=== PATIENT | female | born 1990 | race Caucasian/White ===

== ENCOUNTER → 2023-03-10 08:47 | Outpatient (BNVA) | payer OTHER, SELFPAY | PROVIDERS: PCP Family Medicine; Visit Provider Physician Assistant ==

== ENCOUNTER 2023-04-03 08:01 | Outpatient (AMB) | payer OTHER, SELFPAY ==
--- NOTE | 2023-04-03 12:13 | A.OFFVIS_ITS ---
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 HPI Details Start time: 12.19pm, End time: 12.50pm ?I spent 26 minutes speaking with the patient on the phone plus an additional 5 minutes reviewing and updating records for a total of 31 minutes HPI Comments History of Present Illness Details Previous weight loss efforts: Gym, self diets Wakes up: 7am, Sleeps: 11pm Breakfast: protein shake Lunch: 1pm (sandwich or shake) Dinner: 5pm (steak, chicken, vegetables) Snacks: protein bar (after breakfast and after lunch) Exercise: none Fluids: Coffee: 20oz (Kush Donuts), tea: rarely, soda: none, juice: none, ETOH: less than 1/week PFSH Medical History (Updated 04/03/23 @ 12:17 by Galdino Stone MD) Anxiety Bipolar 1 disorder Depression GERD (gastroesophageal reflux disease) Insomnia Morbid obesity Sciatica Sleep apnea treated with continuous positive airway pressure (CPAP) Surgical History (Updated 03/10/23 @ 09:13 by Lissette Dowling CMA) History of surgery on arm Hx of section Hx of wisdom tooth extraction Social History (Updated 03/10/23 @ 09:12 by Lissette Dowling CMA) Alcohol intake: current Alcohol intake frequency: holidays/special occasions only Patient Tobacco Use Status: Never used Tobacco Assessment & Plan Assessment & Plan (1) Morbid obesity: Code(s): E66.01 - Morbid (severe) obesity due to excess calories Plan: 1.? Plan for lap sleeve gastrectomy. If diaphragmatic or ventral hernias are present at time of surgery, these will be repaired laparoscopically as well. Risks and complications were discussed in detail including possible conversion to an open procedure, anastomotic leak, bleeding requiring transfusion, small bowel obstruction, , DVT and pulmonary embolism, cardiac, or pulmonary complications, as fdc complications such as anastomotic ulcer, insufficient weight loss and vitamin deficiencies. I emphasized the importance of close follow-up, adherence to instructions and good communication. 2. Nutritional counseling. Start with ONE plant-based organic ORGAIN protein (buy at [employer], [employer], [employer]) shakes (HALF scoop in 8oz low fat unsweetened almond milk each) at 8am-10am and one more ORGAIN shake (ONE scoop in 8oz almond milk) at 11am-1pm, 1 protein bar (Zone Perfect protein bars, buy at [employer] ?[employer], [employer], or [employer]) at 2pm-4pm, dinner at 5pm (8 forks of protein and 8 forks of salad/vegetables) and one more protein bar after dinner at 7pm- 9pm. If you feel hungry, please add another HALF protein bar at 10pm-11pm. Meal to include lean meat (beef, fish, pork, turkey, chicken), or ukrainian yogurt, or egg whites, or beans with a salad with olive oil and fruits (berries, pears, apples, kiwi). Avoid salt, breads, potatoes, rice, pasta, desserts. 3. Each shake would be drunk slowly, like coffee in a period of 2 hours. You may add your coffee into your shakes, if flavors match. 4. Cut each bar in 4 pieces and eat each piece in 30min ?to make each bar last 2 hours. 5. I emphasized the importance of measuring accurately the food portion and measure it when serving the food in plate 6. The meal portions include 8 full-size forks of meat and 8 full-size forks of salad. You always eat the meat portion but you can replace up to 4 forks for salad/vegetables with rice, potatoes or pasta, or a fruit ?if you like. The less you do it the better weight loss will be. 7. One full-size fork is what it can be scooped on the fork without falling aside and not what can be bit with the fork. Use regular forks like those you find in a typical restaurant. 8.? Please send me weight measurements as soon as possible and then once a week. Always include your diet and exercise plan. 9. Start walking outside daily, tracking calories with a goal of 300 calories per day, daily. Goal is to burn 2000 calories per week on active walking. Goal is to burn 2000 calories per week on exercise, which means either 300 calories daily, or 400 calories 5 days per week, or 500 calories 4 days per week, or 650 calories 3 days per week. 10. Alternatively purchase a stationary bike, elliptical or treadmill at home that can track calories. Let me know if you do so I can give you an exercise plan. 11.?It is important of avoiding and for at least 18 months postoperatively and has been discussed at the infosession. 12. Goal is to lose at least 1.5-2lbs per week 13. Goal to lose 10% of your weight before surgery, which is about 22lbs. Ultimate weight goal: 197lbs before surgery 14. Please follow the diet plan exactly without any change. If you don't like something about the plan or you feel hungry you need to communicate with me so I can help you revise the plan. You should not change the plan yourself. (2) Sleep apnea treated with continuous positive airway pressure (CPAP): Code(s): G47.30 - Sleep apnea, unspecified (3) GERD (gastroesophageal reflux disease): Code(s): K21.9 - Gastro-esophageal reflux disease without esophagitis Orders: Orders Vitamin B12 and Folate Today E66.01 - Morbid (severe) obesity due to excess calories, G47.30 - Sleep apnea, unspecified, K21.9 - Gastro-esophageal reflux disease without esophagitis Comprehensive Met. Panel Today E66.01 - Morbid (severe) obesity due to excess calories, G47.30 - Sleep apnea, unspecified, K21.9 - Gastro-esophageal reflux disease without esophagitis C Reactive Protein Today E66.01 - Morbid (severe) obesity due to excess calories, G47.30 - Sleep apnea, unspecified, K21.9 - Gastro-esophageal reflux disease without esophagitis Ferritin Today E66.01 - Morbid (severe) obesity due to excess calories, G47.30 - Sleep apnea, unspecified, K21.9 - Gastro-esophageal reflux disease without esophagitis Hemoglobin A1c Today E66.01 - Morbid (severe) obesity due to excess calories, G47.30 - Sleep apnea, unspecified, K21.9 - Gastro-esophageal reflux disease without esophagitis Insulin Today E66.01 - Morbid (severe) obesity due to excess calories, G47.30 - Sleep apnea, unspecified, K21.9 - Gastro-esophageal reflux disease without esophagitis IRON PROFILE Today E66.01 - Morbid (severe) obesity due to excess calories, G47.30 - Sleep apnea, unspecified, K21.9 - Gastro-esophageal reflux disease without esophagitis Lipid Panel Today E66.01 - Morbid (severe) obesity due to excess calories, G47.30 - Sleep apnea, unspecified, K21.9 - Gastro-esophageal reflux disease without esophagitis PTHI Today E66.01 - Morbid (severe) obesity due to excess calories, G47.30 - Sleep apnea, unspecified, K21.9 - Gastro-esophageal reflux disease without esophagitis TSH reflex Free T4 Today E66.01 - Morbid (severe) obesity due to excess calories, G47.30 - Sleep apnea, unspecified, K21.9 - Gastro-esophageal reflux disease without esophagitis Vitamin A Today E66.01 - Morbid (severe) obesity due to excess calories, G47.30 - Sleep apnea, unspecified, K21.9 - Gastro-esophageal reflux disease without esophagitis Vitamin B1 Today E66.01 - Morbid (severe) obesity due to excess calories, G47.30 - Sleep apnea, unspecified, K21.9 - Gastro-esophageal reflux disease without esophagitis Vitamin D 25-OH Total Today E66.01 - Morbid (severe) obesity due to excess calories, G47.30 - Sleep apnea, unspecified, K21.9 - Gastro-esophageal reflux disease without esophagitis Zinc Today E66.01 - Morbid (severe) obesity due to excess calories, G47.30 - Sleep apnea, unspecified, K21.9 - Gastro-esophageal reflux disease without esophagitis ECG 12 lead EKG Today E66.01 - Morbid (severe) obesity due to excess calories, G47.30 - Sleep apnea, unspecified, K21.9 - Gastro-esophageal reflux disease without esophagitis FL upper GI w air Today E66.01 - Morbid (severe) obesity due to excess calories, G47.30 - Sleep apnea, unspecified, K21.9 - Gastro-esophageal reflux disease without esophagitis Complete Blood Count Auto Diff Today E66.01 - Morbid (severe) obesity due to excess calories, G47.30 - Sleep apnea, unspecified, K21.9 - Gastro-esophageal reflux disease without esophagitis H Pylori Breath Test Today E66.01 - Morbid (severe) obesity due to excess calories, G47.30 - Sleep apnea, unspecified, K21.9 - Gastro-esophageal reflux disease without esophagitis US abdomen comp w elastography Today E66.01 - Morbid (severe) obesity due to excess calories, G47.30 - Sleep apnea, unspecified, K21.9 - Gastro-esophageal reflux disease without esophagitis XR chest 2V Today E66.01 - Morbid (severe) obesity due to excess calories, G47.30 - Sleep apnea, unspecified, K21.9 - Gastro-esophageal reflux disease without esophagitis Referrals Behavioral Health Referral E66.01 - Morbid (severe) obesity due to excess calories, G47.30 - Sleep apnea, unspecified, K21.9 - Gastro-esophageal reflux disease without esophagitis Nutrition/Dietitian Referral E66.01 - Morbid (severe) obesity due to excess calories, G47.30 - Sleep apnea, unspecified, K21.9 - Gastro-esophageal reflux disease without esophagitis Telehealth Telehealth Location of provider rendering services: practice address Location of patient: address on file Patient Identification confirmed using: Name, : Yes Telehealth method: voice only Patient verbally consented to treatment: Yes Patient verbally consented to billing insurance company: Yes Patient informed of any privacy concerns related to visit: Yes Minutes spent on Phone/Video with Pt.: 31 Coding Level of Care Code Tele [facility] Pt Level 3 (38472) Diagnoses Morbid obesity E66.01 Sleep apnea treated with continuous positive airway pressure (CPAP) G47.30 GERD (gastroesophageal reflux disease) K21.9 Time Spent (min) 31
[2023-04-03 12:27] VITALS: BMI 40.1
== END 2023-04-03 12:50 | disposition home or self-care (01) ==
PROVIDERS: PCP Family Medicine; Visit Provider Surgery
DX: E66.01 Morbid (severe) obesity due to excess calories (principal); Z68.41 Body mass index [BMI] 40.0-44.9, adult; G47.30 Sleep apnea, unspecified; K21.9 Gastro-esophageal reflux disease without esophagitis
CPT/HCPCS: 99203

== ENCOUNTER → 2023-04-03 08:01 | Outpatient (BNVA) | payer OTHER, SELFPAY | PROVIDERS: PCP Family Medicine; Visit Provider Surgery ==

== ENCOUNTER 2023-04-06 09:10 | Outpatient (REF) | payer OTHER, SELFPAY ==
--- NOTE | ~2023-04-06 | XR_ITS ---
EXAMINATION: XR CHEST CLINICAL INFORMATION: Morbid obesity. COMPARISON: 12/22/2016. TECHNIQUE: 2 views of the chest were obtained. FINDINGS: The cardiomediastinal silhouette is normal. There is no focal lung consolidation or pleural effusion. The bony structures and soft tissues are unremarkable. XR/XR chest 2V IMPRESSION: No active cardiopulmonary disease.
--- NOTE | 2023-04-06 09:15 | ECG_ITS ---
Test Reason : E66.01 Blood Pressure : / mmHG Vent. Rate : 089 BPM Atrial Rate : 089 BPM P-R Int : 134 ms QRS Dur : 074 ms QT Int : 376 ms P-R-T Axes : 058 059 048 degrees QTc Int : 457 ms Normal sinus rhythm Normal ECG No previous ECGs available Referred By: Galdino Stone Electronically Signed By:KIRK DC
[2023-04-06 09:30] LABS: MANUAL DIFF FLAG NO
[2023-04-06 10:05] LABS: Basophils Percent Auto 0.5 % (0-2); Eosinophils Absolute Auto 0.4 X10*3/uL (0.0-0.4); Eosinophils Percent Auto 6.6 % (0-4); Hematocrit 42.9 % (37.0-47.0); Imm Gran Abs Auto 0.03 X10*3/uL (0.00-0.03); Imm Gran Pct Auto 0.5 % (0.0-0.4); Lymphocytes Absolute Auto 1.2 X10*3/uL (1.2-4.9); Lymphocytes Percent Auto 18.5 % (20-40); Mean Corpuscular HGB Conc 32.6 g/dl (31.0-35.0); Mean Corpuscular Hemoglobin 29.2 pg (27.0-33.0); Mean Corpuscular Volume 89.4 fL (80.0-98.0); Monocytes Absolute Auto 0.4 X10*3/uL (0.1-1.2); Neutrophils Absolute Auto 4.4 x10*3/uL (2.0-8.3); Neutrophils Percent Auto 67.9 % (45-73); Platelet Count 216 X10*3/uL (160-400); Red Cell Distribution Width 12.3 % (11.0-16.0); White Blood Count 6.5 X10*3/uL (4.8-10.8)
[2023-04-06 10:27] LABS: Estimated Average Glucose 97 mg/dL
[2023-04-06 10:54] LABS: Alanine Aminotransferase 34 U/L (0-31); Albumin Level 4.3 g/dL (3.5-5.0); Alkaline Phosphatase 77 U/L (39-117); Anion Gap 12 (12-20); Aspartate Amino Transferase 20 U/L (5-31); Bilirubin Total 0.7 mg/dL (0.0-1.0); Blood Urea Nitrogen 11 mg/dL (9-16); C Reactive Protein 0.93 mg/dL (< or = 0.50); Calcium 9.3 mg/dL (8.4-10.2); Carbon Dioxide 24 mmol/L (22-29); Chloride 108 mmol/L (96-108); Cholesterol 194 mg/dL (<200); Estimated Glomerular Filt Rate > 60; Glucose Random 101 mg/dL (60-115); HDL Cholesterol 59 mg/dL (>40); Iron 86 mcg/dL (30-160); LDL Cholesterol Calculated 111 mg/dL (<100); Percent Iron Saturation 30 % (15-50); Potassium 3.8 mmol/L (3.3-5.1); Sodium 140 mmol/L (135-145); Total Iron Binding Capacity 288 mcg/dL (228-428); Total Protein 7.5 g/dL (6.5-8.0); Triglycerides 122 mg/dL (<150); Unsaturated Iron Binding 202 ug/dL
[2023-04-06 11:06] LABS: Ferritin 125 ng/mL (10-122); TSH reflex Free T4 0.41 uIU/mL (0.32-4.0); Vitamin D 25-OH Total 39.2 ng/mL (>30)
[2023-04-06 11:12] LABS: Folate 11.4 ng/mL (> or = 4.0); Vitamin B12 776 pg/mL (200-900)
[2023-04-06 15:16] LABS: Insulin 28 uU/mL (2-29)
[2023-04-07 15:33] LABS: Calcium (PTHI) 9.2 mg/dL (8.6-10.2); PTHI 74 pg/mL (16-77)
[2023-04-10 13:38] LABS: Zinc 67 mcg/dL (60-130)
[2023-04-11 14:39] LABS: Vitamin B1 10 nmol/L (8-30)
[2023-04-12 00:08] LABS: Vitamin A 47 mcg/dL (38-98)
== END 2023-04-06 09:11 | disposition home or self-care (01) ==
LOC: HO.XRAY 09:10
PROVIDERS: Visit Provider Surgery
DX: E66.01 Morbid (severe) obesity due to excess calories (principal); K21.9 Gastro-esophageal reflux disease without esophagitis; G47.30 Sleep apnea, unspecified
CPT/HCPCS: 36415; 71046; 80053; 80061; 82306; 82607; 82728; 82746; 83036; 83525; 83540; 83970; 84425; 84443; 84590; 84630; 85025; 86140; 93005

== ENCOUNTER 2023-04-27 08:42 | Outpatient (AMB) | payer OTHER, SELFPAY ==
--- NOTE | 2023-04-27 09:03 | MHC.AMNUTRGE ---
Intake VS Expanded 04/27/23 10:08 Height 5 ft 2 in Weight 202 lb BMI 36.9 Intake Visit Reasons: (OV) Initial Nutrition SWL & H. 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 Is in school now taking biology course. Just finished her online classes - took quizzes together in office as the online class platform is not working properly. Dietary counseling reduction Who buys your food self Who prepares/cooks your food self Meal frequency regular: snacks and irregular: breakfast, lunch and dinner Lifestyle Emotional Eating Reports stress, anxiety, comfort/relaxation and boredom Eating out 4 or more times/week Food frequency Dairy: daily, Fruit: several times weekly, Vegetables: several times weekly, Grains/pasta/breads/cereal (carbs): daily, Meats/poultry/fish (protein): daily (chicken, beef, minimal fish ), Meat substitutes/nuts/seeds/legumes: daily, Processed foods/meats: daily, Restaurants/fast foods: daily, Water: daily, Soda: daily, Juice: never, Coffee: daily and Sports/energy drinks: occasionally Diagnosis Nutrition problem #1 overweight/obesity As related to (etiology) #1 excess energy intake and physical inactivity As evidenced by (sign/symptom) #1 high BMI Monitoring/Goals Nutrition problem monitoring total energy intake, level of knowledge/skill, total PRO intake, total CHO intake and weight Outcome progress progressing Learning/Education Stages of change action Educational materials provided Yes Most Recent Diabetes Results: Cholesterol 194 mg/dL (<200) 04/06/23 HDL Cholesterol 59 mg/dL (>40) 04/06/23 Triglycerides 122 mg/dL (<150) 04/06/23 Creatinine 0.74 mg/dL (0.5-1.4) 04/06/23 Blood Urea Nitrogen 11 mg/dL (9-16) 04/06/23 Sodium 140 mmol/L (135-145) 04/06/23 Potassium 3.8 mmol/L (3.3-5.1) 04/06/23 Chloride 108 mmol/L (96-108) 04/06/23 Carbon Dioxide 24 mmol/L (22-29) 04/06/23 Calcium 9.3 mg/dL (8.4-10.2) 04/06/23 AST 20 U/L (5-31) 04/06/23 ALT 34 U/L (0-31) H 04/06/23 Total Protein 7.5 g/dL (6.5-8.0) 04/06/23 Albumin 4.3 g/dL (3.5-5.0) 04/06/23 [facility] Medical History (Updated 04/03/23 @ 12:17 by Galdino Stone MD) Insomnia Sciatica Bipolar 1 disorder Anxiety Depression GERD (gastroesophageal reflux disease) Sleep apnea treated with continuous positive airway pressure (CPAP) Morbid obesity Surgical History (Updated 03/10/23 @ 09:13 by Lissette Dowling CMA) Hx of wisdom tooth extraction History of surgery on arm Hx of section Social History (Updated 03/10/23 @ 09:12 by Lissette Dowling CMA) Alcohol intake: current Alcohol intake frequency: holidays/special occasions only Patient Tobacco Use Status: Never used Tobacco Assessment & Plan Assessment & Plan (1) Obesity (BMI 30-39.9): Code(s): E66.9 - Obesity, unspecified Patient Instructions: Patient is cleared from a nutrition standpoint for bariatric surgery. Educational requirements have been completed. Reviewed vitamin supplementation and commitment to protein shake for several months post surgery. Encouraged communication with office as needed Coding Level of Care Code Nutr Indiv Intake (61347) Diagnoses Obesity (BMI 30-39.9) E66.9 Time Spent (min) 45
[2023-04-27 10:08] VITALS: BMI 36.9
[2023-04-30 10:31] LABS: H Pylori Breath Test Negative (Negative)
== END 2023-04-27 09:51 | disposition home or self-care (01) ==
PROVIDERS: Surgery; PCP Family Medicine; Visit Provider Dietitian, Registered
DX: E66.9 Obesity, unspecified (principal)

== ENCOUNTER → 2023-04-27 08:42 | Outpatient (BNVA) | payer OTHER, SELFPAY | PROVIDERS: PCP Family Medicine; Visit Provider Physician Assistant Surgical | DX: E66.9 Obesity, unspecified (principal); Z68.36 Body mass index [BMI] 36.0-36.9, adult; Z11.0 Encounter for screening for intestinal infectious diseases; Z71.3 Dietary counseling and surveillance | CPT/HCPCS: 83013; 97802; 99211 ==

== ENCOUNTER 2023-05-04 08:06 | Outpatient (REF) | payer OTHER, SELFPAY ==
--- NOTE | ~2023-05-04 | FL_ITS ---
EXAMINATION: XR FLUOROSCOPY UPPER GI WITH AIR CLINICAL INFORMATION: Preop bariatric; morbid obesity; mild GERD. COMPARISON: None TECHNIQUE: Fluoroscopic air contrast upper GI examination was performed utilizing standard techniques with thin and thick barium and effervescent granules. Numerous spot images were obtained. FINDINGS: Hypopharyngeal structures appear normal without evidence of mass or diverticulum. There was mild cricopharyngeal achalasia. Dual and single contrast images of the esophagus demonstrate normal caliber, contour, and mucosal pattern. No evidence of stricture, mass, or ulcerations identified. Esophageal peristalsis was normal. A small small type I hiatus hernia. Minimal gastroesophageal reflux was seen during the course of the examination. Dual contrast and single contrast images of the stomach demonstrated normal contour and mucosal pattern without evidence of mass, ulceration, or other abnormality. Contrast freely passed into the gastric antrum and duodenal bulb without delay. Single and air-contrast images of the duodenal bulb demonstrate no abnormality. The duodenal sweep has a normal appearance, course, and mucosal fold appearance. The imaged proximal jejunum has a normal fold pattern and caliber. FLUOROSCOPY TIME: 2 minutes 53 seconds Number of Spot Images: 5 image hold cine runs; 14 spot images obtained. DOSE AREA PRODUCT: 3229 uGy-m2 (microgray-meter squared) FL/FL upper GI w air IMPRESSION: 1. Mild cricopharyngeal achalasia. 2. Suspect small sliding hiatus hernia. 3. Mild gastroesophageal reflux. 4. The esophagus, stomach, duodenal bulb, sweep, and proximal jejunum otherwise appear normal.
== END 2023-05-04 08:07 | disposition home or self-care (01) ==
LOC: HO.XRAY 08:06
PROVIDERS: PCP Family Medicine; Visit Provider Surgery
DX: E66.01 Morbid (severe) obesity due to excess calories (principal); G47.30 Sleep apnea, unspecified; K21.9 Gastro-esophageal reflux disease without esophagitis
CPT/HCPCS: 74246

== ENCOUNTER → 2023-05-04 08:06 | Outpatient (BNV) | payer OTHER, SELFPAY | PROVIDERS: PCP Family Medicine; Visit Provider Radiology Diagnostic Radiology | DX: K44.9 Diaphragmatic hernia without obstruction or gangrene (principal); K21.9 Gastro-esophageal reflux disease without esophagitis; K22.0 Achalasia of cardia; Z01.818 Encounter for other preprocedural examination | CPT/HCPCS: 74246 ==

== ENCOUNTER 2023-05-05 08:14 | Outpatient (AMB) | payer OTHER, SELFPAY ==
--- NOTE | 2023-05-05 13:39 | A.OFFVIS_ITS ---
Intake VS Expanded 05/05/23 13:49 Height 5 ft 2 in Weight 204 lb 4 oz BMI 37.4 Body Fat 97 Body Fat Percentage 47.5 Free Fat Mass 107.2 Visceral Mass 19 Water Mass 73.5 BMR 1,406 Intake Visit Reasons: TV Follow Up SWL - 1ST Allergies No Known Allergies [No Known Allergies*] Allergy (Verified 04/03/23 12:13) HPI TV Follow Up SWL - 1ST HPI Details Start time: 1.35pm, End time: 1.56pm ?I spent 16 minutes speaking with the patient on the phone plus an additional 5 minutes reviewing and updating records for a total of 21 minutes HPI Comments History of Present Illness Details Overall weight loss: 14.6 lbs, 6.67% TBWL Is doing 3 Zone Perfect protein bars 8-10, 11-1 and 2-4, meal at 5pm (8 forks of protein and 8 forks of salad or vegetables) and one Orgain (HALF scoop in almond milk). If hungry, another half protein bar. Exercise: walking outside x3/week [facility] Medical History (Updated 05/05/23 @ 13:53 by Galdino Stone MD) Insomnia Sciatica Bipolar 1 disorder Anxiety Depression GERD (gastroesophageal reflux disease) Sleep apnea treated with continuous positive airway pressure (CPAP) Morbid obesity Surgical History (Updated 03/10/23 @ 09:13 by Lissette Dowling CMA) Hx of wisdom tooth extraction History of surgery on arm Hx of section Social History (Updated 03/10/23 @ 09:12 by Lissette Dowling CMA) Alcohol intake: current Alcohol intake frequency: holidays/special occasions only Patient Tobacco Use Status: Never used Tobacco Assessment & Plan Assessment & Plan (1) Obesity: Code(s): E66.9 - Obesity, unspecified Plan: 1. Continue same nutritional plan of 3 Zone Perfect protein bars 8-10, 11-1 and 2-4, meal at 5pm (8 forks of protein and 8 forks of salad or vegetables) and one Orgain (HALF scoop in almond milk). If hungry, another half protein bar. 2. Increase walking outside daily, tracking calories with a goal of 300 calories per day, daily. Goal is to burn 2000 calories per week on exercise, which means either 300 calories daily, or 400 calories 5 days per week, or 500 calories 4 days per week, or 650 calories 3 days per week. 3. Alternatively purchase a stationary bike, elliptical or treadmill at home that can track calories. Let me know if you do so I can give you an exercise plan. 4. Continue to send weekly measurements on Tuesdays (2) BMI 37.0-37.9, adult: Code(s): Z68.37 - Body mass index [BMI] 37.0-37.9, adult Telehealth Telehealth Location of provider rendering services: practice address Location of patient: address on file Patient Identification confirmed using: Name, : Yes Telehealth method: voice only Patient verbally consented to treatment: Yes Patient verbally consented to billing insurance company: Yes Patient informed of any privacy concerns related to visit: Yes Minutes spent on Phone/Video with Pt.: 21 Coding Level of Care Code Tele Est Pt Level 3 (28856) Diagnoses Obesity E66.9 BMI 37.0-37.9, adult Z68.37 Time Spent (min) 21
[2023-05-05 13:49] VITALS: BMI 37.4
== END 2023-05-05 13:57 | disposition home or self-care (01) ==
LOC: HO.HBS 08:14
PROVIDERS: PCP Family Medicine; Visit Provider Surgery
DX: E66.9 Obesity, unspecified (principal); Z68.37 Body mass index [BMI] 37.0-37.9, adult
CPT/HCPCS: 99213

== ENCOUNTER → 2023-05-05 08:14 | Outpatient (BNVA) | payer OTHER, SELFPAY | PROVIDERS: PCP Family Medicine; Visit Provider Surgery ==

== ENCOUNTER 2023-05-10 07:52 | Outpatient (REF) | payer OTHER, SELFPAY ==
--- NOTE | ~2023-05-10 | US_ITS ---
EXAMINATION: US COMPLETE ABDOMEN WITH LIVER ELASTOGRAPHY CLINICAL INFORMATION: Obesity COMPARISON: None available. TECHNIQUE: Real-time imaging of the abdominal viscera. Noninvasive ultrasound liver fibrosis assessment is performed using Sumit ElastPQ point quantification shear wave elastography (2D-SWE) with a C5-2 MHz transducer. Multiple elastography samples are obtained. FINDINGS: PANCREAS: Not well visualized due to overlying bowel gas. ABDOMINAL AORTA: The proximal, middle, and distal aortic segments are normal in caliber. INFERIOR VENA CAVA: Visualized portions are normal. LIVER: Normal. The liver demonstrates normal size, contour and echogenicity. No focal lesion or intrahepatic biliary duct dilatation. The right lobe measures 17 cm in length. The left lobe measures 12 cm in length. Portal flow is normal/hepatopedal Shear wave liver elastography median stiffness is 1.2 m/s (reference: normal median stiffness is 1.3 m/s or less). IQR/median stiffness to assess sampling precision is 0.03 (reference: good quality data set is IQR/median stiffness of 0.15 or less). GALLBLADDER: Gallstones. The gallbladder is otherwise normal. COMMON BILE DUCT: Normal in caliber measuring 0.5 cm in diameter. RIGHT KIDNEY: Normal. No hydronephrosis. No renal calculi or focal parenchymal lesions. The kidney measures 11 cm in maximum dimension. LEFT KIDNEY: Normal. No hydronephrosis. No renal calculi or focal parenchymal lesions. The kidney measures 11 cm in maximum dimension. SPLEEN: Normal. The spleen measures 10 cm in maximum dimension. FREE FLUID: None. US/US abdomen comp w elastography IMPRESSION: 1. Impression: Normal-appearing liver. Gallstones. Limited visualization of the pancreas. 2. Liver elastography: Adequate liver sampling. Normal liver stiffness. REFERENCE: Society of Radiologists in Ultrasound Liver Stiffness Thresholds (2020): LIVER STIFFNESS THRESHOLDS: *Liver Stiffness equal or less than 1.3 m/s: High probability of being normal. *Liver Stiffness less than 1.7 m/s: In the absence of other known clinical signs, rules out compensated advanced chronic liver disease. *Liver Stiffness 1.7-2.1 m/s: Suggestive of compensated advanced chronic liver disease but need further test for confirmation. *Liver Stiffness over 2.1 m/s: Rules in compensated advanced chronic liver disease. *Liver Stiffness over 2.4 m/s: Suggestive of clinically significant portal hypertension. QUALITY OF DATA SET: *IQR/Median value equal or less than 0.15 implies a quality data set. *IQR/Median value over 0.15 implies a poor quality data set. SIGNIFICANT CHANGE FROM PRIOR EXAM: Significant change if liver stiffness measurement is 10% or greater from prior exam. OTHER CONSIDERATIONS: The stage of liver fibrosis may be overestimated in the setting of acute hepatitis, liver inflammation, elevated liver function tests, hepatic vascular congestion, obstructive cholestasis, non-fasting state, and infiltrative diseases such as amyloidosis and lymphoma. In some patients with NAFLD, the liver stiffness thresholds for compensated advanced chronic liver disease may be lower. In causes other than viral hepatitis and NAFLD, liver stiffness thresholds are not well established.
== END 2023-05-10 07:53 | disposition home or self-care (01) ==
LOC: HO.US 07:52
PROVIDERS: Visit Provider Surgery
DX: E66.01 Morbid (severe) obesity due to excess calories (principal); K21.9 Gastro-esophageal reflux disease without esophagitis; G47.30 Sleep apnea, unspecified
CPT/HCPCS: 76705; 76981

== ENCOUNTER 2023-05-25 10:35 | Outpatient (AMB) | payer OTHER, SELFPAY ==
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
== END 2023-05-25 12:53 | disposition home or self-care (01) ==
LOC: HO.HBST 10:35
PROVIDERS: PCP Family Medicine; Visit Provider Counselor Mental Health
DX: F31.9 Bipolar disorder, unspecified (principal); E66.01 Morbid (severe) obesity due to excess calories; Z68.36 Body mass index [BMI] 36.0-36.9, adult
CPT/HCPCS: 90832

== ENCOUNTER → 2023-05-25 10:35 | Outpatient (BNVA) | payer OTHER, SELFPAY | PROVIDERS: PCP Family Medicine; Visit Provider Counselor Mental Health ==

== ENCOUNTER 2023-05-31 08:06 | Outpatient (AMB) | payer OTHER, SELFPAY ==
--- NOTE | 2023-05-31 09:23 | MHC.OFFVISWM ---
Intake VS Expanded 05/31/23 09:36 Height 5 ft 2 in Weight 200 lb 6 oz BMI 36.6 Body Fat % 46.5 Body Fat Mass 93.2 Fat Free Mass 107.4 Visceral Fat Rating 19 Body Water % 36.7 Body Water Mass 73.6 Basal Metabolic Rate/Score 1,421 Intake Visit Reasons: TV Follow Up SWL Allergies No Known Allergies [No Known Allergies*] Allergy (Verified 04/03/23 12:13) HPI TV Follow Up SWL HPI Details Start time: 9.23am, End time: 9.43am ?I spent 15 minutes speaking with the patient on the phone plus an additional 5 minutes reviewing and updating records for a total of 20 minutes HPI Comments History of Present Illness Details Overall weight loss: 18.4lbs, or 8.4% TBWL Is doing 3 Zone Perfect protein bars and one meal (8 forks of protein and 8 forks of salad or vegetables) and one Orgain (1/2 scoop in almond milk) protein shake Exercise: walking outside but now she will be going to the Gym [facility] Medical History (Updated 05/31/23 @ 09:39 by Galdino Stone MD) Insomnia Sciatica Bipolar 1 disorder Anxiety Depression GERD (gastroesophageal reflux disease) Sleep apnea treated with continuous positive airway pressure (CPAP) Morbid obesity Surgical History (Updated 03/10/23 @ 09:13 by Lissette Dowling CMA) Hx of wisdom tooth extraction History of surgery on arm Hx of section Social History (Updated 03/10/23 @ 09:12 by Lissette Dowling CMA) Alcohol intake: current Alcohol intake frequency: holidays/special occasions only Patient Tobacco Use Status: Never used Tobacco Assessment & Plan Assessment & Plan (1) Obesity: Code(s): E66.9 - Obesity, unspecified Plan: 1. Continue same nutritional plan of 3 Zone Perfect protein bars and one meal (8 forks of protein and 8 forks of salad or vegetables) and one Orgain (1/2 scoop in almond milk) protein shake 2. Start treadmill with an incline of 4.0 and speed of 3.0. Increase incline by 1 every 3 min to a max incline of 10.0, stay 3min at 10.0 and then return to 4.0 and repeat same steps until calorie goal is met. Goal is to burn 2000 calories per week on exercise, which means either 300 calories daily, or 400 calories 5 days per week, or 500 calories 4 days per week, or 650 calories 3 days per week. 3. Continue to send me weight measurements weekly on Fridays (2) BMI 36.0-36.9,adult: Code(s): Z68.36 - Body mass index [BMI] 36.0-36.9, adult Telehealth Telehealth Location of provider rendering services: practice address Location of patient: address on file Patient Identification confirmed using: Name, : Yes Telehealth method: voice only Patient verbally consented to treatment: Yes Patient verbally consented to billing insurance company: Yes Patient informed of any privacy concerns related to visit: Yes Minutes spent on Phone/Video with Pt.: 20 Coding Level of Care Code Tele Est Pt Level 3 (64761) Diagnoses Obesity E66.9 BMI 36.0-36.9,adult Z68.36 Time Spent (min) 20
[2023-05-31 09:36] VITALS: BMI 36.6
== END 2023-05-31 09:43 | disposition home or self-care (01) ==
PROVIDERS: PCP Family Medicine; Visit Provider Surgery
DX: E66.9 Obesity, unspecified (principal); Z68.36 Body mass index [BMI] 36.0-36.9, adult
CPT/HCPCS: 99213

== ENCOUNTER → 2023-05-31 08:06 | Outpatient (BNVA) | payer OTHER, SELFPAY | PROVIDERS: PCP Family Medicine; Visit Provider Surgery ==

== ENCOUNTER 2023-06-12 12:49 | Outpatient (AMB) | payer OTHER, SELFPAY ==
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
== END 2023-06-12 12:51 | disposition home or self-care (01) ==
LOC: HO.HBST 12:49
PROVIDERS: PCP Family Medicine; Visit Provider Counselor Mental Health
DX: F31.9 Bipolar disorder, unspecified (principal); E66.01 Morbid (severe) obesity due to excess calories; Z68.36 Body mass index [BMI] 36.0-36.9, adult
CPT/HCPCS: 90832

== ENCOUNTER → 2023-06-12 12:49 | Outpatient (BNVA) | payer OTHER, SELFPAY | PROVIDERS: PCP Family Medicine; Visit Provider Counselor Mental Health ==

== ENCOUNTER 2023-06-28 08:11 | Outpatient (AMB) | payer OTHER, SELFPAY ==
--- NOTE | 2023-06-28 09:11 | MHC.OFFVISWM ---
Intake VS Expanded 06/28/23 09:23 Height 5 ft 2 in Weight 199 lb BMI 36.4 Body Fat % 46.2 Body Fat Mass 91.9 Fat Free Mass 107.6 Visceral Fat Rating 18 Body Water % 36.9 Body Water Mass 73.4 Basal Metabolic Rate/Score 1,413 Intake Visit Reasons: TV Follow Up SWL Allergies No Known Allergies [No Known Allergies*] Allergy (Verified 04/03/23 12:13) HPI TV Follow Up SWL HPI Details Start time: 9.10am, End time: 9.30am ?I spent 15 minutes speaking with the patient on the phone plus an additional 5 minutes reviewing and updating records for a total of 20 minutes HPI Comments History of Present Illness Details Overall weight loss: 20lbs, or 9.13% TBWL Is doing one Orgain protein shake (1/2 scoop in almond milk), 3 Zone Perfect protein bars and one meal (8 forks of protein and 8 forks of salad or vegetables). Sometimes another half bar after dinner Exercise: Gym x3/wk doing treadmill for 350 calories PFSH Medical History (Updated 05/31/23 @ 09:39 by Galdino Stone MD) Insomnia Sciatica Bipolar 1 disorder Anxiety Depression GERD (gastroesophageal reflux disease) Sleep apnea treated with continuous positive airway pressure (CPAP) Morbid obesity Surgical History (Updated 03/10/23 @ 09:13 by Lissette Dowling CMA) Hx of wisdom tooth extraction History of surgery on arm Hx of section Social History (Updated 03/10/23 @ 09:12 by Lissette Dowling CMA) Alcohol intake: current Alcohol intake frequency: holidays/special occasions only Patient Tobacco Use Status: Never used Tobacco Assessment & Plan Assessment & Plan (1) Obesity: Code(s): E66.9 - Obesity, unspecified Plan: 1. Plan for lap sleeve gastrectomy including upper GI endoscopy. All tests has been completed and reviewed and the patient is cleared for the surgery. ?If diaphragmatic or ventral hernias are present at time of surgery, these will be repaired laparoscopically as well. Risks and complications were discussed in detail including possible conversion to an open procedure, anastomotic leak, bleeding requiring transfusion, small bowel obstruction, , DVT and pulmonary embolism, cardiac, or pulmonary complications, as [facility] complications such as anastomotic ulcer, insufficient weight loss and vitamin deficiencies. I emphasized the importance of close follow-up, adherence to instructions and good communication. So far she has proven to be an excellent communicator and very compliant with all our directions accomplishing a great weight loss. I believe that she is an excellent candidate and she is ready. 2. Continue same nutritional plan of one Orgain protein shake (1/2 scoop in almond milk), 3 Zone Perfect protein bars and one meal (8 forks of protein and 8 forks of salad or vegetables). 3. Try to avoid the half bar in the evening 4. Exercise: change treadmill with an incline of 2.0 and speed of 3.0. Increase incline by 1 every 3 min to a max incline of 8.0, stay 3min at 8.0 and then return to 2.0 and repeat same steps until calorie goal is met. Goal is to burn 2000 calories per week on exercise, which means either 300 calories daily, or 400 calories 5 days per week, or 500 calories 4 days per week, or 650 calories 3 days per week. 5. Continue to send weight measurements weekly on Fridays (2) BMI 36.0-36.9,adult: Code(s): Z68.36 - Body mass index [BMI] 36.0-36.9, adult Telehealth Telehealth Location of provider rendering services: practice address Location of patient: address on file Patient Identification confirmed using: Name, : Yes Telehealth method: voice only Patient verbally consented to treatment: Yes Patient verbally consented to billing insurance company: Yes Patient informed of any privacy concerns related to visit: Yes Minutes spent on Phone/Video with Pt.: 20 Coding Level of Care Code Tele Est Pt Level 3 (14145) Diagnoses Obesity E66.9 BMI 36.0-36.9,adult Z68.36 Time Spent (min) 20
[2023-06-28 09:23] VITALS: BMI 36.4
== END 2023-06-28 09:30 | disposition home or self-care (01) ==
LOC: HO.HBS 08:11
PROVIDERS: PCP Family Medicine; Visit Provider Surgery
DX: E66.9 Obesity, unspecified (principal); Z68.36 Body mass index [BMI] 36.0-36.9, adult
CPT/HCPCS: 99213

== ENCOUNTER → 2023-06-28 08:11 | Outpatient (BNVA) | payer OTHER, SELFPAY | PROVIDERS: PCP Family Medicine; Visit Provider Surgery ==

== ENCOUNTER 2023-07-10 08:19 | Outpatient (REF) | payer OTHER, SELFPAY ==
[2023-07-10 08:33] LABS: MANUAL DIFF FLAG NO
[2023-07-10 08:41] LABS: Basophils Absolute Auto 0.1 X10*3/uL (0.0-0.2); Basophils Percent Auto 0.6 % (0-2); Eosinophils Absolute Auto 0.5 X10*3/uL (0.0-0.4); Eosinophils Percent Auto 5.8 % (0-4); Hemoglobin 14.1 g/dl (12.0-16.0); Imm Gran Abs Auto 0.03 X10*3/uL (0.00-0.03); Imm Gran Pct Auto 0.4 % (0.0-0.4); Lymphocytes Absolute Auto 1.7 X10*3/uL (1.2-4.9); Lymphocytes Percent Auto 21.9 % (20-40); Mean Corpuscular HGB Conc 33.6 g/dl (31.0-35.0); Mean Corpuscular Hemoglobin 29.8 pg (27.0-33.0); Mean Corpuscular Volume 88.8 fL (80.0-98.0); Mean Platelet Volume 10.5 fL (9.4-12.3); Monocytes Absolute Auto 0.5 X10*3/uL (0.1-1.2); Monocytes Percent Auto 6.1 % (2-11); Neutrophils Percent Auto 65.2 % (45-73); Platelet Count 231 X10*3/uL (160-400); Red Blood Count 4.73 X10*6/uL (4.20-5.50); White Blood Count 7.7 X10*3/uL (4.8-10.8)
[2023-07-10 08:48] LABS: Estimated Average Glucose 97 mg/dL
[2023-07-10 08:49] LABS: INTERNATIONAL NORM RATIO 0.9 (0.9-1.1); Prothrombin Time 11.4 SEC (11.1-13.3)
[2023-07-10 08:52] LABS: Partial Thromboplastin Time 29.6 SEC (26.0-36.4)
[2023-07-10 10:45] LABS: Alanine Aminotransferase 26 U/L (0-31); Albumin Level 4.4 g/dL (3.5-5.0); Alkaline Phosphatase 68 U/L (39-117); Anion Gap 12 (12-20); Aspartate Amino Transferase 18 U/L (5-31); Bilirubin Total 0.9 mg/dL (0.0-1.0); Blood Urea Nitrogen 9 mg/dL (9-16); C Reactive Protein 0.65 mg/dL (< or = 0.50); Calcium 9.4 mg/dL (8.4-10.2); Carbon Dioxide 28 mmol/L (22-29); Chloride 103 mmol/L (96-108); Cholesterol 182 mg/dL (<200); Estimated Glomerular Filt Rate > 60; Glucose Random 91 mg/dL (60-115); HDL Cholesterol 50 mg/dL (>40); LDL Cholesterol Calculated 104 mg/dL (<100); Potassium 4.1 mmol/L (3.3-5.1); Sodium 139 mmol/L (135-145); Total Protein 7.4 g/dL (6.5-8.0); Triglycerides 144 mg/dL (<150)
[2023-07-10 10:55] LABS: Insulin 12 uU/mL (2-29); TSH reflex Free T4 0.89 uIU/mL (0.32-4.0)
== END 2023-07-10 08:20 | disposition home or self-care (01) ==
LOC: HO.LAB 08:19
PROVIDERS: PCP Nurse Practitioner Family; Visit Provider Surgery
DX: E66.9 Obesity, unspecified (principal)
CPT/HCPCS: 36415; 80053; 80061; 83036; 83525; 84443; 85025; 85610; 85730; 86140; 86850; 86900; 86901

== ENCOUNTER 2023-07-20 10:29 | Outpatient (AMB) | payer OTHER, SELFPAY ==
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
== END 2023-07-20 10:35 | disposition home or self-care (01) ==
LOC: HO.HBST 10:29
PROVIDERS: PCP Nurse Practitioner Family; Visit Provider Counselor Mental Health
DX: F31.9 Bipolar disorder, unspecified (principal); E66.01 Morbid (severe) obesity due to excess calories
CPT/HCPCS: 90834

== ENCOUNTER → 2023-07-20 10:29 | Outpatient (BNVA) | payer OTHER, SELFPAY | PROVIDERS: PCP Nurse Practitioner Family; Visit Provider Counselor Mental Health ==

== ENCOUNTER 2023-08-16 08:12 | Outpatient (AMB) | payer OTHER, SELFPAY ==
--- NOTE | 2023-08-16 09:24 | MHC.OFFVISWM ---
Intake VS Expanded 08/16/23 09:26 Height 5 ft 2 in Weight 198 lb 4 oz BMI 36.3 Body Fat % 45.8 Body Fat Mass 90.8 Fat Free Mass 107.6 Visceral Fat Rating 18 Body Water % 37.2 Body Water Mass 73.8 Basal Metabolic Rate/Score 1,406 Intake Visit Reasons: TV Pre Op LSG 08/23/23 Allergies mold Allergy (Verified 08/16/23 09:31) Unknown tree and shrub pollen Allergy (Verified 08/16/23 09:31) Unknown Medication List - Last Reconciled 08/16/23 by Galdino Stone MD clonidine HCl 0.1 mg PO TID docusate sodium (Colace) 100 mg PO DAILY epinephrine IM DIRECTED escitalopram oxalate 20 mg PO DAILY lamotrigine (Lamictal) 200 mg PO DAILY ondansetron 4 mg PO Q12H pantoprazole 40 mg PO DAILY pantoprazole 20 mg PO DAILY polyethylene glycol 3350 (Miralax) 17 grams PO DAILY sucralfate 10 mL PO BID trazodone 50 mg PO BEDTIME HPI TV Pre Op LSG 08/23/23 HPI Details Start time: 9.19am, End time: 9.39am ?I spent 15 minutes speaking with the patient on the phone plus an additional 5 minutes reviewing and updating records for a total of 20 minutes HPI Comments History of Present Illness Details Overall weight loss: 20.6lbs, or 9.41% TBWL Is doing one Orgain shake (1/2 scoop in almond milk), 3.5 Zone Perfect protein bars and one meal (8 forks each) Exercise: treadmill 3/week for 330 calories PFSH Medical History (Updated 08/16/23 @ 09:35 by Galdino Stone MD) IUD (intrauterine device) in place Environmental allergies Insomnia Sciatica Bipolar 1 disorder Anxiety Depression GERD (gastroesophageal reflux disease) Sleep apnea treated with continuous positive airway pressure (CPAP) Morbid obesity Surgical History (Updated 07/10/23 @ 15:24 by Chasity Martinez RN) Hx of wisdom tooth extraction History of surgery on arm Hx of section Social History (Updated 03/10/23 @ 09:12 by Lissette Dowling CMA) Are you a primary respite care provider to a significant other at home: Yes (children, family to assist post-op) Do you presently have visiting nurse or other home services: No Alcohol intake: current Alcohol intake frequency: holidays/special occasions only Patient Tobacco Use Status: Never used Tobacco Assessment & Plan Assessment & Plan (1) Obesity: Code(s): E66.9 - Obesity, unspecified Qualifiers: Obesity type: due to excess calories Obesity classification: adult class 2 (BMI 35 - 39.9) Serious obesity comorbidity presence: with serious comorbidity Body mass index: BMI 36.0-36.9 Qualified Code(s): E66.01 - Morbid (severe) obesity due to excess calories; Z68.36 - Body mass index [BMI] 36.0-36.9, adult Plan: 1. Plan for lap sleeve gastrectomy including upper GI endoscopy. All tests has been completed and reviewed and the patient is cleared for the surgery. ?If diaphragmatic or ventral hernias are present at time of surgery, these will be repaired laparoscopically as well. Risks and complications were discussed in detail including possible conversion to an open procedure, anastomotic leak, bleeding requiring transfusion, small bowel obstruction, , DVT and pulmonary embolism, cardiac, or pulmonary complications, as termite renewal inspector complications such as anastomotic ulcer, insufficient weight loss and vitamin deficiencies. I emphasized the importance of close follow-up, adherence to instructions and good communication. So far she has proven to be an excellent communicator and very compliant with all our directions accomplishing a great weight loss. I believe that she is an excellent candidate and she is ready. 2. Preop prescriptions were provided and explained the purpose of each one. Need to be purchased preop. Start Pantoprazole now as you get it from the pharmacy, 1 pill per day. Sucralfate and Zofran are for after surgery as needed. 3. Bowel prep: please do 7 packets ?of Miralax mixing each one with a an 8oz glass of water, crystal light, gatorade zero, or propel ?on 08/21/23 and the same amount on 08/22/23. Continue the protein shakes during? the bowel prep. 4. Needs to purchase 1oz medicine cups . 5. Needs to purchase Children's liquid Tylenol for postop pain control. 6. Avoid aspirin, motrin, Advil, Aleve, Ibuprofen, Naproxyn. Tylenol is OK. 7. She needs to purchase the Celebrate 4:1 protein shakes from the hospital's gift shop. 8. Will do basic preop blood work-up any day between 08/17/23 and Monday08/18/23 fasting for 12 hours and is scheduled to see the Anesthesiologist prior to the day of surgery. 9. Importance of adherence to postop folllow-up and recommendations was underscored and she understands that. 10. Stop food and bars as of TODAY 08/16/23 and continue with 3 Orgain protein shakes (ONE scoop EACH in 8oz almond milk) at 8am-10am, 11am-1pm and 2pm-4pm and TWO more Orgain protein shakes with TWO scoops EACH in 8oz of almond milk at 5pm-7pm and 8pm-10pm 11. No soups, broths or V8 12. The patient's?medical?history has been reviewed and they are considered low risk for post op DVT and therefore DVT prophylaxis is not considered necessary. Travel after surgery was reviewed. The patient has not disclosed any travel plans during the first 30 days after surgery and they have been advised that within the first 30 days after surgery any bus, plane, train or car travel over 2 hours in duration is contraindicated due to the possibility of developing blood clots from immobility. Any travel, needs to include periods of ambulation of 10 minutes in duration every 2 hours.? Patient was instructed to discuss any plans for travel during this period with their bariatric surgeon.? 13. Use your CPAP daily and bring it to the hospital with your mask 14. Please take at the day of surgery the following medications: NONE 15. Stop any control pills and don't use them for one month after surgery 16. Absolutely no smoking or vaping, or marijuana until the surgery and for at least the first 4 weeks. Only nicotine patches are allowed. 17. Send me weight measurements on and then on the day of surgery before you go to the hospital. 19. Avoid any steroids by mouth for any reason. Let me know if someone prescribes them to you 19. These instructions supersede anything else you read in the handbook, anything you watched in videos or classes or you were told by any other provider. If there is any conflict, you follow the above instructions and nothing else. Orders: Orders Lipid Panel Today E66.9 - Obesity, unspecified Complete Blood Count Auto Diff Today E66.9 - Obesity, unspecified Comprehensive Met. Panel Today E66.9 - Obesity, unspecified TSH reflex Free T4 Today E66.9 - Obesity, unspecified Prothrombin Time INR Today E66.9 - Obesity, unspecified Type and Screen Today E66.9 - Obesity, unspecified Partial Thromboplastin Time Today E66.9 - Obesity, unspecified C Reactive Protein Today E66.9 - Obesity, unspecified Hemoglobin A1c Today E66.9 - Obesity, unspecified Insulin Today E66.9 - Obesity, unspecified Telehealth Telehealth Location of provider rendering services: practice address Location of patient: address on file Patient Identification confirmed using: Name, : Yes Telehealth method: voice only Patient verbally consented to treatment: Yes Patient verbally consented to billing insurance company: Yes Patient informed of any privacy concerns related to visit: Yes Minutes spent on Phone/Video with Pt.: 20 Coding Level of Care Code Tele Est Pt Level 3 (29435) Diagnoses Class 2 severe obesity due to excess calories with serious comorbidity and body mass index (BMI) of 36.0 to 36.9 in adult E66.01; Z68.36 Obesity type: due to excess calories Obesity classification: adult class 2 (BMI 35 - 39.9) Serious obesity comorbidity presence: with serious comorbidity Body mass index: BMI 36.0-36.9 Time Spent (min) 20
[2023-08-16 09:26] VITALS: BMI 36.3
== END 2023-08-16 09:39 | disposition home or self-care (01) ==
LOC: HO.HBS 08:12
PROVIDERS: PCP Nurse Practitioner Family; Visit Provider Surgery
DX: E66.01 Morbid (severe) obesity due to excess calories (principal); Z68.36 Body mass index [BMI] 36.0-36.9, adult
CPT/HCPCS: 99213

== ENCOUNTER → 2023-08-16 08:12 | Outpatient (BNVA) | payer OTHER, SELFPAY | PROVIDERS: PCP Nurse Practitioner Family; Visit Provider Surgery ==

== ENCOUNTER → 2023-08-23 06:00 | Outpatient (BNV) | payer OTHER, SELFPAY | PROVIDERS: PCP Nurse Practitioner Family; Visit Provider Surgery | DX: E66.9 Obesity, unspecified (principal); Z68.37 Body mass index [BMI] 37.0-37.9, adult | CPT/HCPCS: 43659; 43775; 99024 ==

== ENCOUNTER 2023-08-23 12:28 | Inpatient (IN) | payer OTHER, SELFPAY ==
[2023-07-10 15:26] VITALS: BMI 35.9
--- NOTE | 2023-08-19 00:01 | MHC.SHP ---
Pre-Procedural Eval Section A Date of Service: 08/19/23 The patient is an INPATIENT: No The History & Physical has been completed within 30 days and I have reviewed it.: Yes Section B Chief Complaint: Obesity, unspecified Relevant Family History (Specify if Yes): No Relevant Social History: None Present Medications: None Medical History: No relevant PMH History of Previous Operations: No relevant previous surgery Allergies: Allergies Allergy/AdvReac Type Severity Reaction Status Date / Time mold Allergy Unknown Verified 08/16/23 09:31 tree and shrub pollen Allergy Unknown Verified 08/16/23 09:31 Review of Systems Sugical H&P ROS: Negative: Constitution, Cardiovascular, Respiratory, Neurological, Psychiatric, Hem-Onc, Allergic/Immunologic, Gastrointestinal, Genitourinary, Musculoskeletal, Integumentary, Endocrine and Eyes/Ears/Nose/Throat Exam Surgical H&P Exam: Normal: HEENT, Normal: Heart, Normal: Lungs, Normal: Extremities, Normal: Abdomen, Normal: Skin and Normal: Neurological Plan Diagnosis/Plan: Unchanged I have reviewed the history and physical and performed a pertinent physical examination on my patient. No changes have occurred unless specified. Time Spent With Patient Time: Total time managing care of this patient today ____ minutes.
[2023-08-21 11:27] LABS: Alanine Aminotransferase 26 U/L (0-31); Albumin Level 4.6 g/dL (3.5-5.0); Alkaline Phosphatase 75 U/L (39-117); Anion Gap 14 (12-20); Aspartate Amino Transferase 20 U/L (5-31); Bilirubin Total 0.7 mg/dL (0.0-1.0); Blood Urea Nitrogen 8 mg/dL (9-16); C Reactive Protein 0.86 mg/dL (< or = 0.50); Calcium 9.2 mg/dL (8.4-10.2); Carbon Dioxide 26 mmol/L (22-29); Chloride 103 mmol/L (96-108); Cholesterol 199 mg/dL (<200); Creatinine Clr Calc Pharmacy 113.1; Estimated Glomerular Filt Rate > 60; Glucose Random 89 mg/dL (60-115); HDL Cholesterol 59 mg/dL (>40); LDL Cholesterol Calculated 122 mg/dL (<100); Sodium 139 mmol/L (135-145); Total Protein 7.9 g/dL (6.5-8.0); Triglycerides 90 mg/dL (<150)
[2023-08-21 11:34] LABS: Insulin 17 uU/mL (2-29); TSH reflex Free T4 0.31 uIU/mL (0.32-4.0)
[2023-08-21 15:06] LABS: Free T4 (Free Thyroxine) 1.01 ng/dL (0.71-1.85)
--- NOTE | 2023-08-22 10:07 | HO.ANESPROP2 ---
Documented by User: Rocio Arita NP 08/22/23 10:08 HPI - Anesthesia Eval Consult details Narrative: 32yo F for Gastrectomy Sleeve-EGD, possible diaphragmatic hernia, possible ventral hernia, possible open PMFSH Active Problems Active Problems: All Active Problems (Updated 08/16/23 @ 09:35 by Galdino Stone MD) BMI 36.0-36.9,adult (Acute) Constipation (Acute) BMI 37.0-37.9, adult (Acute) Obesity (Acute) Insomnia (Acute) Sciatica (Acute) Bipolar 1 disorder (Acute) Anxiety (Acute) Depression (Acute) GERD (gastroesophageal reflux disease) (Acute) Sleep apnea treated with continuous positive airway pressure (CPAP) (Acute) Morbid obesity (Acute) Past Medical History Medical History IUD (intrauterine device) in place Environmental allergies Insomnia Sciatica Bipolar 1 disorder Anxiety Depression GERD (gastroesophageal reflux disease) Sleep apnea treated with continuous positive airway pressure (CPAP) Morbid obesity Surgical History Surgical History Hx of wisdom tooth extraction History of surgery on arm Hx of section Social History Social History Are you a primary day care home provider to a significant other at home: Yes (children, family to assist post-op) Do you presently have visiting nurse or other home services: No Alcohol intake: current Alcohol intake frequency: holidays/special occasions only Patient Tobacco Use Status: Never used Tobacco Use of substances other than those prescribed or required for medical reasons: No Have you been hit, kicked, punched, or otherwise hurt by someone within the past year? If so, by whom?: No Are you DNR?: No Advance Directives: No Advance Directives Information Provided: Yes Advance Directives on File: No Recently lost weight without trying: No Nutrition Risks: No Nutritional Risk Patient : No FDLMP: 06/14/2023 : No Poor oral hygiene: No Meds Allergies Allergy/AdvReac Type Severity Reaction Status Date / Time mold Allergy Unknown Verified 08/23/23 06:51 tree and shrub pollen Allergy Unknown Verified 08/23/23 06:51 Home Medications Medication Instructions Recorded Confirmed Last Taken Type clonidine HCl 0.1 mg tablet 0.1 mg PO TID 03/10/23 08/23/23 08/17/23 History epinephrine 0.3 mg/0.3 mL IM DIRECTED anaphylaxis 03/10/23 08/16/23 Unknown History injection, auto-injector escitalopram oxalate 20 mg tablet 20 mg PO DAILY 03/10/23 08/23/23 08/23/23 History lamotrigine 200 mg tablet 200 mg PO DAILY 03/10/23 08/23/23 08/23/23 History (Lamictal) pantoprazole 20 mg tablet,delayed 20 mg PO DAILY 03/10/23 08/16/23 Unknown History release trazodone 50 mg tablet 50 mg PO BEDTIME 03/10/23 08/23/23 08/23/23 History Exam Height,Weight and Vital Signs: Height 5 ft 2 in Weight 89.018 kg Pertinent Lab Results Pertinent Lab Results: Laboratory Tests 07/10/23 08/21/23 08/21/23 08:30 09:57 10:03 WBC 7.8 RBC 5.05 Hgb 14.9 Hct 45.0 MCV 89.1 MCH 29.5 MCHC 33.1 RDW 12.6 Plt Count 247 MPV 10.5 Immature Gran % (Auto) 0.5 H Neut % (Auto) 77.1 H Lymph % (Auto) 13.8 L [place] % (Auto) 4.9 Eos % (Auto) 3.1 Baso % (Auto) 0.6 Lymph # (Auto) 1.1 L [place] # (Auto) 0.4 Eos # (Auto) 0.2 Baso # (Auto) 0.1 Abs Immat Gran (auto) 0.04 H Absolute Neuts (auto) 6.0 Absolute Nucleated RBC 0.000 Nucleated RBC % (auto) 0.0 PT 12.0 INR 1.0 APTT 28.8 Sodium 139 Potassium 4.0 Chloride 103 Carbon Dioxide 26 Anion Gap 14 BUN 8 L Creatinine 0.74 Estim Creat Clear Calc 113.1 Estimated GFR > 60 Random Glucose 89 Estimat Average Glucose 97 Hemoglobin A1c % 5.0 Insulin Level 17 Calcium 9.2 Total Bilirubin 0.7 AST 20 ALT 26 Alkaline Phosphatase 75 C-Reactive Protein 0.86 H Total Protein 7.9 Albumin 4.6 Triglycerides 90 Cholesterol 199 LDL Cholesterol, Calc 122 H HDL Cholesterol 59 TSH 0.31 L Free T4 1.01 Blood Type A Positive A Positive Antibody Screen NEGATIVE NEGATIVE Narrative Narrative: EKG 03/2023 Vent. Rate : 089 BPM Atrial Rate : 089 BPM P-R Int : 134 ms QRS Dur : 074 ms QT Int : 376 ms P-R-T Axes : 058 059 048 degrees QTc Int : 457 ms Normal sinus rhythm Normal ECG No previous ECGs available Assessment and Plan Assessment Anesthesia Assessment: Chart Reviewed Documented by User: Sharan Palacios MD 08/23/23 09:52 [facility] Past Medical History Medical History IUD (intrauterine device) in place Environmental allergies Insomnia Sciatica Bipolar 1 disorder Anxiety Depression GERD (gastroesophageal reflux disease) Sleep apnea treated with continuous positive airway pressure (CPAP) Morbid obesity Family History Family history of problems with anesthesia: No Surgical History Surgical History Hx of wisdom tooth extraction History of surgery on arm Hx of section History of Problems with Anesthesia: No Social History Social History Are you a primary day care home provider to a significant other at home: Yes (children, family to assist post-op) Do you presently have visiting nurse or other home services: No Alcohol intake: current Alcohol intake frequency: holidays/special occasions only Patient Tobacco Use Status: Never used Tobacco Use of substances other than those prescribed or required for medical reasons: No Have you been hit, kicked, punched, or otherwise hurt by someone within the past year? If so, by whom?: No Are you DNR?: No Advance Directives: No Advance Directives Information Provided: Yes Advance Directives on File: No Recently lost weight without trying: No Nutrition Risks: No Nutritional Risk Patient : No FDLMP: 06/14/2023 : No Poor oral hygiene: No Meds Allergies Allergy/AdvReac Type Severity Reaction Status Date / Time mold Allergy Unknown Verified 08/23/23 06:51 tree and shrub pollen Allergy Unknown Verified 08/23/23 06:51 Home Medications Medication Instructions Recorded Confirmed Last Taken Type clonidine HCl 0.1 mg tablet 0.1 mg PO TID 03/10/23 08/23/23 08/17/23 History epinephrine 0.3 mg/0.3 mL IM DIRECTED anaphylaxis 03/10/23 08/16/23 Unknown History injection, auto-injector escitalopram oxalate 20 mg tablet 20 mg PO DAILY 03/10/23 08/23/23 08/23/23 History lamotrigine 200 mg tablet 200 mg PO DAILY 03/10/23 08/23/23 08/23/23 History (Lamictal) pantoprazole 20 mg tablet,delayed 20 mg PO DAILY 03/10/23 08/16/23 Unknown History release trazodone 50 mg tablet 50 mg PO BEDTIME 03/10/23 08/23/23 08/23/23 History Exam Airway Mallampati Class: III TM Dist: >3cm Neck ROM: Full Loose/Missing/Broken Teeth: No Heart: [id number] Lungs: cta b/l Assessment and Plan Assessment Anesthesia Assessment: Anesthesia Plan Discussed Final Anesthetic Review Family History of Problems with Anesthesia: No History of Problems with Anesthesia: No NPO: Yes ASA Class: III Final Preanesthetic Review: No Changes in Pt Med Stat, Meds/Allgs Chart Reviewed, Consent Obtained/Reviewed and Anes Risks/Benef Reviewed Patient Risk: Intermediate Procedure Risk: Intermediate Assessment/Block/Sedation in SS: Assess/Block/Sedation-SS Anesthetic Plan Anesthetic Plan: GA and Agree w/ Assess. and Plan Disposition: Standard PACU
[2023-08-23] VITALS (14 sets, daily range): BP systolic 101–146; BP diastolic 53–83; PULSE 68–95; RESP 14–18; TEMP 35.8–36.6; O2SAT 95–100; BMI 36.1
[2023-08-23] MEDS: Lactated Ringers 1,000 ML 100 ML IVCONT ×3 (06:40→21:59)
[2023-08-23] MEDS: Lactated Ringers 1,000 ML 999 ML IV (06:40)
[2023-08-23] MEDS: Aprepitant 32 MG/4.4 ML VIAL IVPUSH (06:40)
[2023-08-23 06:56] LABS: UPreg QC Valid YES; Urine Pregnancy NEGATIVE (NEGATIVE)
--- NOTE | 2023-08-23 07:01 | PC.NURSE ---
[facility] called for CPAP clearance confirmation number [id number].
--- NOTE | 2023-08-23 09:40 | PM.OP ---
Brief Operative Note Date of Service: 08/23/23 Pre-op diagnosis: Severe obesity with comorbidities ( see below) Post-op diagnosis: same Procedure: INITIAL PATIENT BMI ON PRESENTATION AT OUR OFFICE: 42.2 kg/m2 LAST BMI BEFORE SURGERY: 37.7 kg/m2 COMORBIDITIES: insomnia, prediabetes, depression, anxiety, back pain ?The patient presented to the Weight Management Program with significant obesity that was negatively impacting the patient's comorbidities as listed above.? The program is a phased program with a special focus on preoperative medical weight management to promote substantial weight loss and prepare the patients for the second phase of the program: bariatric surgery. The patient participated in an intensive weekly lifestyle ?intervention and exercise program during which the patient ?has lost between the initial office visit and the last preoperative visit 27.6lbs, or 11.2% of initial actual body weight. It was deemed appropriate for the patient to now have bariatric surgery. In light of the current Covid-19 pandemic and the well documented strong association of obesity and increased risk of worse outcomes if infected with Covid-19 (REFERENCES:https://pubmed.ncbi.nlm.nih.gov/07325150/,?https://pubmed.ncbi.nlm.nih.gov/84798427/), any delay in undergoing bariatric surgery may lead to the patient's worsening health condition and increased?risk of more severe Covid-19 disease if infected. In addition a recent?study from [facility] published in [facility] on 08/09/2021 ([email or web address]) found that, among patients with obesity, substantial weight loss achieved with surgery was associated with improved outcomes of COVID-19 infection. The findings suggest that obesity can be a modifiable risk factor for the severity of COVID-19 infection. In addition, the patient met the BMI-criteria for bariatric surgery based on the BMI on initial presentation. The patient should not be penalized for achieving such weight loss because ?it is not sustainable long-term without surgical intervention and it was achieved in preparation for bariatric surgery ?under my direction and based on my published research ([email or web address]).[email or web address] and?https://www.soard.org/article/[email or web address](84)22471-X/pdf) ?that a 10% preoperative weight loss improves long-term weight loss after surgery and reduces perioperative complications.? Insurance carriers such as [facility] have endorsed my recommendations ?and have included in their policies criteria to include a 10% preoperative weight loss requirement. PROCEDURE: Esophago-gastroscopy, laparoscopic sleeve gastrectomy and laparoscopic gastropexy INDICATIONS: This is a 32 year-old female who was electively scheduled for laparoscopic, possibly open sleeve gastrectomy. The risks and complications of the procedure were discussed with the patient in advance, particularly the possibility of ; pulmonary embolism; staple line leak; bleeding; GERD; cardiac, pulmonary, or renal complications; as well as long-term problems such as insufficient weight loss, vitamin deficiency, strictures, or ulcers. The patient understood all the risks, and was in agreement to proceed with surgery. DESCRIPTION OF PROCEDURE: After informed consent was obtained from the patient, the patient was given preoperative antibiotics, and was transferred to the operating room. After successful induction of general anesthesia, pneumatic compression devices were placed on both lower extremities. An upper endoscopy was performed next. The oropharynx and esophagus appeared to be within normal limits. There was no diaphragmatic hernia present consistent with the findings of the preoperative upper GI. The stomach was entered. Then after all fluid and air were suctioned and the stomach was fully decompressed, the scope was withdrawn and secured in the mid esophagus. The patient was then prepped and draped in the usual sterile manner, and abdominal access was established at the right upper quadrant with the Opal technique. A 12 mm blunt port was inserted, and the abdomen was insufflated with CO2 to a pressure of 15 mmHg. Under direct visualization, additional ports were placed, specifically two 5 mm Versi-step ports to the left upper quadrant, and a 5 mm Versi-Step port to the right upper quadrant. 1% lidocaine plain was used to infiltrate all port sites as well as all fascia defects. Using the EndoClose suture passer device, I placed a #1 Polysorb tie across the falciform ligament in order to retract it up against the abdominal wall and prevent injury of the ligament with our instruments during the procedure. Following that, the patient was placed in a steep reverse Trendelenburg position. An additional 5 mm port was placed to the right flank for the Mediflex retractor that was used to retract the left lobe of the liver. The gastro-esophageal fat pad was opened with the ultrasonic device (Thunderbeat, Olympus) and the anterior esophagus and hiatus were exposed. The angle of His was opened with the ultrasonic device the fundus of the stomach from any diaphragmatic and splenic attachments. I then opened the gastrocolic ligament between the transverse colon and the greater curvature of the stomach with the ultrasonic device to enter the lesser sac and facilitate the ligation of the short gastric vessels. I started at a mid-point along the greater curvature and using the Thunderbeat, all short gastric vessels were divided all the way to the angle of His until the left erasto was completely dissected at its entirety. I then divided the gastro-colic ligament distally to a distance of about 3-4 cm proximal to the pylorus. The stomach was then divided transversely with one Endo BOBBY-45 purple and four BOBBY-60 articulating purple loads using the AEON stapler and loads. Every effort was made that the gastric sleeve had a tubular shape and an even caliber throughout. Once the sleeve resection was completed, the staple line of the gastric sleeve was reinforced with Hemoclips. The resected stomach was retrieved without difficulty from the Opal port. A gastropexy was then performed in order to prevent postoperative GERD and partial gastric volvulus. Several interrupted 2.0 Surgidac sutures were placed between the sleeve's staple line and the previously divided greater omentum and gastro-colic ligament using the Endo-Stitch device. ?An upper endoscopy was performed. There was no narrowing at the GE junction. The scope was easily advanced all the way to the pylorus which was clearly visualized. There was no narrowing anywhere and the sleeve's caliber was even throughout. The sleeve's staple line was inspected and there was no evidence of ischemia, bleeding or dehiscence. At that point the gastroscope was withdrawn from the patient?s mouth while we were decompressing the bowel and the stomach from any remaining air. I looked into the lesser sac to see how the sleeve was situating and it was situating well. There was no bleeding from the staple line, spleen, or short gastric vessels. The Mediflex retractor was removed, and the undersurface of the liver was inspected and there was no bleeding. The patient was placed in supine position. I closed the fascial defect of the 12 mm port site with a figure of eight #1 Polysorb suture. Then 30cc Ropivacaine plain with 10 mg of Dexamethasone were used to infiltrate the fascial closure as well as all skin incisions. A total of 7ml Zynrelef was applied in the Opal wound. At this point, the abdomen was deflated, all ports were removed under direct vision, and no bleeding was noted from any of the port sites. The skin incisions were irrigated with saline and were closed with 4-0 absorbable monofilament sutures. Steri-Strips and OpSites were used to cover all incisions. The patient was extubated and was transferred in stable condition to the recovery room for further care. I was present and performed all gee parts of the procedure. Naveen was the health center assistant. There were no residents to assist with this case. Noam Stone MD, PhD, FACS Surgeon: Galdino Stone MD Anesthesia: GETA, local and other (TAP block and ml Zynrelef) Was an Human Development Professor used for this Procedure?: Yes Human Development Professor: Supriya Hodge Estimated blood loss (mL): 10 IV fluids (mL): 2,500 Urine output (mL): 0 (No Wetzel to record output) Pathology: other (Stomach) Condition: stable Disposition: PACU
--- NOTE | 2023-08-23 09:44 | P.PNGS_ITS ---
Subjective Subjective Date of Service: 08/24/23 Interval history: Feels well. Mild incisional pain. She is tolerating phase 1 bariatric diet Physical Exam 2 Vital Signs: Vital Signs: Last Vital Signs Temp 96.5 F L 08/23/23 06:44 Pulse 94 08/23/23 06:44 Resp 16 08/23/23 06:44 BP 127/83 08/23/23 06:44 Pulse Ox 97 08/23/23 06:44 O2 Del Method Room Air 08/23/23 06:44 BMI result Body Mass Index 36.1 GI: Inspection: Yes normal to inspection, Yes incision (clean, dry and intact) and Yes obesity Palpation (GI): Soft to palpation Objective Data Active Medications Lactated Ringer's (Lr) 1,000 mls @ 100 mls/hr IVCONT .Q10H ENID Last Admin: 08/23/23 06:40 Dose: 100 mls/hr Documented By: JOSE Labs 08/24/23 06:20 08/24/23 06:20 Labs: Laboratory Results - last 24 hr 08/23/23 06:45 Urine Test NEGATIVE Procedures Date of Service Date of Service: 08/24/23 Progress Note: A&P Assessment and plan (1) Obesity: Status: Inactive Assessment and Plan: s/p laparoscopic sleeve gastrectomy and gastropexy Doing well Will check am labs and if OK the patient will be discharged home (2) BMI 37.0-37.9, adult: Status: Inactive (3) Insomnia: Status: Acute (4) Sciatica: Status: Acute (5) Anxiety: Status: Acute (6) Depression: Status: Acute (7) GERD (gastroesophageal reflux disease): Status: Acute (8) Sleep apnea treated with continuous positive airway pressure (CPAP): Status: Acute (9) S/P laparoscopic sleeve gastrectomy: Status: Acute Time Spent With Patient Time: Total time managing care of this patient today ____ minutes. Quality Stroke Does the patient have a stroke diagnosis?: No VTE Prior VTE?: No VTE Risk Level:: Surgical - moderate VTE Device Contraindication: N/A - Device Ordered VTE Drug Contraindication: Treatment Not Indicated
--- NOTE | 2023-08-23 09:49 | P.DS_ITS ---
DS: Providers Provider Date of Service: 08/24/23 Primary care physician: Lilliana Carroll NP DS: Diagnosis Discharge Diagnosis (1) Obesity: Status: Inactive (2) BMI 37.0-37.9, adult: Status: Inactive (3) Insomnia: Status: Acute (4) Sciatica: Status: Acute (5) Anxiety: Status: Acute (6) Depression: Status: Acute (7) GERD (gastroesophageal reflux disease): Status: Acute (8) Sleep apnea treated with continuous positive airway pressure (CPAP): Status: Acute (9) Prediabetes: Status: Acute (10) S/P laparoscopic sleeve gastrectomy: Status: Acute DS: Summary Hospital Course Hospital Course: ADMITTING DIAGNOSIS: morbid obesity, Bipolar disorder, CRISTINA, GERD, Insomnia DISCHARGE DIAGNOSIS: same, s/p laparoscopic sleeve gastrectomy PAST SURGICAL HISTORY: section, arm surgery, wisdom teeth removal PROCEDURE: upper endoscopy, laparoscopic sleeve gastrectomy DISCHARGE SUMMARY: History of Present Illness: The patient is a 32 year-old woman with a BMI of 40.1 kg/m2 and associated co- morbidities as described above. The patient had extensive work-up, lost 20.6 lbs preoperatively and was electively scheduled for laparoscopic, possible open sleeve gastrectomy and gastropexy. Risks and complications of the surgery were discussed with the patient in advance, particularly the possibility of , pulmonary embolism, anastomotic leak, bleeding, bowel injury, GERD, cardiac, renal or pulmonary complications. The patient understood all the risks and was in agreement with the surgical plan. Hospital Course: The patient underwent an uneventful laparoscopic sleeve gastrectomy with gastropexyu on the day of admission. Postoperatively, the patient was transferred to the surgical floor. The patient received IV Acetaminophen and IV dilaudid for pain control. Patient was started on bariatric phase 1 diet POD #0. On postoperative day one, the patient was feeling well without nausea, vomiting, fevers, or tachycardia. The patient had some mild incisional pain and the abdomen was soft. On the morning of postoperative day one, the patient was continued on 1 ounce of water or ice every half hour. During the day, the patient did fairly well, having some incisional pain, but able to ambulate adequately and to tolerate liquids well. Since the patient is doing well, we decided that the patient was ready to be discharged. The patient was given instructions to follow-up with me next week and to call my office for any fever over 101, persistent abdominal pain, nausea, vomiting, GERD, symptoms of DVT such as calf tenderness, or leg swelling, or pulmonary embolism such as chest pain or shortness of breath. The patient was also instructed to drink 40-60 ounces of liquids per day using the 1-ounce cups. The patient had been given prescriptions for Tylenol for pain, Zofran prn for nausea, and pantoprazole and carafate previously. The patient was encouraged to ambulate and use the incentive spirometer. The patient was allowed to shower, but no baths, and encouraged to stay active at home. All of these instructions were given to the patient personally. All questions were answered and the patient understood all instructions, the instructions were also given to the patient in print. Time Attestation Discharge coordination time: Less than 30 minutes Quality: Safe Use of Opioids Does Pt have an Active Cancer Diagnosis on the Problem List?: No Quality: Stroke Does the patient have a stroke diagnosis?: No Physical Exam Vital Signs: Vital Signs: Last Vital Signs Temp 97.7 F 08/23/23 09:45 Pulse 95 08/23/23 09:45 Resp 16 08/23/23 09:45 BP 146/53 H 08/23/23 09:45 Pulse Ox 99 08/23/23 09:45 O2 Del Method Non-Rebreather Ma sk 08/23/23 09:45 O2 Flow Rate 6 08/23/23 09:45 BMI result Body Mass Index 36.1 DS: Data Data Completed and Pending Pending studies at discharge: Pending at discharge 08/23/23 09:13 Surgical [PTH] Routine Labs on day of discharge: Laboratory Results - last 24 hr 08/23/23 06:45 Urine Test NEGATIVE Discharge Plan Discharge Anticipated Discharge Date/Time: 08/24/23 07:51 Patient Disposition: Home, Self-Care Discharge Diagnosis: Severe obesity Referrals: Lilliana Carroll NP [Primary Care Provider] - Discharge Medications: Continued escitalopram oxalate 20 mg tablet 20 mg PO DAILY lamotrigine [Lamictal] 200 mg tablet 200 mg PO DAILY Held trazodone 50 mg tablet 50 mg PO BEDTIME Hold Instructions: Resume on 08/25/23. Discontinued docusate sodium [Colace] 100 mg capsule 100 mg PO DAILY Qty: 30 2RF pantoprazole 40 mg tablet,delayed release (DR/EC) 40 mg PO DAILY Qty: 30 2RF polyethylene glycol 3350 [Miralax] 17 gram powder in packet 17 g PO DAILY Qty: 14 0RF Rx Instructions: Mix each packet with 8oz of water, Crystal light, or Gatorade zero, or Propel and do 7 packets on 07/11/23 and another 7 packets on 07/12/23 clonidine HCl 0.1 mg tablet 0.1 mg PO TID Discharge Orders: Discharge Order (Routine); Ordered 08/24/23 Ordered By: Galdino Stone Activity on Discharge: No heavy lifting Activity Restrictions/Additional Instructions: No tub baths, sex or returning to work until discussed at first post op ap pointment. No exercise, alcohol, tobacco or illegal drug use. Continue to use incentive spirometer hourly while awake. Walk in home for 5- 10 minutes every 2 hours during the first week. Continue phase 1 diet today and start phase 2 diet tomorrow morning. Follow all instructions in the bariatric handbook and call with any questions. 1. Please call your doctor or come back to the emergency room should any new symptoms arise. 2. You will receive a courtesy call from [facility] 24-48 hours after discharge. 3. Activity: abstain from alcohol, practice limited stair climbing, no bending, no driving, no exercise, no illicit substances, no lifting, no sex, no tub bath, no work. 4. Diet: continue as discussed with bariatric team.. 5. Dressing Change/Wound Care: Do not change or remove surgical dressings unless they are wet or soiled. 6. Call your doctor if: - Your temperature exceeds 101.5 F - You experience excessive pain or swelling - You have an unexpected reaction to medication - You have excessive bleeding - You experience continued vomiting/nausea - Your incision begins to separate - Your incision shows signs of infection such as increased redness, swelling, excessive pain, heat, or drainage (light blood or clear fluid is normal) 7. General instructions: No lifting greater than 5 lbs for 1 week and not more than 20lbs the next 3?weeks. No driving until seen at the office in 5-7 days after surgery. If you do not move your bowels in the next 2 days, please tell?Dr. Stone. Please walk around your home every hour or two to prevent blood clots from forming in your legs. You do not need to wake from sleeping to walk. Please sleep in a bed or couch to prevent kinking at the hips and knees. Please take your incentive spirometer (your lung internal combustion engineer) home with you and use it for the next few days to prevent pneumonia. You may shower, no hot tubs, baths or swimming pools.?Please follow the post op diet instructions you are?given by Dr Jacek barrera? and text me daily at 5-6pm for an update.?If you have any issues or concerns or questions please communicate this to him via text.? The Celebrate shakes have all of the bariatric vitamins you need if you consume these shakes. If you are drinking other protein shakes, you will need to purchase the Celebrate multivitamins and calcium that are available in the hospital gift shop on the first floor of the [facility].??Do not take anything without first discussing with Dr Stone. Please make sure you are consuming at least 40 ounces of fluids per day starting the?day AFTER your discharge from the hospital. Always drink 1-2 ml per minute using the 5ml?syringe. If you drink faster you may experience?bloating,?gas pain, burping, nausea or heartburn. In that case please slow down your pace and use the syringe to?understand better the?proper?pace and volume of drinking. Do not hesitate to contact the office with any questions at . The patient's medical history has been reviewed and they are considered low risk for post op DVT and therefore DVT prophylaxis is not considered necessary. Travel after surgery was reviewed. The patient has not disclosed any travel plans during the first 30 days after surgery and they have been advised that within the first 30 days after surgery any bus, plane, train or car travel over 2 hours in duration is contraindicated due to the possibility of developing blood clots from immobility. Any travel, needs to include periods of ambulation of 10 minutes in duration every 2 hours. The patient was instructed to discuss any plans for travel during this period with their bariatric surgeon. Care Plan Goals: weight loss Health Concerns: morbid obesity Plan of Treatment: No tub baths, sex or returning to work until discussed at first post op appointment. No exercise, alcohol, tobacco or illegal drug use. Continue to use incentive spirometer hourly while awake. Walk in home for 5- 10 minutes every 2 hours during the first week. Continue phase 1 diet today and start phase 2 diet tomorrow morning. Follow all instructions in the bariatric handbook and call with any questions. 1. Please call your doctor or come back to the emergency room should any new symptoms arise. 2. You will receive a courtesy call from [facility] 24-48 hours after discharge. 3. Activity: abstain from alcohol, practice limited stair climbing, no bending, no driving, no exercise, no illicit substances, no lifting, no sex, no tub bath, no work. 4. Diet: continue as discussed with bariatric team.. 5. Dressing Change/Wound Care: Do not change or remove surgical dressings unless they are wet or soiled. 6. Call your doctor if: - Your temperature exceeds 101.5 F - You experience excessive pain or swelling - You have an unexpected reaction to medication - You have excessive bleeding - You experience continued vomiting/nausea - Your incision begins to separate - Your incision shows signs of infection such as increased redness, swelling, excessive pain, heat, or drainage (light blood or clear fluid is normal) 7. General instructions: No lifting greater than 5 lbs for 1 week and not more than 20lbs the next 3?weeks. No driving until seen at the office in 5-7 days after surgery. If you do not move your bowels in the next 2 days, please tell?Dr. Stone. Please walk around your home every hour or two to prevent blood clots from forming in your legs. You do not need to wake from sleeping to walk. Please sleep in a bed or couch to prevent kinking at the hips and knees. Please take your incentive spirometer (your lung internal combustion engineer) home with you and use it for the next few days to prevent pneumonia. You may shower, no hot tubs, baths or swimming pools.?Please follow the post op diet instructions you are?given by Dr Jacek barrera? and text me daily at 5-6pm for an update.?If you have any issues or concerns or questions please communicate this to him via text.? The Celebrate shakes have all of the bariatric vitamins you need if you consume these shakes. If you are drinking other protein shakes, you will need to purchase the Celebrate multivitamins and calcium that are available in the hospital gift shop on the first floor of the main hospital.??Do not take anything without first discussing with Dr Stone. Please make sure you are consuming at least 40 ounces of fluids per day starting the?day AFTER your discharge from the hospital. Always drink 1-2 ml per minute using the 5ml?syringe. If you drink faster you may experience?bloating,?gas pain, burping, nausea or heartburn. In that case please slow down your pace and use the syringe to?understand better the?proper?pace and volume of drinking. Do not hesitate to contact the office with any questions at . The patient's medical history has been reviewed and they are considered low risk for post op DVT and therefore DVT prophylaxis is not considered necessary. Travel after surgery was reviewed. The patient has not disclosed any travel plans during the first 30 days after surgery and they have been advised that within the first 30 days after surgery any bus, plane, train or car travel over 2 hours in duration is contraindicated due to the possibility of developing blood clots from immobility. Any travel, needs to include periods of ambulation of 10 minutes in duration every 2 hours. The patient was instructed to discuss any plans for travel during this period with their bariatric surgeon. Assessment: stable post op sleeve gastrectomy
[2023-08-23 10:12] LABS: Hematocrit 40.9 % (37.0-47.0); Hemoglobin 13.5 g/dl (12.0-16.0)
[2023-08-23 10:26] LABS: Anion Gap 14 (12-20); Blood Urea Nitrogen 8 mg/dL (9-16); Calcium 8.7 mg/dL (8.4-10.2); Carbon Dioxide 27 mmol/L (22-29); Chloride 104 mmol/L (96-108); Creatinine Clr Calc Pharmacy 106.3; Estimated Glomerular Filt Rate > 60; Glucose Random 137 mg/dL (60-115); Potassium 4.5 mmol/L (3.3-5.1); Sodium 140 mmol/L (135-145)
--- NOTE | 2023-08-23 10:51 | PHA.MEDREC ---
Pharmacy Consult ? Medication Reconciliation Pharmacy has completed the medication reconciliation. reviewed med rec done by nursing.
[2023-08-23] MEDS: Famotidine/PF 20 MG/2 ML VIAL IVPUSH ×2 (11:51→21:58)
[2023-08-23] MEDS: lamoTRIgine 100 MG TABLET 200 MG PO (13:09)
[2023-08-23] MEDS: ceFAZolin Sodium/Dextrose,Iso 2 GM/50 ML PIGGYBACK IV (13:38)
[2023-08-23] MEDS: cloNIDine HCL 0.1 MG TABLET PO ×2 (14:32→21:58)
[2023-08-23] MEDS: Acetaminophen 1,000 MG/100 ML PIGGYBACK 16.7 MG IV ×2 (14:32→19:14)
[2023-08-23] MEDS: ondansetron HCL 4 MG/2 ML VIAL IVPUSH (15:04)
[2023-08-23] MEDS: traZODone HCL 50 MG TABLET PO (21:58)
[2023-08-23] MEDS: 0.9 % Sodium Chloride Flush 3 ML SYRINGE IVFLUSH (21:59)
[2023-08-24] MEDS: Acetaminophen 1,000 MG/100 ML PIGGYBACK 16.7 MG IV ×2 (00:31→06:17)
[2023-08-24 03:16] VITALS: BP 107/57; PULSE 66; RESP 16; TEMP 36.3; O2SAT 95
[2023-08-24 06:30] LABS: MANUAL DIFF FLAG NO
[2023-08-24 06:33] LABS: Basophils Percent Auto 0.1 % (0-2); Eosinophils Percent Auto 0.2 % (0-4); Hematocrit 38.2 % (37.0-47.0); Hemoglobin 12.7 g/dl (12.0-16.0); Imm Gran Abs Auto 0.08 X10*3/uL (0.00-0.03); Imm Gran Pct Auto 0.6 % (0.0-0.4); Lymphocytes Absolute Auto 1.3 X10*3/uL (1.2-4.9); Mean Corpuscular HGB Conc 33.2 g/dl (31.0-35.0); Mean Corpuscular Hemoglobin 29.8 pg (27.0-33.0); Mean Corpuscular Volume 89.7 fL (80.0-98.0); Mean Platelet Volume 10.6 fL (9.4-12.3); Monocytes Absolute Auto 0.9 X10*3/uL (0.1-1.2); Monocytes Percent Auto 6.6 % (2-11); Neutrophils Absolute Auto 10.9 x10*3/uL (2.0-8.3); Neutrophils Percent Auto 82.5 % (45-73); Platelet Count 212 X10*3/uL (160-400); Red Blood Count 4.26 X10*6/uL (4.20-5.50); Red Cell Distribution Width 12.4 % (11.0-16.0); White Blood Count 13.2 X10*3/uL (4.8-10.8)
[2023-08-24 06:48] LABS: Anion Gap 11 (12-20); Blood Urea Nitrogen 6 mg/dL (9-16); Carbon Dioxide 26 mmol/L (22-29); Chloride 108 mmol/L (96-108); Creatinine Clr Calc Pharmacy 121.6; Estimated Glomerular Filt Rate > 60; Glucose Random 101 mg/dL (60-115); Potassium 4.6 mmol/L (3.3-5.1); Sodium 140 mmol/L (135-145)
[2023-08-24] MEDS: Famotidine/PF 20 MG/2 ML VIAL IVPUSH (07:30)
[2023-08-24] MEDS: Lactated Ringers 1,000 ML 100 ML IVCONT (07:31)
[2023-08-24] MEDS: lamoTRIgine 100 MG TABLET 200 MG PO (07:31)
[2023-08-24 07:32] VITALS: BP 117/69; PULSE 63; RESP 18; TEMP 36.6; O2SAT 96
--- NOTE | 2023-08-24 09:05 | MHC.CM.PN ---
Patient is from home alone. Functionally independent. Uses CPAP, [employer] is supplier. PCP: Lilliana Carroll NP HCP: Antoinette Garduno, copy requested. Patient states she is going to be changing her HCP soon, but does not wish to do that today. DP: Patient is medically cleared for dc home self care. Boyfriend to transport.
--- NOTE | 2023-08-24 15:18 | HO.POSTANES ---
Post Anesthesia Evaluation Post Anesthesia Evaluation Date of Service: 08/24/23 Vital Signs: Vital Signs Temp Pulse Resp BP Pulse Ox O2 Del Method 08/24/23 07:55 Room Air 08/24/23 07:32 97.9 F 63 18 117/69 96 Room Air Anesthesia: General Endotracheal-GETA Mental Status: Awake Pain Control: Satisfactory Nausea/Vomiting: None Hydration: Adequate Anesthesia-Related Issues: No Anes. Related Issues
== END 2023-08-24 09:30 | disposition home or self-care (01) | DRG 403 ==
LOC: HO.S3 13:05
PROVIDERS: Nurse Practitioner; Surgery; Admitting Provider Physician Assistant; PCP Nurse Practitioner Family; Visit Provider Physician Assistant
PROC: 0DB64Z3 Excision of Stomach, Percutaneous Endoscopic Approach, Vertical (ICD-10-PCS; CPT 43845; principal; 2023-08-23 07:30)
DX: E66.01 Morbid (severe) obesity due to excess calories (principal); F32.A Depression, unspecified; G47.30 Sleep apnea, unspecified; R73.03 Prediabetes; F41.9 Anxiety disorder, unspecified; M54.31 Sciatica, right side; G47.00 Insomnia, unspecified; Z68.37 Body mass index [BMI] 37.0-37.9, adult; Z23 Encounter for immunization; Z79.899 Other long term (current) drug therapy
CPT/HCPCS: 36415; 80048; 80053; 80061; 81025; 83036; 83525; 84439; 84443; 85014; 85018; 85025; 85610; 85730; 86140; 86850; 86900; 86901; 88304; 88305; 88307; 88342; 90686; 99024; A4649; C9088; C9145; J0131; J0690; J1100; J1170; J2250; J2405; J2704; J2795; J3010; J7120

== ENCOUNTER 2023-08-30 12:39 | Outpatient (AMB) | payer OTHER, SELFPAY ==
--- NOTE | 2023-08-30 13:11 | A.OFFVIS_ITS ---
Intake VS Expanded 08/30/23 13:21 BP 113/68 Blood Pressure Location Rt brachial Blood Pressure Position Sitting Pulse 80 Pulse Source Pulse Oximeter Temp 97.0 F Temperature Source Temporal Artery Scan Pulse Oximetry 96 Oxygen Delivery Method Room Air Height 5 ft 2 in Weight 184 lb 9.6 oz BMI 33.8 Body Fat % 40.4 Body Fat Mass 74.6 Fat Free Mass 110.0 Visceral Fat Rating 8.0 Body Water % 42.8 Body Water Mass 79.0 Muscle Mass/Score 104.4 Basal Metabolic Rate/Score 1,549 Intake Visit Reasons: (OV) PO LSG 08/23/23 Allergies mold Allergy (Verified 08/30/23 13:11) Unknown tree and shrub pollen Allergy (Verified 08/30/23 13:11) Unknown HPI HPI Comments History of Present Illness Details Patient is a pleasant 32-year-old female who returns today in follow- up. She is postop day 7, status post laparoscopic sleeve gastrectomy performed on 08/23/2023. She is tolerating 3 celebrate 4 in 1 shakes with 1 screw each and a total of 64 oz of fluids per day. She is moved her bowels and denies any significant pain. [facility] Medical History (Updated 08/30/23 @ 13:16 by BERLIN Escobar) BMI 36.0-36.9,adult Constipation BMI 37.0-37.9, adult Obesity IUD (intrauterine device) in place Environmental allergies Insomnia Sciatica Bipolar 1 disorder Anxiety Depression GERD (gastroesophageal reflux disease) Sleep apnea treated with continuous positive airway pressure (CPAP) Morbid obesity Surgical History (Updated 08/30/23 @ 13:13 by Antoinette Sanchez CMA) Hx of laparoscopic adjustable gastric banding Hx of wisdom tooth extraction History of surgery on arm Hx of section Social History Household Members: None Housing: Apartment Are you a primary respiratory care assistant to a significant other at home: Yes (children, family to assist post-op) Do you presently have visiting nurse or other home services: No Alcohol intake: current Alcohol intake frequency: holidays/special occasions only Patient Tobacco Use Status: Never used Tobacco service: No Physical Exam GI Inspection: Yes incision (Mild incisional bruising. No dehiscence or infection) Assessment & Plan Assessment & Plan (1) Obesity (BMI 30-39.9): Code(s): E66.9 - Obesity, unspecified Plan: POD 7 s/p LSG on 08/23/[address] Stone Weight loss prior to surgery was 23.2 pounds or 10.6 % TBWL. Original weight on 04/03/2023 was 219 pounds and op weight was 195.8 pounds. Be sure to text Dr Stone exactly 1 week after surgery your weight from your home scale so he can adjust your meal plan. Continue meal plan until f/u w Jihan in 2 weeks May shower, no submersion in bath for another week Continue abdominal binder with activity and exercise for the next 2 weeks. Exercise prior to surgery was walking and treadmill, may resume No abdominal exercises for 6 weeks post operatively Will be emailed link to post op video for review Reminded of the pace of drinking, 2 mL per minute, 1 oz/15 min. Coding Level of Care Code Global (81862) Diagnoses Obesity (BMI 30-39.9) E66.9
[2023-08-30 13:21] VITALS: BP 113/68; PULSE 80; TEMP 36.1; O2SAT 96; BMI 33.8
== END 2023-08-30 13:32 | disposition home or self-care (01) ==
PROVIDERS: PCP Nurse Practitioner Family; Visit Provider Physician Assistant Surgical
DX: E66.9 Obesity, unspecified (principal); Z68.33 Body mass index [BMI] 33.0-33.9, adult; Z90.3 Acquired absence of stomach [part of]; Z98.84 Bariatric surgery status
CPT/HCPCS: 99024

== ENCOUNTER → 2023-08-30 12:39 | Outpatient (BNVA) | payer OTHER, SELFPAY | PROVIDERS: PCP Nurse Practitioner Family; Visit Provider Physician Assistant Surgical | DX: E66.9 Obesity, unspecified (principal); Z68.33 Body mass index [BMI] 33.0-33.9, adult; Z98.84 Bariatric surgery status | CPT/HCPCS: 99212 ==

== ENCOUNTER 2023-09-12 14:38 | Outpatient (AMB) | payer OTHER, SELFPAY ==
--- NOTE | 2023-09-12 14:33 | A.OFFVIS_ITS ---
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 Patient is requesting to advance her diet today. 2 Premier shakes , 1 nutrition shake (9g protein, 220kcal) Patient recently started taking a standard multivitamin. Discussed expectation for bariatric multivitamin in the future. pt has IUD, reports she got her period sooner than normal this month. has concerns about if this is normal Hydration: adequate Exercise: walking, nothing formal. She plans to going to [employer] and using the treadmill Dietary counseling reduction Diagnosis Nutrition problem #1 overweight/obesity As related to (etiology) #1 excess energy intake and physical inactivity As evidenced by (sign/symptom) #1 high BMI Monitoring/Goals Nutrition problem monitoring total energy intake, level of knowledge/skill, total PRO intake, total CHO intake and weight Outcome progress progressing Learning/Education Readiness to learn excellent Stages of change action Most Recent Diabetes Results: Cholesterol 199 mg/dL (<200) 08/21/23 HDL Cholesterol 59 mg/dL (>40) 08/21/23 Triglycerides 90 mg/dL (<150) 08/21/23 Creatinine 0.69 mg/dL (0.5-1.4) 08/24/23 Blood Urea Nitrogen 6 mg/dL (9-16) L 08/24/23 Sodium 140 mmol/L (135-145) 08/24/23 Potassium 4.6 mmol/L (3.3-5.1) 08/24/23 Chloride 108 mmol/L (96-108) 08/24/23 Carbon Dioxide 26 mmol/L (22-29) 08/24/23 Calcium 9.0 mg/dL (8.4-10.2) 08/24/23 AST 20 U/L (5-31) 08/21/23 ALT 26 U/L (0-31) 08/21/23 Total Protein 7.9 g/dL (6.5-8.0) 08/21/23 Albumin 4.6 g/dL (3.5-5.0) 08/21/23 [facility] Medical History (Updated 09/01/23 @ 00:02 by Background Daemon) BMI 36.0-36.9,adult Constipation BMI 37.0-37.9, adult Obesity IUD (intrauterine device) in place Environmental allergies Insomnia Sciatica Bipolar 1 disorder Anxiety Depression GERD (gastroesophageal reflux disease) Sleep apnea treated with continuous positive airway pressure (CPAP) Morbid obesity Surgical History (Updated 09/01/23 @ 00:02 by Background Daemon) Hx of laparoscopic adjustable gastric banding Hx of wisdom tooth extraction History of surgery on arm Hx of section Social History Household Members: None Housing: Apartment Are you a primary childcare aide to a significant other at home: Yes (children, family to assist post-op) Do you presently have visiting nurse or other home services: No Alcohol intake: current Alcohol intake frequency: holidays/special occasions only Patient Tobacco Use Status: Never used Tobacco service: No Assessment & Plan Assessment & Plan (1) Obesity (BMI 30-39.9): Code(s): E66.9 - Obesity, unspecified Plan Nutrition follow-up 09/26 at 08:30 Patient Instructions: Advance diet today to soft proteins, she will discuss with surgeon tomorrow. Advised 1 oz of Irish yogurt, cottage cheese, scrambled egg once per day and reviewed guidelines for eating postop. Telehealth Telehealth Location of provider rendering services: practice address Location of patient: address on file Patient Identification confirmed using: Name, : Yes Telehealth method: voice only Patient verbally consented to treatment: Yes Patient verbally consented to billing insurance company: Yes Patient informed of any privacy concerns related to visit: Yes Minutes spent on Phone/Video with Pt.: 20 Coding Level of Care Code Nutr Indiv Subseq (26089) Diagnoses Obesity (BMI 30-39.9) E66.9 Time Spent (min) 20
[2023-09-12 14:51] VITALS: BMI 33.1
== END 2023-09-12 14:48 | disposition home or self-care (01) ==
LOC: HO.HBS 14:38
PROVIDERS: PCP Nurse Practitioner Family; Visit Provider Dietitian, Registered
DX: E66.9 Obesity, unspecified (principal)

== ENCOUNTER → 2023-09-12 14:38 | Outpatient (BNVA) | payer OTHER, SELFPAY | PROVIDERS: PCP Nurse Practitioner Family; Visit Provider Dietitian, Registered | DX: E66.9 Obesity, unspecified (principal); Z68.33 Body mass index [BMI] 33.0-33.9, adult; Z98.84 Bariatric surgery status; Z71.3 Dietary counseling and surveillance | CPT/HCPCS: 97803 ==

== ENCOUNTER 2023-09-26 08:40 | Outpatient (AMB) | payer OTHER, SELFPAY ==
--- NOTE | 2023-09-26 08:32 | A.OFFVIS_ITS ---
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 Re tiki to advance diet again. reports doing much better since last appt when we added in food. Patient recently started taking a standard multivitamin. Hydration: adequate Exercise: going to [employer] and using the treadmill Dietary counseling reduction Diagnosis Nutrition problem #1 overweight/obesity As related to (etiology) #1 excess energy intake and physical inactivity As evidenced by (sign/symptom) #1 high BMI Monitoring/Goals Nutrition problem monitoring total energy intake, level of knowledge/skill, total PRO intake, total CHO intake and weight Outcome progress progressing Learning/Education Readiness to learn excellent Stages of change action Most Recent Diabetes Results: Cholesterol 199 mg/dL (<200) 08/21/23 HDL Cholesterol 59 mg/dL (>40) 08/21/23 Triglycerides 90 mg/dL (<150) 08/21/23 Creatinine 0.69 mg/dL (0.5-1.4) 08/24/23 Blood Urea Nitrogen 6 mg/dL (9-16) L 08/24/23 Sodium 140 mmol/L (135-145) 08/24/23 Potassium 4.6 mmol/L (3.3-5.1) 08/24/23 Chloride 108 mmol/L (96-108) 08/24/23 Carbon Dioxide 26 mmol/L (22-29) 08/24/23 Calcium 9.0 mg/dL (8.4-10.2) 08/24/23 AST 20 U/L (5-31) 08/21/23 ALT 26 U/L (0-31) 08/21/23 Total Protein 7.9 g/dL (6.5-8.0) 08/21/23 Albumin 4.6 g/dL (3.5-5.0) 08/21/23 [facility] Medical History (Updated 09/01/23 @ 00:02 by Background Daemon) BMI 36.0-36.9,adult Constipation BMI 37.0-37.9, adult Obesity IUD (intrauterine device) in place Environmental allergies Insomnia Sciatica Bipolar 1 disorder Anxiety Depression GERD (gastroesophageal reflux disease) Sleep apnea treated with continuous positive airway pressure (CPAP) Morbid obesity Surgical History (Updated 09/01/23 @ 00:02 by Background Daemon) Hx of laparoscopic adjustable gastric banding Hx of wisdom tooth extraction History of surgery on arm Hx of section Social History Household Members: None Housing: Apartment Are you a primary care aid to a significant other at home: Yes (children, family to assist post-op) Do you presently have visiting nurse or other home services: No Alcohol intake: current Alcohol intake frequency: holidays/special occasions only Patient Tobacco Use Status: Never used Tobacco service: No Assessment & Plan Assessment & Plan (1) Obesity (BMI 30-39.9): Code(s): E66.9 - Obesity, unspecified Plan continue 3 shakes, advance meal to 1oz solid protein . Nutrition f/u in 2 weeks 10/10 at 8:30 TV Telehealth Telehealth Location of provider rendering services: other (home address [facility] ) Location of patient: address on file Patient Identification confirmed using: Name, : Yes Telehealth method: voice only Patient verbally consented to treatment: Yes Patient verbally consented to billing insurance company: Yes Patient informed of any privacy concerns related to visit: Yes Minutes spent on Phone/Video with Pt.: 30 Coding Level of Care Code Nutr Indiv Subseq (71536) Diagnoses Obesity (BMI 30-39.9) E66.9 Time Spent (min) 30
[2023-09-26 08:50] VITALS: BMI 32.4
== END 2023-09-26 08:51 | disposition home or self-care (01) ==
LOC: HO.HBS 08:40
PROVIDERS: PCP Nurse Practitioner Family; Visit Provider Dietitian, Registered
DX: E66.9 Obesity, unspecified (principal)

== ENCOUNTER → 2023-09-26 08:40 | Outpatient (BNVA) | payer OTHER, SELFPAY | PROVIDERS: PCP Nurse Practitioner Family; Visit Provider Dietitian, Registered | DX: E66.9 Obesity, unspecified (principal); Z68.32 Body mass index [BMI] 32.0-32.9, adult | CPT/HCPCS: 97803 ==

== ENCOUNTER 2023-10-10 08:47 | Outpatient (AMB) | payer OTHER, SELFPAY ==
--- NOTE | 2023-10-10 08:33 | A.OFFVIS_ITS ---
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 Explained she is likely overeating. she reports she does feel over-full pt reports some emotional eating issues resurfacing. she wants to learn to cope with this now Patient recently started taking a standard multivitamin. Hydration: adequate Exercise: going to [employer] and using the treadmill her partner is very supportive , he likes to exercise and eat well Dietary counseling reduction Diagnosis Nutrition problem #1 overweight/obesity As related to (etiology) #1 excess energy intake and physical inactivity As evidenced by (sign/symptom) #1 high BMI Monitoring/Goals Nutrition problem monitoring total energy intake, level of knowledge/skill, total PRO intake, total CHO intake and weight Outcome progress progressing Learning/Education Readiness to learn excellent Stages of change action Most Recent Diabetes Results: Cholesterol 199 mg/dL (<200) 08/21/23 HDL Cholesterol 59 mg/dL (>40) 08/21/23 Triglycerides 90 mg/dL (<150) 08/21/23 Creatinine 0.69 mg/dL (0.5-1.4) 08/24/23 Blood Urea Nitrogen 6 mg/dL (9-16) L 08/24/23 Sodium 140 mmol/L (135-145) 08/24/23 Potassium 4.6 mmol/L (3.3-5.1) 08/24/23 Chloride 108 mmol/L (96-108) 08/24/23 Carbon Dioxide 26 mmol/L (22-29) 08/24/23 Calcium 9.0 mg/dL (8.4-10.2) 08/24/23 AST 20 U/L (5-31) 08/21/23 ALT 26 U/L (0-31) 08/21/23 Total Protein 7.9 g/dL (6.5-8.0) 08/21/23 Albumin 4.6 g/dL (3.5-5.0) 08/21/23 [facility] Medical History (Updated 09/01/23 @ 00:02 by Background Daemon) BMI 36.0-36.9,adult Constipation BMI 37.0-37.9, adult Obesity IUD (intrauterine device) in place Environmental allergies Insomnia Sciatica Bipolar 1 disorder Anxiety Depression GERD (gastroesophageal reflux disease) Sleep apnea treated with continuous positive airway pressure (CPAP) Morbid obesity Surgical History (Updated 09/01/23 @ 00:02 by Background Daemon) Hx of laparoscopic adjustable gastric banding Hx of wisdom tooth extraction History of surgery on arm Hx of section Social History Household Members: None Housing: Apartment Are you a primary managed care coordinator to a significant other at home: Yes (children, family to assist post-op) Do you presently have visiting nurse or other home services: No Alcohol intake: current Alcohol intake frequency: holidays/special occasions only Patient Tobacco Use Status: Never used Tobacco service: No Assessment & Plan Assessment & Plan (1) Obesity (BMI 30-39.9): Code(s): E66.9 - Obesity, unspecified Plan continue 3 shakes, cut back portions to 1oz - or 2-3 forks of protein . take 20 mins with that. next week advance to cooked veg and provided instructions . seems to be overeating now for this phase. will set up appt with Donita to discuss emotional eating coping. f/u wiht nd 10/31 at 8:30 TV only , unable to do video Telehealth Telehealth Location of provider rendering services: practice address Location of patient: address on file Patient Identification confirmed using: Name, : Yes Telehealth method: voice only Patient verbally consented to treatment: Yes Patient verbally consented to billing insurance company: Yes Patient informed of any privacy concerns related to visit: Yes Minutes spent on Phone/Video with Pt.: 30 Coding Level of Care Code Nutr Indiv Subseq ([id number]) Diagnoses Obesity (BMI 30-39.9) E66.9 Time Spent (min) 30
[2023-10-10 08:52] VITALS: BMI 31.8
== END 2023-10-10 08:52 | disposition home or self-care (01) ==
LOC: HO.HBS 08:47
PROVIDERS: PCP Nurse Practitioner Family; Visit Provider Dietitian, Registered
DX: E66.9 Obesity, unspecified (principal)

== ENCOUNTER → 2023-10-10 08:47 | Outpatient (BNVA) | payer OTHER, SELFPAY | PROVIDERS: PCP Nurse Practitioner Family; Visit Provider Dietitian, Registered | DX: E66.9 Obesity, unspecified (principal); Z68.31 Body mass index [BMI] 31.0-31.9, adult | CPT/HCPCS: 97803 ==

== ENCOUNTER 2023-11-01 08:54 | Outpatient (AMB) | payer OTHER, SELFPAY ==
--- NOTE | 2023-11-01 08:30 | A.OFFVIS_ITS ---
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 Now is doing 2-3 forks and notices this is much better pt reports some emotional eating issues resurfacing. she wants to learn to cope with this now , is seeing Tung next week Patient recently started taking a standard multivitamin. Hydration: adequate Exercise: going to [facility] and using the bike about 3x per weekk her partner is very supportive , he likes to exercise and eat well Dietary counseling reduction Diagnosis Nutrition problem #1 overweight/obesity As related to (etiology) #1 excess energy intake and physical inactivity As evidenced by (sign/symptom) #1 high BMI Monitoring/Goals Nutrition problem monitoring total energy intake, level of knowledge/skill, total PRO intake, total CHO intake and weight Outcome progress progressing Learning/Education0 Readiness to learn excellent Stages of change action Most Recent Diabetes Results: Cholesterol 199 mg/dL (<200) 08/21/23 HDL Cholesterol 59 mg/dL (>40) 08/21/23 Triglycerides 90 mg/dL (<150) 08/21/23 Creatinine 0.69 mg/dL (0.5-1.4) 08/24/23 Blood Urea Nitrogen 6 mg/dL (9-16) L 08/24/23 Sodium 140 mmol/L (135-145) 08/24/23 Potassium 4.6 mmol/L (3.3-5.1) 08/24/23 Chloride 108 mmol/L (96-108) 08/24/23 Carbon Dioxide 26 mmol/L (22-29) 08/24/23 Calcium 9.0 mg/dL (8.4-10.2) 08/24/23 AST 20 U/L (5-31) 08/21/23 ALT 26 U/L (0-31) 08/21/23 Total Protein 7.9 g/dL (6.5-8.0) 08/21/23 Albumin 4.6 g/dL (3.5-5.0) 08/21/23 PFSH Medical History (Updated 09/01/23 @ 00:02 by Background Daemon) BMI 36.0-36.9,adult Constipation BMI 37.0-37.9, adult Obesity IUD (intrauterine device) in place Environmental allergies Insomnia Sciatica Bipolar 1 disorder Anxiety Depression GERD (gastroesophageal reflux disease) Sleep apnea treated with continuous positive airway pressure (CPAP) Morbid obesity Surgical History (Updated 09/01/23 @ 00:02 by Background Daemon) Hx of laparoscopic adjustable gastric banding Hx of wisdom tooth extraction History of surgery on arm Hx of section Social History Household Members: None Housing: Apartment Are you a primary field care advocate to a significant other at home: Yes (children, family to assist post-op) Do you presently have visiting nurse or other home services: No Alcohol intake: current Alcohol intake frequency: holidays/special occasions only Patient Tobacco Use Status: Never used Tobacco service: No Assessment & Plan Assessment & Plan (1) Obesity (BMI 30-39.9): Code(s): E66.9 - Obesity, unspecified Plan no changes made, she will continue follow up with PA and continue to see tung for support with emotional eating Telehealth Telehealth Location of provider rendering services: other (home address , [facility] ) Location of patient: address on file Patient Identification confirmed using: Name, : Yes Telehealth method: voice only Patient verbally consented to treatment: Yes Patient verbally consented to billing insurance company: Yes Patient informed of any privacy concerns related to visit: Yes Minutes spent on Phone/Video with Pt.: 20 Coding Level of Care Code Nutr Indiv Subseq ([id number]) Diagnoses Obesity (BMI 30-39.9) E66.9 Time Spent (min) 20
[2023-11-01 15:39] VITALS: BMI 30.7
== END 2023-11-01 09:53 | disposition home or self-care (01) ==
LOC: HO.HBS 08:54
PROVIDERS: PCP Nurse Practitioner Family; Visit Provider Dietitian, Registered
DX: E66.9 Obesity, unspecified (principal)

== ENCOUNTER → 2023-11-01 08:54 | Outpatient (BNVA) | payer OTHER, SELFPAY | PROVIDERS: PCP Nurse Practitioner Family; Visit Provider Dietitian, Registered | DX: E66.9 Obesity, unspecified (principal); Z68.30 Body mass index [BMI] 30.0-30.9, adult | CPT/HCPCS: 97803 ==

== ENCOUNTER 2023-11-22 11:12 | Outpatient (AMB) | payer OTHER, SELFPAY ==
--- NOTE | 2023-11-22 11:50 | MHC.OFFVISWM ---
Intake VS Expanded 11/22/23 11:52 Height 5 ft 2 in Weight 164 lb 4 oz BMI 30.0 Body Fat % 36.3 Body Fat Mass 59.6 Fat Free Mass 104.8 Visceral Fat Rating 13 Body Water % 43.7 Body Water Mass 71.8 Basal Metabolic Rate/Score 1,338 Intake Visit Reasons: TV Pre Op Lap Jeannie 11/23/23 Allergies mold Allergy (Verified 11/22/23 11:56) Unknown tree and shrub pollen Allergy (Verified 11/22/23 11:56) Unknown Medication List - Last Reconciled 11/22/23 by Galdino Stone MD docusate sodium (Colace) 100 mg PO DAILY escitalopram oxalate 20 mg PO DAILY lamotrigine (Lamictal) 200 mg PO DAILY ondansetron 4 mg PO Q12H trazodone 50 mg PO BEDTIME HPI TV Pre Op Lap Jeannie 11/23/23 HPI Details Start time: 11.32am, End time: 12.02pm ?I spent 25 minutes speaking with the patient on the phone plus an additional 5 minutes reviewing and updating records for a total of 30 minutes HPI Comments History of Present Illness Details Overall weight loss: 54.6lbs, or 24.93% TBWL Patient is s/p sleeve gastrectomy with known pre-existing cholelithiasis. Now complains of postprandial RUQ pain radiating to the back [facility] Medical History (Updated 11/22/23 @ 11:59 by Galdino Stone MD) BMI 36.0-36.9,adult Constipation BMI 37.0-37.9, adult Obesity IUD (intrauterine device) in place Environmental allergies Insomnia Sciatica Bipolar 1 disorder Anxiety Depression GERD (gastroesophageal reflux disease) Sleep apnea treated with continuous positive airway pressure (CPAP) Morbid obesity Surgical History (Updated 09/01/23 @ 00:02 by Nayeli Boone) Hx of laparoscopic adjustable gastric banding Hx of wisdom tooth extraction History of surgery on arm Hx of section Social History Household Members: None Housing: Apartment Are you a primary rn managed care to a significant other at home: Yes (children, family to assist post-op) Do you presently have visiting nurse or other home services: No Alcohol intake: current Alcohol intake frequency: holidays/special occasions only Patient Tobacco Use Status: Never used Tobacco service: No Assessment & Plan Assessment & Plan (1) Cholelithiasis: Code(s): K80.20 - Calculus of gallbladder without cholecystitis without obstruction Qualifiers: Cholelithiasis location: gallbladder Cholecystitis presence: with cholecystitis Cholecystitis acuity: acute and chronic Biliary obstruction: without biliary obstruction Qualified Code(s): K80.12 - Calculus of gallbladder with acute and chronic cholecystitis without obstruction Plan: 1. The patient has known cholelithiasis. Now it appears symptomatic as she has right upper quadrant pain. We discussed in detail the potential complications and their management including bleeding, bile leak, pancreatitis and major bile duct injury. 2. Avoid any aspirin, motrin, aleve, ibuprofen, advil, meloxicam 3. Please do blood work tomorrow fasting overnight 4. Nothing to drink or eat after midnight today Orders: Orders TSH reflex Free T4 Today K91.2 - Postsurgical malabsorption, not elsewhere classified, Z90.3 - Acquired absence of stomach [part of] Vitamin A Today K91.2 - Postsurgical malabsorption, not elsewhere classified, Z90.3 - Acquired absence of stomach [part of] Hemoglobin A1c Today K91.2 - Postsurgical malabsorption, not elsewhere classified, Z90.3 - Acquired absence of stomach [part of] Vitamin B1 Today K91.2 - Postsurgical malabsorption, not elsewhere classified, Z90.3 - Acquired absence of stomach [part of] Lipid Panel Today K91.2 - Postsurgical malabsorption, not elsewhere classified, Z90.3 - Acquired absence of stomach [part of] Type and Screen Today K91.2 - Postsurgical malabsorption, not elsewhere classified, Z90.3 - Acquired absence of stomach [part of] Vitamin B12 Today K91.2 - Postsurgical malabsorption, not elsewhere classified, Z90.3 - Acquired absence of stomach [part of] C Reactive Protein Today K91.2 - Postsurgical malabsorption, not elsewhere classified, Z90.3 - Acquired absence of stomach [part of] Complete Blood Count Auto Diff Today K91.2 - Postsurgical malabsorption, not elsewhere classified, Z90.3 - Acquired absence of stomach [part of] Ferritin Today K91.2 - Postsurgical malabsorption, not elsewhere classified, Z90.3 - Acquired absence of stomach [part of] Zinc Today K91.2 - Postsurgical malabsorption, not elsewhere classified, Z90.3 - Acquired absence of stomach [part of] Insulin Today K91.2 - Postsurgical malabsorption, not elsewhere classified, Z90.3 - Acquired absence of stomach [part of] Comprehensive Met. Panel Today K91.2 - Postsurgical malabsorption, not elsewhere classified, Z90.3 - Acquired absence of stomach [part of] Prothrombin Time INR Today K91.2 - Postsurgical malabsorption, not elsewhere classified, Z90.3 - Acquired absence of stomach [part of] Partial Thromboplastin Time Today K91.2 - Postsurgical malabsorption, not elsewhere classified, Z90.3 - Acquired absence of stomach [part of] Vitamin D 25-OH Total Today K91.2 - Postsurgical malabsorption, not elsewhere classified, Z90.3 - Acquired absence of stomach [part of] IRON PROFILE Today K91.2 - Postsurgical malabsorption, not elsewhere classified, Z90.3 - Acquired absence of stomach [part of] Medications: New ondansetron 4 mg PO Q12H 20 tabs 0RF nausea and vomiting R11.0 - Nausea Telehealth Telehealth Location of provider rendering services: practice address Location of patient: address on file Patient Identification confirmed using: Name, : Yes Telehealth method: voice only Patient verbally consented to treatment: Yes Patient verbally consented to billing insurance company: Yes Patient informed of any privacy concerns related to visit: Yes Minutes spent on Phone/Video with Pt.: 30 Coding Level of Care Code Tele Est Pt Level 4 (04497) Diagnoses Calculus of gallbladder with acute on chronic cholecystitis without obstruction K80.12 Cholelithiasis location: gallbladder Cholecystitis presence: with cholecystitis Cholecystitis acuity: acute and chronic Biliary obstruction: without biliary obstruction Time Spent (min) 30
== END 2023-11-22 12:03 | disposition home or self-care (01) ==
LOC: HO.HBS 11:12
PROVIDERS: PCP Nurse Practitioner Family; Visit Provider Surgery
DX: K80.12 Calculus of gallbladder with acute and chronic cholecystitis without obstruction (principal)
CPT/HCPCS: 99214

== ENCOUNTER → 2023-11-22 11:12 | Outpatient (BNVA) | payer OTHER, SELFPAY | PROVIDERS: PCP Nurse Practitioner Family; Visit Provider Surgery ==

== ENCOUNTER 2023-11-23 10:12 | Day surgery (SDC) | payer OTHER, SELFPAY ==
[2023-11-23 10:13] LABS: MANUAL DIFF FLAG NO
[2023-11-23 10:19] VITALS: BMI 30.2
[2023-11-23 10:33] LABS: Basophils Percent Auto 0.4 % (0-2); Eosinophils Absolute Auto 0.3 X10*3/uL (0.0-0.4); Eosinophils Percent Auto 4.4 % (0-4); Hematocrit 40.1 % (37.0-47.0); Hemoglobin 13.7 g/dl (12.0-16.0); Imm Gran Abs Auto 0.02 X10*3/uL (0.00-0.03); Imm Gran Pct Auto 0.3 % (0.0-0.4); Lymphocytes Absolute Auto 1.5 X10*3/uL (1.2-4.9); Lymphocytes Percent Auto 20.8 % (20-40); Mean Corpuscular HGB Conc 34.2 g/dl (31.0-35.0); Mean Corpuscular Hemoglobin 30.2 pg (27.0-33.0); Mean Corpuscular Volume 88.3 fL (80.0-98.0); Mean Platelet Volume 10.9 fL (9.4-12.3); Monocytes Absolute Auto 0.5 X10*3/uL (0.1-1.2); Monocytes Percent Auto 6.5 % (2-11); Neutrophils Absolute Auto 4.8 x10*3/uL (2.0-8.3); Neutrophils Percent Auto 67.6 % (45-73); Platelet Count 211 X10*3/uL (160-400); Red Blood Count 4.54 X10*6/uL (4.20-5.50); Red Cell Distribution Width 13.2 % (11.0-16.0); White Blood Count 7.1 X10*3/uL (4.8-10.8)
[2023-11-23 10:37] LABS: INTERNATIONAL NORM RATIO 0.9 (0.9-1.1); Prothrombin Time 11.5 SEC (11.1-13.3)
[2023-11-23 10:39] LABS: Partial Thromboplastin Time 31.9 SEC (26.0-36.8)
[2023-11-23 10:44] VITALS: BP 108/68; PULSE 66; RESP 16; TEMP 35.9; O2SAT 98; BMI 30.2
[2023-11-23] MEDS: Lactated Ringers 1,000 ML 100 ML IVCONT (10:46)
[2023-11-23 10:55] LABS: UPreg QC Valid YES; Urine Pregnancy NEGATIVE (NEGATIVE)
[2023-11-23 10:58] LABS: Estimated Average Glucose 94 mg/dL; Hemoglobin A1c % 4.9 % (<6.0)
[2023-11-23 11:32] LABS: Vitamin B12 663 pg/mL (200-900)
[2023-11-23 11:37] LABS: Alanine Aminotransferase 18 U/L (0-31); Albumin Level 4.2 g/dL (3.5-5.0); Alkaline Phosphatase 66 U/L (39-117); Anion Gap 9 (12-20); Aspartate Amino Transferase 16 U/L (5-31); Bilirubin Total 0.8 mg/dL (0.0-1.0); Blood Urea Nitrogen 7 mg/dL (9-16); C Reactive Protein 0.14 mg/dL (< or = 0.50); Carbon Dioxide 26 mmol/L (22-29); Chloride 109 mmol/L (96-108); Cholesterol 150 mg/dL (<200); Creatinine Clr Calc Pharmacy 108.2; Estimated Glomerular Filt Rate > 60; Glucose Random 84 mg/dL (60-115); HDL Cholesterol 54 mg/dL (>40); Iron 80 mcg/dL (30-160); LDL Cholesterol Calculated 83 mg/dL (<100); Percent Iron Saturation 34 % (15-50); Sodium 140 mmol/L (135-145); Total Iron Binding Capacity 238 mcg/dL (228-428); Triglycerides 66 mg/dL (<150); Unsaturated Iron Binding 158 ug/dL
[2023-11-23 11:38] LABS: Ferritin 137 ng/mL (10-122); Insulin 5 uU/mL (2-29); TSH reflex Free T4 0.63 uIU/mL (0.32-4.0); Vitamin D 25-OH Total 20.5 ng/mL (>30)
--- NOTE | 2023-11-23 13:23 | P.CONAN_ITS ---
HPI - Anesthesia Eval Consult details Narrative: 33yo female patient for Laparoscopic Cholecystectomy. S/p Laparoscopic Sleeve gastrectomy 08/2023 [facility] Active Problems Active Problems: All Active Problems (Updated 11/23/23 @ 13:34 by Adrianna Arnett MD) Cholelithiasis (Acute) Postgastrectomy malabsorption (Acute) Obesity (BMI 30-39.9) (Acute) S/P laparoscopic sleeve gastrectomy (Acute) Prediabetes (Acute) Insomnia (Acute) Sciatica (Acute) Bipolar 1 disorder (Acute) Anxiety (Acute) Depression (Acute) GERD (gastroesophageal reflux disease) (Acute) Sleep apnea treated with continuous positive airway pressure (CPAP) (Acute) H/o Morbid obesity (Acute) s/p LSG 08/2023. BMI 30.2 Past Medical History Medical History BMI 36.0-36.9,adult Constipation BMI 37.0-37.9, adult Obesity IUD (intrauterine device) in place Environmental allergies Insomnia Sciatica Bipolar 1 disorder Anxiety Depression GERD (gastroesophageal reflux disease) Sleep apnea treated with continuous positive airway pressure (CPAP) Morbid obesity Family History Family history of problems with anesthesia: No Surgical History Surgical History Hx of laparoscopic adjustable gastric banding Hx of wisdom tooth extraction History of surgery on arm Hx of section History of Problems with Anesthesia: No Social History Social History Household Members: None Housing: Apartment Are you a primary med care manager to a significant other at home: Yes (children, family to assist post-op) Do you presently have visiting nurse or other home services: No Alcohol intake: current Alcohol intake frequency: holidays/special occasions only Patient Tobacco Use Status: Never used Tobacco service: No Meds Allergies Allergy/AdvReac Type Severity Reaction Status Date / Time mold Allergy Unknown Verified 11/23/23 10:47 tree and shrub pollen Allergy Unknown Verified 11/23/23 10:47 Active Medications: Current Medications Lactated Ringer's (Lr) 1,000 mls @ 100 mls/hr IVCONT .Q10H ENID Last Admin: 11/23/23 10:46 Dose: 100 mls/hr Home Medications ?Medication ?Instructions ?Recorded ?Confirmed ?Last Taken ?Type escitalopram oxalate 20 mg tablet 20 mg PO DAILY 03/10/23 11/22/23 11/22/23 History lamotrigine 200 mg tablet 200 mg PO DAILY 03/10/23 11/22/23 11/22/23 History (Lamictal) trazodone 50 mg tablet 50 mg PO BEDTIME 03/10/23 11/22/23 08/23/23 History Exam Height,Weight and Vital Signs: Height 5 ft 2 in Weight 74.843 kg Last Vital Signs Temp 96.6 F L 11/23/23 10:44 Pulse 66 11/23/23 10:44 Resp 16 11/23/23 10:44 BP 108/68 11/23/23 10:44 Pulse Ox 98 11/23/23 10:44 O2 Del Method Room Air 11/23/23 10:44 Pertinent Lab Results Pertinent Lab Results: Laboratory Tests 11/23/23 11/23/23 11/23/23 10:10 10:12 10:30 WBC 7.1 RBC 4.54 Hgb 13.7 Hct 40.1 MCV 88.3 MCH 30.2 MCHC 34.2 RDW 13.2 Plt Count 211 MPV 10.9 Immature Gran % (Auto) 0.3 Neut % (Auto) 67.6 Lymph % (Auto) 20.8 Parker % (Auto) 6.5 Eos % (Auto) 4.4 H Baso % (Auto) 0.4 Lymph # (Auto) 1.5 Parker # (Auto) 0.5 Eos # (Auto) 0.3 Baso # (Auto) 0.0 Abs Immat Gran (auto) 0.02 Absolute Neuts (auto) 4.8 Absolute Nucleated RBC 0.000 Nucleated RBC % (auto) 0.0 PT 11.5 INR 0.9 APTT 31.9 Sodium 140 Potassium 4.0 Chloride 109 H Carbon Dioxide 26 Anion Gap 9 L BUN 7 L Creatinine 0.70 Estim Creat Clear Calc 108.2 Estimated GFR > 60 Random Glucose 84 Estimat Average Glucose 94 Hemoglobin A1c % 4.9 Insulin Level 5 Calcium 9.0 Iron 80 TIBC 238 % Saturation 34 Unsat Iron Binding 158 Ferritin 137 H Total Bilirubin 0.8 AST 16 ALT 18 Alkaline Phosphatase 66 C-Reactive Protein 0.14 Total Protein 7.0 Albumin 4.2 Triglycerides 66 Cholesterol 150 LDL Cholesterol, Calc 83 HDL Cholesterol 54 Vitamin B12 663 25-OH Vitamin D Total 20.5 L TSH 0.63 Urine Test NEGATIVE Blood Type A Positive Antibody Screen NEGATIVE Airway Mallampati Class: III TM Dist: >3cm Neck ROM: Full Loose/Missing/Broken Teeth: No (Denies broken, loose, missing teeth) Heart: RRR Lungs: CTAB Assessment and Plan Assessment Anesthesia Assessment: Anesthesia Plan Discussed and Chart Reviewed Final Anesthetic Review Family History of Problems with Anesthesia: No History of Problems with Anesthesia: No NPO: Yes ASA Class: III Final Preanesthetic Review: No Changes in Pt Med Stat, Meds/Allgs Chart Reviewed, Consent Obtained/Reviewed and Anes Risks/Benef Reviewed Patient Risk: Intermediate Procedure Risk: Intermediate Assessment/Block/Sedation in SS: Assess/Block/Sedation-SS Anesthetic Plan Anesthetic Plan: GA Disposition: Standard PACU
--- NOTE | 2023-11-23 13:38 | MHC.SHP ---
Pre-Procedural Eval Section A - 24 Hr Update-Section A only Date of Service: 11/23/23 The patient is an INPATIENT: No The patient has been examined within 24 hours of the surgical procedure. The History & Physical has been completed within 30 days and I have reviewed it.: Yes Section B - Complete if H&P > 30 days Chief Complaint: Calculus of gallbladder without cholecystitis Relevant Family History (Specify if Yes): No Relevant Social History: None Present Medications: None Medical History: No relevant PMH History of Previous Operations: No relevant previous surgery Allergies: Allergies Allergy/AdvReac Type Severity Reaction Status Date / Time mold Allergy Unknown Verified 11/23/23 10:47 tree and shrub pollen Allergy Unknown Verified 11/23/23 10:47 Review of Systems Sugical H&P ROS: Negative: Constitution, Cardiovascular, Respiratory, Neurological, Psychiatric, Hem-Onc, Allergic/Immunologic, Gastrointestinal, Genitourinary, Musculoskeletal, Integumentary, Endocrine and Eyes/Ears/Nose/Throat Exam Surgical H&P Exam: Normal: HEENT, Normal: Heart, Normal: Lungs, Normal: Extremities, Normal: Abdomen, Normal: Skin and Normal: Neurological Plan Diagnosis/Plan: Unchanged (Plan for laparoscopic cholecystectomy for symptomatic cholelithiasis. Risks and complications of bile leak, CBD injury, bleeding, infection, retained stones. Patient understands and is in agreement with the plan., ) I have reviewed the history and physical and performed a pertinent physical examination on my patient. No changes have occurred unless specified. Time Spent With Patient Time: Total time managing care of this patient today ____ minutes.
--- NOTE | 2023-11-23 13:53 | PM.OP ---
Brief Operative Note Date of Service: 11/23/23 Pre-op diagnosis: Symptomatic cholelithiasis Post-op diagnosis: same Procedure: PROCEDURE DATE: 11/23/2023 PREOPERATIVE DIAGNOSIS: Symptomatic cholelithiasis, mid epigastric and right upper quadrant abdominal pain POSTOPERATIVE DIAGNOSIS: Same as above. PROCEDURE: Upper endoscopy and laparoscopic cholecystectomy Surgeon: Noam Stone M.D.. Ph.D. Pattern Chart Writer: Luis Enrique Faria PA-C Anesthesia: General endotracheal anesthesia Estimated blood loss: Minimal FINDINGS AND PROCEDURE: OPERATIVE INDICATIONS: The patient is a 33 year old female known to me who underwent a laparoscopic sleeve gastrectomy. The patient had remarkable weight loss so far and had a completely uneventful recovery. The patient was doing very well but has recently been complaining of persistent mid epigastric and right upper quadrant abdominal pain which is mostly postprandial. Ultrasound of the abdomen and pelvis was consistent with cholelithiasis, which was pre-existing to the sleeve gastrectomy. Based on this information I recommended laparoscopic cholecystectomy, upper endoscopy to evaluate the patient's symptoms. In addition to that the plan was also to examine the gastric bypass at the same time. Risks and complications of the surgery were discussed with the patient in advance particularly the possibility of conversion to an open surgery, bleeding, infection, obstruction, deep vein thrombosis or pulmonary embolism, bile leak or major bile duct injury that may require surgical intervention. The patient understood the risks and was in agreement with the plan. PROCEDURE: After informed consent was obtained by the patient, the patient was transferred to the Operating Room and was placed in the supine position. The patient was given preoperative antibiotics and after successful induction of general anesthesia, pneumatic compression devices were placed. ? PLEASE REVIEW TO INCLUDE THIS PARAGRAPH: An upper endoscopy was performed next, the oropharynx and esophagus appeared within the normal limits. There was no hiatal hernia. The small pouch was entered, appeared to be of normal size, there was no gastritis and the gastrojejunostomy was patent, there was no anastomotic ulcer. The proximal Vannessa limb appeared to be normal as well. At that point the Vannessa limb and the pouch was decompressed and the scope was withdrawn from the patient's mouth. The patient was then prepped and draped in the usual sterile manner and abdominal access was established with the Opal technique. The abdomen was insufflated with C02 to a pressure of 15 mmHg. A 5 mm Versi-step port was placed, slightly to the right and superior from the umbilicus. The 5 mm camera was introduced. We inspected the area where the port had been placed and there was no injury. The patient was then placed initially in a steep reverse Trendelenburg position and three additional ports were placed, specifically a 12 mm Versi-step port just to the right of the midline below the xiphoid process and two 5 mm Versi-step ports at the right upper quadrant and right flank. At that point the patient was placed in a steep reverse Trendelenburg position tilted to the left side. The gallbladder was retracted cephalad and laterally. There were adhesions between the omentum and the gallbladder wall that were taken down. The peritoneal attachments of the gallbladder at the triangle of Calot posteriorly and anteriorly were taken down. The cystic duct and artery were both seen. They were completely dissected free, skeletonized all the way to the infundibulum of the gallbladder . In a similar fashion we also cleaned the liver bed just behind the cystic artery to make sure there was no additional structures in this area. Once we confirmed that both structures were entering into the gallbladder and there were no other structures in the area, they were both clipped with two clips proximally, one distally and were cut in-between. We then using the electrocautery we slowly took down the gallbladder from the liver bed. Small areas of bleeding from the liver parenchyma were controlled with the cautery. After the gallbladder was completely detached from the liver bed, it was placed in an EndoCatch bag and was removed without difficulty from the xiphoid port. We then inspected the clips at the cystic duct and artery and were both in place. There was no active bleeding from the liver bed. At that point the patient was placed in supine position, we deflated the abdomen and we removed all ports under direct vision and no bleeding was noted from any of the port sites. The fascia of the 12 mm port was closed using a #1 Polysorb suture. 30cc Ropivacaine and 1% Lidocaine plain were used to infiltrate the fascial closure as well as all skin incisions. 5ml of Zynrelef was applied in the Opal wound. The wounds were irrigated with saline mixed with antibiotic solution and then the skin was closed with 4-0 Monocryl subcuticular sutures antibiotic-coated. Steri-strips and OpSites were used to cover all incisions. The patient extubated and was transferred in stable condition to the Recovery Room for further care. I was present and performed all steps of the procedure. Mr. Faria was the therapist's assistant. There were no residents to assist with this case. Noam Stone M.D., Ph.D., F.A.C.S. Surgeon: Galdino Stone MD Anesthesia: GETA, local and other (TAP block & 5ml Zynrelef) Was an Pattern Chart Writer used for this Procedure?: No Pattern Chart Writer: Luis Enrique Faria Estimated blood loss (mL): 10 IV fluids (mL): 2,000 Urine output (mL): 0 (No Wetzel to record output) Pathology: other (Gallbladder) Condition: stable Disposition: PACU
[2023-11-23 15:50] VITALS: BP 120/59; PULSE 92; RESP 20; TEMP 36.7; O2SAT 98
[2023-11-23 15:55] VITALS: BP 124/81; PULSE 91; RESP 18; O2SAT 96
[2023-11-23 16:00] VITALS: BP 120/62; PULSE 86; RESP 18; O2SAT 99
[2023-11-23 16:05] VITALS: BP 107/78; PULSE 78; RESP 18; O2SAT 99
[2023-11-23 16:20] VITALS: BP 127/78; PULSE 81; RESP 20; TEMP 37; O2SAT 98
[2023-11-26 17:19] LABS: Zinc 53 mcg/dL (60-130)
[2023-11-28 16:47] LABS: Vitamin A 40 mcg/dL (38-98)
[2023-11-30 16:13] LABS: Vitamin B1 7 nmol/L (8-30)
== END 2023-11-23 16:35 | disposition home or self-care (01) ==
PROVIDERS: Nurse Practitioner; PCP Nurse Practitioner Family; Visit Provider Surgery
PROC: 0FT44ZZ Resection of Gallbladder, Percutaneous Endoscopic Approach (ICD-10-PCS; CPT 47562; principal; 2023-11-23 13:30)
DX: K80.12 Calculus of gallbladder with acute and chronic cholecystitis without obstruction (principal); K82.8 Other specified diseases of gallbladder; K91.2 Postsurgical malabsorption, not elsewhere classified; R10.13 Epigastric pain; Z98.84 Bariatric surgery status; Z90.3 Acquired absence of stomach [part of]; Z68.30 Body mass index [BMI] 30.0-30.9, adult; E66.9 Obesity, unspecified; K21.9 Gastro-esophageal reflux disease without esophagitis; G47.33 Obstructive sleep apnea (adult) (pediatric); Z99.89 Dependence on other enabling machines and devices; Z79.899 Other long term (current) drug therapy; F32.A Depression, unspecified; F41.9 Anxiety disorder, unspecified
CPT/HCPCS: 47562; 43239; 36415; 80053; 80061; 81025; 82306; 82607; 82728; 83036; 83525; 83540; 84425; 84443; 84590; 84630; 85025; 85610; 85730; 86140; 86850; 86900; 86901; 88304; 88305; 88313; C9088; J0690; J1100; J2250; J2405; J2704; J2795; J3010

== ENCOUNTER → 2023-11-23 10:12 | Outpatient (BNV) | payer OTHER, SELFPAY | PROVIDERS: PCP Nurse Practitioner Family; Visit Provider Surgery | DX: K80.20 Calculus of gallbladder without cholecystitis without obstruction (principal); R10.13 Epigastric pain | CPT/HCPCS: 43239; 47562 ==

== ENCOUNTER 2023-12-01 14:38 | Outpatient (AMB) | payer OTHER, SELFPAY ==
--- NOTE | 2023-12-01 14:41 | MHC.OFFVISWM ---
VS Expanded 12/01/23 14:58 BP 131/79 Blood Pressure Location Rt brachial Blood Pressure Position Sitting Pulse 71 Pulse Source Pulse Oximeter Temp 96.5 F L Temperature Source Temporal Artery Scan Pulse Oximetry 97 Oxygen Delivery Method Room Air Height 5 ft 2 in Weight 159 lb 9.6 oz BMI 29.2 Body Fat % 34.9 Body Fat Mass 55.6 Fat Free Mass 103.8 Visceral Fat Rating 46.7 Body Water % 74.6 Body Water Mass 98.6 Muscle Mass/Score 1,440 Intake Visit Reasons: (OV) s/p Lap Jeannie 11/23/23 Allergies mold Allergy (Verified 12/01/23 14:54) Unknown tree and shrub pollen Allergy (Verified 12/01/23 14:54) Unknown HPI Comments Details: Pt is a pleasant 33-year-old female who returns to the office today in follow-up. She is 8 days status post laparoscopic cholecystectomy performed on 11/23/2023. She states that she did develop a rash underneath the Tegaderm so. She removed the ones placed intraoperatively and put new Tegaderms over her Steri-Strips. The rash improved. She denies any significant pain although does note abdominal bruising superficially. She continues to follow the meal plan as directed by Dr. Stone. [facility] Medical History BMI 36.0-36.9,adult Constipation BMI 37.0-37.9, adult Obesity IUD (intrauterine device) in place Environmental allergies Insomnia Sciatica Bipolar 1 disorder Anxiety Depression GERD (gastroesophageal reflux disease) Sleep apnea treated with continuous positive airway pressure (CPAP) Morbid obesity Surgical History Hx of laparoscopic adjustable gastric banding Hx of wisdom tooth extraction History of surgery on arm Hx of section Social History Household Members: None Housing: Apartment Are you a primary continuum of care manager to a significant other at home: Yes (children, family to assist post-op) Do you presently have visiting nurse or other home services: No Alcohol intake: current Alcohol intake frequency: holidays/special occasions only Patient Tobacco Use Status: Never used Tobacco service: No Physical Exam Vital Signs: Last Vital Signs Temp 96.5 F L 12/01/23 14:58 Pulse 71 12/01/23 14:58 BP 131/79 12/01/23 14:58 Pulse Ox 97 12/01/23 14:58 Oxygen Delivery Method Room Air 12/01/23 14:58 BMI result Body Mass Index 29.2 Skin Other: Abdominal incisions are clean, dry, intact. Assessment & Plan Assessment & Plan (1) S/P laparoscopic cholecystectomy: Code(s): Z90.49 - Acquired absence of other specified parts of digestive tract Category: Surgical Plan: Patient is doing very well postoperatively. Pathology reviewed. Continue current meal plan. Patient was educated about the potential for fat malabsorption causing loose stools. She states that she has had loose stools for years because of her IBS. She will monitor for any change in bowel pattern. Return to the office as scheduled.
[2023-12-01 14:58] VITALS: BP 131/79; PULSE 71; TEMP 35.8; O2SAT 97; BMI 29.2
== END 2023-12-01 15:36 | disposition home or self-care (01) ==
PROVIDERS: PCP Nurse Practitioner Family; Visit Provider Physician Assistant Surgical
DX: Z90.49 Acquired absence of other specified parts of digestive tract (principal)
CPT/HCPCS: 99024

== ENCOUNTER → 2023-12-01 14:38 | Outpatient (BNVA) | payer OTHER, SELFPAY | PROVIDERS: PCP Nurse Practitioner Family; Visit Provider Physician Assistant Surgical | DX: Z48.815 Encounter for surgical aftercare following surgery on the digestive system (principal); Z90.49 Acquired absence of other specified parts of digestive tract | CPT/HCPCS: 99212 ==

== ENCOUNTER 2023-12-04 09:39 | Outpatient (AMB) | payer OTHER, SELFPAY ==
--- NOTE | 2023-12-04 09:36 | A.OFFVIS_ITS ---
VS Expanded 12/04/23 09:41 Height 5 ft 2 in Weight 159 lb BMI 29.1 Intake Visit Reasons: (Telephone) PO LSG 08/23/23 Allergies mold Allergy (Verified 12/01/23 14:54) Unknown tree and shrub pollen Allergy (Verified 12/01/23 14:54) Unknown Medication List - Last Reconciled 12/04/23 by [place] cholecalciferol (vitamin D3) 125 mcg PO DAILY docusate sodium (Colace) 100 mg PO DAILY escitalopram oxalate 20 mg PO DAILY lamotrigine (Lamictal) 200 mg PO DAILY ondansetron 4 mg PO Q12H tramadol 50 mg PO BID PRN trazodone 50 mg PO BEDTIME HPI Comments Details: This?is a?33?yo female who is s/p LSG 09/23/2023. She is also s/p lap isis . Presents for [] post op visit. Weight at last visit on 11/22/2023 was 164.4 pounds with a BMI of 30, weight today is 159 pounds, representing a 5.4 pound weight loss with a BMI today of 29.1.? No complaints of nausea, emesis, abdominal pain or reflux, or constipation. Abdominal rash is improved. Present meal plan includes: 3 Premier shakes 2-3 forks cottage cheese, scrambled egg, ground turkey, chicken plus 1-2 forks cooked veg Standard multivitamin Hydration: adequate Exercise: going to [employer] and using the bike about 3x per week [facility] Medical History BMI 36.0-36.9,adult Constipation BMI 37.0-37.9, adult Obesity IUD (intrauterine device) in place Environmental allergies Insomnia Sciatica Bipolar 1 disorder Anxiety Depression GERD (gastroesophageal reflux disease) Sleep apnea treated with continuous positive airway pressure (CPAP) Morbid obesity Surgical History Hx of laparoscopic adjustable gastric banding Hx of wisdom tooth extraction History of surgery on arm Hx of section Social History Household Members: None Housing: Apartment Are you a primary managed care manager to a significant other at home: Yes (children, family to assist post-op) Do you presently have visiting nurse or other home services: No Alcohol intake: current Alcohol intake frequency: holidays/special occasions only Patient Tobacco Use Status: Never used Tobacco service: No Telehealth Telehealth Telehealth Platform: Telephone Location of provider rendering services: practice address Location of patient: address on file Patient Identification confirmed using: Name, : Yes Telehealth method: voice only Patient verbally consented to treatment: Yes Patient verbally consented to billing insurance company: Yes Patient informed of any privacy concerns related to visit: Yes Minutes spent on Phone/Video with Pt.: 15 Assessment & Plan Assessment & Plan (1) S/P laparoscopic sleeve gastrectomy: Code(s): Z98.84 - Bariatric surgery status Category: Surgical (2) S/P laparoscopic cholecystectomy: Code(s): Z90.49 - Acquired absence of other specified parts of digestive tract Category: Surgical (3) Overweight: Code(s): E66.3 - Overweight Category: Medical Plan Pt using 3 premade Premier shakes plus small meal but this may be too much protein for her current needs. Does not want to use protein bars. Will adjust to one premade shake; one yogurt (can add almond milk/frozen fruit to make a smoothie), 2 small meals of 1-2oz protein each with 1oz veg. Pt happy with this plan. Texted plan to pt and encouraged her to reach out between appts with any questions. RTC 1 month. Patient is overweight and is not considered stable at this time. I spent a total of 30 minutes reviewing/updating records, examining the patient and counseling the patient on weight management as detailed above.
[2023-12-04 09:41] VITALS: BMI 29.1
--- OUTSIDE RECORDS SUMMARY | 2023-12-04 09:45 | XMS_ITS | Continuity of Care Document ---
Author Organization [facility] Adult Address [address] [place] [address]- Care Team Providers Care Vp Care Management Name Role Phone Kayla TOLENTINO, Jacinda Primary Care Physician [phone] Encounter [facility] Date(s): 07/26/19 - 08/05/19 [facility] Adult [address] [place] [id number]- [facility] Attending Physician: Admthu, Ed8 Admitting Physician: AdmtrFerdinand Referring Physician: Admtr, Ar8 Allergies, Adverse Reactions, Alerts No Known Medication Allergies Immunizations Given and Recorded Vaccine Date Status Refusal Reason influenza virus vaccine, inactivated 07/31/18 Give n influenza virus vaccine, inactivated 1 07/19/17 Gi rodrigo 1Result Comment: regular dose [facility] [id number] Medications betamethasone-clotrimazole 0.05%-1% topical cream 1 application, Topically, 2 times a day, # 45 Gm, 1 Refills, Maintenance, 04/25/18 9:08:10 EDT, Cream, 1 application Topically 2 times a day Start Date: 04/25/18 Status: Ordered CPAP Machine See Instructions, # 1 each, Maintenance, USE NIGHTLY TO TREAT CRISTINA Patient should either be started on AutoCPAP 7-20 cm H2O with compliance data followed or return for CPAP titration if required by insurance., 09/12/18 9:18:56 EST, Compound Start Date: 09/12/18 Status: Ordered CPAP Equipment See Instructions, # 1 each, Refills 11, Tot. Refills 11, Maintenance, MASK, TUBING, FILTERS, HEAD GEAR, CHIN STRAP, WATER CHAMBER, 09/10/18 14:21:43 EST, Compound Start Date: 09/10/18 Status: Ordered Diflucan 150 mg oral tablet 1 tablet = 150 mg, By Mouth, Once, Repeat in 3 days if symptoms persist., # 1 tablet, 1 Refills, Soft Stop, 09/28/18 16:30:54 EST, Tablet Start Date: 09/28/18 Status: Ordered Linzess 145 mcg oral capsule 1 capsule = 145 mcg, By Mouth, Daily, # 30 capsule, 3 Refills, Maintenance, 02/16/18 15:32:23 EDT, Capsule Start Date: 02/16/18 Status: Ordered MiraLax oral powder for reconstitution = 17 Gm, By Mouth, Daily, dissolve in water before taking, # 527 Gm, 0 Refills, Maintenance, 09/15/17 8:44:05, REC Powder, 17 Gm By Mouth Daily,Instr:dissolve in water before taking Start Date: 09/15/17 Status: Ordered norethindrone 0.35 mg oral tablet 1 tablet = 0.35 mg, By Mouth, Daily, # 28 tablet, 0 Refills, Maintenance, 07/19/17 9:07:31, Tablet Start Date: 07/19/17 Status: Ordered NuLYTELY with Flavor Packs oral powder for reconstitution 240 mL, By Mouth, Every 15 minutes, # 4,000 mL, 0 Refills, Maintenance, 01/04/18 12:44:41 EDT, 240 mL By Mouth Every 15 minutes Start Date: 01/04/18 Status: Ordered omeprazole 40 mg oral enteric coated capsule 1 capsule = 40 mg, By Mouth, Daily, # 90 capsule, 1 Refills, Maintenance, 12/05/17 16:32:10 EDT, ECCapsule Start Date: 12/05/17 Status: Ordered Zantac 150 oral tablet 1 tablet = 150 mg, By Mouth, 2 times a day, # 60 tablet, 0 Refills, Maintenance, 12/25/17 14:42:39 EDT, Tablet Start Date: 12/25/17 Status: Ordered Zoloft 100 mg oral tablet 1 tablet = 100 mg, By Mouth, Daily, Dose increase, # 30 tablet, 2 Refills, Maintenance, 07/24/18 16:33:04 EST, Tablet Start Date: 07/24/18 Status: Ordered Problem List Condition Effective Dates Status Health Status Inform ant Depression(Confirmed) Active Social History Social History Type Response Smoking Status Never smoker entered on: 07/19/17 Sex
--- OUTSIDE RECORDS SUMMARY | 2023-12-04 09:45 | XMS_ITS | Continuity of Care Document ---
Author Organization [facility] Adult Address [address] [place] [address]- Care Team Providers Care Banana Room Cutter Name Role Phone Lilliana Carroll NP Primary Care Physician [phone] Encounter [facility] Date(s): 01/03/23 - 02/02/23 [facility] Adult [address] [place] [address]- Attending Physician: Admthu, Ed8 Admitting Physician: Admtr, Ar8 Referring Physician: Admtr, Ar8 Allergies, Adverse Reactions, Alerts Substance Reaction Severity Status Other Environmental Allergy nasal sympto ms trees mold dust grasses Active Immunizations Given and Recorded Vaccine Date Status Refusal Reason influenza virus vaccine, inactivated 09/02/21 Elvin rded influenza virus vaccine, inactivated 07/31/18 Give n influenza virus vaccine, inactivated 1 07/19/17 Gi rodrigo influenza virus vaccine, inactivated 06/28/13 Elvin rded influenza virus vaccine, inactivated 07/15/11 Elvin rded SARS-CoV-2 (COVID-19) mRNA BNT-162b2 vac 07/06/21 Given SARS-CoV-2 (COVID-19) mRNA BNT-162b2 vac 11/24/20 Recorded SARS-CoV-2 (COVID-19) mRNA BNT-162b2 vac 10/31/20 Recorded hepatitis B adult vaccine 2 06/22/21 Given Influenza Virus Vaccine (oldterm) 05/28/20 Recorde d tetanus/diphtheria/pertussis, acel(Tdap) 3 01/23/20 Given tetanus/diphtheria/pertussis, acel(Tdap) 06/24/13 Recorded tetanus/diphtheria/pertussis, acel(Tdap) 10/30/07 Recorded Varicella Virus Vaccine 10/30/07 Recorded Varicella Virus Vaccine 12/27/95 Recorded Meningococcal Conjugate Vaccine 10/30/07 Recorded Human Papillomavirus Vaccine 10/30/07 Recorded Human Papillomavirus Vaccine 12/26/06 Recorded Human Papillomavirus Vaccine 10/25/06 Recorded tetanus-diphtheria toxoids (Td) 04/16/03 Recorded Measles/Mumps/Rubella Virus Vaccine 12/27/95 Recor ded Measles/Mumps/Rubella Virus Vaccine 05/21/92 Recor ded hepatitis B pediatric vaccine 10/26/95 Recorded hepatitis B pediatric vaccine 05/25/95 Recorded hepatitis B pediatric vaccine 04/25/95 Recorded Haemophilus B conjugate (HbOC) vaccine 05/21/92 Re corded Haemophilus B conjugate (HbOC) vaccine 08/28/91 Re corded Haemophilus B conjugate (HbOC) vaccine 03/28/91 Re corded Haemophilus B conjugate (HbOC) vaccine 01/26/91 Re corded 1Result Comment: regular dose [facility] [id number] 2Result Comment: [facility] [id number] 3Result Comment: [facility] [id number] Medications cloNIDine 0.1 mg oral tablet 1, tablet, By Mouth, 2 times a day, PRN, # 60 tablet, Refills 0, Tot. Refills 0, Maintenance, NEEDED FOR ANXIETY, 12/09/22 7:36:00 EDT, Route to Pharmacy Electronically, [facility]/pharmacy #[id number], 158.2,cm, 12/07/22 9:55:00 EDT, Height, 95.45, kg, ... Start Date: 12/09/22 Status: Ordered CPAP Machine See Instructions, # 1 each, Maintenance, USE NIGHTLY TO TREAT CRISTINA Patient should either be started on AutoCPAP 7-20 cm H2O with compliance data followed or return for CPAP titration if required by insurance., 02/19/20 9:05:00 EDT, Compound Start Date: 02/19/20 Status: Ordered CPAP Equipment See Instructions, # 1 each, Refills 11, Tot. Refills 11, Maintenance, MASK, TUBING, FILTERS, HEAD GEAR, CHIN STRAP, WATER CHAMBER DX. G47.33, 02/19/20 14:00:00 EDT, Compound Start Date: 02/19/20 Status: Ordered EPINEPHrine 0.1 mg injectable kit = 0.1 mg, Intramuscular, Once, 0 Refills, Maintenance, 01/07/22 9:57:00 EDT, Partial fill upon patient request if the prescription is for a schedule II opioid drug. Start Date: 01/07/22 Status: Ordered escitalopram 20 mg oral tablet 1 tablet, By Mouth, Daily, # 90 tablet, 1 Refills, Maintenance, 09/20/22 7:38:00 EST, [id number], 158.2, cm, 08/01/22 12:12:00 EST, Height, 95.45, kg, 01/07/22 10:11:00 EDT, Dry Weight Start Date: 09/20/22 Status: Ordered lamotrigine 50 mg oral tablet, extended release 3 tablet, By Mouth, Daily, # 270 tablet, 1 Refills, Maintenance, 01/18/23 18:04:00 EDT, [id number], 158.2, cm, 01/03/23 9:16:00 EDT, Height, 95.45, kg, 01/07/22 10:11:00 EDT, Dry Weight Start Date: 01/18/23 Status: Ordered Liletta Once, 0 Refills, Maintenance, 01/23/20 10:50:00 EDT Start Date: 01/23/20 Status: Ordered naproxen 500 mg oral tablet 1 tablet = 500 mg, By Mouth, 2 times a day, PRN Pain , Moderate, for 30 days, # 60 tablet, 1 Refills, Acute 03/04/23 9:39:00 EDT, 01/03/23 9:39:00 EDT, Tablet, [facility]/pharmacy #[id number], Partial fill upon patient request if the prescription is for a schedule... Start Date: 01/03/23 Stop Date: 03/04/23 Status: Ordered pantoprazole 20 mg oral delayed release tablet 1 tablet, By Mouth, Daily, # 90 tablet, 0 Refills, Maintenance, 01/25/23 19:07:00 EDT, 158.2, cm, 01/03/23 9:16:00 EDT, Height, 95.45, kg, 01/07/22 10:11:00 EDT, Dry Weight Start Date: 01/25/23 Status: Ordered PEG-3350 with Electrolytes (Eqv-GoLYTELY) oral powder for reconstitution See Instructions, Follow instructions on the label to mix powder with water. Drink all of the prep fluid on the evening before your colonoscopy., # 1 each, 0 Refills, Maintenance, 06/07/21 10:32:00 EDT, [facility]/pharmacy #[id number], Partial fill upon patient r... Start Date: 06/07/21 Status: Ordered traZODone 50 mg oral tablet 1, tablet, By Mouth, Daily at bedtime, # 90 tablet, Refills 1, Maintenance, 01/25/23 19:08:00 EDT, Route to Pharmacy Electronically, [id number], 158.2, cm, 01/03/23 9:16:00 EDT, Height, 95.45, kg, 01/07/22 10:11:00 EDT, Dry Weight Start Date: 01/25/23 Status: Ordered Problem List Condition Confirmation Course Effective Dates Status Health St atus Informant Functional constipation Confirmed Active GERD (gastroesophageal reflux disease) Confirmed Active ALFRED (generalized anxiety disorder) Confirmed Active CRISTINA on CPAP Confirmed Active Major depression, recurrent Confirmed Active Severe obesity (BMI 35.0-39.9) with comorbidity Confirmed Active Social History Social History Type Response Smoking Status Never smoker entered on: 07/19/17 Sex Laboratory * Event Display: Non BH Lab Results Authored Date: Patient Care team information Care Team Personnel Name: Lilliana Carroll NP Position: [facility] PCO Associate Professional Member Role: PCP Address: Address: [address] [place] [address]- Care Team Related Persons Name: KAILEE COTTON Address: home [address] [place] [address] Name: KODI ORDOÑEZ Address: home [address] [address] Name: MUKUL FREEMAN Address: home [address] [place] [address] Name: JUDY FREEMAN Address: home [address] [place] [address]
--- OUTSIDE RECORDS SUMMARY | 2023-12-04 09:45 | XMS_ITS | Continuity of Care Document ---
Author Organization [facility] Adult Address [address] [place] [address]- Care Team Providers Care Collection Officer Name Role Phone Lilliana Carroll NP Primary Care Physician Encounter [facility] Date(s): 04/28/21 - 05/28/21 [facility] Adult [address] [place] [id number] Allergies, Adverse Reactions, Alerts No Known Medication Allergies Immunizations Given and Recorded Vaccine Date Status Refusal Reason Influenza Virus Vaccine (oldterm) 05/28/20 Recorde d tetanus/diphtheria/pertussis, acel(Tdap) 1 01/23/20 Given influenza virus vaccine, inactivated 07/31/18 Give n influenza virus vaccine, inactivated 2 07/19/17 Gi rodrigo 1Result Comment: [facility] [id number] 2Result Comment: regular dose [facility] [id number] Medications clotrimazole 1% topical cream 1 application, Topically, 2 times a day, # 100 Gm, 0 Refills, Maintenance, 01/23/20 11:01:00 EDT, Cream, [id number], 1 application Topically 2 times a day,x21 days, 158.3, cm, 01/23/20 10:28:00 EDT, Height, 84, kg, 09/28/18 16:06:00 E... Start Date: 01/23/20 Stop Date: 02/13/20 Status: Ordered CPAP Machine See Instructions, # [...] EDT, Compound Start Date: 02/19/20 Status: Ordered hydrOXYzine hydrochloride 50 mg oral tablet 1 tablet = 50 mg, By Mouth, 3 times a day, PRN as needed for anxiety, # 90 tablet, 0 Refills, Maintenance, 01/12/21 11:15:00 EDT, [facility]/pharmacy #[id number], Partial fill upon patient request if the prescription is for a schedule II opioid drug., 158.3, cm, 0... Start Date: 01/12/21 Stop Date: 02/11/21 Status: Ordered Liletta Once, 0 Refills, Maintenance, 01/23/20 10:50:00 EDT Start Date: 01/23/20 Status: Ordered omeprazole 40 mg oral enteric coated capsule 1 capsule = 40 mg, By Mouth, Daily, # 30 capsule, 2 Refills, Maintenance, 03/13/21 10:08:00 EDT, ECCapsule, [id number], 158, cm, 01/25/21 10:55:00 EDT, Height Start Date: 03/13/21 Stop Date: 06/11/21 Status: Ordered sertraline 100 mg oral tablet 2 tablet = 200 mg, By Mouth, Daily, # 180 tablet, 0 Refills, Maintenance, 01/12/21 11:16:00 EDT, Tablet, [id number], Partial fill upon patient request, 158.3, cm, 01/12/21 9:23:00 EDT, Height Start Date: 01/12/21 Stop Date: 04/12/21 Status: Ordered Problem List Condition Effective Dates Status Health Status Inform ant Anxiety(Confirmed) Active Functional constipation(Confirmed) Active Depression(Confirmed) Active GERD (gastroesophageal reflu x disease)(Confirmed) Active Obesity (BMI 30.0-34.9)(Confirmed) Active CRISTINA on CPAP(Confirmed) Active Annual physical exam(Confirmed) Active Social History Social History Type Response Smoking Status Never smoker entered on: 07/19/17 Sex
--- OUTSIDE RECORDS SUMMARY | 2023-12-04 09:45 | XMS_ITS | Continuity of Care Document ---
Author Organization [facility] Adult Address [address] [place] [address]- Care Team Providers Care Blacking Wheel Tender Name Role Phone Lilliana Carroll NP Primary Care Physician [phone] Encounter [facility] Date(s): 02/05/21 - 03/07/[address] [facility] Adult [address] [place] [address] Allergies, Adverse Reactions, Alerts No Known Medication Allergies Immunizations Given and Recorded Vaccine Date Status Refusal Reason Influenza Virus Vaccine (oldterm) 05/28/20 Recorde d tetanus/diphtheria/pertussis, acel(Tdap) 1 01/23/20 Given influenza virus vaccine, inactivated 07/31/18 Give n influenza virus vaccine, inactivated 2 07/19/17 Gi rodrigo 1Result Comment: [facility] [id number] 2Result Comment: regular dose [facility] [id number] Medications clotrimazole 1% topical cream 1 application, Topically, 2 times a day, # 100 Gm, 0 Refills, Maintenance, 01/23/20 11:01:00 EDT, Cream, [id number], 1 application Topically 2 times a day,x21 [...] tablet, 0 Refills, Maintenance, 01/12/21 11:15:00 EDT, [facility]/pharmacy #[id number], Partial fill upon patient request if the prescription is for a schedule II opioid drug., 158.3, cm, 0... Start Date: 01/12/21 Stop Date: 02/11/21 Status: Ordered Liletta Once, 0 Refills, Maintenance, 01/23/20 10:50:00 EDT Start Date: 01/23/20 Status: Ordered omeprazole 40 mg oral enteric coated capsule 1 capsule = 40 mg, By Mouth, Daily, # 30 capsule, 11 Refills, Maintenance, 01/23/20 10:40:00 EDT, EC Capsule, [facility] #[id number], 158.3, cm, 01/23/20 10:28:00 EDT, Height, 84, kg, 09/28/18 16:06:00 EST, Dry Weight Start Date: 01/23/20 Stop Date: 01/17/21 Status: Ordered sertraline 100 mg oral tablet 2 tablet = 200 mg, By Mouth, Daily, # 180 tablet, 0 Refills, Maintenance, 01/12/21 11:16:00 EDT, Tablet, [facility]/pharmacy #[id number], Partial fill upon patient request, 158.3, [...]
--- OUTSIDE RECORDS SUMMARY | 2023-12-04 09:45 | XMS_ITS | Continuity of Care Document ---
Author Organization [facility] Adult Address [address] [place] [address]- Care Team Providers Care Preformer Imp[employer]ated Fabrics Name Role Phone Lilliana Carroll NP Primary Care Physician Encounter [facility] Date(s): 03/06/22 - 04/05/22 [facility] Adult [address] [place] [id number]- Allergies, Adverse Reactions, Alerts Substance Reaction Severity Status Other Environmental Allergy nasal sympto ms trees mold dust grasses Active Immunizations Given and Recorded Vaccine Date Status Refusal Reason SARS-CoV-2 (COVID-19) mRNA BNT-162b2 vac 07/06/21 Given SARS-CoV-2 (COVID-19) mRNA BNT-162b2 vac 11/24/20 Recorded SARS-CoV-2 (COVID-19) mRNA BNT-162b2 vac 10/31/20 Recorded hepatitis B adult vaccine 1 06/22/21 Given Influenza Virus Vaccine (oldterm) 05/28/20 Recorde d tetanus/diphtheria/pertussis, acel(Tdap) 2 01/23/20 Given tetanus/diphtheria/pertussis, acel(Tdap) 06/24/13 Recorded tetanus/diphtheria/pertussis, acel(Tdap) 10/30/07 Recorded influenza virus vaccine, inactivated 07/31/18 Give n influenza virus vaccine, inactivated 3 07/19/17 Gi rodrigo influenza virus vaccine, inactivated 06/28/13 Elvin rded influenza virus vaccine, inactivated 07/15/11 Elvin rded Varicella Virus Vaccine 10/30/07 Recorded Varicella Virus [...] (HbOC) vaccine 01/26/91 Re corded 1Result Comment: [facility] [id number] 2Result Comment: [facility] [id number] 3Result Comment: regular dose [facility] [id number] Medications clotrimazole 1% topical cream 1 application, Topically, 2 times a day, # 100 Gm, 0 Refills, Maintenance, 01/23/20 11:01:00 EDT, Cream, [facility][id number], 1 application Topically 2 times a day,x21 [...] Ordered escitalopram 20 mg oral tablet 1 tablet = 20 mg, By Mouth, Daily, # 90 tablet, 1 Refills, Maintenance, 09/20/21 9:13:00 EST, Tablet, [facility]/pharmacy #[id number], Partial fill upon patient request if the prescription is for a schedule II opioid drug., 158, cm, 07/27/21 8:47:00 EST, Height, 8... Start Date: 09/20/21 Stop Date: 03/19/22 Status: Ordered Liletta Once, 0 Refills, Maintenance, 01/23/20 10:50:00 EDT Start Date: 01/23/20 Status: Ordered omeprazole 40 mg oral enteric coated capsule 1 capsule = 40 mg, By Mouth, Daily, # 30 capsule, 2 Refills, Maintenance, 01/26/22 7:44:00 EDT, EC Capsule, [facility]/pharmacy #[id number], 157.48, cm, 01/11/22 10:16:00 EDT, Height, 95.45, kg, 01/07/22 10:11:00EDT, Dry Weight Start Date: 01/26/22 Stop Date: 04/26/22 Status: Ordered PEG-3350 with Electrolytes (Eqv-GoLYTELY) oral powder for reconstitution See Instructions, Follow instructions on the label to mix powder with water. Drink all of the prep fluid on the evening before your colonoscopy., # 1 each, 0 Refills, Maintenance, 06/07/21 10:32:00 EDT, [facility]/pharmacy #[id number], Partial fill upon patient r... Start Date: 06/07/21 Status: Ordered traZODone 50 mg oral tablet 1, tablet, By Mouth, Daily at bedtime, for 90 days, # 90 tablet, Refills 1, Tot. Refills 1, Physician Stop 04/11/22 9:22:00 EDT, 10/13/21 9:22:00 EST, Route to Pharmacy Electronically, [facility]/pharmacy #207, 158, cm, 07/27/21 8:47:00 EST, Height, 93, kg,... Start Date: 10/13/21 Stop Date: 04/11/22 Status: Ordered Problem List Condition Effective Dates Status Health Status Inform ant Anxiety(Confirmed) Active Functional constipation(Confirmed) Active Depression(Confirmed) Active GERD (gastroesophageal reflu x disease)(Confirmed) Active Obese class II(Confirmed) Active CRISTINA on CPAP(Confirmed) Active Annual physical exam(Confirmed) Active Severe recurrent major depression(Confirmed) Active Social History Social History Type Response Smoking Status Never smoker entered on: 07/19/17 Sex
--- OUTSIDE RECORDS SUMMARY | 2023-12-04 09:45 | XMS_ITS | Continuity of Care Document ---
Author Organization [facility] Adult Address [address] [place] [address]- Care Team Providers Care Switchman Supervisor Name Role Phone Lilliana Carroll NP Primary Care Physician [phone] [place] [facility] [place](s): 03/13/21 - 04/12/21 [facility] Adult [address] [place] [address]- Allergies, Adverse Reactions, Alerts No Known Medication Allergies Immunizations Given and Recorded Vaccine Date Status Refusal Reason Influenza Virus Vaccine (oldterm) 05/28/20 Recorde d tetanus/diphtheria/pertussis, acel(Tdap) 1 01/23/20 Given influenza virus vaccine, inactivated 07/31/18 Give n influenza virus vaccine, inactivated 2 07/19/17 Gi rodrigo 1Result Comment: [facility] [id number] 2Result Comment: regular dose [facility] 92151-252-18 Medications clotrimazole 1% topical cream 1 application, Topically, 2 times a day, # 100 Gm, 0 Refills, Maintenance, 01/23/20 11:01:00 EDT, Cream, [facility] #[id number], 1 application Topically 2 times a day,x21 [...] tablet, 0 Refills, Maintenance, 01/12/21 11:15:00 EDT, [facility]/pharmacy #[id number], Partial fill upon patient request [...] 2 Refills, Maintenance, 03/13/21 10:08:00 EDT, ECCapsule, [facility]/pharmacy #[id number], 158, cm, 01/25/21 10:55:00 EDT, Height Start Date: 03/13/21 Stop Date: 06/11/21 Status: Ordered sertraline 100 mg oral tablet 2 tablet = 200 mg, By Mouth, Daily, # 180 tablet, 0 Refills, Maintenance, 01/12/21 11:16:00 EDT, Tablet, [facility]/pharmacy #[id number], Partial fill upon patient request, 158.3, [...]
--- OUTSIDE RECORDS SUMMARY | 2023-12-04 09:45 | XMS_ITS | Continuity of Care Document ---
Author Organization [facility] Adult Address [address] [place] [address]- Care Team Providers Care Sugar Controller Name Role Phone Lilliana Carroll NP Primary Care Physician [phone] Encounter [facility] [place] Date(s): 03/06/22 - 04/06/22 [facility] Adult [address] [place] [address]- Attending Physician: Carito Shukla MD Allergies, Adverse Reactions, Alerts Substance Reaction Severity [...] (HbOC) vaccine 01/26/91 Re corded 1Result Comment: [facility] [id number] 2Result Comment: [facility] [id number] 3Result Comment: regular dose [facility] 52762-357-10 Medications clotrimazole 1% topical cream 1 application, Topically, 2 times a day, # 100 Gm, 0 Refills, Maintenance, 01/23/20 11:01:00 EDT, Cream, [facility] #[id number], 1 application Topically 2 times a day,x21 [...] 1 Refills, Maintenance, 09/20/21 9:13:00 EST, Tablet, [facility]/pharmacy #207, Partial fill upon patient request if the [...] Refills, Maintenance, 01/26/22 7:44:00 EDT, EC Capsule, [facility]/pharmacy #207, 157.48, cm, 01/11/22 10:16:00 EDT, Height, 95.45, kg, 01/07/22 10:11:00EDT, Dry Weight Start Date: 01/26/22 Stop Date: 04/26/22 Status: Ordered PEG-3350 with Electrolytes (Eqv-GoLYTELY) oral powder for reconstitution See Instructions, Follow instructions on the label to mix powder with water. Drink all of the prep fluid on the evening before your colonoscopy., # 1 each, 0 Refills, Maintenance, 06/07/21 10:32:00 EDT, [facility]/pharmacy #[id number], Partial fill upon patient r... Start Date: 06/07/21 Status: Ordered traZODone 50 mg oral tablet 1, tablet, By Mouth, Daily at bedtime, for 90 days, # 90 tablet, Refills 1, Tot. Refills 1, Physician Stop 04/11/22 9:22:00 EDT, 10/13/21 9:22:00 EST, Route to Pharmacy Electronically, [facility]/pharmacy #207, 158, cm, 07/27/21 8:47:00 EST, Height, [...]
--- OUTSIDE RECORDS SUMMARY | 2023-12-04 09:45 | XMS_ITS | Continuity of Care Document ---
Author Organization [facility] Adult Address [address] [place] [address]- Care Team Providers Care Dining Services Manager Name Role Phone Lilliana Carroll NP Primary Care Physician [place] [facility] [place](s): 10/11/22 - 10/18/22 [facility] Adult [address] [place] [address]- Encounter Diagnosis Bipolar disorder, unspecified(Discharge Diagnosis) - 10/11/22 Attending Physician: Lilliana Carroll NP Allergies, Adverse Reactions, Alerts Substance Reaction Severity [...] influenza virus vaccine, inactivated 3 07/19/17 Gi rordigo influenza virus vaccine, inactivated 06/28/13 Elvin rded [...] (HbOC) vaccine 01/26/91 Re corded 1Result Comment: [facility] [id number] 2Result Comment: [facility] [id number] 3Result Comment: regular dose [facility] [place] 77166-272-62 Medications cloNIDine 0.1 mg oral tablet 0.1 mg, By Mouth, 2 times a day, PRN, # 60 each, Refills 0, Tot. Refills 0, Maintenance, Anxiety, 10/18/22 13:53:00 EST, Route to Pharmacy Electronically, [facility]/pharmacy #[id number], Partial fill upon patient request if the prescription is for a schedule II o... Start Date: 10/18/22 Stop Date: 11/17/22 Status: Ordered clotrimazole 1% topical cream 1 application, Topically, 2 times a day, # 100 Gm, 0 Refills, Maintenance, 01/23/20 11:01:00 EDT, Cream, [facility] #48116, 1 application Topically 2 times a day,x21 [...] Refills, Maintenance, 09/20/22 7:38:00 EST, [facility], 158.2, cm, 08/01/22 12:12:00 EST, Height, 95.45, kg, 01/07/22 10:11:00 EDT, Dry Weight Start Date: 09/20/22 Status: Ordered LaMICtal 25 mg oral tablet 25 mg, 1, tablet, By Mouth, Daily, # 14 tablet, Refills 0, Tot. Refills 0, Maintenance, 07/01/22 12:16:00 EST, Route to Pharmacy Electronically, [facility]/pharmacy #[id number], Partial fill upon patient request if the prescription is for a schedule II opioid drug... Start Date: 07/01/22 Stop Date: 07/15/22 Status: Ordered LaMICtal XR 25 mg oral tablet, extended release 1 tablet = 25 mg, By Mouth, Daily, Take 25mg daily salvatore 14 days then increase to 50mg, # 14 tablet, 0 Refills, Maintenance, 07/01/22 9:42:00 EST, ER Tablet, [id number], Partial fill upon patient request if the prescription is for a schedule II... Start Date: 07/01/22 Stop Date: 07/15/22 Status: Ordered LaMICtal XR 50 mg oral tablet, extended release 3 tablet = 150 mg, By Mouth, Daily, # 270 tablet, 1 Refills, Maintenance, 08/01/22 13:54:00 EST, ERTablet, [id number], Partial fill upon patient request if the prescription is for a scheduleII opioid drug., 158.2, cm, 08/01/22 12:12:00 EST,... Start Date: 08/01/22 Stop Date: 01/28/23 Status: Ordered Liletta Once, 0 Refills, Maintenance, 01/23/20 10:50:00 EDT Start Date: 01/23/20 Status: Ordered pantoprazole 20 mg oral delayed release tablet 1 tablet, By Mouth, Daily, # 90 tablet, 0 Refills, Maintenance, 10/12/22 19:15:00 EST, 158.2, cm, 10/11/22 9:05:00 EST, Height, 95.45, kg, 01/07/22 10:11:00 EDT, Dry Weight Start Date: 10/12/22 Status: Ordered PEG-3350 with Electrolytes (Eqv-GoLYTELY) oral powder for reconstitution See Instructions, Follow instructions on the label to mix powder with water. Drink all of the prep fluid on the evening before your colonoscopy., # 1 each, 0 Refills, Maintenance, 06/07/21 10:32:00 EDT, [facility]/pharmacy #[id number], Partial fill upon patient r... Start Date: 06/07/21 Status: Ordered traZODone 50 mg oral tablet 1, tablet, By Mouth, Daily at bedtime, # 90 tablet, Refills 1, Tot. Refills 1, Maintenance, 09/19/22 17:36:00 EST, Route to Pharmacy Electronically, [facility]/pharmacy #[id number], 158.2, cm, 08/01/22 12:12:00 EST, Height, 95.45, kg, 01/07/22 10:11:00 EDT, Dry We... Start Date: 09/19/22 Status: Ordered Problem List Condition Confirmation Course Effective Dates Status Health St atus Informant Functional constipation Confirmed Active GERD (gastroesophageal reflux disease) Confirmed Active ALFRED (generalized anxiety disorder) Confirmed Active Obese class II Confirmed Active CRISTINA on CPAP Confirmed Active Major depression, recurrent Confirmed Active Diagnosis Diagnosis Type Effective Dates Health Status Clinical Service Informant Bipolar disorder, unspecified Discharge Diagnosis 10/11/22 Vital Signs Most recent to oldest [Reference Range]: 1 Height 158.2 cm (10/11/22 9:05 AM) Weight Obtained Via Patient/family state d (10/11/22 9:05 AM) Social History Social History Type Response Smoking Status Never smoker entered on: 07/19/17 Sex Patient Care team information Care Team Personnel Name: Lilliana Carroll NP Position: [facility] PCO Associate Professional Member Role: PCP Address: Address: [address] [place] [address]- Care Team Related Persons Name: KAILEE COTTON Address: home [address] [place] [address] Name: KODI ORDOÑEZ Address: home [address] [address] Name: MUKUL FREEMAN Address: home [address] [place] [address] Name: JUDY FREEMAN Address: home [address] [place] [address]
--- OUTSIDE RECORDS SUMMARY | 2023-12-04 09:45 | XMS_ITS | Continuity of Care Document ---
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 Name Role Phone Lilliana Carroll NP Primary Care Physician [place] [facility] [place](s): 02/05/21 - 03/10/21 [facility] Adult [address] [place] [address] Attending Physician: Not on Staff, Attending MD Allergies, Adverse Reactions, Alerts No Known Medication Allergies Immunizations Given and Recorded Vaccine Date Status Refusal Reason Influenza Virus Vaccine (oldterm) 05/28/20 Recorde d tetanus/diphtheria/pertussis, acel(Tdap) 1 01/23/20 Given influenza virus vaccine, inactivated 07/31/18 Give n influenza virus vaccine, inactivated 2 07/19/17 Gi rodrigo 1Result Comment: [facility] [id number] 2Result Comment: regular dose [facility] 45719-872-51 Medications clotrimazole 1% topical cream 1 application, Topically, 2 times a day, # 100 Gm, 0 Refills, Maintenance, 01/23/20 11:01:00 EDT, Cream, [facility] #77007, 1 application Topically 2 times a day,x21 [...] tablet, 0 Refills, Maintenance, 01/12/21 11:15:00 EDT, [facility]/pharmacy #[id number], Partial fill upon patient request if [...] Refills, Maintenance, 01/23/20 10:40:00 EDT, EC Capsule, [facility] #53442, 158.3, cm, 01/23/20 10:28:00 EDT, Height, 84, [...]
--- OUTSIDE RECORDS SUMMARY | 2023-12-04 09:45 | XMS_ITS | Continuity of Care Document ---
Author Organization [facility] Adult Address [address] [place] [address]- Care Team Providers Care Side Trimmer Name Role Phone Lilliana Carroll NP Primary Care Physician Encounter [facility] [place] Date(s): 05/09/23 - 06/08/23 [facility] Adult [address] [place] [address]- Allergies, Adverse Reactions, Alerts Substance Reaction Severity [...] 01/26/91 Re corded 1Result Comment: regular dose [facility] [id number] 2Result Comment: [facility] [id number] 3Result Comment: [facility] [id number] Medications cloNIDine 0.1 mg oral tablet 1, tablet, By Mouth, 2 times a day, PRN, # 60 tablet, Refills 0, Tot. Refills 0, Maintenance, NEEDED FOR ANXIETY, 12/09/22 7:36:00 EDT, Route to Pharmacy Electronically, [facility]/pharmacy #[id number], 158.2,cm, 12/07/22 9:55:00 EDT, Height, 95.45, kg, ... Start Date: 12/09/22 Status: Ordered CPAP Machine See Instructions, # 1 each, Maintenance, USE NIGHTLY TO TREAT CRISTINA Patient should either be started on AutoCPAP 7-20 cm H2O with compliance data followed or return for CPAP titration if required by insurance., 03/27/23 13:21:00 EDT, Compound Start Date: 03/27/23 Status: Ordered CPAP Equipment See Instructions, # 1 each, Refills 11, Tot. Refills 11, Maintenance, MASK, TUBING, FILTERS, HEAD GEAR, CHIN STRAP, WATER CHAMBER DX. G47.33, 03/27/23 13:20:00 EDT, Compound Start Date: 03/27/23 Status: Ordered EPINEPHrine 0.1 mg injectable kit = 0.1 mg, Intramuscular, Once, 0 Refills, Maintenance, 01/07/22 9:57:00 EDT, Partial fill upon patient request if the prescription is for a schedule II opioid drug. Start Date: 01/07/22 Status: Ordered escitalopram 20 mg oral tablet 1 tablet, By Mouth, Daily, # 90 tablet, 1 Refills, Maintenance, 09/20/22 7:38:00 EST, [facility], 158.2, cm, 08/01/22 12:12:00 EST, Height, 95.45, kg, 01/07/22 10:11:00 EDT, Dry Weight Start Date: 09/20/22 Status: Ordered lamotrigine 50 mg oral tablet, extended release 3 tablet, By Mouth, Daily, # 270 tablet, 1 Refills, Maintenance, 01/18/23 18:04:00 EDT, [facility], 158.2, cm, 01/03/23 9:16:00 EDT, Height, 95.45, [...] each, 0 Refills, Maintenance, 06/07/21 10:32:00 EDT, [facility]/pharmacy #[id number], Partial fill upon patient r... Start Date: 06/07/21 Status: Ordered traZODone 50 mg oral tablet 1, tablet, By Mouth, Daily at bedtime, # 90 tablet, Refills 1, Maintenance, 01/25/23 19:08:00 EDT, Route to Pharmacy Electronically, [facility], 158.2, cm, 01/03/23 9:16:00 EDT, Height, 95.45, [...] Team Personnel Name: Lilliana Carroll NP Position: [facility] PCO Associate Professional Member Role: PCP Address: Address: [address] [place] [address]- Care Team Related Persons Name: KAILEE COTTON Address: home [address] [place] [address] Name: KODI ORDOÑEZ Address: home [address] [address] Name: MUKUL FREEMAN Address: home [address] [place] [address] Name: JUDY FREEMAN Address: home [address] [place] [address]
--- OUTSIDE RECORDS SUMMARY | 2023-12-04 09:45 | XMS_ITS | Continuity of Care Document ---
Author Organization [facility] Adult Address [address] [place] [address]- Care Team Providers Care Etiologist Name Role Phone Lilliana Carroll NP Primary Care Physician Encounter [facility] Date(s): 10/18/22 - 11/17/22 [facility] Adult [address] [place] [address] Allergies, Adverse Reactions, Alerts Substance Reaction Severity [...] (HbOC) vaccine 01/26/91 Re corded 1Result Comment: [facility] [id number] 2Result Comment: [facility] [id number] 3Result Comment: regular dose [facility] 68906-069-90 Medications cloNIDine 0.1 mg oral tablet 1, tablet, By Mouth, 2 times a day, PRN, # 60 tablet, Refills 0, Maintenance, NEEDED FOR ANXIETY, 11/11/22 12:24:00 EDT, Route to Pharmacy Electronically, [facility], 158.2, cm, 10/11/22 9:05:00 EST, Height, 95.45, kg, 01/07/22 10:11:00 EDT, D... Start Date: 11/11/22 Status: Ordered clotrimazole 1% topical cream 1 application, Topically, 2 times a day, # 100 Gm, 0 Refills, Maintenance, 01/23/20 11:01:00 EDT, Cream, [facility] #14439, 1 application Topically 2 times a day,x21 [...] Refills, Maintenance, 09/20/22 7:38:00 EST, [facility], 158.2, cm, 08/01/22 12:12:00 EST, Height, 95.45, kg, 01/07/22 10:11:00 EDT, Dry Weight Start Date: 09/20/22 Status: Ordered LaMICtal 25 mg oral tablet 25 mg, 1, tablet, By Mouth, Daily, # 14 tablet, Refills 0, Tot. Refills 0, Maintenance, 07/01/22 12:16:00 EST, Route to Pharmacy Electronically, [facility]/pharmacy #[id number], Partial fill upon patient request if the prescription is for a schedule II opioid drug... Start Date: 07/01/22 Stop Date: 07/15/22 Status: Ordered LaMICtal XR 25 mg oral tablet, extended release 1 tablet = 25 mg, By Mouth, Daily, Take 25mg daily salvatore 14 days then increase to 50mg, # 14 tablet, 0 Refills, Maintenance, 07/01/22 9:42:00 EST, ER Tablet, [facility]/pharmacy #[id number], Partial fill upon patient request if the prescription is for a schedule II... Start Date: 07/01/22 Stop Date: 07/15/22 Status: Ordered LaMICtal XR 50 mg oral tablet, extended release 3 tablet = 150 mg, By Mouth, Daily, # 270 tablet, 1 Refills, Maintenance, 08/01/22 13:54:00 EST, ERTablet, [facility]/pharmacy #[id number], Partial fill upon patient request if [...] each, 0 Refills, Maintenance, 06/07/21 10:32:00 EDT, [facility]/pharmacy #2071, Partial fill upon patient r... Start Date: 06/07/21 Status: Ordered traZODone 50 mg oral tablet 1, tablet, By Mouth, Daily at bedtime, # 90 tablet, Refills 1, Tot. Refills 1, Maintenance, 09/19/22 17:36:00 EST, Route to Pharmacy Electronically, [facility]/pharmacy #[id number], 158.2, cm, 08/01/22 12:12:00 EST, Height, 95.45, kg, 01/07/22 10:11:00 EDT, Dry We... Start Date: 09/19/22 Status: Ordered Problem List Condition Confirmation Course Effective Dates Status Health St atus Informant Functional constipation Confirmed Active GERD (gastroesophageal reflux disease) Confirmed Active ALFRED (generalized anxiety disorder) Confirmed Active Obese class II Confirmed Active CRISTINA on CPAP Confirmed Active Major depression, recurrent Confirmed Active Social History Social History Type Response Smoking Status Never smoker entered on: 07/19/17 Sex Patient Care team information Care Team Personnel Name: Lilliana Carroll NP Position: [facility] PCO Associate Professional Member Role: PCP Address: Address: [address] [place] [address] Care Team Related Persons Name: KAILEE COTTON Address: home [address] [place] [address] Name: KODI ORDOÑEZ Address: home [address] [address] Name: MUKUL FREEMAN Address: home [address] [place] [address] Name: JUDY FREEMAN Address: home [address] [place] [address]
--- OUTSIDE RECORDS SUMMARY | 2023-12-04 09:45 | XMS_ITS | Continuity of Care Document ---
Author Organization [facility] Adult Address [address] [place] [address]- Care Team Providers Care Emergency Service Restorer Name Role Phone Lilliana Carroll NP Primary Care Physician [facility]counter [facility] Date(s): 01/27/21 - 02/26/21 [facility] Adult [address] [place], [place] [address] Allergies, Adverse Reactions, Alerts No Known Medication Allergies Immunizations Given and Recorded Vaccine Date Status Refusal Reason Influenza Virus Vaccine (oldterm) 05/28/20 Recorde d tetanus/diphtheria/pertussis, acel(Tdap) 1 01/23/20 Given influenza virus vaccine, inactivated 07/31/18 Give n influenza virus vaccine, inactivated 2 07/19/17 Gi rodrigo 1Result Comment: [facility] [id number] 2Result Comment: regular dose [facility] [id number] Medications clotrimazole 1% topical cream 1 application, Topically, 2 times a day, # 100 Gm, 0 Refills, Maintenance, 01/23/20 11:01:00 EDT, Cream, [facility] #06671, 1 application Topically 2 times a day,x21 [...] tablet, 0 Refills, Maintenance, 01/12/21 11:15:00 EDT, [facility]/pharmacy #[id number], Partial fill upon patient request [...] Refills, Maintenance, 01/23/20 10:40:00 EDT, EC Capsule, [facility] #40490, 158.3, cm, 01/23/20 10:28:00 EDT, Height, 84, kg, 09/28/18 16:06:00 EST, Dry Weight Start Date: 01/23/20 Stop Date: 01/17/21 Status: Ordered sertraline 100 mg oral tablet 2 tablet = 200 mg, By Mouth, Daily, # 180 tablet, 0 Refills, Maintenance, 01/12/21 11:16:00 EDT, Tablet, [facility]/pharmacy #2071, Partial fill upon patient request, [...]
--- OUTSIDE RECORDS SUMMARY | 2023-12-04 09:45 | XMS_ITS | Continuity of Care Document ---
Author Organization [facility] Address [address] [place] [address]- Care Team Providers Care Track Service Person Name Role Phone Lilliana Carroll NP Primary Care Physician [phone] Encounter [facility] Date(s): 09/08/21 - 10/08/21 [facility] [address] [place] [address]- [place] Allergies, Adverse Reactions, Alerts No Known Medication [...] (HbOC) vaccine 01/26/91 Re corded 1Result Comment: [facility] [id number] 2Result Comment: [facility] [id number] 3Result Comment: regular dose [facility] [id number] Medications clotrimazole 1% topical cream 1 application, Topically, 2 times a day, # 100 Gm, 0 Refills, Maintenance, 01/23/20 11:01:00 EDT, Cream, [facility] #66630, 1 application Topically 2 times a day,x21 [...] EDT, Compound Start Date: 02/19/20 Status: Ordered escitalopram 20 mg oral tablet 1 tablet = 20 mg, By Mouth, Daily, # 90 tablet, 1 Refills, Maintenance, 09/20/21 9:13:00 EST, Tablet, [facility]/pharmacy #9649, Partial fill upon patient request if the [...] 2 Refills, Maintenance, 03/13/21 10:08:00 EDT, ECCapsule, [facility]/pharmacy #2071, 158, cm, 01/25/21 10:55:00 EDT, Height Start Date: 03/13/21 Stop Date: 06/11/21 Status: Ordered PEG-3350 with Electrolytes (Eqv-GoLYTELY) oral powder for reconstitution See Instructions, Follow instructions on the label to mix powder with water. Drink all of the prep fluid on the evening before your colonoscopy., # 1 each, 0 Refills, Maintenance, 06/07/21 10:32:00 EDT, [facility]/pharmacy #2071, Partial fill upon patient r... Start Date: 06/07/21 Status: Ordered traZODone 50 mg oral tablet 1, tablet, By Mouth, Daily at bedtime, # 30 tablet, Refills 1, Route to Pharmacy Electronically, [facility], 158, cm, 07/27/21 8:47:00 EST, Height, 93, kg, 08/08/21 11:05:00 EST, Dry Weight Start Date: 08/17/21 Status: Ordered Problem List Condition Effective Dates Status Health Status Inform ant Anxiety(Confirmed) Active Functional constipation(Confirmed) Active Depression(Confirmed) Active GERD (gastroesophageal reflu x disease)(Confirmed) Active Obese class II(Confirmed) Active CRISTINA on CPAP(Confirmed) Active Annual physical exam(Confirmed) Active Severe recurrent major depression(Confirmed) Active Social History Social History Type Response Smoking Status Never smoker entered on: 07/19/17 Sex
--- OUTSIDE RECORDS SUMMARY | 2023-12-04 09:45 | XMS_ITS | Continuity of Care Document ---
Author Organization [facility] Adult Address [address] [place] [address]- Care Team Providers Care Director Emergency Services Name Role Phone Lilliana Carroll NP Primary Care Physician [phone] [facility] Date[facility]s): 08/01/22 - 08/31/22 [facility] Adult [address], [place] [address] Attending Physician: Admthu, Ferdinand Admitting Physician: AdmtrFerdinand Referring Physician: Admtr, Ar8 [...] (HbOC) vaccine 01/26/91 Re corded 1Result Comment: [facility] [id number] 2Result Comment: [facility] [id number] 3Result Comment: regular dose [facility] [id number] Medications clotrimazole 1% topical cream 1 application, Topically, 2 times a day, # 100 Gm, 0 Refills, Maintenance, 01/23/20 11:01:00 EDT, Cream, [facility][id number], 1 application Topically 2 times a day,x21 [...] Daily, # 90 tablet, 1 Refills, Maintenance, 04/07/22 12:14:00 EDT, [facility]/pharmacy#[id number], 157.48, cm, 01/11/22 10:16:00 EDT, Height, 95.45, kg, 01/07/22 10:11:00 EDT, Dry Weight Start Date: 04/07/22 Status: Ordered LaMICtal 25 mg oral tablet 25 mg, 1, tablet, By Mouth, Daily, # 14 tablet, Refills 0, Tot. Refills 0, Maintenance, 07/01/22 12:16:00 EST, Route to Pharmacy Electronically, [facility]/pharmacy #[id number], Partial fill upon patient request if the prescription is for a schedule II opioid drug... Start Date: 07/01/22 Stop Date: 07/15/22 Status: Ordered LaMICtal XR 25 mg oral tablet, extended release 1 tablet = 25 mg, By Mouth, Daily, Take 25mg daily salvatore 14 days then increase to 50mg, # 14 tablet, 0 Refills, Maintenance, 07/01/22 9:42:00 EST, ER Tablet, [facility]/pharmacy #[id number], Partial fill upon patient request if the prescription is for a schedule II... Start Date: 07/01/22 Stop Date: 07/15/22 Status: Ordered LaMICtal XR 50 mg oral tablet, extended release 3 tablet = 150 mg, By Mouth, Daily, # 270 tablet, 1 Refills, Maintenance, 08/01/22 13:54:00 EST, ERTablet, [facility]/pharmacy #[id number], Partial fill upon patient request if the prescription is for a scheduleII opioid drug., 158.2, cm, 08/01/22 12:12:00 EST,... Start Date: 08/01/22 Stop Date: 01/28/23 Status: Ordered Liletta Once, 0 Refills, Maintenance, 01/23/20 10:50:00 EDT Start Date: 01/23/20 Status: Ordered pantoprazole 20 mg oral delayed release tablet 1 tablet = 20 mg, By Mouth, Daily, # 90 tablet, 0 Refills, Maintenance, 07/15/22 7:28:00 EST, EC Tablet, 158.2, cm, 07/01/22 9:02:00 EST, Height, 95.45, kg, 01/07/22 10:11:00 EDT, Dry Weight Start Date: 07/15/22 Stop Date: 10/13/22 Status: Ordered PEG-3350 with Electrolytes (Eqv-GoLYTELY) oral powder for reconstitution See Instructions, Follow instructions on the label to mix powder with water. Drink all of the prep fluid on the evening before your colonoscopy., # 1 each, 0 Refills, Maintenance, 06/07/21 10:32:00 EDT, [facility]/pharmacy #[id number], Partial fill upon patient r... Start Date: 06/07/21 Status: Ordered traZODone 50 mg oral tablet 1, tablet, By Mouth, Daily at bedtime, # 90 tablet, Refills 1, Tot. Refills 1, Maintenance, 04/07/22 12:14:00 EDT, Route to Pharmacy Electronically, [facility]/pharmacy #[id number], 157.48, cm, 01/11/22 10:16:00 EDT, Height, 95.45, kg, 01/07/22 10:11:00 EDT, Dry W... Start Date: 04/07/22 Status: Ordered Problem List Condition Confirmation Course Effective Dates Status Health St atus Informant Functional constipation Confirmed Active GERD (gastroesophageal reflux disease) Confirmed Active ALFRED (generalized anxiety disorder) Confirmed Active Obese class II Confirmed Active CRISTINA on CPAP Confirmed Active Major depression, recurrent Confirmed Active Social History Social History Type Response Smoking Status Never smoker entered on: 07/19/17 Sex Note * Event Display: Non BH Lab Results Authored Date: Patient Care team information Care Team Personnel Name: Lilliana Carroll NP Position: S PCO Associate Professional Member Role: PCP Address: Address: [address] [place] [address]- Care Team Related Persons Name: KAILEE COTTON Address: home [address] [place] [address] Name: KODI ORDOÑEZ Address: home [address] [address] Name: MUKUL FREEMAN Address: home [address] [place] [address] Name: JUDY FREEMAN Address: home [address] [place] [address]
--- OUTSIDE RECORDS SUMMARY | 2023-12-04 09:45 | XMS_ITS | Continuity of Care Document ---
Author Organization [facility] Address [address] [place] [address]- Care Team Providers Care Window Covering Sales Consultant Name Role Phone Lilliana Carroll NP Primary Care Physician [phone] Encounter [facility] Date(s): 01/11/22 - 01/11/[address] [address] Discharge Disposition: A-D/C Home Attending Physician: Molina Licea MD Admitting Physician: Molina Licea MD Referring Physician: Molina Licea MD Allergies, Adverse Reactions, Alerts Substance Reaction [...] (HbOC) vaccine 01/26/91 Re corded 1Result Comment: [facility] [id number] 2Result Comment: [facility] [id number] 3Result Comment: regular dose [facility] 07200-156-20 Medications clotrimazole 1% topical cream 1 application, Topically, 2 times a day, # 100 Gm, 0 Refills, Maintenance, 01/23/20 11:01:00 EDT, Cream, [facility] #[id number], 1 application Topically 2 times a day,x21 [...] 1 Refills, Maintenance, 09/20/21 9:13:00 EST, Tablet, [facility]/pharmacy #[id number], Partial fill upon patient request [...] 2 Refills, Maintenance, 03/13/21 10:08:00 EDT, ECCapsule, [facility]/pharmacy #[id number], 158, cm, 01/25/21 10:55:00 EDT, Height Start Date: 03/13/21 Stop Date: 06/11/21 Status: Ordered PEG-3350 with Electrolytes (Eqv-GoLYTELY) oral powder for reconstitution See Instructions, Follow instructions on the label to mix powder with water. Drink all of the prep fluid on the evening before your colonoscopy., # 1 each, 0 Refills, Maintenance, 06/07/21 10:32:00 EDT, [facility]/pharmacy #[id number], Partial fill upon patient r... Start Date: 06/07/21 Status: Ordered traZODone 50 mg oral tablet 1, tablet, By Mouth, Daily at bedtime, for 90 days, # 90 tablet, Refills 1, Tot. Refills 1, Physician Stop 04/11/22 9:22:00 EDT, 10/13/21 9:22:00 EST, Route to Pharmacy Electronically, [facility]/pharmacy #[id number], 158, cm, 07/27/21 8:47:00 EST, Height, 93, kg,... Start Date: 10/13/21 Stop Date: 04/11/22 Status: Ordered Problem List Condition Effective Dates Status Health Status Inform ant Anxiety(Confirmed) Active Functional constipation(Confirmed) Active Depression(Confirmed) Active GERD (gastroesophageal reflu x disease)(Confirmed) Active Obese class II(Confirmed) Active CRISTINA on CPAP(Confirmed) Active Annual physical exam(Confirmed) Active Severe recurrent major depression(Confirmed) Active Vital Signs Most recent to oldest [Reference Range]: 1 2 3 Height 157.48 cm (01/11/22 10:16 AM) 157.48 cm (01/07/22 10:11 AM) Weight 96.1 kg (01/11/22 10:16 AM) 95.45 kg (01/07/22 10:11 AM) Oxygen Saturation [94-100 %] 99 % (01/11/22 2:45 PM) 100 % (01/11/22 2:30 PM) 100 % (01/11/22 2:15 PM) Pulse Rate [55-90 bpm] 97 bpm *H* (01/11/22 10:16 AM) Body Mass Index [18.5-24.99] 38.75 *>HHI* (01/11/22 10:16 AM) 38.49 *>HHI* (01/07/22 10:11 AM) Blood Pressure [90-138/55-84 mm Hg] 129/78mm Hg (01/11/22 2:45 PM) 129/78mm Hg (01/11/22 2:30 PM) 127/84mm Hg (01/11/22 2:15 PM) Respiratory Rate [16-30 br/min] 11 br/min *L* (01/11/22 2:45 PM) 9 br/min *L* (01/11/22 2:30 PM) 14 br/min *L* (01/11/22 2:15 PM) Temperature [96.8-100.4 DegF] 97.3 DegF (01/11/22 2:45 PM) 97.2 DegF (01/11/22 1:45 PM) 98.2 DegF (01/11/22 10:16 AM) Liters per Minute 10 L/min (01/11/22 2:15 PM) 10 L/min (01/11/22 2:00 PM) 10 L/min (01/11/22 1:45 PM) Mode of Delivery (Oxygen) Room air (01/11/22 2:45 PM) Room air (01/11/22 2:30 PM) Aerosol mask (01/11/22 2:15 PM) Blood pressure sites Arm, left (01/11/22 10:16 AM) Temperature Route Temporal (01/11/22 2:45 PM) Temporal (01/11/22 1:45 PM) Temporal (01/11/22 10:16 AM) Dry Weight 95.45 kg (01/07/22 10:11 AM) Social History Social History Type Response Smoking Status Never smoker entered on: 07/19/17 Sex
--- OUTSIDE RECORDS SUMMARY | 2023-12-04 09:45 | XMS_ITS | Continuity of Care Document ---
Author Organization [facility] Address [address] [place] [address]- Care Team Providers Care Local Area Network Administrator Name Role Phone Lilliana Carroll NP Primary Care Physician [phone] [place]counter [facility] Date(s): 12/08/22 - 02/06/[address] [address]- Encounter Diagnosis Lumbago with sciatica, right side(Final) - Discharge Disposition: A-D/C Home Attending Physician: Sussy King NP Admitting Physician: Christine TOLENTINO, Sussy Referring Physician: Sussy King NP Allergies, Adverse Reactions, Alerts Substance Reaction Severity Status Other Environmental Allergy nasal sympto ms trees mold dust grasses Active Immunizations Given and Recorded Vaccine Date Status Refusal Reason influenza virus vaccine, inactivated 09/02/21 Elvin rded influenza virus vaccine, inactivated 07/31/18 Give n influenza virus vaccine, inactivated 1 07/19/17 Gi rodrigo influenza virus vaccine, inactivated 06/28/13 Elvin rded influenza virus vaccine, inactivated 07/15/11 Elivn rded SARS-CoV-2 (COVID-19) mRNA BNT-162b2 vac 07/06/21 [...] Re corded 1Result Comment: regular dose [facility] [id number] 2Result Comment: [facility] [id number] 3Result Comment: [facility] [id number] Medications cloNIDine 0.1 mg oral tablet 1, tablet, By Mouth, 2 times a day, PRN, # 60 tablet, Refills 0, Tot. Refills 0, Maintenance, NEEDED FOR ANXIETY, 12/09/22 7:36:00 EDT, Route to Pharmacy Electronically, [facility]/pharmacy #[id number], 158.2,cm, 12/07/22 9:55:00 EDT, Height, 95.45, [...] Refills, Maintenance, 09/20/22 7:38:00 EST, [facility], 158.2, cm, 08/01/22 12:12:00 EST, Height, 95.45, kg, 01/07/22 10:11:00 EDT, Dry Weight Start Date: 09/20/22 Status: Ordered lamotrigine 50 mg oral tablet, extended release 3 tablet, By Mouth, Daily, # 270 tablet, 1 Refills, Maintenance, 01/18/23 18:04:00 EDT, [facility], 158.2, cm, 01/03/23 9:16:00 EDT, Height, 95.45, [...] 03/04/23 9:39:00 EDT, 01/03/23 9:39:00 EDT, Tablet, [facility]/pharmacy #[id number], Partial fill upon patient request if [...] 0 Refills, Maintenance, 06/07/21 10:32:00 EDT, [facility]/pharmacy #[id number], Partial fill upon patient r... Start Date: 06/07/21 Status: Ordered traZODone 50 mg oral tablet 1, tablet, By Mouth, Daily at bedtime, # 90 tablet, Refills 1, Maintenance, 01/25/23 19:08:00 EDT, Route to Pharmacy Electronically, [facility], 158.2, cm, 01/03/23 9:16:00 EDT, Height, 95.45, [...] Team Personnel Name: Lilliana Carroll NP Position: [facility] PCO Associate Professional Member Role: PCP Address: Address: [address] [place] [address]- Care Team Related Persons Name: KAILEE COTTON Address: home [address] [place] [address] Name: KODI ORDOÑEZ Address: home [address] [address] Name: MUKUL FREEMAN Address: home [address] [place] [address] Name: JUDY FREEMAN Address: home [address] [place] [address]
--- OUTSIDE RECORDS SUMMARY | 2023-12-04 09:45 | XMS_ITS | Continuity of Care Document ---
Author Organization [facility] Adult Address [address] [place] [address]- Care Team Providers Care Insurance And Benefits Clerk Name Role Phone Lilliana Carroll NP Primary Care Physician Encounter [facility] Date(s): 01/27/23 - 02/26/23 [facility] Adult [address] [place] [address]- Allergies, Adverse Reactions, Alerts Substance Reaction Severity [...] 01/26/91 Re corded 1Result Comment: regular dose [facility] 81123-524-19 2Result Comment: [facility] [id number] 3Result Comment: [facility] [id number] Medications cloNIDine 0.1 mg oral tablet 1, tablet, By Mouth, 2 times a day, PRN, # 60 tablet, Refills 0, Tot. Refills 0, Maintenance, NEEDED FOR ANXIETY, 12/09/22 7:36:00 EDT, Route to Pharmacy Electronically, [facility]/pharmacy #[id number], 158.2,cm, 12/07/22 9:55:00 EDT, Height, 95.45, [...] Refills, Maintenance, 09/20/22 7:38:00 EST, [facility], 158.2, cm, 08/01/22 12:12:00 EST, Height, 95.45, kg, 01/07/22 10:11:00 EDT, Dry Weight Start Date: 09/20/22 Status: Ordered lamotrigine 50 mg oral tablet, extended release 3 tablet, By Mouth, Daily, # 270 tablet, 1 Refills, Maintenance, 01/18/23 18:04:00 EDT, [facility], 158.2, cm, 01/03/23 9:16:00 EDT, Height, 95.45, [...] 03/04/23 9:39:00 EDT, 01/03/23 9:39:00 EDT, Tablet, [facility]/pharmacy #[id number], Partial fill upon patient [...] each, 0 Refills, Maintenance, 06/07/21 10:32:00 EDT, [id number], Partial fill upon patient r... Start Date: 06/07/21 Status: Ordered traZODone 50 mg oral tablet 1, tablet, By Mouth, Daily at bedtime, # 90 tablet, Refills 1, Maintenance, 01/25/23 19:08:00 EDT, Route to Pharmacy Electronically, [facility], 158.2, cm, 01/03/23 9:16:00 EDT, Height, 95.45, [...] Team Personnel Name: Lilliana Carroll NP Position: [facility] PCO Associate Professional Member Role: PCP Address: Address: [address] [place] [address]- Care Team Related Persons Name: KAILEE COTTON Address: home [address] [place] [address] Name: KODI ORDOÑEZ Address: home [address] [address] Name: MUKUL FREEMAN Address: home [address] [place] [address] Name: JUDY FREEMAN Address: home [address] [place] [address]
--- OUTSIDE RECORDS SUMMARY | 2023-12-04 09:45 | XMS_ITS | Continuity of Care Document ---
Author Organization [facility] Adult Address [address] [place] [address]- Care Team Providers Care Regional Business Development Manager Name Role Phone Lilliana Carroll NP Primary Care Physician [facility]counter [facility] Date(s): 04/06/23 - 08/04/23 [facility] Adult [address] [place] [id number] Attending Physician: Lilliana Carroll NP Allergies, Adverse [...] 01/26/91 Re corded 1Result Comment: regular dose [facility] [id number] 2Result Comment: [facility] [id number] 3Result Comment: [facility] [id number] Medications cloNIDine 0.1 mg oral tablet 1, tablet, By Mouth, 2 times a day, PRN, # 60 tablet, Refills 0, Tot. Refills 0, Maintenance, NEEDED FOR ANXIETY, 12/09/22 7:36:00 EDT, Route to Pharmacy Electronically, [facility]/pharmacy #[id number], 158.2,cm, 12/07/22 9:55:00 EDT, Height, 95.45, [...] Refills, Maintenance, 09/20/22 7:38:00 EST, [facility], 158.2, cm, 08/01/22 12:12:00 EST, Height, 95.45, kg, 01/07/22 10:11:00 EDT, Dry Weight Start Date: 09/20/22 Status: Ordered lamotrigine 50 mg oral tablet, extended release 3 tablet, By Mouth, Daily, # 270 tablet, 1 Refills, Maintenance, 01/18/23 18:04:00 EDT, [facility], 158.2, cm, 01/03/23 9:16:00 EDT, Height, 95.45, kg, 01/07/22 10:11:00 EDT, Dry Weight Start Date: 01/18/23 Status: Ordered Liletta Once, 0 Refills, Maintenance, 01/23/20 10:50:00 EDT Start Date: 01/23/20 Status: Ordered pantoprazole 20 mg oral delayed release tablet See Instructions, TAKE 1 TABLET BY MOUTH EVERY DAY, # 90 tablet, 0 Refills, Maintenance, 06/24/23 20:11:00 EST, 157, cm, 05/08/23 15:25:00 EDT, Height, 92, kg, 05/08/23 15:25:00 EDT, Dry Weight Start Date: 06/24/23 Status: Ordered PEG-3350 with Electrolytes (Eqv-GoLYTELY) oral powder for reconstitution See Instructions, Follow instructions on the label to mix powder with water. Drink all of the prep fluid on the evening before your colonoscopy., # 1 each, 0 Refills, Maintenance, 06/07/21 10:32:00 EDT, [facility]/pharmacy #[id number], Partial fill upon patient r... Start Date: 06/07/21 Status: Ordered traZODone 50 mg oral tablet 1, tablet, By Mouth, Daily at bedtime, # 90 tablet, Refills 1, Maintenance, 01/25/23 19:08:00 EDT, Route to Pharmacy Electronically, [facility], 158.2, cm, 01/03/23 9:16:00 EDT, Height, 95.45, [...] Team Personnel Name: Lilliana Carroll NP Position: [facility] PCO Associate Professional Member Role: PCP Address: Address: [address] [place] [address]- Care Team Related Persons Name: KAILEE COTTON Address: home [address] [place] [address] Name: KODI ORDOÑEZ Address: home [address] [address] Name: MUKUL FREEMAN Address: home [address] [place] [address] Name: JUDY FREEMAN Address: home [address] [place] [address]
--- OUTSIDE RECORDS SUMMARY | 2023-12-04 09:45 | XMS_ITS | Continuity of Care Document ---
Author Organization [facility] Adult Address [address] [place] [address]- Care Team Providers Care Radiation Control Technician Name Role Phone Lilliana Carroll NP Primary Care Physician [facility]counter [facility] Date(s): 02/22/21 - 03/24/21 [facility] [address] [place], [place] [address] Allergies, Adverse Reactions, Alerts No Known Medication Allergies Immunizations Given and Recorded Vaccine Date Status Refusal Reason Influenza Virus Vaccine (oldterm) 05/28/20 Recorde d tetanus/diphtheria/pertussis, acel(Tdap) 1 01/23/20 Given influenza virus vaccine, inactivated 07/31/18 Give n influenza virus vaccine, inactivated 2 07/19/17 Gi rodrigo 1Result Comment: [facility] [id number] 2Result Comment: regular dose [facility] [id number] Medications clotrimazole 1% topical cream 1 application, Topically, 2 times a day, # 100 Gm, 0 Refills, Maintenance, 01/23/20 11:01:00 EDT, Cream, [facility]31936, 1 application Topically 2 times a day,x21 [...] tablet, 0 Refills, Maintenance, 01/12/21 11:15:00 EDT, [facility]/pharmacy #[id number], Partial fill upon patient request [...] 0 Refills, Maintenance, 01/12/21 11:16:00 EDT, Tablet, [facility]/pharmacy #[id number], Partial fill upon patient request, [...]
--- OUTSIDE RECORDS SUMMARY | 2023-12-04 09:45 | XMS_ITS | Continuity of Care Document ---
Author Organization [facility] Adult Address [address] [place] [address]- Care Team Providers Care Senior Account Representative Name Role Phone Lilliana Carroll NP Primary Care Physician Encounter [facility] Date(s): 06/09/22 - 06/16/22 [facility] Adult [address] [place] [address]- Encounter Diagnosis Well adult exam(Discharge Diagnosis) - 06/09/22 Major depression, recurrent(Discharge Diagnosis) - 06/09/22 Attending Physician: Carito Shukla MD Allergies, Adverse [...] (HbOC) vaccine 01/26/91 Re corded 1Result Comment: [facility] [id number] 2Result Comment: [facility] [id number] 3Result Comment: regular dose [facility] [id number] Medications clotrimazole 1% topical cream 1 application, Topically, 2 times a day, # 100 Gm, 0 Refills, Maintenance, 01/23/20 11:01:00 EDT, Cream, [facility] #[id number], 1 application Topically 2 times a day,x21 [...] 0.1 mg, Intramuscular, Once, 0 Refills, Maintenance, 05/27/22 9:57:00 EDT, Partial fill upon patient request if the prescription is for a schedule II opioid drug. Start Date: 01/07/22 Status: Ordered escitalopram 20 mg oral tablet 1 tablet, By Mouth, Daily, # 90 tablet, 1 Refills, Maintenance, 04/07/22 12:14:00 EDT, [facility]/pharmacy#[id number], 157.48, cm, 01/11/22 10:16:00 EDT, Height, 95.45, kg, 01/07/22 10:11:00 EDT, Dry Weight Start Date: 04/07/22 Status: Ordered Liletta Once, 0 Refills, Maintenance, 01/23/20 10:50:00 EDT Start Date: 01/23/20 Status: Ordered omeprazole 40 mg oral enteric coated capsule 1 capsule, By Mouth, Daily, # 30 capsule, 2 Refills, Maintenance, 06/15/22 9:38:00 EDT, [facility], 158.2, cm, 06/09/22 14:11:00 EDT, Height, 95.45, kg, 01/07/22 10:11:00 EDT, Dry Weight Start Date: 06/15/22 Status: Ordered PEG-3350 with Electrolytes (Eqv-GoLYTELY) oral [...] 04/07/22 12:14:00 EDT, [facility], [id number], 157.48, cm, 01/11/22 10:16:00 EDT, Height, 95.45, kg, 01/07/22 10:11:00 EDT, Dry W... Start Date: 04/07/22 Status: Ordered Problem List Condition Confirmation Course Effective Dates Status Health St atus Informant Functional constipation Confirmed Active GERD (gastroesophageal reflux disease) Confirmed Active Obese class II Confirmed Active CRISTINA on CPAP Confirmed Active Major depression, recurrent Confirmed Active Diagnosis Diagnosis Type Effective Dates Health Status Cl inical Service Informant Well adult exam Discharge Diagnosis 06/09/22 Major depression, recurrent Discharge Diagnosis 06/09/22 Vital Signs Most recent to oldest [Reference Range]: 1 Height 158.2 cm (06/09/22 2:11 PM) Weight 97.6 kg (06/09/22 2:11 PM) Oxygen Saturation [94-100 %] 99 % (06/09/22 2:11 PM) Pulse Rate [55-90 bpm] 98 bpm *H* (06/09/22 2:11 PM) Body Mass Index [18.5-24.99 kg/m2] 39 kg /m2 *>HHI* (06/09/22 2:11 PM) Blood Pressure [90-138/55-84 mm Hg] 105/ 71mm Hg (06/09/22 2:11 PM) Temperature [96.8-100.4 DegF] 98.3 DegF (06/09/22 2:11 PM) Mode of Delivery (Oxygen) Room air (06/09/22 2:11 PM) Blood pressure sites Arm, left (06/09/22 2:11 PM) Temperature Route Oral (06/09/22 2:11 PM) Weight Obtained Via Standing scale (06/09/22 2:11 PM) Social History Social History Type Response Smoking Status Never smoker entered on: 07/19/17 Sex Patient Care team information Personnel Name: Lilliana Carroll NP Address: Address: [address] [place] [id number]
--- OUTSIDE RECORDS SUMMARY | 2023-12-04 09:46 | XMS_ITS | Continuity of Care Document ---
Author Organization [facility] Adult Address [address] [place] [address]- Care Team Providers Care Information Assurance Specialist Name Role Phone Lilliana Carroll NP Primary Care Physician Encounter [facility] Date(s): 03/22/23 - 04/21/23 [facility] Adult [address] [place] [address]- Allergies, Adverse Reactions, Alerts Substance Reaction Severity [...] 01/26/91 Re corded 1Result Comment: regular dose [facility] [id number] 2Result Comment: [facility] [id number] 3Result Comment: [facility] [id number] Medications cloNIDine 0.1 mg oral tablet 1, tablet, By Mouth, 2 times a day, PRN, # 60 tablet, Refills 0, Tot. Refills 0, Maintenance, NEEDED FOR ANXIETY, 12/09/22 7:36:00 EDT, Route to Pharmacy Electronically, [facility]/pharmacy #[id number], 158.2,cm, 12/07/22 9:55:00 EDT, Height, [...] Refills, Maintenance, 09/20/22 7:38:00 EST, [id number], 158.2, cm, 08/01/22 12:12:00 EST, Height, 95.45, kg, 01/07/22 10:11:00 EDT, Dry Weight Start Date: 09/20/22 Status: Ordered lamotrigine 50 mg oral tablet, extended release 3 tablet, By Mouth, Daily, # 270 tablet, 1 Refills, Maintenance, 01/18/23 18:04:00 EDT, [facility], 158.2, cm, 01/03/23 9:16:00 EDT, Height, 95.45, [...] each, 0 Refills, Maintenance, 06/07/21 10:32:00 EDT, [facility]/pharmacy #[id number], Partial fill upon patient r... Start Date: 06/07/21 Status: Ordered traZODone 50 mg oral tablet 1, tablet, By Mouth, Daily at bedtime, # 90 tablet, Refills 1, Maintenance, 01/25/23 19:08:00 EDT, Route to [facility]ically, [facility], 158.2, cm, 01/03/23 9:16:00 EDT, Height, 95.45, [...] Sex Patient Care team information Care Team Related Persons Name: KAILEE COTTON Address: home [address] [place] [address] Name: KODI ORDOÑEZ Address: home [address] [address] Name: MUKUL FREEMAN Address: home [address] [place] [address] Name: JUDY FREEMAN Address: home [address] [place] [address]
--- OUTSIDE RECORDS SUMMARY | 2023-12-04 09:46 | XMS_ITS | Continuity of Care Document ---
Author Organization [facility] Adult Address [address] [place] [address]- Care Team Providers Care Registered Nursing Professor Name Role Phone Lilliana Carroll NP Primary Care Physician [phone] Encounter [facility] Date(s): 01/12/21 - 01/19/21 [facility] Adult [address] [place] [id number] Encounter Diagnosis Anxiety(Discharge Diagnosis) - 01/12/21 Attending Physician: Lilliana Carroll NP Allergies, Adverse Reactions, Alerts No Known Medication Allergies Immunizations Given and Recorded Vaccine Date Status Refusal Reason Influenza Virus Vaccine (oldterm) 05/28/20 Recorde d tetanus/diphtheria/pertussis, acel(Tdap) 1 01/23/20 Given influenza virus vaccine, inactivated 07/31/18 Give n influenza virus vaccine, inactivated 2 07/19/17 Gi rodrigo 1Result Comment: [facility] [id number] 2Result Comment: regular dose [facility] [id number] Medications clotrimazole 1% topical cream 1 application, Topically, 2 times a day, # 100 Gm, 0 Refills, Maintenance, 01/23/20 11:01:00 EDT, Cream, [facility] #[id number], 1 application Topically 2 times a day,x21 [...] tablet, 0 Refills, Maintenance, 01/12/21 11:15:00 EDT, [id number], Partial fill upon patient request if the prescription is for a schedule II opioid drug., 158.3, cm, 0... Start Date: 01/12/21 Stop Date: 02/11/21 Status: Ordered Liletta Once, 0 Refills, Maintenance, 01/23/20 10:50:00 EDT Start Date: 01/23/20 Status: Ordered Linzess 145 mcg oral capsule 1 capsule = 145 mcg, By Mouth, Daily, # 30 capsule, 3 Refills, Maintenance, 02/16/18 15:32:23 EDT, Capsule Start Date: 02/16/18 Status: Ordered omeprazole 40 mg oral enteric coated capsule 1 capsule = 40 mg, By Mouth, Daily, # 30 capsule, 11 Refills, Maintenance, 01/23/20 10:40:00 EDT, EC Capsule, [facility] #[id number], 158.3, cm, 01/23/20 10:28:00 EDT, Height, 84, [...] Active GERD (gastroesophageal reflu x disease)(Confirmed) Active CRISTINA on CPAP(Confirmed) Active Annual physical exam(Confirmed) Active Diagnosis Diagnosis Type Effective Dates Health Status Clini [facility] Service Informant Anxiety Discharge Diagnosis 01/12/21 Vital Signs Most recent to oldest [Reference Range]: 1 Height 158.3 cm (01/12/21 9:23 AM) Weight 77.2 kg (01/12/21 9:23 AM) Body Mass Index [18.5-24.99] 30.81 *>HHI* (01/12/21 9:23 AM) Weight Obtained Via Patient/family state d (01/12/21 9:23 AM) Social History Social History Type Response Smoking Status Never smoker entered on: 07/19/17 Sex
--- OUTSIDE RECORDS SUMMARY | 2023-12-04 09:46 | XMS_ITS | Continuity of Care Document ---
Author Organization [facility] [place] Address [address] [place] [address]- Care Team Providers Care Director Of Epidemiology Name Role Phone Lilliana Carroll NP Primary Care Physician [phone] Encounter [facility] Date(s): 05/19/21 - 07/07/21 [facility] [place] [address] [place] [address]- Attending Physician: Carole Londono Referring Physician: Not on Staff, Referring MD Allergies, Adverse Reactions, Alerts No Known [...] Papillomavirus Vaccine 12/26/06 Recorded Human Papillomavirus Vaccine 3/14/07 Recorded tetanus-diphtheria toxoids (Td) 04/16/03 Recorded Measles/Mumps/Rubella [...] (HbOC) vaccine 01/26/91 Re corded 1Result Comment: [facility] [id number] 2Result Comment: [facility] [id number] 3Result Comment: regular dose [facility] [phone] Medications clotrimazole 1% topical cream 1 application, Topically, 2 times a day, # 100 Gm, 0 Refills, Maintenance, 01/23/20 11:01:00 EDT, Cream, [facility] #54031, 1 application Topically 2 times a day,x21 [...] Daily, # 90 tablet, 0 Refills, Maintenance, 06/22/21 9:13:00 EST, Tablet, [facility]/pharmacy #[id number], Partial fill upon patient request if the prescription is for a schedule II opioid drug., 158, cm, 06/22/21 8:51:00 EST, Height, 8... Start Date: 06/22/21 Stop Date: 09/20/21 Status: Ordered hydrOXYzine hydrochloride 50 mg oral tablet 1 tablet = 50 mg, By Mouth, 3 times a day, PRN as needed for anxiety, # 90 tablet, 0 Refills, Maintenance, 01/12/21 11:15:00 EDT, [facility]/pharmacy #[id number], Partial fill upon patient [...] patient r... Start Date: 06/07/21 Status: Ordered Problem List Condition Effective Dates Status Health Status Inform ant Anxiety(Confirmed) Active Functional constipation(Confirmed) Active Depression(Confirmed) Active GERD (gastroesophageal reflu x disease)(Confirmed) Active Obesity (BMI 30.0-34.9)(Confirmed) Active CRISTINA on CPAP(Confirmed) Active Annual physical exam(Confirmed) Active Severe recurrent major depression(Confirmed) Active Social History Social History Type Response Smoking Status Never smoker entered on: 07/19/17 Sex
--- OUTSIDE RECORDS SUMMARY | 2023-12-04 09:46 | XMS_ITS | Continuity of Care Document ---
Author Organization [facility] Address [address] [place] [address]- Care Team Providers Care Optical Manufacturing Technician Name Role Phone Lilliana Carroll NP Primary Care Physician [phone] Encounter [facility] Date(s): 09/15/21 - 09/15/[address] [address]- Discharge Disposition: A-D/C Home Attending Physician: Tyrone Christensen MD Admitting Physician: Tyrone Christensen MD Referring Physician: Tyrone Christensen MD Allergies, Adverse Reactions, Alerts No Known [...] vaccine 01/26/91 Re corded 1Result Comment: [facility] [id number] 2Result Comment: [facility] [id number] 3Result Comment: regular dose [facility] 51627-648-12 Medications clotrimazole 1% topical cream 1 application, Topically, 2 times a day, # 100 Gm, 0 Refills, Maintenance, 01/23/20 11:01:00 EDT, Cream, [facility] #80128, 1 application Topically 2 times a day,x21 [...] 1 Refills, Maintenance, 09/20/21 9:13:00 EST, Tablet, [facility]/pharmacy #[id number], Partial fill upon patient request if the prescription is for a schedule II opioid drug., 158, cm, 07/27/21 8:47:00 EST, Height, 8... Start Date: 09/20/21 Stop Date: 03/19/22 Status: Ordered escitalopram 20 mg oral tablet 1 tablet = 20 mg, By Mouth, Daily, for 90 days, # 90 tablet, 0 Refills, Hard Stop 09/20/21 9:13:00 EST, 06/22/21 9:13:00 EST, Tablet, [facility]/pharmacy #[id number], Partial fill upon patient request if the prescription is for a schedule II opioid drug., 158, cm,... Start Date: 06/22/21 Stop Date: 09/20/21 Status: Ordered Liletta Once, 0 Refills, Maintenance, 01/23/20 10:50:00 EDT Start Date: 01/23/20 Status: Ordered omeprazole 40 mg oral enteric coated capsule 1 capsule = 40 mg, By Mouth, Daily, # 30 capsule, 2 Refills, Maintenance, 03/13/21 10:08:00 EDT, ECCapsule, [facility]/pharmacy #[id number], 158, cm, 01/25/21 10:55:00 EDT, Height Start Date: 03/13/21 Stop Date: 06/11/21 Status: Ordered PEG-3350 with Electrolytes (Eqv-GoLYTELY) oral powder for reconstitution See Instructions, Follow instructions on the label to mix powder with water. Drink all of the prep fluid on the evening before your colonoscopy., # 1 each, 0 Refills, Maintenance, 06/07/21 10:32:00 EDT, [facility]/pharmacy #[id number], Partial fill upon patient r... Start Date: 06/07/21 Status: Ordered traZODone 50 mg oral tablet 1, tablet, By Mouth, Daily at bedtime, # 30 tablet, Refills 1, Route to Pharmacy Electronically, [id number], 158, cm, 07/27/21 8:47:00 EST, Height, 93, kg, 08/08/21 11:05:00 EST, Dry Weight Start Date: 08/17/21 Status: Ordered Problem List Condition Effective Dates Status Health Status Inform ant Anxiety(Confirmed) Active Functional constipation(Confirmed) Active Depression(Confirmed) Active GERD (gastroesophageal reflu x disease)(Confirmed) Active Obese class II(Confirmed) Active CRISTINA on CPAP(Confirmed) Active Annual physical exam(Confirmed) Active Severe recurrent major depression(Confirmed) Active Procedures Procedure Date Related Diagnosis Body Site Status Colonoscopy 09/15/21 Completed Esophagogastroduodenoscopy and biopsy 09/15/21 Completed Vital Signs Most recent to oldest [Reference Range]: 1 2 3 Oxygen Saturation [94-100 %] 100 % (09/15/21 4:01 PM) 100 % (09/15/21 3:48 PM) 99 % (09/15/21 2:17 PM) Pulse Rate [55-90 bpm] 78 bpm (09/15/21 2:17 PM) Blood Pressure [90-138/55-84 mm Hg] 122/64mm Hg (09/15/21 4:01 PM) 127/60mm Hg (09/15/21 3:48 PM) 116/62mm Hg (09/15/21 2:17 PM) Respiratory Rate [16-30 br/min] 18 br/min (09/15/21 4:01 PM) 20 br/min (09/15/21 3:48 PM) 20 br/min (09/15/21 2:17 PM) Temperature [96.8-100.4 DegF] 98.2 DegF (09/15/21 2:17 PM) Mode of Delivery (Oxygen) Room air (09/15/21 4:01 PM) Room air (09/15/21 3:48 PM) Room air (09/15/21 2:17 PM) Blood pressure sites Arm, left (09/15/21 4:01 PM) Arm, left (09/15/21 3:48 PM) Arm, left (09/15/21 2:17 PM) Temperature Route Temporal (09/15/21 2:17 PM) Social History Social History Type Response Smoking Status Never smoker entered on: 07/19/17 Sex
--- OUTSIDE RECORDS SUMMARY | 2023-12-04 09:46 | XMS_ITS | Continuity of Care Document ---
Author Organization [facility] Adult Address [address] [place] [address]- Care Team Providers Care Superintendent Job Name Role Phone Lilliana Carroll NP Primary Care Physician Encounter [facility] Date(s): 01/21/21 - 02/20/21 [facility] Adult [address] [place] [id number] Allergies, Adverse Reactions, Alerts No Known Medication Allergies Immunizations Given and Recorded Vaccine Date Status Refusal Reason Influenza Virus Vaccine (oldterm) 05/28/20 Recorde d tetanus/diphtheria/pertussis, acel(Tdap) 1 01/23/20 Given influenza virus vaccine, inactivated 07/31/18 Give n influenza virus vaccine, inactivated 2 07/19/17 Gi rodrigo 1Result Comment: [facility] [id number] 2Result Comment: regular dose [facility] 17547-555-17 Medications clotrimazole 1% topical cream 1 application, Topically, 2 times a day, # 100 Gm, 0 Refills, Maintenance, 01/23/20 11:01:00 EDT, Cream, [facility][id number], 1 application Topically 2 times a day,x21 [...] tablet, 0 Refills, Maintenance, 01/12/21 11:15:00 EDT, [facility]/pharmacy #[id number], Partial fill upon patient request [...] Refills, Maintenance, 01/23/20 10:40:00 EDT, EC Capsule, [facility] #16686, 158.3, cm, 01/23/20 10:28:00 EDT, Height, 84, kg, 09/28/18 16:06:00 EST, Dry Weight Start Date: 01/23/20 Stop Date: 01/17/21 Status: Ordered sertraline 100 mg oral tablet 2 tablet = 200 mg, By Mouth, Daily, # 180 tablet, 0 Refills, Maintenance, 01/12/21 11:16:00 EDT, Tablet, [facility]/pharmacy #[id number], Partial fill upon patient request, [...]
--- OUTSIDE RECORDS SUMMARY | 2023-12-04 09:46 | XMS_ITS | Continuity of Care Document ---
Author Organization [facility] Adult Address [address] [place] [address]- Care Team Providers Care Inspector Poising Name Role Phone Lilliana Carroll NP Primary Care Physician Encounter [facility] Date(s): 02/22/23 - 03/24/23 [facility] Adult [address] [place] [address]- Allergies, Adverse Reactions, Alerts Substance Reaction Severity [...] Re corded 1Result Comment: regular dose [facility] 74323-055-96 2Result Comment: [facility] [id number] 3Result Comment: [facility] [id number] Medications cloNIDine 0.1 mg oral tablet 1, tablet, By Mouth, 2 times a day, PRN, # 60 tablet, Refills 0, Tot. Refills 0, Maintenance, NEEDED FOR ANXIETY, 12/09/22 7:36:00 EDT, Route to Pharmacy Electronically, [facility]/pharmacy #[id number], 158.2,cm, 12/07/22 9:55:00 EDT, Height, [...] Refills, Maintenance, 09/20/22 7:38:00 EST, [facility], 158.2, cm, 08/01/22 12:12:00 EST, Height, 95.45, kg, 01/07/22 10:11:00 EDT, Dry Weight Start Date: 09/20/22 Status: Ordered lamotrigine 50 mg oral tablet, extended release 3 tablet, By Mouth, Daily, # 270 tablet, 1 Refills, Maintenance, 01/18/23 18:04:00 EDT, [facility], 158.2, cm, 01/03/23 9:16:00 EDT, Height, 95.45, [...] 0 Refills, Maintenance, 06/07/21 10:32:00 EDT, [facility]/pharmacy #[id number], Partial fill upon patient r... Start Date: 06/07/21 Status: Ordered traZODone 50 mg oral tablet 1, tablet, By Mouth, Daily at bedtime, # 90 tablet, Refills 1, Maintenance, 01/25/23 19:08:00 EDT, Route to Pharmacy Electronically, [facility], 158.2, cm, 01/03/23 9:16:00 EDT, Height, 95.45, [...] Team Personnel Name: Lilliana Carroll NP Position: [facility] Associate Professional Member Role: PCP Address: Address: [address] [place] [address]- Care Team Related Persons Name: KAILEE COTTON Address: home [address] [place] [address] Name: KODI ORDOÑEZ Address: home [address] [address] Name: MUKUL FREEMAN Address: home [address] [place] [address] Name: JUDY FREEMAN Address: home [address] [place] [address]
--- OUTSIDE RECORDS SUMMARY | 2023-12-04 09:46 | XMS_ITS | Continuity of Care Document ---
Author Organization [facility] Adult Address [address] [place] [address]- Care Team Providers Care Plumber Supervisor Name Role Phone Lilliana Carroll NP Primary Care Physician [phone] Encounter [facility] Date(s): 08/17/20 - 09/16/20 [facility] [address] [place] [address]- Allergies, Adverse Reactions, Alerts No Known Medication Allergies Immunizations Given and Recorded Vaccine Date Status Refusal Reason tetanus/diphtheria/pertussis, acel(Tdap) 1 01/23/20 Given influenza virus vaccine, inactivated 07/31/18 Give n influenza virus vaccine, inactivated 2 07/19/17 Gi rodrigo 1Result Comment: [facility] [id number] 2Result Comment: regular dose [facility] 87663-493-04 Medications clotrimazole 1% topical cream 1 application, Topically, 2 times a day, # 100 Gm, 0 Refills, Maintenance, 01/23/20 11:01:00 EDT, Cream, [facility] #[id number], 1 application Topically 2 times a day,x21 [...] EDT, Compound Start Date: 02/19/20 Status: Ordered Liletta Once, 0 Refills, Maintenance, [...] Refills, Maintenance, 01/23/20 10:40:00 EDT, EC Capsule, [facility] #15515, 158.3, cm, 01/23/20 10:28:00 EDT, Height, 84, kg, 09/28/18 16:06:00 EST, Dry Weight Start Date: 01/23/20 Stop Date: 01/17/21 Status: Ordered sertraline 100 mg oral tablet 1.5 tablet = 150 mg, By Mouth, Daily, Take 50mg daily for 7 days then increase to 100mg, # 135 tablet, 1 Refills, Maintenance, 08/17/20 13:24:00 EST, Tablet, [facility] #39578, Partial fillupon patient request, 158.3, cm, 07/06/20 8:13:00 E... Start Date: 08/17/20 Stop Date: 02/13/21 Status: Ordered Problem List Condition Effective Dates Status Health Status Inform ant Anxiety(Confirmed) Active Functional constipation(Confirmed) Active Depression(Confirmed) Active GERD (gastroesophageal reflu x disease)(Confirmed) Active CRISTINA on CPAP(Confirmed) Active Annual physical exam(Confirmed) Active Social History Social History Type Response Smoking Status Never smoker entered on: 07/19/17 Sex
--- OUTSIDE RECORDS SUMMARY | 2023-12-04 09:46 | XMS_ITS | Continuity of Care Document ---
Author Organization [facility] Adult Address [address] [place] [address]- Care Team Providers Care Coremaker Supervisor Name Role Phone Lilliana Carroll NP Primary Care Physician [phone] En[facility] Date(s): 01/25/21 - 02/01/21 [facility] Adult [address] [place] [id number] Encounter Diagnosis Annual physical exam(Discharge Diagnosis) - 01/25/21 GERD (gastroesophageal reflux disease)(Discharge Diagnosis) - 01/25/21 CRISTINA on CPAP(Discharge Diagnosis) - 01/25/21 Anxiety(Discharge Diagnosis) - 01/25/21 Depression(Discharge Diagnosis) - 01/25/21 Immunity status testing(Discharge Diagnosis) - 01/25/21 Attending Physician: Theresa Mccullough NP Referring Physician: Lilliana Carroll NP Allergies, Adverse Reactions, Alerts No Known Medication Allergies Immunizations Given and Recorded Vaccine Date Status Refusal Reason Influenza Virus Vaccine (oldterm) 05/28/20 Recorde d tetanus/diphtheria/pertussis, acel(Tdap) 1 01/23/20 Given influenza virus vaccine, inactivated 07/31/18 Give n influenza virus vaccine, inactivated 2 07/19/17 Gi rodrigo 1Result Comment: [facility] [id number] 2Result Comment: regular dose [facility] [id number] Medications clotrimazole 1% topical cream 1 application, Topically, 2 times a day, # 100 Gm, 0 Refills, Maintenance, 01/23/20 11:01:00 EDT, Cream, [facility] #[id number], 1 application Topically 2 times a day,x21 [...] tablet, 0 Refills, Maintenance, 01/12/21 11:15:00 EDT, [facility]/pharmacy #[id number], Partial fill upon patient request [...] Refills, Maintenance, 01/23/20 10:40:00 EDT, EC Capsule, [facility] #10695, 158.3, cm, 01/23/20 10:28:00 EDT, Height, 84, [...] Effective Dates Health Status Clinical Service Informant Annual physical exam Discharge Diagnosis 01/25/21 GERD (gastroesophageal reflux disease) Discharge Diagnosis 01/25/21 CRISTINA on CPAP Discharge Diagnosis 01/25/21 Anxiety Discharge Diagnosis 01/25/21 Depression Discharge Diagnosis 01/25/21 Immunity status testing Discharge Diagnosis 01/25/21 Vital Signs Most recent to oldest [Reference Range]: 1 Height 158 cm (01/25/21 10:55 AM) Weight 86.6 kg (01/25/21 10:55 AM) Oxygen Saturation [94-100 %] 95 % (01/25/21 10:55 AM) Pulse Rate [55-90 bpm] 94 bpm *H* (01/25/21 10:55 AM) Body Mass Index [18.5-24.99] 34.69 *>HHI* (01/25/21 10:55 AM) Blood Pressure [90-138/55-84 mm Hg] 114/ 68mm Hg (01/25/21 10:55 AM) Temperature [96.8-100.4 DegF] 98.5 DegF (01/25/21 10:55 AM) Mode of Delivery (Oxygen) Room air (01/25/21 10:55 AM) Blood pressure sites Arm, left (01/25/21 10:55 AM) Temperature Route Oral (01/25/21 10:55 AM) Social History Social History Type Response Smoking Status Never smoker entered on: 07/19/17 Sex
--- OUTSIDE RECORDS SUMMARY | 2023-12-04 09:46 | XMS_ITS | Continuity of Care Document ---
Author Organization [facility] Address [address] [place] [address]- Care Team Providers Care Boring Machine Set Up Operator Name Role Phone Lilliana Carroll NP Primary Care Physician Encounter [facility] Date(s): 08/16/21 - 09/15/21 [facility] [address] [place] [address]- Attending Physician: Ferdinand Zabala Admitting Physician: Ferdinand Zabala Referring Physician: AdmtrFerdinand Allergies, Adverse Reactions, Alerts No Known Medication [...] (HbOC) vaccine 01/26/91 Re corded 1Result Comment: [facility] [id number] 2Result Comment: [facility] [id number] 3Result Comment: regular dose [facility] [id number] Medications clotrimazole 1% topical cream 1 application, Topically, 2 times a day, # 100 Gm, 0 Refills, Maintenance, 01/23/20 11:01:00 EDT, Cream, [facility] #[id number], 1 application Topically 2 times a day,x21 [...] 1 Refills, Maintenance, 09/20/21 9:13:00 EST, [facility], [id number] Partial fill upon patient request if the prescription is for a schedule II opioid drug., 158, cm, 07/27/21 8:47:00 EST, Height, 8... Start Date: 09/20/21 Stop Date: 03/19/22 Status: Ordered escitalopram 20 mg oral tablet 1 tablet = 20 mg, By Mouth, Daily, for 90 days, # 90 tablet, 0 Refills, Hard Stop 09/20/21 9:13:00 EST, 06/22/21 9:13:00 EST, Tablet, [facility]/pharmacy #[id number], Partial fill upon patient [...] 2 Refills, Maintenance, 03/13/21 10:08:00 EDT, ECCapsule, [facility]/pharmacy #[id number], 158, cm, 01/25/21 10:55:00 EDT, Height Start Date: 03/13/21 Stop Date: 06/11/21 Status: Ordered PEG-3350 with Electrolytes (Eqv-GoLYTELY) oral powder for reconstitution See Instructions, Follow instructions on the label to mix powder with water. Drink all of the prep fluid on the evening before your colonoscopy., # 1 each, 0 Refills, Maintenance, 06/07/21 10:32:00 EDT, [facility]/pharmacy #[id number], Partial fill upon patient r... Start Date: 06/07/21 Status: Ordered traZODone 50 mg oral tablet 1, tablet, By Mouth, Daily at bedtime, # 30 tablet, Refills 1, [facility], 158, cm, 07/27/21 8:47:00 EST, Height, 93, [...]
--- OUTSIDE RECORDS SUMMARY | 2023-12-04 09:46 | XMS_ITS | Continuity of Care Document ---
Author Organization [facility] Adult Address [address] [place] [address]- Care Team Providers Care Forest Resources Professor Name Role Phone iLlliana Carroll NP Primary Care Physician [facility]counter [facility] Date(s): 11/12/21 - 12/12/21 [facility] Adult [address] [place] [address] Attending Physician: Sagrario, Ferdinand Admitting Physician: AdmtrFerdinand Referring Physician: Admtr, [...] (HbOC) vaccine 01/26/91 Re corded 1Result Comment: [facility] [id number] 2Result Comment: [facility] [id number] 3Result Comment: regular dose [facility] [id number] Medications clotrimazole 1% topical cream 1 application, Topically, 2 times a day, # 100 Gm, 0 Refills, Maintenance, 01/23/20 11:01:00 EDT, Cream, [facility] #[id number], 1 application Topically 2 times a day,x21 [...] Refills, Maintenance, 09/20/21 9:13:00 EST, Tablet, [id number], Partial fill upon patient [...] 2 Refills, Maintenance, 03/13/21 10:08:00 EDT, ECCapsule, [facility]/pharmacy #[id number], 158, cm, 01/25/21 10:55:00 EDT, Height Start Date: 03/13/21 Stop Date: 06/11/21 Status: Ordered PEG-3350 with Electrolytes (Eqv-GoLYTELY) oral powder for reconstitution See Instructions, Follow instructions on the label to mix powder with water. Drink all of the prep fluid on the evening before your colonoscopy., # 1 each, 0 Refills, Maintenance, 06/07/21 10:32:00 EDT, [facility]/pharmacy #[id number], Partial fill upon patient r... Start Date: 06/07/21 Status: Ordered traZODone 50 mg oral tablet 1, tablet, By Mouth, Daily at bedtime, for 90 days, # 90 tablet, Refills 1, Tot. Refills 1, Physician Stop 04/11/22 9:22:00 EDT, 10/13/21 9:22:00 EST, Route to Pharmacy Electronically, [facility]/pharmacy #[id number], 158, cm, 07/27/21 8:47:00 EST, Height, [...]
--- OUTSIDE RECORDS SUMMARY | 2023-12-04 09:46 | XMS_ITS | Continuity of Care Document ---
Author Organization [facility] Adult Address [address] [place] [address]- Care Team Providers Care Branch Chief Name Role Phone Lilliana Carroll NP Primary Care Physician [phone] Encounter [facility] Date(s): 07/27/21 - 08/26/21 [facility] Adult [address] [place] [id number] Attending Physician: Ferdinand Zabala Admitting Physician: AdmFerdinand andino Referring Physician: Admtr, ArTamera Allergies, Adverse Reactions, Alerts No Known Medication [...] (HbOC) vaccine 01/26/91 Re corded 1Result Comment: [facility] [id number] 2Result Comment: [facility] [id number] 3Result Comment: regular dose [facility] [phone] Medications clotrimazole 1% topical cream 1 application, Topically, 2 times a day, # 100 Gm, 0 Refills, Maintenance, 01/23/20 11:01:00 EDT, Cream, [facility] #53549, 1 application Topically 2 times a day,x21 [...] 1 Refills, Maintenance, 09/20/21 9:13:00 EST, Tablet, [facility]/pharmacy #[id number], Partial fill upon patient request if the prescription is for a schedule II opioid drug., 158, cm, 07/27/21 8:47:00 EST, Height, 8... Start Date: 09/20/21 Stop Date: 03/19/22 Status: Ordered escitalopram 20 mg oral tablet 1 tablet = 20 mg, By Mouth, Daily, for 90 days, # 90 tablet, 0 Refills, Hard Stop 09/20/21 9:13:00 EST, 06/22/21 9:13:00 EST, Tablet, [facility]/pharmacy #[id number], Partial fill upon patient request [...] 2 Refills, Maintenance, 03/13/21 10:08:00 EDT, ECCapsule, [facility]/pharmacy #[id number], 158, cm, 01/25/21 10:55:00 EDT, Height Start Date: 03/13/21 Stop Date: 06/11/21 Status: Ordered PEG-3350 with Electrolytes (Eqv-GoLYTELY) oral powder for reconstitution See Instructions, Follow instructions on the label to mix powder with water. Drink all of the prep fluid on the evening before your colonoscopy., # 1 each, 0 Refills, Maintenance, 06/07/21 10:32:00 EDT, [facility]/pharmacy #[id number], Partial fill upon patient r... Start Date: 06/07/21 Status: Ordered traZODone 50 mg oral tablet 1, tablet, By Mouth, Daily at bedtime, # 30 tablet, Refills 1, Route to Pharmacy Electronically, [facility], 158, cm, 07/27/21 8:47:00 EST, Height, 93, [...]
--- OUTSIDE RECORDS SUMMARY | 2023-12-04 09:46 | XMS_ITS | Continuity of Care Document ---
Author Organization [facility] Adult Address [address] [place] [address]- Care Team Providers Care Installer Molding And Trim Name Role Phone Lilliana Carroll NP Primary Care Physician [phone] Encounter [facility] Date(s): 06/22/21 - 06/29/21 [facility] Adult [address] [place] [address]- Encounter Diagnosis Anxiety(Discharge Diagnosis) - 06/22/21 Severe recurrent major depression(Discharge Diagnosis) - 06/22/21 Attending Physician: Lilliana Carroll NP Allergies, Adverse Reactions, Alerts No Known Medication Allergies Immunizations Given and Recorded Vaccine Date Status Refusal Reason hepatitis B adult vaccine 1 06/22/21 Given SARS-CoV-2 (COVID-19) mRNA BNT-162b2 vac 11/24/20 Recorded SARS-CoV-2 (COVID-19) mRNA BNT-162b2 vac 10/31/20 Recorded Influenza Virus Vaccine (oldterm) 05/28/20 Recorde d [...] vaccine 01/26/91 Re corded 1Result Comment: [facility] [id number] 2Result Comment: [facility] [id number] 3Result Comment: regular dose [facility] 67808-431-22 Medications clotrimazole 1% topical cream 1 application, Topically, 2 times a day, # 100 Gm, 0 Refills, Maintenance, 01/23/20 11:01:00 EDT, Cream, [facility] #60436, 1 application Topically 2 times a day,x21 [...] 0 Refills, Maintenance, 06/22/21 9:13:00 EST, Tablet, [facility]/pharmacy #[id number], Partial fill upon patient request if the [...] exam(Confirmed) Active Severe recurrent major depression(Confirmed) Active Diagnosis Diagnosis Type Effective Dates Health Status Clinical Service Informant Anxiety Discharge Diagnosis 06/22/21 Severe recurrent major depression Discharge Diagnosis 06/22/21 Vital Signs Most recent to oldest [Reference Range]: 1 Height 158 cm (06/22/21 8:51 AM) Weight 91.9 kg (06/22/21 8:51 AM) Oxygen Saturation [94-100 %] 97 % (06/22/21 8:51 AM) Pulse Rate [55-90 bpm] 103 bpm *H* (06/22/21 8:51 AM) Body Mass Index [18.5-24.99] 36.81 *>HHI* (06/22/21 8:51 AM) Blood Pressure [90-138/55-84 mm Hg] 121/ 81mm Hg (06/22/21 8:51 AM) Temperature [96.8-100.4 DegF] 98.6 DegF (06/22/21 8:51 AM) Mode of Delivery (Oxygen) Room air (06/22/21 8:51 AM) Blood pressure sites Arm, left (06/22/21 8:51 AM) Temperature Route Oral (06/22/21 8:51 AM) Weight Obtained Via Standing scale (06/22/21 8:51 AM) Social History Social History Type Response Smoking Status Never smoker entered on: 07/19/17 Sex
--- OUTSIDE RECORDS SUMMARY | 2023-12-04 09:46 | XMS_ITS | Continuity of Care Document ---
Author Organization [facility] Adult Address [address] [place] [address]- Care Team Providers Care Harness Preparer Name Role Phone Lilliana Carroll NP Primary Care Physician Encounter [facility] Date(s): 12/05/22 - 01/04/23 [facility] [address] [place] [address]- Allergies, Adverse Reactions, Alerts Substance Reaction Severity [...] 01/26/91 Re corded 1Result Comment: regular dose [facility] [id number] 2Result Comment: [facility] [id number] 3Result Comment: [facility] [id number] Medications cloNIDine 0.1 mg oral tablet 1, tablet, By Mouth, 2 times a day, PRN, # 60 tablet, Refills 0, Tot. Refills 0, Maintenance, NEEDED FOR ANXIETY, 12/09/22 7:36:00 EDT, Route to Pharmacy Electronically, [facility]/pharmacy #[id number], 158.2,cm, 12/07/22 9:55:00 EDT, Height, [...] EDT, Compound Start Date: 02/19/20 Status: Ordered cyclobenzaprine 5 mg oral tablet 1 tablet = 5 mg, By Mouth, 3 times a day, PRN Pain , Moderate, for 10 days, # 30 tablet, 0 Refills,Acute 01/13/23 9:39:00 EDT, 01/03/23 9:39:00 EDT, Tablet, [facility]/pharmacy #[id number], Partial fill upon patient request if the prescription is for a schedule I... Start Date: 01/03/23 Stop Date: 01/13/23 Status: Ordered EPINEPHrine 0.1 mg injectable kit = 0.1 mg, Intramuscular, Once, 0 Refills, Maintenance, 01/07/22 9:57:00 EDT, Partial fill upon patient request if the prescription is for a schedule II opioid drug. Start Date: 01/07/22 Status: Ordered escitalopram 20 mg oral tablet 1 tablet, By Mouth, Daily, # 90 tablet, 1 Refills, Maintenance, 09/20/22 7:38:00 EST, [facility], 158.2, cm, 08/01/22 12:12:00 EST, Height, 95.45, kg, 01/07/22 10:11:00 EDT, Dry Weight Start Date: 09/20/22 Status: Ordered LaMICtal XR 50 mg oral tablet, extended release 4 tablet = 200 mg, By Mouth, Daily, # 360 tablet, 1 Refills, Maintenance, 01/03/23 9:38:00 EDT, ER Tablet, Partial fill upon patient request if the prescription is for a schedule II opioid drug. Start Date: 01/03/23 Stop Date: 07/02/23 Status: Ordered Liletta Once, 0 Refills, Maintenance, 01/23/20 10:50:00 EDT Start Date: 01/23/20 Status: Ordered naproxen 500 mg oral tablet 1 tablet = 500 mg, By Mouth, 2 times a day, PRN Pain , Moderate, for 30 days, # 60 tablet, 1 Refills, Acute 03/04/23 9:39:00 EDT, 01/03/23 9:39:00 EDT, Tablet, [facility]/pharmacy #[id number], Partial fill upon patient request if the prescription is for a schedule... Start Date: 01/03/23 Stop Date: 03/04/23 Status: Ordered pantoprazole 20 mg oral delayed release tablet 1 tablet, By Mouth, Daily, # 90 tablet, 0 Refills, Maintenance, 01/03/23 20:42:00 EDT, 158.2, cm, 01/03/23 9:16:00 EDT, Height, 95.45, kg, 01/07/22 10:11:00 EDT, Dry Weight Start Date: 01/03/23 Status: Ordered PEG-3350 with Electrolytes (Eqv-GoLYTELY) oral powder for reconstitution See Instructions, Follow instructions on the label to mix powder with water. Drink all of the prep fluid on the evening before your colonoscopy., # 1 each, 0 Refills, Maintenance, 06/07/21 10:32:00 EDT, [facility]/pharmacy #[id number], Partial fill upon patient r... Start Date: 06/07/21 Status: Ordered traZODone 50 mg oral tablet 1, tablet, By Mouth, Daily at bedtime, # 90 tablet, Refills 1, Tot. Refills 1, Maintenance, 09/19/22 17:36:00 EST, Route to Pharmacy Electronically, [facility]/pharmacy #[id number], 158.2, cm, 08/01/22 12:12:00 EST, Height, [...] Associate Professional Member Role: PCP Address: Address: [address] [place] [address]- Care Team Related Persons Name: KAILEE COTTON Address: home [address] [place] [address] Name: KODI ORDOÑEZ Address: home [address] [address] Name: MUKUL FREEMAN Address: home [address] [place] [address] Name: JUDY FREEMAN Address: home [address] [place] [address]
--- OUTSIDE RECORDS SUMMARY | 2023-12-04 09:46 | XMS_ITS | Continuity of Care Document ---
Author Organization [facility] Adult Address [address] [place] [address]- Care Team Providers Care Information Systems Technician Name Role Phone Nicolasa TOLENTINO, Lilliana Primary Care Physician Encounter [facility] Date(s): 02/20/20 - 03/21/20 [facility] Adult [address] [place] [address] [facility] Allergies, Adverse Reactions, Alerts No Known Medication Allergies Immunizations Given and Recorded Vaccine Date Status Refusal Reason tetanus/diphtheria/pertussis, acel(Tdap) 1 01/23/20 Given influenza virus vaccine, inactivated 07/31/18 Give n influenza virus vaccine, inactivated 2 07/19/17 Gi rodrigo 1Result Comment: [facility] [id number] 2Result Comment: regular dose [facility] 78457-801-49 Medications clotrimazole 1% topical cream 1 application, Topically, 2 times a day, # 100 Gm, 0 Refills, Maintenance, 01/23/20 11:01:00 EDT, Cream, [facility] #31274, 1 application Topically 2 times a day,x21 [...] Refills, Maintenance, 01/23/20 10:40:00 EDT, EC Capsule, [facility] #35409, 158.3, cm, 01/23/20 10:28:00 EDT, Height, 84, kg, 09/28/18 16:06:00 EST, Dry Weight Start Date: 01/23/20 Stop Date: 01/17/21 Status: Ordered Problem List Condition Effective Dates Status Health Status Inform ant Functional constipation(Confirmed) Active Depression(Confirmed) Active GERD (gastroesophageal reflu x disease)(Confirmed) Active CRISTINA on CPAP(Confirmed) Active Annual physical exam(Confirmed) Active Social History Social History Type Response Smoking Status Never smoker entered on: 07/19/17 Sex
--- OUTSIDE RECORDS SUMMARY | 2023-12-04 09:46 | XMS_ITS | Continuity of Care Document ---
Author Organization [facility] Adult Address [address] [place] [address]- Care Team Providers Care Help Desk Associate Name Role Phone Lilliana Carroll NP Primary Care Physician Encounter [facility] Date(s): 07/20/20 - 08/19/20 [facility] Adult [address] [place] [address]- Allergies, Adverse Reactions, Alerts No Known Medication Allergies Immunizations Given and Recorded Vaccine Date Status Refusal Reason tetanus/diphtheria/pertussis, acel(Tdap) 1 01/23/20 Given influenza virus vaccine, inactivated 07/31/18 Give n influenza virus vaccine, inactivated 2 07/19/17 Gi rodrigo 1Result Comment: [facility] [id number] 2Result Comment: regular dose [facility] 69971-557-17 Medications clotrimazole 1% topical cream 1 application, Topically, 2 times a day, # 100 Gm, 0 Refills, Maintenance, 01/23/20 11:01:00 EDT, Cream, [facility] #53176, 1 application Topically 2 times a day,x21 [...] 1 tablet = 50 mg, By Mouth, 4 times a day, PRN for anxiety, for 14 days, # 35 tablet, 0 Refills, Acute 08/31/20 9:56:00 EST, 08/17/20 9:56:00 EST, Tablet, [facility] #90543, Partial fill upon patient request, 158.3, cm, 07/06/20 8:13:00 EST,... Start Date: 08/17/20 Stop Date: 08/31/20 Status: Ordered Liletta Once, 0 Refills, Maintenance, [...] Refills, Maintenance, 01/23/20 10:40:00 EDT, EC Capsule, [facility] #[id number], 158.3, cm, 01/23/20 10:28:00 EDT, Height, 84, kg, 09/28/18 16:06:00 EST, Dry Weight Start Date: 01/23/20 Stop Date: 01/17/21 Status: Ordered sertraline 100 mg oral tablet 1.5 tablet = 150 mg, By Mouth, Daily, Take 50mg daily for 7 days then increase to 100mg, # 135 tablet, 1 Refills, Maintenance, 08/17/20 13:24:00 EST, Tablet, [facility] #41806, Partial fillupon patient request, 158.3, cm, 07/06/20 8:13:00 E... Start Date: 08/17/20 Stop Date: 7/3/21 Status: Ordered Problem List Condition Effective Dates Status Health Status Inform ant Anxiety(Confirmed) Active Functional constipation(Confirmed) Active Depression(Confirmed) Active GERD (gastroesophageal reflu x disease)(Confirmed) Active CRISTINA on CPAP(Confirmed) Active Annual physical exam(Confirmed) Active Social History Social History Type Response Smoking Status Never smoker entered on: 07/19/17 Sex
--- OUTSIDE RECORDS SUMMARY | 2023-12-04 09:46 | XMS_ITS | Continuity of Care Document ---
Author Organization [facility] Address [address] [place] [address]- Care Team Providers Care Equipment Service Engineer Name Role Phone Lilliana Carroll NP Primary Care Physician Encounter [facility] Date(s): 01/06/23 - 02/05/[address] [id number] Attending Physician: AdmFerdinand andino Admitting Physician: Admtr, Ar8 Referring Physician: Admtr, [...] 01/26/91 Re corded 1Result Comment: regular dose [facility] 28465-560-17 2Result Comment: [facility] [id number] 3Result Comment: [facility] [id number] Medications cloNIDine 0.1 mg oral tablet 1, [...] Refills, Maintenance, 09/20/22 7:38:00 EST, [facility], 158.2, cm, 08/01/22 12:12:00 EST, Height, 95.45, kg, 01/07/22 10:11:00 EDT, Dry Weight Start Date: 09/20/22 Status: Ordered lamotrigine 50 mg oral tablet, extended release 3 tablet, By Mouth, Daily, # 270 tablet, 1 Refills, Maintenance, 01/18/23 18:04:00 EDT, [facility], 158.2, cm, 01/03/23 9:16:00 EDT, Height, 95.45, [...] 9:39:00 EDT, 01/03/23 9:39:00 EDT, Tablet, [facility]acy #2071, Partial fill upon patient request if [...] 19:08:00 EDT, Route to Pharmacy Electronically, [facility], 158.2, cm, 01/03/23 9:16:00 EDT, Height, 95.45, [...] Team Personnel Name: Lilliana Carroll NP Position: [facility] PCO Associate Professional Member Role: PCP Address: Address: [address] [place] [address]- Care Team Related Persons Name: KAILEE COTTON Address: home [address] [place] [address] Name: KODI ORDOÑEZ Address: home [address] [address] Name: MUKUL FREEMAN Address: home [address] [place] [address] Name: JUDY FREEMAN Address: home [address] [place] [address]
--- OUTSIDE RECORDS SUMMARY | 2023-12-04 09:46 | XMS_ITS | Continuity of Care Document ---
Author Organization [facility] Adult Address [address] [place] [address]- Care Team Providers Care Pan Tank Worker Name Role Phone Lilliana Carroll NP Primary Care Physician [facility]counter [facility] Date(s): 09/20/23 - 10/20/23 [facility] Adult [address] [place], [place] [address] Allergies, Adverse Reactions, Alerts Substance Reaction Severity [...] 01/26/91 Re corded 1Result Comment: regular dose [facility] 49311-038-38 2Result Comment: [facility] [id number] 3Result Comment: [facility] [id number] Medications cloNIDine 0.1 mg oral tablet 1, tablet, By Mouth, 2 times a day, PRN, # 60 tablet, Refills 0, Tot. Refills 0, Maintenance, NEEDED FOR ANXIETY, 12/09/22 7:36:00 EDT, Route to Pharmacy Electronically, [facility]/pharmacy #[id number], 158.2,cm, 12/07/22 9:55:00 EDT, Height, 95.45, [...] Refills, Maintenance, 09/20/22 7:38:00 EST, [facility], 158.2, cm, 08/01/22 12:12:00 EST, Height, 95.45, kg, 01/07/22 10:11:00 EDT, Dry Weight Start Date: 09/20/22 Status: Ordered lamotrigine 50 mg oral tablet, extended release 3 tablet, By Mouth, Daily, # 270 tablet, 1 Refills, Maintenance, 01/18/23 18:04:00 EDT, [facility], 158.2, cm, 01/03/23 9:16:00 EDT, Height, 95.45, kg, 01/07/22 10:11:00 EDT, Dry Weight Start Date: 01/18/23 Status: Ordered Liletta Once, 0 Refills, Maintenance, 01/23/20 10:50:00 EDT Start Date: 01/23/20 Status: Ordered pantoprazole 20 mg oral delayed release tablet 1 tablet, By Mouth, Daily, # 90 tablet, 1 Refills, Maintenance, 09/23/23 11:54:00 EST, 157, cm, 05/08/23 15:25:00 EDT, Height, 92, kg, 05/08/23 15:25:00 EDT, Dry Weight Start Date: 09/23/23 Status: Ordered PEG-3350 with Electrolytes (Eqv-GoLYTELY) oral powder for reconstitution See Instructions, Follow instructions on the label to mix powder with water. Drink all of the prep fluid on the evening before your colonoscopy., # 1 each, 0 Refills, Maintenance, 06/07/21 10:32:00 EDT, [facility]/pharmacy #[id number], Partial fill upon patient r... Start Date: 06/07/21 Status: Ordered traZODone 50 mg oral tablet 1, tablet, By Mouth, Daily at bedtime, # 90 tablet, Refills 1, Maintenance, 01/25/23 19:08:00 EDT, Route to Pharmacy Electronically, [facility], 158.2, cm, 01/03/23 9:16:00 EDT, Height, 95.45, [...] Team Personnel Name: Lilliana Carroll NP Position: [facility] PCO Associate Professional Member Role: PCP Address: Address: [address] [place] [address]- Care Team Related Persons Name: KAILEE COTTON Address: home [address] [place] [address] Name: KODI ORDOÑEZ Address: home [address] [address] Name: MUKUL FREEMAN Address: home [address] [place] [address] Name: JUDY FREEMAN Address: home [address] [place] [address]
--- OUTSIDE RECORDS SUMMARY | 2023-12-04 09:46 | XMS_ITS | Continuity of Care Document ---
Author Organization [facility] Address [address] [place] [address]- Care Team Providers Care Qa Lead Name Role Phone Lilliana Carroll NP Primary Care Physician [place] [facility] Date(s): 09/08/21 - 10/08/21 [facility] [address] [place] [address] [place] Allergies, Adverse Reactions, Alerts No Known [...] (HbOC) vaccine 01/26/91 Re corded 1Result Comment: [facility] [id number] 2Result Comment: [facility] [id number] 3Result Comment: regular dose [facility] 16373-968-24 Medications clotrimazole 1% topical cream 1 application, Topically, 2 times a day, # 100 Gm, 0 Refills, Maintenance, 01/23/20 11:01:00 EDT, Cream, [facility] #51014, 1 application Topically 2 times a day,x21 [...] Refills, Maintenance, 09/20/21 9:13:00 EST, [facility], [facility], Partial fill upon patient request if the [...] 2 Refills, Maintenance, 03/13/21 10:08:00 EDT, ECCapsule, [facility]/pharmacy #2071, 158, cm, 01/25/21 10:55:00 EDT, Height [...] 1, Route to [facility] Electronically, [facility], 158, cm, 07/27/21 8:47:00 EST, Height, 93, [...]
--- OUTSIDE RECORDS SUMMARY | 2023-12-04 09:46 | XMS_ITS | Continuity of Care Document ---
Author Organization [facility] Adult Address [address] [place] [address]- Care Team Providers Care Surgical Manager Name Role Phone Nicolasa TOLENTINO, Lilliana Primary Care Physician [place] [facility] [place]19[place]20 - 02/26/20 [facility] Adult [address] [place] [address] [facility] Encounter Diagnosis CRISTINA on CPAP(Discharge Diagnosis) - 02/19/20 Attending Physician: Lilliana Baldwin NP Allergies, Adverse Reactions, Alerts No Known Medication Allergies Immunizations Given and Recorded Vaccine Date Status Refusal Reason tetanus/diphtheria/pertussis, acel(Tdap) 1 01/23/20 Given influenza virus vaccine, inactivated 07/31/18 Give n influenza virus vaccine, inactivated 2 07/19/17 Gi rodrigo 1Result Comment: [facility] [id number] 2Result Comment: regular dose [facility] 22062-436-46 Medications clotrimazole 1% topical cream 1 application, Topically, 2 times a day, # 100 Gm, 0 Refills, Maintenance, 01/23/20 11:01:00 EDT, Cream, [facility] #07351, 1 application Topically 2 times a day,x21 [...] Refills, Maintenance, 01/23/20 10:40:00 EDT, EC Capsule, [facility] #67639, 158.3, cm, 01/23/20 10:28:00 EDT, Height, 84, kg, 09/28/18 16:06:00 EST, Dry Weight Start Date: 01/23/20 Stop Date: 01/17/21 Status: Ordered Problem List Condition Effective Dates Status Health Status Inform ant Functional constipation(Confirmed) Active Depression(Confirmed) Active GERD (gastroesophageal reflu x disease)(Confirmed) Active CRISTINA on CPAP(Confirmed) Active Annual physical exam(Confirmed) Active Diagnosis Diagnosis Type Effective Dates Health Status [facility] Service Informant CRISTINA on CPAP Discharge Diagnosis 02/19/20 Vital Signs Most recent to oldest [Reference Range]: 1 Height 158.3 cm (02/19/20 7:53 AM) Social History Social History Type Response Smoking Status Never smoker entered on: 07/19/17 Sex
--- OUTSIDE RECORDS SUMMARY | 2023-12-04 09:46 | XMS_ITS | Continuity of Care Document ---
Author Organization [facility] [place] Address [address] [place] [address]- Care Team Providers Care Supervisor Payroll Name Role Phone Lilliana Carroll NP Primary Care Physician Encounter [facility] Date(s): 06/07/21 - 07/07/21 [facility] [address] [place] [address]- Attending Physician: Ferdinand Zabala Admitting Physician: AdmtrFerdinand Referring Physician: Admtr, Ar8 [...] (HbOC) vaccine 01/26/91 Re corded 1Result Comment: [facility] [id number] 2Result Comment: [facility] [id number] 3Result Comment: regular dose [facility] [phone] Medications clotrimazole 1% topical cream 1 application, Topically, 2 times a day, # 100 Gm, 0 Refills, Maintenance, 01/23/20 11:01:00 EDT, Cream, [facility] #[id number], 1 application Topically 2 times a day,x21 [...] 0 Refills, Maintenance, 06/22/21 9:13:00 EST, Tablet, [id number], [facility] fill [...] tablet, 0 Refills, Maintenance, 01/12/21 11:15:00 EDT, [facility]/pharmacy #[id number], Partial fill upon patient request if [...] Refills, Maintenance, 03/13/21 10:08:00 EDT, ECCapsule, [facility]/pharmacy #[id number], 158, cm, 01/25/21 10:55:00 EDT, Height Start Date: 03/13/21 Stop Date: 06/11/21 Status: Ordered PEG-3350 with Electrolytes (Eqv-GoLYTELY) oral powder for reconstitution See Instructions, Follow instructions on the label to mix powder with water. Drink all of the prep fluid on the evening before your colonoscopy., # 1 each, 0 Refills, Maintenance, 06/07/21 10:32:00 EDT, [facility]/pharmacy #[id number], Partial fill upon patient [...]
--- OUTSIDE RECORDS SUMMARY | 2023-12-04 09:46 | XMS_ITS | Continuity of Care Document ---
Author Organization [facility] Adult Address [address] [place] [address]- Care Team Providers Care Summer Camp Counselor Name Role Phone Lilliana Carroll NP Primary Care Physician Encounter [facility] Date(s): 11/22/22 - 12/22/22 [facility] [place] [facility] [address] [place], [place] [address] Allergies, Adverse Reactions, Alerts Substance Reaction Severity [...] 01/26/91 Re corded 1Result Comment: regular dose [facility] [phone] 2Result Comment: [facility] [id number] 3Result Comment: [facility] [id number] Medications cloNIDine 0.1 mg oral tablet 1, tablet, By Mouth, 2 times a day, PRN, # 60 tablet, Refills 0, Tot. Refills 0, Maintenance, NEEDED FOR ANXIETY, 12/09/22 7:36:00 EDT, Route to Pharmacy Electronically, [facility]/pharmacy #[id number], 158.2,cm, 12/07/22 9:55:00 EDT, Height, 95.45, kg, ... Start Date: 12/09/22 Status: Ordered clotrimazole 1% topical cream 1 application, Topically, 2 times a day, # 100 Gm, 0 Refills, Maintenance, 01/23/20 11:01:00 EDT, Cream, [facility] #74589, 1 application Topically 2 times a day,x21 [...] tablet, 1 Refills, Maintenance, 09/20/22 7:38:00 EST, [facility] [id number], 158.2, cm, 08/01/22 12:12:00 EST, Height, 95.45, kg, 01/07/22 10:11:00 EDT, Dry Weight Start Date: 09/20/22 Status: Ordered LaMICtal 25 mg oral tablet 25 mg, 1, tablet, By Mouth, Daily, # 14 tablet, Refills 0, Tot. Refills 0, Maintenance, 07/01/22 12:16:00 EST, Route to Pharmacy Electronically, [facility]/pharmacy #[id number], Partial fill upon patient [...] each, 0 Refills, Maintenance, 06/07/21 10:32:00 EDT, [facility]/pharmacy #[id number], Partial fill upon patient r... Start Date: 06/07/21 Status: Ordered traZODone 50 mg oral tablet 1, tablet, By Mouth, Daily at bedtime, # 90 tablet, Refills 1, Tot. Refills 1, Maintenance, 09/19/22 17:36:00 EST, Route to Pharmacy Electronically, [facility]/pharmacy #[id number], 158.2, cm, 08/01/22 12:12:00 EST, [...] Professional Member Role: PCP Address: Address: [address] [place] [id number] Care Team Related Persons Name: LULA KAILEE Address: home [address] [place] [address] Name: KODI ORDOÑEZ Address: home [address] [address] Name: MUKUL FREEMAN Address: home [address] [place] [address] Name: JUDY FREEMAN Address: home [address] [place] [address]
--- OUTSIDE RECORDS SUMMARY | 2023-12-04 09:46 | XMS_ITS | Continuity of Care Document ---
Author Organization [facility] Adult Address [address] [place] [address]- Care Team Providers Care Manager Audio Name Role Phone Lilliana Carroll NP Primary Care Physician [phone] Encounter [facility] Date(s): 04/09/21 - 05/09/21 [facility] Adult [address] [place] [address]- Allergies, Adverse Reactions, Alerts No Known Medication Allergies Immunizations Given and Recorded Vaccine Date Status Refusal Reason Influenza Virus Vaccine (oldterm) 05/28/20 Recorde d tetanus/diphtheria/pertussis, acel(Tdap) 1 01/23/20 Given influenza virus vaccine, inactivated 07/31/18 Give n influenza virus vaccine, inactivated 2 07/19/17 Gi rodrigo 1Result Comment: [facility] [id number] 2Result Comment: regular dose [facility] [phone] Medications clotrimazole 1% topical cream 1 application, Topically, 2 times a day, # 100 Gm, 0 Refills, Maintenance, 01/23/20 11:01:00 EDT, Cream, [facility] #56440, 1 application Topically 2 times a day,x21 [...] insurance., 02/19/20 9:05:00 EDT, Compound Start Date: 7/8/20 Status: Ordered CPAP Equipment See Instructions, # [...] tablet, 0 Refills, Maintenance, 01/12/21 11:15:00 EDT, [facility]/pharmacy #[id number], Partial fill upon patient [...] 2 Refills, Maintenance, 03/13/21 10:08:00 EDT, ECCapsule, [facility]/pharmacy #[id number], 158, cm, 01/25/21 10:55:00 EDT, Height Start Date: 03/13/21 Stop Date: 06/11/21 Status: Ordered sertraline 100 mg oral tablet 2 tablet = 200 mg, By Mouth, Daily, # 180 tablet, 0 Refills, Maintenance, 01/12/21 11:16:00 EDT, Tablet, [facility]/pharmacy #[id number], Partial fill upon patient request, 158.3, [...]
--- OUTSIDE RECORDS SUMMARY | 2023-12-04 09:46 | XMS_ITS | Continuity of Care Document ---
Author Organization [facility] Adult Address [address] [place] [address]- Care Team Providers Care Enterprise Infrastructure Architect Name Role Phone Lilliana Carroll NP Primary Care Physician [phone] Encounter [facility] Date(s): 09/29/20 - 10/29/20 [facility] Adult [address] [place] [address]- Allergies, Adverse Reactions, Alerts No Known Medication Allergies Immunizations Given and Recorded Vaccine Date Status Refusal Reason tetanus/diphtheria/pertussis, acel(Tdap) 1 01/23/20 Given influenza virus vaccine, inactivated 07/31/18 Give n influenza virus vaccine, inactivated 2 07/19/17 Gi rodrigo 1Result Comment: [facility] [id number] 2Result Comment: regular dose [facility] [phone] Medications clotrimazole 1% topical cream 1 application, Topically, 2 times a day, # 100 Gm, 0 Refills, Maintenance, 01/23/20 11:01:00 EDT, Cream, [facility], 1 application Topically 2 times a day,x21 [...] Refills, Maintenance, 01/23/20 10:40:00 EDT, EC Capsule, [facility]67, 158.3, cm, 01/23/20 10:28:00 EDT, Height, 84, kg, 09/28/18 16:06:00 EST, Dry Weight Start Date: 01/23/20 Stop Date: 01/17/21 Status: Ordered sertraline 100 mg oral tablet 1.5 tablet = 150 mg, By Mouth, Daily, Take 50mg daily for 7 days then increase to 100mg, # 135 tablet, 1 Refills, Maintenance, 08/17/20 13:24:00 EST, Tablet, [facility] #81876, Partial fillupon patient request, 158.3, cm, 07/06/20 [...]
--- OUTSIDE RECORDS SUMMARY | 2023-12-04 09:46 | XMS_ITS | Continuity of Care Document ---
Author Organization [facility] Address [address] [place] [address]- Care Team Providers Care Machine Set Up Name Role Phone Lilliana Carroll NP Primary Care Physician [place] [facility] Date(s): 05/16/21 - 05/17/[address] [address]- Discharge Disposition: A-D/C Home Attending Physician: Tamir Yee MD Admitting Physician: Tamir Yee MD Referring Physician: Not on Staff, Referring MD Allergies, Adverse Reactions, Alerts No Known Medication Allergies Immunizations Given and Recorded Vaccine Date Status Refusal Reason Influenza Virus Vaccine (oldterm) 05/28/20 Recorde d tetanus/diphtheria/pertussis, acel(Tdap) 1 01/23/20 Given influenza virus vaccine, inactivated 07/31/18 Give n influenza virus vaccine, inactivated 2 07/19/17 Gi rodrigo 1Result Comment: [facility] [id number] 2Result Comment: regular dose [facility] [phone] Medications clotrimazole 1% topical cream 1 application, Topically, 2 times a day, # 100 Gm, 0 Refills, Maintenance, 01/23/20 11:01:00 EDT, Cream, [facility] #37516, 1 application Topically 2 times a day,x21 [...] on CPAP(Confirmed) Active Annual physical exam(Confirmed) Active Vital Signs Most recent to oldest [Reference Range]: 1 2 3 Weight 86 kg (05/16/21 7:09 PM) Oxygen Saturation [94-100 %] 99 % (05/17/21 3:14 AM) 99 % (05/16/21 7:09 PM) 100 % (05/16/21 6:54 PM) Pulse Rate [55-90 bpm] 86 bpm (05/17/21 3:14 AM) 99 bpm *H* (05/16/21 7:09 PM) 98 bpm *H* (05/16/21 6:54 PM) Blood Pressure [90-138/55-84 mm Hg] 120/72mm Hg (05/17/21 3:14 AM) 129/80mm Hg (05/16/21 7:09 PM) Respiratory Rate [16-30 br/min] 18 br/min (05/17/21 3:14 AM) 18 br/min (05/16/21 7:09 PM) Temperature [96.8-100.4 DegF] 98.5 DegF (05/17/21 3:14 AM) 98.4 DegF (05/16/21 7:09 PM) Mode of Delivery (Oxygen) Room air (05/17/21 3:14 AM) Room air (05/16/21 7:09 PM) Room air (05/16/21 6:54 PM) Blood pressure sites Arm, left (05/16/21 7:09 PM) Temperature Route Oral (05/17/21 3:14 AM) Oral (05/16/21 7:09 PM) Dry Weight 86 kg (05/16/21 7:09 PM) Weight Obtained Via Patient/family state d (05/16/21 7:09 PM) Dry Weight Obtained Via Patient/family s tated (05/16/21 7:09 PM) Social History Social History Type Response Smoking Status Never smoker entered on: 07/19/17 Sex
--- OUTSIDE RECORDS SUMMARY | 2023-12-04 09:46 | XMS_ITS | Continuity of Care Document ---
Author Organization [facility] Adult Address [address] [place] [address]- Care Team Providers Care Cardiac/Vascular Sonographer Name Role Phone Lilliana Carroll NP Primary Care Physician Encounter [facility] Date(s): 05/10/21 - 06/09/21 [facility] Adult [address] [place] [address]- Allergies, Adverse Reactions, Alerts No Known Medication Allergies Immunizations Given and Recorded Vaccine Date Status Refusal Reason Influenza Virus Vaccine (oldterm) 05/28/20 Recorde d tetanus/diphtheria/pertussis, acel(Tdap) 1 01/23/20 Given influenza virus vaccine, inactivated 07/31/18 Give n influenza virus vaccine, inactivated 2 07/19/17 Gi rodrigo 1Result Comment: [facility] [id number] 2Result Comment: regular dose [facility] [phone] Medications clotrimazole 1% topical cream 1 application, Topically, 2 times a day, # 100 Gm, 0 Refills, Maintenance, 01/23/20 11:01:00 EDT, Cream, [facility] #07560, 1 application Topically 2 times a day,x21 [...] tablet, 0 Refills, Maintenance, 01/12/21 11:15:00 EDT, [facility]/pharmacy #[id number], Partial fill upon patient [...] 2 Refills, Maintenance, 03/13/21 10:08:00 EDT, ECCapsule, [facility]/pharmacy #[id number], 158, cm, 01/25/21 10:55:00 EDT, Height Start Date: 03/13/21 Stop Date: 06/11/21 Status: Ordered PEG-3350 with Electrolytes (Eqv-GoLYTELY) oral powder for reconstitution See Instructions, Follow instructions on the label to mix powder with water. Drink all of the prep fluid on the evening before your colonoscopy., # 1 each, 0 Refills, Maintenance, 06/07/21 10:32:00 EDT, [facility]/pharmacy #[id number], Partial fill upon patient r... Start Date: 06/07/21 Status: Ordered sertraline 100 mg oral tablet 2 tablet, By Mouth, Daily, # 180 tablet, 0 Refills, [facility] 99725, 158, cm, 01/25/21 10:55:00 EDT, Height, 86, kg, 05/16/21 19:09:00 EDT, Dry Weight Start Date: 06/02/21 Status: Ordered Problem List Condition Effective Dates Status Health Status Inform ant Anxiety(Confirmed) Active Functional constipation(Confirmed) Active Depression(Confirmed) Active GERD (gastroesophageal reflu x disease)(Confirmed) Active Obesity (BMI 30.0-34.9)(Confirmed) Active CRISTINA on CPAP(Confirmed) Active Annual physical exam(Confirmed) Active Social History Social History Type Response Smoking Status Never smoker entered on: 07/19/17 Sex
--- OUTSIDE RECORDS SUMMARY | 2023-12-04 09:46 | XMS_ITS | Continuity of Care Document ---
Author Organization [facility] Adult Address [address] [place] [address]- Care Team Providers Care Epic Willow Specialist Name Role Phone Lilliana Carroll NP Primary Care Physician Encounter [facility] Date(s): 08/17/20 - 09/16/20 [facility] Adult [address] [place] [address]- Allergies, Adverse Reactions, Alerts No Known Medication Allergies Immunizations Given and Recorded Vaccine Date Status Refusal Reason tetanus/diphtheria/pertussis, acel(Tdap) 1 01/23/20 Given influenza virus vaccine, inactivated 07/31/18 Give n influenza virus vaccine, inactivated 2 07/19/17 Gi rodrigo 1Result Comment: [facility] [id number] 2Result Comment: regular dose [facility] [id number] Medications clotrimazole 1% topical cream 1 application, Topically, 2 times a day, # 100 Gm, 0 Refills, Maintenance, 01/23/20 11:01:00 EDT, Cream, [facility] #24952, 1 application Topically 2 times a day,x21 [...] Refills, Maintenance, 01/23/20 10:40:00 EDT, EC Capsule, [facility] #14361, 158.3, cm, 01/23/20 10:28:00 EDT, Height, 84, kg, 09/28/18 16:06:00 EST, Dry Weight Start Date: 01/23/20 Stop Date: 01/17/21 Status: Ordered sertraline 100 mg oral tablet 1.5 tablet = 150 mg, By Mouth, Daily, Take 50mg daily for 7 days then increase to 100mg, # 135 tablet, 1 Refills, Maintenance, 08/17/20 13:24:00 EST, Tablet, [facility] #68929, Partial fillupon patient request, 158.3, cm, 07/06/20 [...]
--- OUTSIDE RECORDS SUMMARY | 2023-12-04 09:46 | XMS_ITS | Continuity of Care Document ---
Author Organization [facility] Address [address] [place] [address]- Care Team Providers Care Regional Sales Trainer Name Role Phone Lilliana Carroll NP Primary Care Physician Encounter [facility] Date(s): 03/24/23 - 04/23/23 [facility] Adult [address] [place] [address]- Allergies, Adverse Reactions, Alerts Substance Reaction Severity [...] 01/26/91 Re corded 1Result Comment: regular dose [facility] [id number] 2Result Comment: [facility] [id number] 3Result Comment: [facility] [id number] Medications cloNIDine 0.1 mg oral tablet 1, tablet, By Mouth, 2 times a day, PRN, # 60 tablet, Refills 0, Tot. Refills 0, Maintenance, NEEDED FOR ANXIETY, 12/09/22 7:36:00 EDT, Route to Pharmacy Electronically, [facility]/pharmacy #[id number], 158.2,cm, 12/07/22 9:55:00 EDT, [...] Refills, Maintenance, 09/20/22 7:38:00 EST, [facility], 158.2, cm, 08/01/22 12:12:00 EST, Height, 95.45, kg, 01/07/22 10:11:00 EDT, Dry Weight Start Date: 09/20/22 Status: Ordered lamotrigine 50 mg oral tablet, extended release 3 tablet, By Mouth, Daily, # 270 tablet, 1 Refills, Maintenance, 01/18/23 18:04:00 EDT, [facility], 158.2, cm, 01/03/23 9:16:00 EDT, Height, 95.45, [...] each, 0 Refills, Maintenance, 06/07/21 10:32:00 EDT, [facility]/pharmacy #[id number], Partial fill upon patient r... Start Date: 06/07/21 Status: Ordered traZODone 50 mg oral tablet 1, tablet, By Mouth, Daily at bedtime, # 90 tablet, Refills 1, Maintenance, 01/25/23 19:08:00 EDT, Route to Pharmacy Electronically, [facility], 158.2, cm, 01/03/23 9:16:00 EDT, Height, 95.45, [...] Persons Name: KAILEE COTTON Address: home [address] [place] [address] Name: KODI ORDOÑEZ Address: home [address] [address] Name: MUKUL FREEMAN Address: home [address] [place] [address] Name: JUDY FREEMAN Address: home [address] [place] [address]
--- OUTSIDE RECORDS SUMMARY | 2023-12-04 09:46 | XMS_ITS | Continuity of Care Document ---
Author Organization [facility] Adult Address [address] [place] [address]- Care Team Providers Care Patients Transporter Name Role Phone Nicolasa TOLENTINO, Lilliana Primary Care Physician Encounter [facility] Date(s): 02/19/20 - 03/20/20 [facility] Adult [address] [place] [address] [facility] Attending Physician: Ferdinand Zabala Admitting Physician: Ferdinand Zabala Referring Physician: AdmtrFerdinand Allergies, Adverse Reactions, Alerts No Known Medication Allergies Immunizations Given and Recorded Vaccine Date Status Refusal Reason tetanus/diphtheria/pertussis, acel(Tdap) 1 01/23/20 Given influenza virus vaccine, inactivated 07/31/18 Give n influenza virus vaccine, inactivated 2 07/19/17 Gi rodrigo 1Result Comment: [facility] [id number] 2Result Comment: regular dose [facility] [phone] Medications clotrimazole 1% topical cream 1 application, Topically, 2 times a day, # 100 Gm, 0 Refills, Maintenance, 01/23/20 11:01:00 EDT, Cream, [facility] #08675, 1 application Topically 2 times a day,x21 [...] Refills, Maintenance, 01/23/20 10:40:00 EDT, EC Capsule, [facility] #31153, 158.3, cm, 01/23/20 10:28:00 EDT, Height, 84, [...]
--- OUTSIDE RECORDS SUMMARY | 2023-12-04 09:47 | XMS_ITS | Continuity of Care Document ---
Author Organization [facility] Adult Address [address] [place] [address]- Care Team Providers Care Hearth Feeder Name Role Phone Lilliana Carroll NP Primary Care Physician En[place] [facility] Date(s): 05/27/22 - 06/03/22 [facility] Adult [address] [place] [address]- Attending Physician: Luis Enrique Causey MD Referring Physician: Lilliana Carroll NP Allergies, Adverse [...] Re corded 1Result Comment: [facility] [id number] 2Result Comment: [facility] [id number] 3Result Comment: regular dose [facility] [phone] Medications clotrimazole 1% topical cream 1 application, Topically, 2 times a day, # 100 Gm, 0 Refills, Maintenance, 01/23/20 11:01:00 EDT, Cream, [facility] #33992, 1 application Topically 2 times a day,x21 [...] Refills, Maintenance, 04/07/22 12:14:00 EDT, [facility]/pharmacy#2071, 157.48, cm, 01/11/22 10:16:00 EDT, Height, 95.45, kg, 01/07/22 10:11:00 EDT, Dry Weight Start Date: 04/07/22 Status: Ordered Liletta Once, 0 Refills, Maintenance, 01/23/20 10:50:00 EDT Start Date: 01/23/20 Status: Ordered omeprazole 40 mg oral enteric coated capsule 1 capsule = 40 mg, By Mouth, Daily, # 30 capsule, 2 Refills, Maintenance, 01/26/22 7:44:00 EDT, EC [facility]aps[facility], [facility], 157.48, cm, 01/11/22 10:16:00 EDT, Height, [...] Effective Dates Status Health St atus Informant Anxiety Confirmed Active Functional constipation Confirmed Active Depression Confirmed Active GERD (gastroesophageal reflux disease) Confirmed Active Obese class II Confirmed Active CRISTINA on CPAP Confirmed Active Annual physical exam Confirmed Active Severe recurrent major depression Confirmed Active Vital Signs Most recent to oldest [Reference Range]: 1 Height 157.48 cm (05/27/22 12:53 PM) Weight 97.1 kg (05/27/22 12:53 PM) Oxygen Saturation [94-100 %] 97 % (05/27/22 12:53 PM) Pulse Rate [55-90 bpm] 75 bpm (05/27/22 12:53 PM) Body Mass Index [18.5-24.99 kg/m2] 39.15 kg/m2 *>HHI* (05/27/22 12:53 PM) Blood Pressure [90-138/55-84 mm Hg] 126/ 81mm Hg (05/27/22 12:53 PM) Mode of Delivery (Oxygen) Room air (05/27/22 12:53 PM) Blood pressure sites Arm, right (05/27/22 12:53 PM) Weight Obtained Via Standing scale (05/27/22 12:53 PM) Social History Social History Type Response Smoking Status Never smoker entered on: 07/19/17 Sex Patient Care team information Personnel Name: Lilliana Carroll NP Address: Address: [address] [place] [id number]
--- OUTSIDE RECORDS SUMMARY | 2023-12-04 09:47 | XMS_ITS | Continuity of Care Document ---
Author Organization [facility] Adult Address [address] [place] [address]- Care Team Providers Care Special Delivery Messenger Name Role Phone Nicolasa TOLENTINO, Lilliana Primary Care Physician Encounter [facility] Date(s): 01/23/20 - 01/30/20 [facility] Adult [address] [place] [address]- [facility] Encounter Diagnosis Annual physical exam(Discharge Diagnosis) - 01/23/20 Depression(Discharge Diagnosis) - 01/23/20 Excessive thirst(Discharge Diagnosis) - 01/23/20 Fungal rash of torso(Discharge Diagnosis) - 01/23/20 Attending Physician: Lilliana Baldwin NP Allergies, Adverse Reactions, Alerts No Known Medication Allergies Immunizations Given and Recorded Vaccine Date Status Refusal Reason tetanus/diphtheria/pertussis, acel(Tdap) 1 01/23/20 Given influenza virus vaccine, inactivated 07/31/18 Give n influenza virus vaccine, inactivated 2 07/19/17 Gi rodrigo 1Result Comment: [facility] [id number] 2Result Comment: regular dose [facility] [phone] Medications clotrimazole 1% topical cream 1 application, Topically, 2 times a day, # 100 Gm, 0 Refills, Maintenance, 01/23/20 11:01:00 EDT, Cream, [facility] #36932, 1 application Topically 2 times a day,x21 [...] EST, Compound Start Date: 09/10/18 Status: Ordered Liletta Once, 0 Refills, Maintenance, [...] Refills, Maintenance, 01/23/20 10:40:00 EDT, EC Capsule, [facility] #22889, 158.3, cm, 01/23/20 10:28:00 EDT, Height, 84, [...] Service Informant Annual physical exam Discharge Diagnosis 01/23/20 Depression Discharge Diagnosis 01/23/20 Excessive thirst Discharge Diagnosis 01/23/20 Fungal rash of torso Discharge Diagnosis 01/23/20 Vital Signs Most recent to oldest [Reference Range]: 1 Height 158.3 cm (01/23/20 10:28 AM) Weight 76.9 kg (01/23/20 10:28 AM) Oxygen Saturation [94-100 %] 96 % (01/23/20 10:28 AM) Pulse Rate [55-90 bpm] 83 bpm (01/23/20 10:28 AM) Body Mass Index [18.5-24.99] 30.69 *>HHI* (01/23/20 10:28 AM) Blood Pressure [90-138/55-84 mm Hg] 112/ 80mm Hg (01/23/20 10:28 AM) Temperature [96.8-100.4 DegF] 98.9 DegF (01/23/20 10:28 AM) Mode of Delivery (Oxygen) Room air (01/23/20 10:28 AM) Blood pressure sites Arm, left (01/23/20 10:28 AM) Temperature Route Oral (01/23/20 10:28 AM) Weight Obtained Via Standing scale (01/23/20 10:28 AM) Social History Social History Type Response Smoking Status Never smoker entered on: 07/19/17 Sex
--- OUTSIDE RECORDS SUMMARY | 2023-12-04 09:47 | XMS_ITS | Continuity of Care Document ---
Author Organization [facility] Adult Address [address] [place] [address]- Care Team Providers Care Sludge Filtration Attendant Name Role Phone Lilliana Carroll NP Primary Care Physician [facility] 06[facility]23 - 07/24/23 [facility] Adult [address], [place] [address] Allergies, Adverse Reactions, Alerts Substance Reaction Severity Status Other Environmental Allergy nasal sympto ms trees mold dust grasses Active Immunizations Given and Recorded Vaccine Date Status Refusal Reason influenza virus vaccine, inactivated 09/02/21 Elvin rded influenza virus vaccine, inactivated 07/31/18 Give n influenza virus vaccine, inactivated 1 07/19/17 Gi rodrigo influenza virus vaccine, inactivated 06/28/13 Levin rded influenza virus vaccine, inactivated 07/15/11 Elvin [...] 01/26/91 Re corded 1Result Comment: regular dose [facility] 13821-491-12 2Result Comment: [facility] [id number] 3Result Comment: [facility] [id number] Medications cloNIDine 0.1 mg oral tablet 1, tablet, By Mouth, 2 times a day, PRN, # 60 tablet, Refills 0, Tot. Refills 0, Maintenance, NEEDED FOR ANXIETY, 12/09/22 7:36:00 EDT, Route to Pharmacy Electronically, [facility]/pharmacy #[id number], 158.2,cm, 12/07/22 9:55:00 EDT, Height, 95.45, [...] Refills, Maintenance, 09/20/22 7:38:00 EST, [facility], 158.2, cm, 08/01/22 12:12:00 EST, Height, 95.45, kg, 01/07/22 10:11:00 EDT, Dry Weight Start Date: 09/20/22 Status: Ordered lamotrigine 50 mg oral tablet, extended release 3 tablet, By Mouth, Daily, # 270 tablet, 1 Refills, Maintenance, 01/18/23 18:04:00 EDT, [facility], 158.2, cm, 01/03/23 9:16:00 EDT, Height, 95.45, [...] 0 Refills, Maintenance, 06/07/21 10:32:00 EDT, [facility]/pharmacy #[id number], Partial fill upon patient r... Start Date: 06/07/21 Status: Ordered traZODone 50 mg oral tablet 1, tablet, By Mouth, Daily at bedtime, # 90 tablet, Refills 1, Maintenance, 01/25/23 19:08:00 EDT, Route to Pharmacy Electronically, [facility], 158.2, cm, 01/03/23 9:16:00 EDT, Height, 95.45, [...] Team Personnel Name: Lilliana Carroll NP Position: [facility] PCO Associate Professional Member Role: PCP Address: Address: [address] [place] [address]- Care Team Related Persons Name: KAILEE COTTON Address: home [address] [place] [address] Name: KODI ORDOÑEZ Address: home [address] [address] Name: MUKUL FREEMAN Address: home [address] [place] [address] Name: JUDY FREEMAN Address: home [address] [place] [address]
--- OUTSIDE RECORDS SUMMARY | 2023-12-04 09:47 | XMS_ITS | Continuity of Care Document ---
Author Organization [facility] Side Adult Address [address] [place] [address]- Care Team Providers Care Metal Flooring Installer Name Role Phone Lilliana Carroll NP Primary Care Physician [phone] [facility] - 10/26/23 [facility] Adult [address] [place], [place] [address] Allergies, Adverse Reactions, Alerts Substance Reaction Severity [...] 01/26/91 Re corded 1Result Comment: regular dose [facility] 31415-843-68 2Result Comment: [facility] [id number] 3Result Comment: [facility] [id number] Medications cloNIDine 0.1 mg oral tablet 1, tablet, By Mouth, 2 times a day, PRN, # 60 tablet, Refills 0, Tot. Refills 0, Maintenance, NEEDED FOR ANXIETY, 12/09/22 7:36:00 EDT, Route to Pharmacy Electronically, [facility]/pharmacy #[id number], 158.2,cm, 12/07/22 9:55:00 EDT, Height, [...] Refills, Maintenance, 09/20/22 7:38:00 EST, [facility], 158.2, cm, 08/01/22 12:12:00 EST, Height, 95.45, kg, 01/07/22 10:11:00 EDT, Dry Weight Start Date: 09/20/22 Status: Ordered lamotrigine 50 mg oral tablet, extended release 3 tablet, By Mouth, Daily, # 270 tablet, 1 Refills, Maintenance, 01/18/23 18:04:00 EDT, [facility], 158.2, cm, 01/03/23 9:16:00 EDT, Height, 95.45, [...] 0 Refills, Maintenance, 06/07/21 10:32:00 EDT, [facility]/pharmacy #2071, Partial fill upon patient r... Start Date: 06/07/21 Status: Ordered traZODone 50 mg oral tablet 1, tablet, By Mouth, Daily at bedtime, # 90 tablet, Refills 1, Maintenance, 01/25/23 19:08:00 EDT, Route to Pharmacy Electronically, [facility], 158.2, cm, 01/03/23 9:16:00 EDT, Height, 95.45, [...] Team Personnel Name: Lilliana Carroll NP Position: [facility] PCO Associate Professional Member Role: PCP Address: Address: [address] [place] [address]- Care Team Related Persons Name: KAILEE COTTON Address: home [address] [place] [address] Name: KODI ORDOÑEZ Address: home [address] [address] Name: MUKUL FREEMAN Address: home [address] [place] [address] Name: JUDY FREEMAN Address: home [address] [place] [address]
--- OUTSIDE RECORDS SUMMARY | 2023-12-04 09:47 | XMS_ITS | Continuity of Care Document ---
Author Organization [facility] Adult Address [address] [place] [address]- Care Team Providers Care Slag Wheeler Name Role Phone Lilliana Carroll NP Primary Care Physician [phone] [facility] 11[facility]/22 - 12/21/22 [facility] Adult [address] [place], [place] [address] Allergies, Adverse Reactions, Alerts Substance [...] 01/26/91 Re corded 1Result Comment: regular dose [facility] 41670-214-64 2Result Comment: [facility] [id number] 3Result Comment: [facility] [id number] Medications cloNIDine 0.1 mg oral tablet 1, tablet, By Mouth, 2 times a day, PRN, # 60 tablet, Refills 0, Tot. Refills 0, Maintenance, NEEDED FOR ANXIETY, 12/09/22 7:36:00 EDT, Route to Pharmacy Electronically, [facility]/pharmacy #[id number], 158.2,cm, 12/07/22 9:55:00 EDT, Height, 95.45, kg, ... Start Date: 12/09/22 Status: Ordered clotrimazole 1% topical cream 1 application, Topically, 2 times a day, # 100 Gm, 0 Refills, Maintenance, 01/23/20 11:01:00 EDT, Cream, [facility]21345, 1 application Topically 2 times a day,x21 [...] tablet, 1 Refills, Maintenance, 09/20/22 7:38:00 EST, [facility] STORE 56918, 158.2, cm, 08/01/22 12:12:00 EST, Height, 95.45, kg, 01/07/22 10:11:00 EDT, Dry Weight Start Date: 09/20/22 Status: Ordered LaMICtal 25 mg oral tablet 25 mg, 1, tablet, By Mouth, Daily, # 14 tablet, Refills 0, Tot. Refills 0, Maintenance, 07/01/22 12:16:00 EST, Route to Pharmacy Electronically, [facility]/pharmacy #2071, Partial fill upon patient request [...] Refills, Maintenance, 06/07/21 10:32:00 EDT, [facility]/pharmacy #[id number], Partial fill upon patient r... Start Date: 06/07/21 Status: Ordered traZODone 50 mg oral tablet 1, tablet, By Mouth, Daily at bedtime, # 90 tablet, Refills 1, Tot. Refills 1, Maintenance, 09/19/22 17:36:00 EST, Route to Pharmacy Electronically, [facility]/pharmacy #[id number], 158.2, cm, 08/01/22 12:12:00 EST, [...] Professional Member Role: PCP Address: Address: [address] [place] [address] [address] Care Team Related Persons Name: LULA KAILEE Address: home [address] [place] [address] Name: KODI ORDOÑEZ Address: home [address] [address] Name: MUKUL FREEMAN Address: home [address] [place] [address] Name: JUDY FREEMAN Address: home [address] [place] [address]
--- OUTSIDE RECORDS SUMMARY | 2023-12-04 09:47 | XMS_ITS | Continuity of Care Document ---
Author Organization [facility] Address [address] [place] [address]- Care Team Providers Care Therapy Assistant Name Role Phone Kayla TOLENTINO, Jacinda Primary Care Physician [facility] Date(s): 09/03/19 - 09/10/[address] [address]- [facility] Attending Physician: Lynne FINN, Vikram Joya Allergies, Adverse Reactions, Alerts No Known Medication Allergies Immunizations Given and Recorded Vaccine Date Status Refusal Reason influenza virus vaccine, inactivated 07/31/18 Give n influenza virus vaccine, inactivated 1 07/19/17 Gi rodrigo 1Result Comment: regular dose [facility] 10152-300-22 Medications betamethasone-clotrimazole 0.05%-1% topical cream 1 application, [...]
--- OUTSIDE RECORDS SUMMARY | 2023-12-04 09:47 | XMS_ITS | Continuity of Care Document ---
Author Organization [facility] Adult Address [address] [place] [address]- Care Team Providers Care Spray Painting Machine Operator Name Role Phone Lilliana Carroll NP Primary Care Physician [phone] Encounter [facility] Date(s): 10/11/22 - 11/10/22 [facility] Adult [address] [place] [address]- Attending Physician: AdmFerdinand andino Admitting Physician: Admtr, [...] Re corded 1Result Comment: [facility] [id number] 2Result Comment: [facility] [id number] 3Result Comment: regular dose [facility] 84621-134-15 Medications cloNIDine 0.1 mg oral tablet 0.1 mg, By Mouth, 2 times a day, PRN, # 60 each, Refills 0, Tot. Refills 0, Maintenance, Anxiety, 10/18/22 13:53:00 EST, Route to Pharmacy Electronically, [facility]/pharmacy #5125, Partial fill upon patient request if the prescription is for a schedule II o... Start Date: 10/18/22 Stop Date: 11/17/22 Status: Ordered clotrimazole 1% topical cream 1 application, Topically, 2 times a day, # 100 Gm, 0 Refills, Maintenance, 01/23/20 11:01:00 EDT, Cream, [facility] #43116, 1 application Topically 2 times a day,x21 [...] Refills, Maintenance, 09/20/22 7:38:00 EST, [facility], 158.2, cm, 08/01/22 12:12:00 EST, Height, 95.45, kg, 01/07/22 10:11:00 EDT, Dry Weight Start Date: 09/20/22 Status: Ordered LaMICtal 25 mg oral tablet 25 mg, 1, tablet, By Mouth, Daily, # 14 tablet, Refills 0, Tot. Refills 0, Maintenance, 07/01/22 12:16:00 EST, Route to Pharmacy Electronically, [facility]/pharmacy #[id number], Partial fill upon patient [...] each, 0 Refills, Maintenance, 06/07/21 10:32:00 EDT, [facility]/pharmacy #[id number], Partial fill upon patient r... Start Date: 06/07/21 Status: Ordered traZODone 50 mg oral tablet 1, tablet, By Mouth, Daily at bedtime, # 90 tablet, Refills 1, Tot. Refills 1, Maintenance, 09/19/22 17:36:00 EST, Route to Pharmacy Electronically, [facility]/pharmacy #[id number], 158.2, cm, 08/01/22 12:12:00 [...] Display: Non BH Lab Results Authored Date: [id number] Patient Care team information Care Team Personnel Name: Lilliana Carroll NP Position: [facility] PCO Associate Professional Member Role: PCP Address: Address: [address] [place] [address] [place] Care Team Related Persons Name: KAILEE COTTON Address: home [address] [place] [address] Name: KODI ORDOÑEZ Address: home [address] [address] Name: MUKUL FREEMAN Address: home [address] [place] [address] Name: JUDY FREMEAN Address: home [address] [place] [address]
--- OUTSIDE RECORDS SUMMARY | 2023-12-04 09:47 | XMS_ITS | Continuity of Care Document ---
Author Organization [facility] Adult Address [address] [place] [address]- Care Team Providers Care Oral Hygienist Name Role Phone Lilliana Carroll NP Primary Care Physician Encounter [facility] Date(s): 02/02/21 - 03/04/21 [facility] Adult [address] [place] [address] Attending Physician: Ferdinand Zabala Admitting Physician: AdmtrFerdinand Referring Physician: Admtr, Ar8 Allergies, Adverse Reactions, Alerts No Known Medication Allergies Immunizations Given and Recorded Vaccine Date Status Refusal Reason Influenza Virus Vaccine (oldterm) 05/28/20 Recorde d tetanus/diphtheria/pertussis, acel(Tdap) 1 01/23/20 Given influenza virus vaccine, inactivated 07/31/18 Give n influenza virus vaccine, inactivated 2 07/19/17 Gi rodrigo 1Result Comment: [facility] [id number] 2Result Comment: regular dose [facility] 30611-511-54 Medications clotrimazole 1% topical cream 1 application, Topically, 2 times a day, # 100 Gm, 0 Refills, Maintenance, 01/23/20 11:01:00 EDT, Cream, [facility] #91569, 1 application Topically 2 times a day,x21 [...] Refills, Maintenance, 01/23/20 10:40:00 EDT, EC Capsule, [facility] #52097, 158.3, cm, 01/23/20 10:28:00 EDT, Height, 84, [...]
--- OUTSIDE RECORDS SUMMARY | 2023-12-04 09:47 | XMS_ITS | Continuity of Care Document ---
Author Organization [facility] Adult Address [address] [place] [address]- Care Team Providers Care Phosphoric Acid Supervisor Name Role Phone Lilliana Carroll NP Primary Care Physician Encounter [facility] Date(s): 12/05/22 - 01/04/23 [facility] Adult [address] [place] [address]- Allergies, Adverse Reactions, Alerts Substance Reaction Severity [...] 01/26/91 Re corded 1Result Comment: regular dose [facility] 56034-799-08 2Result Comment: [facility] [id number] 3Result Comment: [facility] [id number] Medications cloNIDine 0.1 mg oral tablet 1, tablet, By Mouth, 2 times a day, PRN, # 60 tablet, Refills 0, Tot. Refills 0, Maintenance, NEEDED FOR ANXIETY, 12/09/22 7:36:00 EDT, Route to Pharmacy Electronically, [facility]/pharmacy #[id number], 158.2,cm, 12/07/22 9:55:00 EDT, [...] 01/13/23 9:39:00 EDT, 01/03/23 9:39:00 EDT, Tablet, [facility] [...] Refills, Maintenance, 09/20/22 7:38:00 EST, [facility], 158.2, cm, 08/01/22 12:12:00 EST, Height, 95.45, [...] 03/04/23 9:39:00 EDT, 01/03/23 9:39:00 EDT, Tablet, [facility] [...] Associate Professional Member Role: PCP Address: Address: [address] [place] [address]- Care Team Related Persons Name: KAILEE COTTON Address: home [address] [place] [address] Name: KODI ORDOÑEZ Address: home [address] [address] Name: MUKUL FREEMAN Address: home [address] [place] [address] Name: JUDY FREEMAN Address: home [address] [place] [address]
--- OUTSIDE RECORDS SUMMARY | 2023-12-04 09:47 | XMS_ITS | Continuity of Care Document ---
Author Organization [facility] Adult Address [address] [place] [address]- Care Team Providers Care Life Insurance Specialist Name Role Phone Lilliana Carroll NP Primary Care Physician [facility]s): 07/01/20 - 07/31/20 [facility] Adult [address] [place] [id number] Allergies, Adverse Reactions, Alerts No Known Medication Allergies Immunizations Given and Recorded Vaccine Date Status Refusal Reason tetanus/diphtheria/pertussis, acel(Tdap) 1 01/23/20 Given influenza virus vaccine, inactivated 07/31/18 Give n influenza virus vaccine, inactivated 2 07/19/17 Gi rodrigo 1Result Comment: [facility] [id number] 2Result Comment: regular dose [facility] 97201-337-91 Medications clotrimazole 1% topical cream 1 application, Topically, 2 times a day, # 100 Gm, 0 Refills, Maintenance, 01/23/20 11:01:00 EDT, Cream, [facility] #88022, 1 application Topically 2 times a day,x21 [...] Refills, Maintenance, 01/23/20 10:40:00 EDT, EC Capsule, [facility] #52334, 158.3, cm, 01/23/20 10:28:00 EDT, Height, 84, kg, 09/28/18 16:06:00 EST, Dry Weight Start Date: 01/23/20 Stop Date: 01/17/21 Status: Ordered sertraline 100 mg oral tablet 1 tablet = 100 mg, By Mouth, Daily, Take 50mg daily for 7 days then increase to 100mg, # 90 tablet,1 Refills, Maintenance, 07/20/20 8:54:00 EST, Tablet, [facility] #82126, Partial fill upon patient request, 158.3, cm, 07/06/20 8:13:00 EST,... Start Date: 07/20/20 Stop Date: 01/16/21 Status: Ordered Problem List Condition Effective Dates Status Health Status Inform ant Anxiety(Confirmed) Active Functional constipation(Confirmed) Active Depression(Confirmed) Active GERD (gastroesophageal reflu x disease)(Confirmed) Active CRISTINA on CPAP(Confirmed) Active Annual physical exam(Confirmed) Active Social History Social History Type Response Smoking Status Never smoker entered on: 07/19/17 Sex
--- OUTSIDE RECORDS SUMMARY | 2023-12-04 09:47 | XMS_ITS | Continuity of Care Document ---
Author Organization [facility] Adult Address [address] [place] [address]- Care Team Providers Care Paradi Operator Name Role Phone Lilliana Carroll NP Primary Care Physician [facility]s): 01/05/21 - 02/04/21 [facility] Adult [address] [place] [address] Allergies, Adverse Reactions, Alerts No Known Medication Allergies Immunizations Given and Recorded Vaccine Date Status Refusal Reason Influenza Virus Vaccine (oldterm) 05/28/20 Recorde d tetanus/diphtheria/pertussis, acel(Tdap) 1 01/23/20 Given influenza virus vaccine, inactivated 07/31/18 Give n influenza virus vaccine, inactivated 2 07/19/17 Gi rodrigo 1Result Comment: [facility] [id number] 2Result Comment: [facility] 69979-353-91 Medications clotrimazole 1% topical cream 1 application, Topically, 2 times a day, # 100 Gm, 0 Refills, Maintenance, 01/23/20 11:01:00 EDT, Cream, [facility] #57875, 1 application Topically 2 times a day,x21 [...] tablet, 0 Refills, Maintenance, 01/12/21 11:15:00 EDT, [facility]/pharmacy #2071, Partial fill upon patient request if [...] Refills, Maintenance, 01/23/20 10:40:00 EDT, EC Capsule, [facility] #91813, 158.3, cm, 01/23/20 10:28:00 EDT, Height, 84, kg, 09/28/18 16:06:00 EST, Dry Weight Start Date: 01/23/20 Stop Date: 01/17/21 Status: Ordered sertraline 100 mg oral tablet 2 tablet = 200 mg, By Mouth, Daily, # 180 tablet, 0 Refills, Maintenance, 01/12/21 11:16:00 EDT, Tablet, [facility]/pharmacy #2071, Partial fill upon patient request, 158.3, [...]
--- OUTSIDE RECORDS SUMMARY | 2023-12-04 09:47 | XMS_ITS | Continuity of Care Document ---
Author Organization [facility] Adult Address [address] [place] [address]- Care Team Providers Care Senior Office Assistant Name Role Phone Lilliana Carroll NP Primary Care Physician Encounter [facility] Date(s): 02/26/21 - 03/28/21 [facility] Adult [address] [place] [address]- Allergies, Adverse Reactions, Alerts No Known Medication Allergies Immunizations Given and Recorded Vaccine Date Status Refusal Reason Influenza Virus Vaccine (oldterm) 05/28/20 Recorde d tetanus/diphtheria/pertussis, acel(Tdap) 1 01/23/20 Given influenza virus vaccine, inactivated 07/31/18 Give n influenza virus vaccine, inactivated 2 07/19/17 Gi rodrigo 1Result Comment: [facility] [id number] 2Result Comment: regular dose [facility][note 2] 49714-069-24 Medications clotrimazole 1% topical cream 1 application, Topically, 2 times a day, # 100 Gm, 0 Refills, Maintenance, 01/23/20 11:01:00 EDT, Cream, [facility] #91844, 1 application Topically 2 times a day,x21 [...] tablet, 0 Refills, Maintenance, 01/12/21 11:15:00 EDT, [facility]/pharmacy #2071, Partial [...] 2 Refills, Maintenance, 03/13/21 10:08:00 EDT, ECCapsule, [facility]/pharmacy #2071, 158, cm, 01/25/21 10:55:00 EDT, Height Start Date: 03/13/21 Stop Date: 06/11/21 Status: Ordered sertraline 100 mg oral tablet 2 tablet = 200 mg, By Mouth, Daily, # 180 tablet, 0 Refills, Maintenance, 01/12/21 11:16:00 EDT, Tablet, [facility]/pharmacy #2071, Partial fill upon patient request, [...]
--- OUTSIDE RECORDS SUMMARY | 2023-12-04 09:47 | XMS_ITS | Continuity of Care Document ---
Author Organization [facility] Adult Address [address] [place] [address]- Care Team Providers Care Plywood Scarfer Tender Name Role Phone Lilliana Carroll NP Primary Care Physician Encounter [facility] Date(s): 02/27/23 - 03/29/23 [facility] Adult [address] [place] [address]- Allergies, Adverse Reactions, Alerts Substance Reaction Severity [...] 01/26/91 Re corded 1Result Comment: regular dose [facility] 27710-926-77 2Result Comment: [facility] [id number] 3Result Comment: [facility] [id number] Medications cloNIDine 0.1 mg oral tablet 1, tablet, By Mouth, 2 times a day, PRN, # 60 tablet, Refills 0, Tot. Refills 0, Maintenance, NEEDED FOR ANXIETY, 12/09/22 7:36:00 EDT, Route to Pharmacy Electronically, [facility]/pharmacy #[id number], 158.2,cm, 12/07/22 9:55:00 EDT, Height, [...] Refills, Maintenance, 09/20/22 7:38:00 EST, [facility], 158.2, cm, 08/01/22 12:12:00 EST, Height, 95.45, kg, 01/07/22 10:11:00 EDT, Dry Weight Start Date: 09/20/22 Status: Ordered lamotrigine 50 mg oral tablet, extended release 3 tablet, By Mouth, Daily, # 270 tablet, 1 Refills, Maintenance, 01/18/23 18:04:00 EDT, [facility], 158.2, cm, 01/03/23 9:16:00 EDT, Height, 95.45, [...] each, 0 Refills, Maintenance, 06/07/21 10:32:00 EDT, [facility]/pharmacy #2071, Partial fill upon patient r... Start Date: 06/07/21 Status: Ordered traZODone 50 mg oral tablet 1, tablet, By Mouth, Daily at bedtime, # 90 tablet, Refills 1, Maintenance, 01/25/23 19:08:00 EDT, Route to Pharmacy Electronically, [facility], 158.2, cm, 01/03/23 9:16:00 EDT, Height, 95.45, [...] Team Personnel Name: Lilliana Carroll NP Position: [facility] PCO Associate Professional Member Role: PCP Address: Address: [address] [place] [address]- Care Team Related Persons Name: KAILEE COTTON Address: home [address] [place] [address] Name: KODI ORDOÑEZ Address: home [address] [address] Name: MUKUL FREEMAN Address: home [address] [place] [address] Name: JUDY FREEMAN Address: home [address] [place] [address]
--- OUTSIDE RECORDS SUMMARY | 2023-12-04 09:47 | XMS_ITS | Continuity of Care Document ---
Author Organization [facility] Adult Address [address] [place] [address]- Care Team Providers Care Product Safety Officer Name Role Phone Lilliana Carroll NP Primary Care Physician Encounter [facility] Date(s): 08/17/20 - 09/16/20 [facility] Adult [address] [place] [address]- Allergies, Adverse Reactions, Alerts No Known Medication Allergies Immunizations Given and Recorded Vaccine Date Status Refusal Reason tetanus/diphtheria/pertussis, acel(Tdap) 1 01/23/20 Given influenza virus vaccine, inactivated 07/31/18 Give n influenza virus vaccine, inactivated 2 07/19/17 Gi rodrigo 1Result Comment: [facility] [id number] 2Result Comment: regular dose [facility] 54719-100-90 Medications clotrimazole 1% topical cream 1 application, Topically, 2 times a day, # 100 Gm, 0 Refills, Maintenance, 01/23/20 11:01:00 EDT, Cream, [facility] #19847, 1 application Topically 2 times a day,x21 [...] Refills, Maintenance, 01/23/20 10:40:00 EDT, EC Capsule, [facility] #53785, 158.3, cm, 01/23/20 10:28:00 EDT, Height, 84, kg, 09/28/18 16:06:00 EST, Dry Weight Start Date: 01/23/20 Stop Date: 01/17/21 Status: Ordered sertraline 100 mg oral tablet 1.5 tablet = 150 mg, By Mouth, Daily, Take 50mg daily for 7 days then increase to 100mg, # 135 tablet, 1 Refills, Maintenance, 08/17/20 13:24:00 EST, Tablet, [facility] #43888, Partial fillupon patient request, 158.3, cm, 07/06/20 [...]
--- OUTSIDE RECORDS SUMMARY | 2023-12-04 09:47 | XMS_ITS | Continuity of Care Document ---
Author Organization [facility] Adult Address [address] [place] [address]- Care Team Providers Care Shipping Room Helper Name Role Phone Lilliana Carroll NP Primary Care Physician [facility]): [facility]21 - 11/19/21 [facility] Adult [address] [place] [address]- Encounter Diagnosis Obese class II(Discharge Diagnosis) - 11/12/21 Attending Physician: Lilliana Carroll NP Allergies, Adverse [...] (HbOC) vaccine 01/26/91 Re corded 1Result Comment: [facility] [id number] 2Result Comment: [facility] [id number] 3Result Comment: regular dose [facility] [phone] Medications clotrimazole 1% topical cream 1 application, Topically, 2 times a day, # 100 Gm, 0 Refills, Maintenance, 01/23/20 11:01:00 EDT, Cream, [facility][id number], 1 application Topically 2 times a day,x21 [...] 10/13/21 9:22:00 EST, Route to Pharmacy Electronically, [facility]/pharmacy #[id number], 158, cm, 07/27/21 8:47:00 EST, [...] Dates Health Status Cl inical Service Informant Obese class II Discharge Diagnosis 11/12/21 Vital Signs Most recent to oldest [Reference Range]: 1 Height 158 cm (11/12/21 11:01 AM) Weight 97.72 kg (11/12/21 11:01 AM) Body Mass Index [18.5-24.99] 39.14 *>HHI* (11/12/21 11:01 AM) Weight Obtained Via Patient/family state d (11/12/21 11:01 AM) Social History Social History Type Response Smoking Status Never smoker entered on: 07/19/17 Sex
--- OUTSIDE RECORDS SUMMARY | 2023-12-04 09:47 | XMS_ITS | Continuity of Care Document ---
Author Organization [facility] Adult Address [address] [place] [phone]- Care Team Providers Care Practice Consultant Name Role Phone Lilliana Carroll NP Primary Care Physician [facility]): 04/28/21 - 05/28/21 [facility] Adult [address] [place] [address] Allergies, Adverse Reactions, Alerts No Known Medication Allergies Immunizations Given and Recorded Vaccine Date Status Refusal Reason Influenza Virus Vaccine (oldterm) 05/28/20 Recorde d tetanus/diphtheria/pertussis, acel(Tdap) 1 01/23/20 Given influenza virus vaccine, inactivated 07/31/18 Give n influenza virus vaccine, inactivated 2 07/19/17 Gi rodrigo 1Result Comment: [facility] [id number] 2Result Comment: regular dose [facility] [id number] Medications clotrimazole 1% topical cream 1 application, Topically, 2 times a day, # 100 Gm, 0 Refills, Maintenance, 01/23/20 11:01:00 EDT, Cream, [facility] #[id number], 1 application Topically 2 times a day,x21 [...] tablet, 0 Refills, Maintenance, 01/12/21 11:15:00 EDT, [facility]/pharmacy #[id number], Partial fill upon patient [...]
--- OUTSIDE RECORDS SUMMARY | 2023-12-04 09:47 | XMS_ITS | Continuity of Care Document ---
Author Organization [facility] ter Address [address] [place] [address]- Care Team Providers Care Head Of Human Resources Name Role Phone Lilliana Carroll NP Primary Care Physician [place] [facility] [place] 11/06/20 - 11/06/[address] [address]- Encounter Diagnosis Chin laceration(Final) - 11/06/20 Discharge Disposition: A-D/C Home Attending Physician: Elie Ardon MD Admitting Physician: Elie Ardon MD Referring Physician: Not on Staff, Referring MD Allergies, Adverse Reactions, Alerts No Known Medication Allergies Immunizations Given and Recorded Vaccine Date Status Refusal Reason tetanus/diphtheria/pertussis, acel(Tdap) 1 01/23/20 Given influenza virus vaccine, inactivated 07/31/18 Give n influenza virus vaccine, inactivated 2 07/19/17 Gi rodrigo 1Result Comment: [facility]NOTE 2] [id number] 2Result Comment: regular dose [facility] [phone] Medications clotrimazole 1% topical cream 1 application, Topically, 2 times a day, # 100 Gm, 0 Refills, Maintenance, 01/23/20 11:01:00 EDT, Cream, [facility] #[id number], 1 application Topically 2 times a day,x21 [...] Refills, Maintenance, 01/23/20 10:40:00 EDT, EC Capsule, [facility] #[id number], 158.3, cm, 01/23/20 10:28:00 EDT, Height, 84, kg, 09/28/18 16:06:00 EST, Dry Weight Start Date: 01/23/20 Stop Date: 01/17/21 Status: Ordered sertraline 100 mg oral tablet 1.5 tablet = 150 mg, By Mouth, Daily, Take 50mg daily for 7 days then increase to 100mg, # 135 tablet, 1 Refills, Maintenance, 08/17/20 13:24:00 EST, Tablet, [facility] #[id number], Partial fillupon patient request, 158.3, cm, 07/06/20 8:13:00 E... Start Date: 08/17/20 Stop Date: 02/13/21 Status: Ordered Problem List Condition Effective Dates Status Health Status Inform ant Anxiety(Confirmed) Active Functional constipation(Confirmed) Active Depression(Confirmed) Active GERD (gastroesophageal reflu x disease)(Confirmed) Active CRISTINA on CPAP(Confirmed) Active Annual physical exam(Confirmed) Active Vital Signs Most recent to oldest [Reference Range]: 1 2 Oxygen Saturation [94-100 %] 98 % (11/06/20 6:54 PM) 99 % (11/06/20 6:46 PM) Pulse Rate [55-90 bpm] 78 bpm (11/06/20 6:54 PM) Blood Pressure [90-138/55-84 mm Hg] 141/ 8mm Hg *H* (11/06/20 6:54 PM) 139/84mm Hg *H* (11/06/20 6:46 PM) Respiratory Rate [16-30 br/min] 18 br/mi n (11/06/20 6:54 PM) 18 br/min (11/06/20 6:46 PM) Temperature [96.8-100.4 DegF] 98.4 DegF (11/06/20 6:54 PM) 98.2 DegF (11/06/20 6:46 PM) Mode of Delivery (Oxygen) Room air (11/06/20 6:54 PM) Room air (11/06/20 6:46 PM) Blood pressure sites Arm, right (11/06/20 6:54 PM) Arm, right (11/06/20 6:46 PM) Temperature Route Oral (11/06/20 6:54 PM) Oral (11/06/20 6:46 PM) Social History Social History Type Response Smoking Status Never smoker entered on: 07/19/17 Sex
--- OUTSIDE RECORDS SUMMARY | 2023-12-04 09:47 | XMS_ITS | Continuity of Care Document ---
Author Organization [facility] Adult Address [address] [place] [address]- Care Team Providers Care Shirt Cleaner Name Role Phone Lilliana Carroll NP Primary Care Physician [place] [facility] [place]18[place]20 [place] 03/18/21 [facility] Adult [address] [place] [id number] Attending Physician: Lilliana Carroll NP Allergies, Adverse Reactions, Alerts No Known Medication Allergies Immunizations Given and Recorded Vaccine Date Status Refusal Reason Influenza Virus Vaccine (oldterm) 05/28/20 Recorde d tetanus/diphtheria/pertussis, acel(Tdap) 1 01/23/20 Given influenza virus vaccine, inactivated 07/31/18 Give n influenza virus vaccine, inactivated 2 07/19/17 Gi rodrigo 1Result Comment: [facility] [id number] 2Result Comment: regular dose [facility] [phone] Medications clotrimazole 1% topical cream 1 application, Topically, 2 times a day, # 100 Gm, 0 Refills, Maintenance, 01/23/20 11:01:00 EDT, Cream, [facility] #[id number], 1 application Topically 2 times a day,x21 [...]
--- OUTSIDE RECORDS SUMMARY | 2023-12-04 09:47 | XMS_ITS | Continuity of Care Document ---
Author Organization [facility] Adult Address [address] [place] [address]- Care Team Providers Care Component Lab Tech Name Role Phone Lilliana Carroll NP Primary Care Physician Encounter [facility] Date(s): 02/22/22 - 03/24/[address] [facility] Adult [address] [place] [address]- Allergies, Adverse Reactions, Alerts Substance Reaction Severity [...] (HbOC) vaccine 01/26/91 Re corded 1Result Comment: [facility] [id number] 2Result Comment: [facility] [id number] 3Result Comment: regular dose [facility] 29707-249-06 Medications clotrimazole 1% topical cream 1 application, Topically, 2 times a day, # 100 Gm, 0 Refills, Maintenance, 01/23/20 11:01:00 EDT, Cream, [facility] #[id number], 1 application Topically 2 times a day,x21 [...] 1 Refills, Maintenance, 09/20/21 9:13:00 EST, Tablet, [facility]/pharmacy #[id number], Partial fill upon patient request if [...] Refills, Maintenance, 01/26/22 7:44:00 EDT, EC Capsule, [facility]/pharmacy #207, 157.48, cm, 01/11/22 10:16:00 EDT, Height, 95.45, kg, 01/07/22 10:11:00EDT, Dry Weight Start Date: 01/26/22 Stop Date: 04/26/22 Status: Ordered PEG-3350 with Electrolytes (Eqv-GoLYTELY) oral powder for reconstitution See Instructions, Follow instructions on the label to mix powder with water. Drink all of the prep fluid on the evening before your colonoscopy., # 1 each, 0 Refills, Maintenance, 06/07/21 10:32:00 EDT, [facility]/pharmacy #[id number], Partial fill upon patient r... Start Date: 06/07/21 Status: Ordered traZODone 50 mg oral tablet 1, tablet, By Mouth, Daily at bedtime, for 90 days, # 90 tablet, Refills 1, Tot. Refills 1, Physician Stop 04/11/22 9:22:00 EDT, 10/13/21 9:22:00 EST, Route to Pharmacy Electronically, [facility]/pharmacy #207, 158, cm, 07/27/21 8:47:00 EST, Height, [...]
--- OUTSIDE RECORDS SUMMARY | 2023-12-04 09:47 | XMS_ITS | Continuity of Care Document ---
Author Organization [facility] Adult Address [address] [place] [address]- Care Team Providers Care Reducing Machine Operator Name Role Phone Lilliana Carroll NP Primary Care Physician Encounter [facility] Date(s): 05/11/21 - 06/10/21 [facility] Adult [address] [place] [address]- Allergies, Adverse Reactions, Alerts No Known Medication Allergies Immunizations Given and Recorded Vaccine Date Status Refusal Reason Influenza Virus Vaccine (oldterm) 05/28/20 Recorde d tetanus/diphtheria/pertussis, acel(Tdap) 1 01/23/20 Given influenza virus vaccine, inactivated 07/31/18 Give n influenza virus vaccine, inactivated 2 07/19/17 Gi rodrigo 1Result Comment: [facility] [id number] 2Result Comment: regular dose [facility] 05719-260-25 Medications clotrimazole 1% topical cream 1 application, Topically, 2 times a day, # 100 Gm, 0 Refills, Maintenance, 01/23/20 11:01:00 EDT, Cream, [facility][id number], 1 application Topically 2 times a day,x21 [...] tablet, 0 Refills, Maintenance, 01/12/21 11:15:00 EDT, [facility]/pharmacy #[id number], Partial fill upon patient [...] 2 Refills, Maintenance, 03/13/21 10:08:00 EDT, ECCapsule, [facility]/pharmacy #[id number], 158, cm, 01/25/21 10:55:00 EDT, Height Start Date: 03/13/21 Stop Date: 06/11/21 Status: Ordered PEG-3350 with Electrolytes (Eqv-GoLYTELY) oral powder for reconstitution See Instructions, Follow instructions on the label to mix powder with water. Drink all of the prep fluid on the evening before your colonoscopy., # 1 each, 0 Refills, Maintenance, 06/07/21 10:32:00 EDT, [facility]/pharmacy #[id number], Partial fill upon patient r... Start Date: 06/07/21 Status: Ordered sertraline 100 mg oral tablet 2 tablet, By Mouth, Daily, # 180 tablet, 0 Refills, [facility] [id number], 158, cm, 01/25/21 10:55:00 EDT, Height, 86, [...]
--- OUTSIDE RECORDS SUMMARY | 2023-12-04 09:47 | XMS_ITS | Continuity of Care Document ---
Author Organization [facility] Adult Address [address] [place] [address]- Care Team Providers Care Vp Public Relations Name Role Phone Lilliana Carroll NP Primary Care Physician [facility] Date[facility]s): 07/04/22 - 08/03/22 [facility] Adult [address] [place] [address]- Allergies, Adverse Reactions, Alerts Substance Reaction Severity [...] vaccine 01/26/91 Re corded 1Result Comment: [facility] [id number] 2Result Comment: [facility] [id number] 3Result Comment: regular dose [facility] 23374-611-73 Medications clotrimazole 1% topical cream 1 application, Topically, 2 times a day, # 100 Gm, 0 Refills, Maintenance, 01/23/20 11:01:00 EDT, Cream, [facility] #[id number], 1 application Topically 2 times a day,x21 [...] 1 Refills, Maintenance, 04/07/22 12:14:00 EDT, [facility]/pharmacy#[id number], 157.48, cm, 01/11/22 10:16:00 EDT, Height, 95.45, kg, 01/07/22 10:11:00 EDT, Dry Weight Start Date: 04/07/22 Status: Ordered LaMICtal 25 mg oral tablet 25 mg, 1, tablet, By Mouth, Daily, # 14 tablet, Refills 0, Tot. Refills 0, Maintenance, 07/01/22 12:16:00 EST, Route to Pharmacy Electronically, [facility]/pharmacy #[id number], Partial fill upon patient request if the prescription is for a schedule II opioid drug... Start Date: 07/01/22 Stop Date: 07/15/22 Status: Ordered LaMICtal XR 25 mg oral tablet, extended release 1 tablet = 25 mg, By Mouth, Daily, Take 25mg daily salvatore 14 days then increase to 50mg, # 14 tablet, 0 Refills, Maintenance, 07/01/22 9:42:00 EST, ER Tablet, [facility]/pharmacy #[id number], Partial fill upon patient request if the prescription is for a schedule II... Start Date: 07/01/22 Stop Date: 07/15/22 Status: Ordered LaMICtal XR 50 mg oral tablet, extended release 3 tablet = 150 mg, By Mouth, Daily, # 270 tablet, 1 Refills, Maintenance, 08/01/22 13:54:00 EST, ERTablet, [facility]/pharmacy #[id number], Partial fill upon patient request if [...] 0 Refills, Maintenance, 06/07/21 10:32:00 EDT, [facility]/pharmacy #[id number], Partial fill upon patient r... Start Date: 06/07/21 Status: Ordered traZODone 50 mg oral tablet 1, tablet, By Mouth, Daily at bedtime, # 90 tablet, Refills 1, Tot. Refills 1, Maintenance, 04/07/22 12:14:00 EDT, Route to Pharmacy Electronically, [facility]/pharmacy #[id number], 157.48, cm, 01/11/22 10:16:00 EDT, Height, [...] Team Personnel Name: Lilliana Carroll NP Position: [facility] PCO Associate Professional Member Role: PCP Address: Address: [address] [place] [address]- Care Team Related Persons Name: KAILEE COTTON Address: home [address] [place] [address] Name: KODI ORDOÑEZ Address: home [address] [address] Name: MUKUL FREEMAN Address: home [address] [place] [address] Name: JUDY FREEMAN Address: home [address] [place] [address]"
--- OUTSIDE RECORDS SUMMARY | 2023-12-04 09:47 | XMS_ITS | Continuity of Care Document ---
Author Organization [facility] Adult Address [address] [place] [address]- Care Team Providers Care Multifold Operator Name Role Phone Lilliana Carroll NP Primary Care Physician [facility]): 07/29/22 - 08/28/22 [facility] Adult [address] [place] [address] Allergies, Adverse Reactions, Alerts Substance Reaction [...] vaccine 01/26/91 Re corded 1Result Comment: [facility] [id number] 2Result Comment: [facility] [id number] 3Result Comment: regular dose [facility] 74035-778-80 Medications clotrimazole 1% topical cream 1 application, Topically, 2 times a day, # 100 Gm, 0 Refills, Maintenance, 01/23/20 11:01:00 EDT, Cream, [facility][id number], 1 application Topically 2 times a day,x21 [...] tablet, 1 Refills, Maintenance, 04/07/22 12:14:00 EDT, [facility]/pharmacy#[id number], 157.48, cm, 01/11/22 10:16:00 EDT, Height, 95.45, kg, 01/07/22 10:11:00 EDT, Dry Weight Start Date: 04/07/22 Status: Ordered LaMICtal 25 mg oral tablet 25 mg, 1, tablet, By Mouth, Daily, # 14 tablet, Refills 0, Tot. Refills 0, Maintenance, 07/01/22 12:16:00 EST, Route to Pharmacy Electronically, [facility]/pharmacy #[id number], Partial fill upon [...] Refills, Maintenance, 07/01/22 9:42:00 EST, ER Tablet, [facility]/pharmacy #[id number], Partial fill upon patient request if the prescription is for a schedule II... Start Date: 07/01/22 Stop Date: 07/15/22 Status: Ordered LaMICtal XR 50 mg oral tablet, extended release 3 tablet = 150 mg, By Mouth, Daily, # 270 tablet, 1 Refills, Maintenance, 08/01/22 13:54:00 EST, ERTablet, [facility]/pharmacy #[id number], Partial fill upon [...] each, 0 Refills, Maintenance, 06/07/21 10:32:00 EDT, [facility]/pharmacy #[id number], Partial fill upon patient r... Start Date: 06/07/21 Status: Ordered traZODone 50 mg oral tablet 1, tablet, By Mouth, Daily at bedtime, # 90 tablet, Refills 1, Tot. Refills 1, Maintenance, 04/07/22 12:14:00 EDT, Route to Pharmacy Electronically, [facility]/pharmacy #[id number], 157.48, cm, 01/11/22 10:16:00 EDT, Height, [...] Team Personnel Name: Lilliana Carroll NP Position: [facility] PCO Associate Professional Member Role: PCP Address: Address: [address] [place] [address]- Care Team Related Persons Name: KAILEE COTTON Address: home [address] [place] [address] Name: KODI ORDOÑEZ Address: home [address] [address] Name: MUKUL FREEMAN Address: home [address] [place] [address] Name: JUDY FREEMAN Address: home [address] [place] [address]
--- OUTSIDE RECORDS SUMMARY | 2023-12-04 09:47 | XMS_ITS | Continuity of Care Document ---
Author Organization [facility] Adult Address [address] [place] [address]- Care Team Providers Care Straw Hat Brim Raiser Operator Name Role Phone Lilliana Carroll NP Primary Care Physician [facility]): 03/21/23 - 04/20/23 [facility] Adult [address] [place] [address]- Allergies, Adverse Reactions, Alerts Substance Reaction Severity [...] Re corded 1Result Comment: regular dose [facility] [id number] 2Result Comment: [facility] [id number] 3Result Comment: [facility] [id number] Medications cloNIDine 0.1 mg oral tablet 1, tablet, By Mouth, 2 times a day, PRN, # 60 tablet, Refills 0, Tot. Refills 0, Maintenance, NEEDED FOR ANXIETY, 12/09/22 7:36:00 EDT, Route to Pharmacy Electronically, [facility]/pharmacy #[id number], 158.2,cm, 12/07/22 9:55:00 [...] Refills, Maintenance, 09/20/22 7:38:00 EST, [facility], 158.2, cm, 08/01/22 12:12:00 EST, Height, 95.45, kg, 01/07/22 10:11:00 EDT, Dry Weight Start Date: 09/20/22 Status: Ordered lamotrigine 50 mg oral tablet, extended release 3 tablet, By Mouth, Daily, # 270 tablet, 1 Refills, Maintenance, 01/18/23 18:04:00 EDT, [facility], 158.2, cm, 01/03/23 9:16:00 EDT, Height, 95.45, [...] each, 0 Refills, Maintenance, 06/07/21 10:32:00 EDT, [facility]/pharmacy #[id number], Partial fill upon patient r... Start Date: 06/07/21 Status: Ordered traZODone 50 mg oral tablet 1, tablet, By Mouth, Daily at bedtime, # 90 tablet, Refills 1, Maintenance, 01/25/23 19:08:00 EDT, Route to Pharmacy Electronically, [facility], 158.2, cm, 01/03/23 9:16:00 EDT, Height, 95.45, [...] Associate Professional Member Role: PCP Address: Address: [address] [place] [address]- Care Team Related Persons Name: KAILEE COTTON Address: home [address] [place] [address] Name: KODI ORDOÑEZ Address: home [address] [address] Name: MUKUL FREEMAN Address: home [address] [place] [address] Name: JUDY FREEMAN Address: home [address] [place] [address]
--- OUTSIDE RECORDS SUMMARY | 2023-12-04 09:47 | XMS_ITS | Continuity of Care Document ---
Author Organization [facility] Adult Address [address] [place] [address]- Care Team Providers Care Twisting Machine Operator Name Role Phone Lilliana Carroll NP Primary Care Physician En[place] [facility] Date(s): 08/01/22 - 08/08/22 [facility] Adult [address] [place] [address]- Encounter Diagnosis Bipolar disorder(Discharge Diagnosis) - 08/01/22 Attending Physician: Lilliana Carroll NP Allergies, Adverse [...] (HbOC) vaccine 01/26/91 Re corded 1Result Comment: [facility] [id number] 2Result Comment: [facility] [id number] 3Result Comment: regular dose [facility] [id number] Medications clotrimazole 1% topical cream 1 application, Topically, 2 times a day, # 100 Gm, 0 Refills, Maintenance, 01/23/20 11:01:00 EDT, Cream, [facility] #[id number], 1 application Topically 2 times a day,x21 [...] tablet, 1 Refills, Maintenance, 04/07/22 12:14:00 EDT, [facility]/pharmacy#2071, 157.48, cm, 01/11/22 10:16:00 EDT, Height, 95.45, kg, 01/07/22 10:11:00 EDT, Dry Weight Start Date: 04/07/22 Status: Ordered LaMICtal 25 mg oral tablet 25 mg, 1, tablet, By Mouth, Daily, # 14 tablet, Refills 0, Tot. Refills 0, Maintenance, 07/01/22 12:16:00 EST, Route to Pharmacy Electronically, [facility]/pharmacy #[id number], Partial fill upon patient request if the prescription is for a schedule II opioid drug... Start Date: 07/01/22 Stop Date: 07/15/22 Status: Ordered LaMICtal XR 25 mg oral tablet, extended release 1 tablet = 25 mg, By Mouth, Daily, Take 25mg daily salvatore 14 days then increase to 50mg, # 14 tablet, 0 Refills, Maintenance, 07/01/22 9:42:00 EST, ER Tablet, [facility]/pharmacy #[id number], Partial fill upon patient request if the prescription is for a schedule II... Start Date: 07/01/22 Stop Date: 07/15/22 Status: Ordered LaMICtal XR 50 mg oral tablet, extended release 3 tablet = 150 mg, By Mouth, Daily, # 270 tablet, 1 Refills, Maintenance, 08/01/22 13:54:00 EST, ERTablet, [facility]/pharmacy #[id number], Partial fill upon patient [...] each, 0 Refills, Maintenance, 06/07/21 10:32:00 EDT, [facility]/pharmacy #[id number], Partial fill upon patient r... Start Date: 06/07/21 Status: Ordered traZODone 50 mg oral tablet 1, tablet, By Mouth, Daily at bedtime, # 90 tablet, Refills 1, Tot. Refills 1, Maintenance, 04/07/22 12:14:00 EDT, Route to Pharmacy Electronically, [facility]/pharmacy #[id number], 157.48, cm, 01/11/22 10:16:00 [...] Diagnosis Diagnosis Type Effective Dates Health Status inical Service Informant Bipolar disorder Discharge Diagnosis 08/01/22 Vital Signs Most recent to oldest [Reference Range]: 1 Height 158.2 cm (08/01/22 12:12 PM) Weight Obtained Via Patient/family state d (08/01/22 12:12 PM) Social History Social History Type Response Smoking Status Never smoker entered on: 07/19/17 Sex Patient Care team information Care Team Personnel Name: Lilliana Carroll NP Position: [facility] PCO Associate Professional Member Role: PCP Address: Address: [address] [place] [address]- Care Team Related Persons Name: KAILEE COTTON Address: home [address] [place] [address] Name: KODI ORDOÑEZ Address: home [address] [place] [id number] Name: MUKUL FREEMAN Address: home [address] [place] [address] Name: JUDY FREEMAN Address: home [address] [place] [id number]
--- OUTSIDE RECORDS SUMMARY | 2023-12-04 09:47 | XMS_ITS | Continuity of Care Document ---
Author Organization [facility] Adult Address [address] [place] [address]- Care Team Providers Care Microwave Supervisor Name Role Phone Lilliana Carroll NP Primary Care Physician [phone] Encounter [facility] Date(s): 02/02/21 - 02/09/21 [facility] Adult [address] [place] [address] Attending Physician: Not on Staff, Attending MD Allergies, Adverse Reactions, Alerts No Known Medication Allergies Immunizations Given and Recorded Vaccine Date Status Refusal Reason Influenza Virus Vaccine (oldterm) 05/28/20 Recorde d tetanus/diphtheria/pertussis, acel(Tdap) 1 01/23/20 Given influenza virus vaccine, inactivated 07/31/18 Give n influenza virus vaccine, inactivated 2 07/19/17 Gi rodrigo 1Result Comment: [facility] [id number] 2Result Comment: regular dose [facility] [id number] Medications clotrimazole 1% topical cream 1 application, Topically, 2 times a day, # 100 Gm, 0 Refills, Maintenance, 01/23/20 11:01:00 EDT, Cream, [facility] #[id number], 1 application Topically 2 times a day,x21 [...] tablet, 0 Refills, Maintenance, 01/12/21 11:15:00 EDT, [facility]/pharmacy #[id number], Partial fill upon patient request [...] Refills, Maintenance, 01/23/20 10:40:00 EDT, EC Capsule, [facility] #[id number], 158.3, cm, 01/23/20 10:28:00 EDT, Height, 84, [...]
--- OUTSIDE RECORDS SUMMARY | 2023-12-04 09:47 | XMS_ITS | Continuity of Care Document ---
Author Organization [facility] Adult Address [address] [place] [address]- Care Team Providers Care Wireless Construction Manager Name Role Phone Lilliana Carroll NP Primary Care Physician [facility] Date(s): 01/02/23 - 02/01/23 [facility] Adult [address] [place] [address]- Allergies, Adverse Reactions, Alerts Substance Reaction Severity [...] 01/26/91 Re corded 1Result Comment: regular dose [facility] 39891-970-90 2Result Comment: [facility] [id number] 3Result Comment: [facility] [id number] Medications cloNIDine 0.1 mg oral tablet 1, tablet, By Mouth, 2 times a day, PRN, # 60 tablet, Refills 0, Tot. Refills 0, Maintenance, NEEDED FOR ANXIETY, 12/09/22 7:36:00 EDT, Route to Pharmacy Electronically, [facility]/pharmacy #[id number], 158.2,cm, 12/07/22 9:55:00 [...] Refills, Maintenance, 09/20/22 7:38:00 EST, [facility], 158.2, cm, 08/01/22 12:12:00 EST, Height, 95.45, kg, 01/07/22 10:11:00 EDT, Dry Weight Start Date: 09/20/22 Status: Ordered lamotrigine 50 mg oral tablet, extended release 3 tablet, By Mouth, Daily, # 270 tablet, 1 Refills, Maintenance, 01/18/23 18:04:00 EDT, [facility], 158.2, cm, 01/03/23 9:16:00 EDT, Height, 95.45, [...] 03/04/23 9:39:00 EDT, 01/03/23 9:39:00 EDT, Tablet, [facility]/pharmacy #[id number], Partial fill upon [...] patient r... Start Date: 06/07/21 Status: Ordered traMADol 50 mg oral tablet 1 tablet = 50 mg, By Mouth, Every 6 hours, PRN as needed for pain, for 7 days, # 28 tablet, 0 Refills, Acute 02/02/23 12:33:00 EDT, 01/26/23 12:33:00 EDT, Tablet, [facility]/pharmacy #[id number], Partial fill upon patient request if the prescription is for a sched... Start Date: 01/26/23 Stop Date: 02/02/23 Status: Ordered traZODone 50 mg oral tablet 1, tablet, By Mouth, Daily at bedtime, # 90 tablet, Refills 1, Maintenance, 01/25/23 19:08:00 EDT, Route to Pharmacy Electronically, [facility], 158.2, cm, 01/03/23 9:16:00 EDT, Height, 95.45, [...] Team Personnel Name: Lilliana Carroll NP Position: [facility] PCO Associate Professional Member Role: PCP Address: Address: [address] [place] [address]- Care Team Related Persons Name: KAILEE COTTON Address: home [address] [place] [address] Name: KODI ORDOÑEZ Address: home [address] [address] Name: MUKUL FREEMAN Address: home [address] [place] [address] Name: JUDY FREEMAN Address: home [address] [place] [address]
--- OUTSIDE RECORDS SUMMARY | 2023-12-04 09:48 | XMS_ITS | Continuity of Care Document ---
Author Organization [facility] Adult Address [address] [place] [address]- Care Team Providers Care Supervisor Telephone Answering Service Name Role Phone Lilliana Carroll NP Primary Care Physician [phone] Encounter [facility] Date(s): 07/27/21 - 08/03/21 [facility] Adult [address] [place] [address]- Encounter Diagnosis Anxiety(Discharge Diagnosis) - 07/27/21 MDD (major depressive disorder)(Discharge Diagnosis) - 07/27/21 Insomnia(Discharge Diagnosis) - 07/27/21 Attending Physician: Lilliana Carroll NP Allergies, Adverse [...] (HbOC) vaccine 01/26/91 Re corded 1Result Comment: [facility] [id number] 2Result Comment: [facility] [id number] 3Result Comment: regular dose [facility] [phone] Medications clotrimazole 1% topical cream 1 application, Topically, 2 times a day, # 100 Gm, 0 Refills, Maintenance, 01/23/20 11:01:00 EDT, Cream, [facility] #43901, 1 application Topically 2 times a day,x21 [...] 09/20/21 9:13:00 EST, 06/22/21 9:13:00 EST, Tablet, [facility]/pharmacy #[id number], Partial fill upon [...] Status: Ordered traZODone 50 mg oral tablet 50 mg, 1, tablet, By Mouth, Daily at bedtime, # 30 tablet, Refills 0, Tot. Refills 0, Maintenance, 07/27/21 9:22:00 EST, Route to Pharmacy Electronically, [facility]/pharmacy #[id number], Partial fill upon patient request if the prescription is for a schedule II o... Start Date: 07/27/21 Stop Date: 08/26/21 Status: Ordered Problem List Condition Effective Dates Status Health Status Inform ant Anxiety(Confirmed) Active Functional constipation(Confirmed) Active Depression(Confirmed) Active GERD (gastroesophageal reflu x disease)(Confirmed) Active Obese class II(Confirmed) Active CRISTINA on CPAP(Confirmed) Active Annual physical exam(Confirmed) Active Severe recurrent major depression(Confirmed) Active Diagnosis Diagnosis Type Effective Dates Health Status Clinical Service Informant Anxiety Discharge Diagnosis 07/27/21 MDD (major depressive disorder) Discharge Diagnosis 07/27/21 Insomnia Discharge Diagnosis 07/27/21 Vital Signs Most recent to oldest [Reference Range]: 1 Height 158 cm (07/27/21 8:47 AM) Weight 90.9 kg (07/27/21 8:47 AM) Body Mass Index [18.5-24.99] 36.41 *>HHI* (07/27/21 8:47 AM) Weight Obtained Via Patient/family state d (07/27/21 8:47 AM) Social History Social History Type Response Smoking Status Never smoker entered on: 07/19/17 Sex
--- OUTSIDE RECORDS SUMMARY | 2023-12-04 09:48 | XMS_ITS | Continuity of Care Document ---
Author Organization [facility] Adult Address [address] [place] [address]- Care Team Providers Care Coil Shaper Name Role Phone Lilliana Carroll NP Primary Care Physician [phone] [facility]counter [facility] Date(s): 07/01/20 - 07/31/20 [facility] Adult [address] [place] [address] Allergies, Adverse Reactions, Alerts No Known Medication Allergies Immunizations Given and Recorded Vaccine Date Status Refusal Reason tetanus/diphtheria/pertussis, acel(Tdap) 1 01/23/20 Given influenza virus vaccine, inactivated 07/31/18 Give n influenza virus vaccine, inactivated 2 07/19/17 Gi rodrigo 1Result Comment: [facility] [id number] 2Result Comment: regular dose [facility] [phone] Medications clotrimazole 1% topical cream 1 application, Topically, 2 times a day, # 100 Gm, 0 Refills, Maintenance, 01/23/20 11:01:00 EDT, Cream, [facility] #92727, 1 application Topically 2 times a day,x21 [...] Refills, Maintenance, 01/23/20 10:40:00 EDT, EC Capsule, [facility] #53286, 158.3, cm, 01/23/20 10:28:00 EDT, Height, 84, kg, 09/28/18 16:06:00 EST, Dry Weight Start Date: 01/23/20 Stop Date: 01/17/21 Status: Ordered sertraline 100 mg oral tablet 1 tablet = 100 mg, By Mouth, Daily, Take 50mg daily for 7 days then increase to 100mg, # 90 tablet,1 Refills, Maintenance, 07/20/20 8:54:00 EST, Tablet, [facility] #[id number], Partial fill upon patient request, 158.3, cm, [...]
--- OUTSIDE RECORDS SUMMARY | 2023-12-04 09:48 | XMS_ITS | Continuity of Care Document ---
Author Organization [facility] Adult Address [address] [place] [address]- Care Team Providers Care Obgyn Nurse Name Role Phone Lilliana Carroll NP Primary Care Physician [phone] Encounter [facility] Date(s): 03/20/23 - 04/19/23 [facility] Adult [address] [place] [address]- Allergies, Adverse Reactions, Alerts Substance Reaction Severity [...] 01/26/91 Re corded 1Result Comment: regular dose [facility] 37489-433-61 2Result Comment: [facility] [id number] 3Result Comment: [facility] [id number] Medications cloNIDine 0.1 mg oral tablet 1, tablet, By Mouth, 2 times a day, PRN, # 60 tablet, Refills 0, Tot. Refills 0, Maintenance, NEEDED FOR ANXIETY, 12/09/22 7:36:00 EDT, Route to Pharmacy Electronically, [facility]/pharmacy #[id number], 158.2,cm, 12/07/22 9:55:00 EDT, Height, 95.45, [...] Refills, Maintenance, 09/20/22 7:38:00 EST, [facility], 158.2, cm, 08/01/22 12:12:00 EST, Height, 95.45, kg, 01/07/22 10:11:00 EDT, Dry Weight Start Date: 09/20/22 Status: Ordered lamotrigine 50 mg oral tablet, extended release 3 tablet, By Mouth, Daily, # 270 tablet, 1 Refills, Maintenance, 01/18/23 18:04:00 EDT, [facility], 158.2, cm, 01/03/23 9:16:00 EDT, Height, 95.45, [...] each, 0 Refills, Maintenance, 06/07/21 10:32:00 EDT, [facility]/pharmacy #[id number], Partial fill upon patient r... Start Date: 06/07/21 Status: Ordered traZODone 50 mg oral tablet 1, tablet, By Mouth, Daily at bedtime, # 90 tablet, Refills 1, Maintenance, 01/25/23 19:08:00 EDT, Route to Pharmacy Electronically, [facility], 158.2, cm, 01/03/23 9:16:00 EDT, Height, 95.45, [...] Team Personnel Name: Lilliana Carroll NP Position: [facility] PCO Associate Professional Member Role: PCP Address: Address: [address] [place] [address]- Care Team Related Persons Name: KAILEE COTTON Address: [address] [place] [address] Name: KODI ORDOÑEZ Address: home [address] [address] Name: MUKUL FREEMAN Address: home [address] [place] [address] Name: JUDY FREEMAN Address: home [address] [place] [address]
--- OUTSIDE RECORDS SUMMARY | 2023-12-04 09:48 | XMS_ITS | Continuity of Care Document ---
Author Organization [facility] Adult Address [address] [place] [address]- Care Team Providers Care Patrol Man Name Role Phone Lilliana Carroll NP Primary Care Physician Encounter [facility] Date(s): 07/06/20 - 08/05/20 [facility] Adult [address] [place] [address]- Attending Physician: Ferdinand Zabala Admitting Physician: Ferdinand Zablaa Referring Physician: AdmtrFerdinand Allergies, Adverse Reactions, Alerts No Known Medication Allergies Immunizations Given and Recorded Vaccine Date Status Refusal Reason tetanus/diphtheria/pertussis, acel(Tdap) 1 01/23/20 Given influenza virus vaccine, inactivated 07/31/18 Give n influenza virus vaccine, inactivated 2 07/19/17 Gi rodrigo 1Result Comment: [facility] [phone] 2Result Comment: regular dose [facility] 15227-024-38 Medications clotrimazole 1% topical cream 1 application, Topically, 2 times a day, # 100 Gm, 0 Refills, Maintenance, 01/23/20 11:01:00 EDT, Cream, [facility] #83869, 1 application Topically 2 times a day,x21 [...] Refills, Maintenance, 01/23/20 10:40:00 EDT, EC Capsule, [facility] #10075, 158.3, cm, 01/23/20 10:28:00 EDT, Height, 84, kg, 09/28/18 16:06:00 EST, Dry Weight Start Date: 01/23/20 Stop Date: 01/17/21 Status: Ordered sertraline 100 mg oral tablet 1 tablet = 100 mg, By Mouth, Daily, Take 50mg daily for 7 days then increase to 100mg, # 90 tablet,1 Refills, Maintenance, 07/20/20 8:54:00 EST, Tablet, [facility] #[id number], Partial fill upon patient request, 158.3, cm, [...]
--- OUTSIDE RECORDS SUMMARY | 2023-12-04 09:48 | XMS_ITS | Continuity of Care Document ---
Author Organization [facility] Address [address] [place] [address]- Care Team Providers Care Manager Of Software Development Name Role Phone Lilliana Carroll NP Primary Care Physician [phone] Encounter [facility] Date(s): 12/05/22 - 01/04/23 [facility] Adult [address] [place] [address]- Allergies, Adverse Reactions, Alerts Substance Reaction Severity [...] 01/26/91 Re corded 1Result Comment: regular dose [facility] [id number] 2Result Comment: [facility] [id number] 3Result Comment: [facility] [phone] Medications cloNIDine 0.1 mg oral tablet 1, tablet, By Mouth, 2 times a day, PRN, # 60 tablet, Refills 0, Tot. Refills 0, Maintenance, NEEDED FOR ANXIETY, 12/09/22 7:36:00 EDT, Route to Pharmacy Electronically, [facility]/pharmacy #[id number], 158.2,cm, 12/07/22 9:55:00 EDT, Height, 95.45, [...] 01/13/23 9:39:00 EDT, 01/03/23 9:39:00 EDT, Tablet, [facility]/pharmacy #[id number], Partial fill upon patient request if [...] Refills, Maintenance, 09/20/22 7:38:00 EST, [facility], 158.2, cm, 08/01/22 12:12:00 EST, Height, 95.45, [...] 03/04/23 9:39:00 EDT, 01/03/23 9:39:00 EDT, Tablet, [facility]/pharmacy #2071, Partial fill upon patient request if [...] 0 Refills, Maintenance, 06/07/21 10:32:00 EDT, [facility]/pharmacy #[id number], Partial fill upon patient r... Start Date: 06/07/21 Status: Ordered traZODone 50 mg oral tablet 1, tablet, By Mouth, Daily at bedtime, # 90 tablet, Refills 1, Tot. Refills 1, Maintenance, 09/19/22 17:36:00 EST, Route to Pharmacy Electronically, [facility]/pharmacy #[id number], 158.2, cm, 08/01/22 12:12:00 EST, Height, [...] Professional Member Role: PCP Address: Address: [address] [place] [address]- Care Team Related Persons Name: KAILEE COTTON Address: home [address] [place] [address] Name: KODI ORDOÑEZ Address: home [address] [address] Name: MUKUL FREEMNA Address: home [address] [place] [address] Name: JUDY FREEMAN Address: home [address] [place] [address]
--- OUTSIDE RECORDS SUMMARY | 2023-12-04 09:48 | XMS_ITS | Continuity of Care Document ---
Author Organization [facility] Adult Address [address] [place] [address]- Care Team Providers Care Tax Associate Name Role Phone Lilliana Carroll NP Primary Care Physician [phone] [facility] Date(s): 07/04/22 - 08/03/22 [facility] Adult [address] [place] [address]- Allergies, Adverse Reactions, Alerts Substance Reaction Severity [...] corded 1Result Comment: [facility] [id number] 2Result Comment: [facility] [id number] 3Result Comment: regular dose [facility] 48011-528-29 Medications clotrimazole 1% topical cream 1 application, Topically, 2 times a day, # 100 Gm, 0 Refills, Maintenance, 01/23/20 11:01:00 EDT, Cream, [facility] #79079, 1 application Topically 2 times a day,x21 [...] 1 Refills, Maintenance, 04/07/22 12:14:00 EDT, [facility]/pharmacy#[id number], 157.48, cm, 01/11/22 10:16:00 EDT, Height, 95.45, kg, 01/07/22 10:11:00 EDT, Dry Weight Start Date: 04/07/22 Status: Ordered LaMICtal 25 mg oral tablet 25 mg, 1, tablet, By Mouth, Daily, # 14 tablet, Refills 0, Tot. Refills 0, Maintenance, 07/01/22 12:16:00 EST, Route to Pharmacy Electronically, [facility]/pharmacy #[id number], Partial fill upon patient [...] Maintenance, 07/01/22 9:42:00 EST, ER Tablet, [facility]/pharmacy #[id number], Partial fill upon patient request if the prescription is for a schedule II... Start Date: 07/01/22 Stop Date: 07/15/22 Status: Ordered LaMICtal XR 50 mg oral tablet, extended release 3 tablet = 150 mg, By Mouth, Daily, # 270 tablet, 1 Refills, Maintenance, 08/01/22 13:54:00 EST, ERTablet, [facility]/pharmacy #[id number], Partial fill upon patient [...] 0 Refills, Maintenance, 06/07/21 10:32:00 EDT, [facility]/pharmacy #[id number], Partial fill upon patient r... Start Date: 06/07/21 Status: Ordered traZODone 50 mg oral tablet 1, tablet, By Mouth, Daily at bedtime, # 90 tablet, Refills 1, Tot. Refills 1, Maintenance, 04/07/22 12:14:00 EDT, Route to Pharmacy Electronically, [facility]/pharmacy #[id number], 157.48, cm, 01/11/22 10:16:00 EDT, Height, [...] Team Personnel Name: Lilliana Carroll NP Position: [facility] PCO Associate Professional Member Role: PCP Address: Address: [address] [place] [address]- Care Team Related Persons Name: KAILEE COTTON Address: [address] [place] [address] Name: KODI ORDOÑEZ Address: home [address] [address] Name: MUKUL FREEMAN Address: home [address] [place] [address] Name: JUDY FREEMAN Address: home [address] [place] [address]
--- OUTSIDE RECORDS SUMMARY | 2023-12-04 09:48 | XMS_ITS | Continuity of Care Document ---
Author Organization [facility] Adult Address [address] [place] [address]- Care Team Providers Care Account Resolution Expert Name Role Phone Lilliana Carroll NP Primary Care Physician [phone] [facility] Date(s): 01/25/21 - 02/24/21 [facility] Adult [address] [place] [id number] Allergies, Adverse Reactions, Alerts No Known Medication Allergies Immunizations Given and Recorded Vaccine Date Status Refusal Reason Influenza Virus Vaccine (oldterm) 05/28/20 Recorde d tetanus/diphtheria/pertussis, acel(Tdap) 1 01/23/20 Given influenza virus vaccine, inactivated 07/31/18 Give n influenza virus vaccine, inactivated 2 07/19/17 Gi rodrigo 1Result Comment[facility] [id number] 2Result Comment: regular dose [facility] 95854-922-30 Medications clotrimazole 1% topical cream 1 application, Topically, 2 times a day, # 100 Gm, 0 Refills, Maintenance, 01/23/20 11:01:00 EDT, Cream, [facility] #59689, 1 application Topically 2 times a day,x21 [...] tablet, 0 Refills, Maintenance, 01/12/21 11:15:00 EDT, [facility]/pharmacy #[id number], Partial fill upon patient request if [...] Refills, Maintenance, 01/23/20 10:40:00 EDT, EC Capsule, [facility] #71794, 158.3, cm, 01/23/20 10:28:00 EDT, Height, 84, kg, 09/28/18 16:06:00 EST, Dry Weight Start Date: 01/23/20 Stop Date: 01/17/21 Status: Ordered sertraline 100 mg oral tablet 2 tablet = 200 mg, By Mouth, Daily, # 180 tablet, 0 Refills, Maintenance, 01/12/21 11:16:00 EDT, Tablet, [facility]/pharmacy #[id number], Partial fill upon patient request, 158.3, [...]
--- OUTSIDE RECORDS SUMMARY | 2023-12-04 09:48 | XMS_ITS | Continuity of Care Document ---
Author Organization [facility] Adult Address [address] [place] [address]- Care Team Providers Care Mine Production Engineer Name Role Phone Lilliana Carroll NP Primary Care Physician [facility] Date(s): 12/21/20 - 01/20/21 [facility] Adult [address] [place] [id number] Allergies, Adverse Reactions, Alerts No Known Medication Allergies Immunizations Given and Recorded Vaccine Date Status Refusal Reason Influenza Virus Vaccine (oldterm) 05/28/20 Recorde d tetanus/diphtheria/pertussis, acel(Tdap) 1 01/23/20 Given influenza virus vaccine, inactivated 07/31/18 Give n influenza virus vaccine, inactivated 2 07/19/17 Gi rodrigo 1Result Comment: [facility] [id number] 2Result Comment: regular dose [facility] [id number] Medications clotrimazole 1% topical cream 1 application, Topically, 2 times a day, # 100 Gm, 0 Refills, Maintenance, 01/23/20 11:01:00 EDT, Cream, [facility] #[id number], 1 application Topically 2 times a day,x21 [...] tablet, 0 Refills, Maintenance, 01/12/21 11:15:00 EDT, [facility]/pharmacy #[id number], Partial fill upon patient request [...] Refills, Maintenance, 01/23/20 10:40:00 EDT, EC Capsule, [facility] #[id number], 158.3, cm, 01/23/20 10:28:00 EDT, Height, 84, [...]
--- OUTSIDE RECORDS SUMMARY | 2023-12-04 09:48 | XMS_ITS | Continuity of Care Document ---
Author Organization [facility] Adult Address [address] [place] [address]- Care Team Providers Care Data Input Clerk Name Role Phone Kayla TOLENTINO, Jacinda Primary Care Physician Encounter [facility] Date(s): 07/24/19 - 07/31/[address] [address]- [facility] Attending Physician: Itz Suarez MD Allergies, Adverse Reactions, Alerts No Known Medication Allergies Immunizations Given and Recorded Vaccine Date Status Refusal Reason influenza virus vaccine, inactivated 07/31/18 Give n influenza virus vaccine, inactivated 1 07/19/17 Gi rodrigo 1Result Comment: regular dose [facility] [id number] Medications betamethasone-clotrimazole 0.05%-1% topical cream 1 application, [...] Status Health Status Inform ant Depression(Confirmed) Active Vital Signs Most recent to oldest [Reference Range]: 1 Height 158 cm (07/24/19 1:10 PM) Weight 80.9 kg (07/24/19 1:10 PM) Oxygen Saturation [94-100 %] 99 % (07/24/19 1:10 PM) Pulse Rate [55-90 bpm] 97 bpm *H* (07/24/19 1:10 PM) Body Mass Index [18.5-24.99] 32.41 *>HHI* (07/24/19 1:10 PM) Blood Pressure [90-138/55-84 mm Hg] 126/ 80mm Hg (07/24/19 1:10 PM) Blood pressure sites Arm, left (07/24/19 1:10 PM) Temperature Route Oral (07/24/19 1:10 PM) Weight Obtained Via Standing scale (07/24/19 1:10 PM) Social History Social History Type Response Smoking Status Never smoker entered on: 07/19/17 Sex
--- OUTSIDE RECORDS SUMMARY | 2023-12-04 09:48 | XMS_ITS | Continuity of Care Document ---
Author Organization [facility] Adult Address [address] [place] [address]- Care Team Providers Care Quahogger Name Role Phone Lilliana Carroll NP Primary Care Physician [phone] [facility]counter [facility] Date(s): 06/25/20 - 07/25/[address] [facility] Adult [address] [place] [address] Allergies, Adverse Reactions, Alerts No Known Medication Allergies Immunizations Given and Recorded Vaccine Date Status Refusal Reason tetanus/diphtheria/pertussis, acel(Tdap) 1 01/23/20 Given influenza virus vaccine, inactivated 07/31/18 Give n influenza virus vaccine, inactivated 2 07/19/17 Gi rodrigo 1Result Comment: [facility] [id number] 2Result Comment: regular dose [facility] 12763-228-25 Medications clotrimazole 1% topical cream 1 application, Topically, 2 times a day, # 100 Gm, 0 Refills, Maintenance, 01/23/20 11:01:00 EDT, Cream, [facility] #37877, 1 application Topically 2 times a day,x21 [...] Refills, Maintenance, 01/23/20 10:40:00 EDT, EC Capsule, [facility] #37973, 158.3, cm, 01/23/20 10:28:00 EDT, Height, 84, kg, 09/28/18 16:06:00 EST, Dry Weight Start Date: 01/23/20 Stop Date: 01/17/21 Status: Ordered sertraline 100 mg oral tablet 1 tablet = 100 mg, By Mouth, Daily, Take 50mg daily for 7 days then increase to 100mg, # 90 tablet,1 Refills, Maintenance, 07/20/20 8:54:00 EST, Tablet, [facility] #[id number], Partial fill upon patient request, 158.3, cm, [...]
--- OUTSIDE RECORDS SUMMARY | 2023-12-04 09:48 | XMS_ITS | Continuity of Care Document ---
Author Organization [facility] Side Adult Address [address] [place] [address]- Care Team Providers Care Motor Installer Name Role Phone Lilliana Carroll NP Primary Care Physician [phone] En[place] [facility] [place] Date(s): 03/22/22 - 04/21/22 [facility] Adult [address] [place] [address]- Allergies, Adverse Reactions, Alerts Substance Reaction Severity [...] vaccine 01/26/91 Re corded 1Result Comment: [facility] [id number] 2Result Comment: [facility] [id number] 3Result Comment: regular dose [facility] [id number] Medications clotrimazole 1% topical cream 1 application, Topically, 2 times a day, # 100 Gm, 0 Refills, Maintenance, 01/23/20 11:01:00 EDT, Cream, [facility], 1 application Topically 2 times a day,x21 [...] tablet, 1 Refills, Maintenance, 04/07/22 12:14:00 EDT, [facility]/pharmacy#207, 157.48, cm, 01/11/22 10:16:00 EDT, Height, 95.45, kg, 01/07/22 10:11:00 EDT, Dry Weight Start Date: 04/07/22 Status: Ordered Liletta Once, 0 Refills, Maintenance, 01/23/20 10:50:00 EDT Start Date: 01/23/20 Status: Ordered omeprazole 40 mg oral enteric coated capsule 1 capsule = 40 mg, By Mouth, Daily, # 30 capsule, 2 Refills, Maintenance, 01/26/22 7:44:00 EDT, EC Capsule, [facility]/pharmacy #207, 157.48, cm, 01/11/22 10:16:00 EDT, [...] 12:14:00 EDT, Route to Pharmacy Electronically, [facility], 157.48, cm, 01/11/22 10:16:00 EDT, Height, 95.45, kg, 01/07/22 10:11:00 EDT, Dry W... Start Date: 04/07/22 Status: Ordered Problem List Condition Effective Dates Status Health Status Inform ant Anxiety(Confirmed) Active Functional constipation(Confirmed) Active Depression(Confirmed) Active GERD (gastroesophageal reflu x disease)(Confirmed) Active Obese class II(Confirmed) Active CRISTINA on CPAP(Confirmed) Active Annual physical exam(Confirmed) Active Severe recurrent major depression(Confirmed) Active Social History Social History Type Response Smoking Status Never smoker entered on: 07/19/17 Sex Care Team Personnel Name: Lilliana Carroll NP Address: [address] [place] [id number]
--- OUTSIDE RECORDS SUMMARY | 2023-12-04 09:48 | XMS_ITS | Continuity of Care Document ---
Author Organization [facility] Side Adult Address [address] [place] [address]- Care Team Providers Care Fiscal Clerk Name Role Phone Lilliana Carroll NP Primary Care Physician Encounter [facility] Date(s): 09/26/23 - 10/26/23 [facility] Adult [address] [place], [place] [address] Allergies, Adverse [...] 01/26/91 Re corded 1Result Comment: regular dose [facility] 56252-756-23 2Result Comment: [facility] [place] 2[place] [id number] 3Result Comment: [facility] [place] 2] [id number] Medications cloNIDine 0.1 mg oral tablet 1, tablet, By Mouth, 2 times a day, PRN, # 60 tablet, Refills 0, Tot. Refills 0, Maintenance, NEEDED FOR ANXIETY, 12/09/22 7:36:00 EDT, Route to Pharmacy Electronically, [facility]/pharmacy #[id number], 158.2,cm, 12/07/22 9:55:00 EDT, Height, [...] Refills, Maintenance, 09/20/22 7:38:00 EST, [facility], 158.2, cm, 08/01/22 12:12:00 EST, Height, 95.45, kg, 01/07/22 10:11:00 EDT, Dry Weight Start Date: 09/20/22 Status: Ordered lamotrigine 50 mg oral tablet, extended release 3 tablet, By Mouth, Daily, # 270 tablet, 1 Refills, Maintenance, 01/18/23 18:04:00 EDT, [facility], 158.2, cm, 01/03/23 9:16:00 EDT, Height, 95.45, [...] 01/25/23 19:08:00 EDT, Route to Pharmacy Electronically, [address] [facility], 158.2, cm, 01/03/23 9:16:00 EDT, Height, 95.45, [...] Team Personnel Name: Lilliana Carroll NP Position: [facility] PCO Associate Professional Member Role: PCP Address: Address: [address] [place] [address]- Care Team Related Persons Name: KAILEE COTTON Address: home [address] [place] [address] Name: KODI ORDOÑEZ Address: home [address] [address] Name: MUKUL FREEMAN Address: home [address] [place] [address] Name: JUDY FREEMAN Address: home [address] [place] [address]
--- OUTSIDE RECORDS SUMMARY | 2023-12-04 09:48 | XMS_ITS | Continuity of Care Document ---
Author Organization [facility] Side Adult Address [address] [place] [address]- Care Team Providers Care Cable Lacer Name Role Phone Lilliana Carroll NP Primary Care Physician [place] [facility] [place](s): 03/04/22 - 04/03/22 [facility] Adult [address] [place] [address]- Allergies, Adverse Reactions, Alerts Substance Reaction Severity [...] vaccine 01/26/91 Re corded 1Result Comment: [facility] [id number] 2Result Comment: [facility] [id number] 3Result Comment: regular dose [facility] [phone] Medications clotrimazole 1% topical cream 1 application, Topically, 2 times a day, # 100 Gm, 0 Refills, Maintenance, 01/23/20 11:01:00 EDT, Cream, [facility] #[facility]64, 1 application Topically 2 times a day,x21 [...] 1 Refills, Maintenance, 09/20/21 9:13:00 EST, Tablet, [facility]/pharmacy #2071, Partial fill upon patient request if [...] Refills, Maintenance, 01/26/22 7:44:00 EDT, EC Capsule, [facility]/pharmacy #207, 157.48, cm, 01/11/22 10:16:00 EDT, Height, 95.45, kg, 01/07/22 10:11:00EDT, Dry Weight Start Date: 01/26/22 Stop Date: 04/26/22 Status: Ordered PEG-3350 with Electrolytes (Eqv-GoLYTELY) oral powder for reconstitution See Instructions, Follow instructions on the label to mix powder with water. Drink all of the prep fluid on the evening before your colonoscopy., # 1 each, 0 Refills, Maintenance, 06/07/21 10:32:00 EDT, [facility]/pharmacy #2071, Partial fill upon patient r... Start Date: 06/07/21 Status: Ordered traZODone 50 mg oral tablet 1, tablet, By Mouth, Daily at bedtime, for 90 days, # 90 tablet, Refills 1, Tot. Refills 1, Physician Stop 04/11/22 9:22:00 EDT, 10/13/21 9:22:00 EST, Route to Pharmacy Electronically, [facility]/pharmacy #207, 158, cm, 07/27/21 8:47:00 EST, Height, [...]
--- OUTSIDE RECORDS SUMMARY | 2023-12-04 09:48 | XMS_ITS | Continuity of Care Document ---
Author Organization [facility] Side Adult Address [address] [place] [address]- Care Team Providers Care Mining Machinery Assembler Name Role Phone Lilliana Carroll NP Primary Care Physician [phone] Encounter [facility] [place] Date(s): 03/04/22 - 04/03/22 [facility] Adult [address] [place] [address]- Allergies, Adverse Reactions, Alerts Substance Reaction Severity [...] (HbOC) vaccine 01/26/91 Re corded 1Result Comment: [facility] [id number] 2Result Comment: [facility] [id number] 3Result Comment: regular dose [facility] [phone] Medications clotrimazole 1% topical cream 1 application, Topically, 2 times a day, # 100 Gm, 0 Refills, Maintenance, 01/23/20 11:01:00 EDT, Cream, [facility]46, 1 application Topically 2 times a day,x21 [...] 1 Refills, Maintenance, 09/20/21 9:13:00 EST, Tablet, [facility]/pharmacy #2071, Partial [...] Refills, Maintenance, 01/26/22 7:44:00 EDT, EC Capsule, [facility]/pharmacy #207, 157.48, cm, 01/11/22 10:16:00 EDT, Height, [...] 10/13/21 9:22:00 EST, Route to Pharmacy Electronically, [facility]/pharmacy #207, 158, cm, 07/27/21 8:47:00 EST, Height, [...]
--- OUTSIDE RECORDS SUMMARY | 2023-12-04 09:48 | XMS_ITS | Continuity of Care Document ---
Author Organization [facility] Address [address] [place] [address]- Care Team Providers Care Peanut Sheller Name Role Phone Kayla TOLENTINO, Jacinda Primary Care Physician [phone] Encounter [facility] Date(s): 07/24/19 - 08/25/[address] [address]- [facility] Attending Physician: Not on Staff, Attending MD Allergies, Adverse Reactions, Alerts No Known Medication Allergies Immunizations Given and Recorded Vaccine Date Status Refusal Reason influenza virus vaccine, inactivated 07/31/18 Give n influenza virus vaccine, inactivated 1 07/19/17 Gi rodrigo 1Result Comment: regular dose [facility] [id number] Medications betamethasone-clotrimazole 0.05%-1% topical cream 1 application, [...]
--- OUTSIDE RECORDS SUMMARY | 2023-12-04 09:48 | XMS_ITS | Continuity of Care Document ---
Author Organization [facility] Adult Address [address] [place] [address]- Care Team Providers Care Dog Catcher Name Role Phone Lilliana Carroll NP Primary Care Physician [facility]counter [facility] Date(s): 07/05/23 - 08/04/23 [facility] Adult [address] [place], [place] [address] Attending Physician: Admtr, Ed8 Admitting Physician: Admtr, Ed8 Referring Physician: Admtr, Ar8 Allergies, Adverse Reactions, [...] 1Result Comment: regular dose [facility] [phone] 2Result Comment: [facility] [id number] 3Result Comment: [facility] [phone] Medications cloNIDine 0.1 mg oral tablet 1, tablet, By Mouth, 2 times a day, PRN, # 60 tablet, Refills 0, Tot. Refills 0, Maintenance, NEEDED FOR ANXIETY, 12/09/22 7:36:00 EDT, Route to Pharmacy Electronically, [facility]/pharmacy #2071, 158.2,cm, 12/07/22 9:55:00 EDT, Height, 95.45, [...] Refills, Maintenance, 09/20/22 7:38:00 EST, [facility], 158.2, cm, 08/01/22 12:12:00 EST, Height, 95.45, kg, 01/07/22 10:11:00 EDT, Dry Weight Start Date: 09/20/22 Status: Ordered lamotrigine 50 mg oral tablet, extended release 3 tablet, By Mouth, Daily, # 270 tablet, 1 Refills, Maintenance, 01/18/23 18:04:00 EDT, [facility], 158.2, cm, 01/03/23 9:16:00 EDT, Height, 95.45, [...] Refills, Maintenance, 06/07/21 10:32:00 EDT, [facility]/pharmacy #8431, Partial fill upon patient r... Start Date: 06/07/21 Status: Ordered traZODone 50 mg oral tablet 1, tablet, By Mouth, Daily at bedtime, # 90 tablet, Refills 1, Maintenance, 01/25/23 19:08:00 EDT, Route to Pharmacy Electronically, [facility], 158.2, cm, 01/03/23 9:16:00 EDT, Height, 95.45, [...] 07/19/17 Sex Laboratory * Event Display: Non Lab Results Authored Date: Patient Care team information Care Team Personnel Name: Lilliana Carroll NP Position: [facility] PCO Associate Professional Member Role: PCP Address: Address: [address] [place] [address]- Care Team Related Persons Name: KAILEE COTTON Address: home [address] [place] [address] Name: KODI ORDOÑEZ Address: home [address] [address] Name: MUKUL FREEMAN Address: home [address] [place] [address] Name: JUDY FREEMAN Address: home [address] [place] [address]
--- OUTSIDE RECORDS SUMMARY | 2023-12-04 09:48 | XMS_ITS | Continuity of Care Document ---
Author Organization [facility] ter Address [address] [place] [address]- Care Team Providers Care New Car Make Ready Worker Name Role Phone Lilliana Carroll NP Primary Care Physician [phone] Encounter [facility] Date(s): 02/25/21 - 03/27/[address] [address] Attending Physician: Lilliana Carroll NP Admitting Physician: Lilliana Carroll NP Referring Physician: Lilliana Carroll NP Allergies, Adverse Reactions, Alerts No Known Medication Allergies Immunizations Given and Recorded Vaccine Date Status Refusal Reason Influenza Virus Vaccine (oldterm) 05/28/20 Recorde d tetanus/diphtheria/pertussis, acel(Tdap) 1 01/23/20 Given influenza virus vaccine, inactivated 07/31/18 Give n influenza virus vaccine, inactivated 2 07/19/17 Gi rodrigo 1Result Comment: [facility] [id number] 2Result Comment: regular dose [facility] 21364-860-15 Medications clotrimazole 1% topical cream 1 application, Topically, 2 times a day, # 100 Gm, 0 Refills, Maintenance, 01/23/20 11:01:00 EDT, Cream, [facility]43503, 1 application Topically 2 times a day,x21 [...]
--- OUTSIDE RECORDS SUMMARY | 2023-12-04 09:48 | XMS_ITS | Continuity of Care Document ---
Author Organization [facility] Adult Address [address] [place] [address]- Care Team Providers Care Envelope Addresser Name Role Phone Lilliana Carroll NP Primary Care Physician [place] [facility]23 - 02/24/23 [facility] Adult [address] [place] [address]- Allergies, Adverse Reactions, Alerts Substance Reaction Severity [...] 01/26/91 Re corded 1Result Comment[facility] [id number] 2Result Comment: [facility] [id number] 3Result Comment: [facility] [id number] Medications cloNIDine 0.1 mg oral tablet 1, tablet, By Mouth, 2 times a day, PRN, # 60 tablet, Refills 0, Tot. Refills 0, Maintenance, NEEDED FOR ANXIETY, 12/09/22 7:36:00 EDT, Route to Pharmacy Electronically, [facility]/pharmacy #2071, 158.2,cm, 12/07/22 9:55:00 EDT, Height, 95.45, [...] Refills, Maintenance, 09/20/22 7:38:00 EST, [facility], 158.2, cm, 08/01/22 12:12:00 EST, Height, 95.45, kg, 01/07/22 10:11:00 EDT, Dry Weight Start Date: 09/20/22 Status: Ordered lamotrigine 50 mg oral tablet, extended release 3 tablet, By Mouth, Daily, # 270 tablet, 1 Refills, Maintenance, 01/18/23 18:04:00 EDT, [facility], 158.2, cm, 01/03/23 9:16:00 EDT, Height, 95.45, [...] 03/04/23 9:39:00 EDT, 01/03/23 9:39:00 EDT, Tablet, [facility]/pharmacy #2071, Partial fill upon patient request if [...] EDT, Route to Pharmacy Electronically, [facility], 158.2, cm, 01/03/23 9:16:00 EDT, Height, 95.45, [...] Team Personnel Name: Lilliana Carroll NP Position: [facility] PCO Associate Professional Member Role: PCP Address: Address: [address] [place] [address]- Care Team Related Persons Name: KAILEE COTTON Address: home [address] [place] [address] Name: KODI ORDOÑEZ Address: home [address] [address] Name: MUKUL FREEMAN Address: home [address] [place] [address] Name: JUDY FREEMAN Address: home [address] [place] [address]
--- OUTSIDE RECORDS SUMMARY | 2023-12-04 09:48 | XMS_ITS | Continuity of Care Document ---
Author Organization [facility] Adult Address [address] [place] [address]- Care Team Providers Care Shaper Operator Name Role Phone Lilliana Carroll NP Primary Care Physician [phone] [place] [facility] [place] - 07/08/22 [facility] Adult [address] [place] [address]- Encounter Diagnosis Bipolar disorder(Discharge Diagnosis) - 07/01/22 Routine screening for STI (sexually transmitted infection)(Discharge Diagnosis) - 07/01/22 Attending Physician: Lilliana Carroll NP Allergies, Adverse [...] (HbOC) vaccine 01/26/91 Re corded 1Result Comment: [facility] [id number] 2Result Comment: [facility] [id number] 3Result Comment: regular dose [facility] [phone] Medications clotrimazole 1% topical cream 1 application, Topically, 2 times a day, # 100 Gm, 0 Refills, Maintenance, 01/23/20 11:01:00 EDT, Cream, [facility]009, 1 application Topically 2 times a day,x21 [...] tablet, 1 Refills, Maintenance, 04/07/22 12:14:00 EDT, [facility]/pharmacy#2071, 157.48, cm, 01/11/22 10:16:00 EDT, Height, 95.45, kg, 01/07/22 10:11:00 EDT, Dry Weight Start Date: 04/07/22 Status: Ordered LaMICtal 25 mg oral tablet 25 mg, 1, tablet, By Mouth, Daily, # 14 tablet, Refills 0, Tot. Refills 0, Maintenance, 07/01/22 12:16:00 EST, Route to Pharmacy Electronically, [facility]/pharmacy #2071, Partial fill upon patient request if the prescription is for a schedule II opioid drug... Start Date: 07/01/22 Stop Date: 07/15/22 Status: Ordered LaMICtal XR 25 mg oral tablet, extended release 1 tablet = 25 mg, By Mouth, Daily, Take 25mg daily salvatore 14 days then increase to 50mg, # 14 tablet, 0 Refills, Maintenance, 07/01/22 9:42:00 EST, ER Tablet, [facility]/pharmacy #2071, Partial fill upon patient request if the prescription is for a schedule II... Start Date: 07/01/22 Stop Date: 07/15/22 Status: Ordered LaMICtal XR 50 mg oral tablet, extended release 3 tablet = 150 mg, By Mouth, Daily, # 42 tablet, 0 Refills, Maintenance, 07/01/22 9:42:00 EST, ER Tablet, [facility]/pharmacy #2071, Partial fill upon patient request if the prescription is for a schedule II opioid drug., 158.2, cm, 07/01/22 9:02:00 EST, Hei... Start Date: 07/01/22 Stop Date: 07/15/22 Status: Ordered Liletta Once, 0 Refills, Maintenance, 01/23/20 10:50:00 EDT Start Date: 01/23/20 Status: Ordered pantoprazole 20 mg oral delayed release tablet 2 tablet = 40 mg, By Mouth, Daily, # 180 tablet, 0 Refills, Maintenance, 07/01/22 11:18:00 EST, EC Tablet, 158.2, cm, 07/01/22 9:02:00 EST, Height, 95.45, kg, 01/07/22 10:11:00 EDT, Dry Weight Start Date: 07/01/22 Stop Date: 09/29/22 Status: Ordered PEG-3350 with Electrolytes (Eqv-GoLYTELY) oral powder for reconstitution See Instructions, Follow instructions on the label to mix powder with water. Drink all of the prep fluid on the evening before your colonoscopy., # 1 each, 0 Refills, Maintenance, 06/07/21 10:32:00 EDT, [facility]/pharmacy #2071, Partial fill upon patient r... Start Date: 06/07/21 Status: Ordered traZODone 50 mg oral tablet 1, tablet, By Mouth, Daily at bedtime, # 90 tablet, Refills 1, Tot. Refills 1, Maintenance, 04/07/22 12:14:00 EDT, Route to Pharmacy Electronically, [facility]/pharmacy #2071, 157.48, cm, 01/11/22 10:16:00 EDT, [...] Dates Health Status Clinical Service Informant Bipolar disorder Discharge Diagnosis 07/01/22 Routine screening for STI (sexually transmitted infection) Discharge Diagnosis 07/01/22 Vital Signs Most recent to oldest [Reference Range]: 1 Height 158.2 cm (07/01/22 9:02 AM) Weight 96.1 kg (07/01/22 9:02 AM) Oxygen Saturation [94-100 %] 96 % (07/01/22 9:02 AM) Pulse Rate [55-90 bpm] 101 bpm *H* (07/01/22 9:02 AM) Body Mass Index [18.5-24.99 kg/m2] 38.4 kg/m2 *>HHI* (07/01/22 9:02 AM) Blood Pressure [90-138/55-84 mm Hg] 110/ 82mm Hg (07/01/22 9:02 AM) Temperature [96.8-100.4 DegF] 98.3 DegF (07/01/22 9:02 AM) Mode of Delivery (Oxygen) Room air (07/01/22 9:02 AM) Blood pressure sites Arm, left (07/01/22 9:02 AM) Temperature Route Oral (07/01/22 9:02 AM) Weight Obtained Via Standing scale (07/01/22 9:02 AM) Social History Social History Type Response Smoking Status Never smoker entered on: 07/19/17 Sex Note * Irina Soni: PERFORM, SIGN, VERIFY Event Display: Patient Education/Instruction Authored Date: [id number] [facility] Clinical Summary Name NHI FREEMAN Age 31 Years 1990 PCP Lilliana Carroll NP PCP Visit Date 07/01/2022 08:57:00 Additional Instructions: Scheduled Appointments?? Future Appointments ?*[facility] [address],??[address] ?Phone:??--?Fax:??-- ?Appt. Date:??08/01/2022?1:50 PM ?Scheduled Provider:??Lilliana Carroll NP ?*[facility] ?Phone:??--?Fax:??-- ?Appt. Date:??08/12/2022?9:00 AM ?Scheduled Provider:??Corazon Velazquez Follow-Up Instructions ?? Diagnosis Medications: Please continue your medications until treatment is completed or stopped by your provider. Discuss any questions related to medications with your provider. New Medications [facility]/pharmacy #[id number], [address] [place], [place] [id number], [phone] Lamotrigine (LaMICtal XR 25 mg oral tablet, extended release) 1 tab(s) Oral Daily for 14 Days. [id number] daily salvatore 14 days then increase to 50mg. Refills: 0. Next Dose: Lamotrigine (LaMICtal XR 50 mg oral tablet, extended release) 3 tab(s) Oral Daily for 14 Days. Refills: 0. Next Dose: Medications to Continue with No Changes These medications were not printed or sent to your pharmacy Clotrimazole Topical (clotrimazole 1% topical cream) 1 altaf Topically twice a day for 21 Days. Refills: 0. Next Dose: Durable Medical Equipment (CPAP Machine) USE NIGHTLY TO TREAT CRISTINA Patient should either be started on AutoCPAP 7-20 cm H2O with compliance data followed or return for CPAP titration if required by insurance.. Refills: 0. Next Dose: Durable Medical Equipment (CPAP Equipment) MASK, TUBING, FILTERS, HEAD GEAR, CHIN STRAP, WATER CHAMBER DX. G47.33. Refills: 11. Next Dose: EPINEPHrine (EPINEPHrine 0.1 mg injectable kit) 0.1 Milligram Intramuscular once. Next Dose: Escitalopram (escitalopram 20 mg oral tablet) 1 tab(s) Oral Daily. Refills: 1. Next Dose: Levonorgestrel (Liletta) once. Next Dose: Omeprazole (omeprazole 40 mg oral enteric coated capsule) 1 capsule Oral Daily. Refills: 2. Next Dose: PEG Electrolyte Solution (PEG-3350 with Electrolytes (Eqv-GoLYTELY) oral powder for reconstitution)Follow instructions on the label to mix powder with water. Drink all of the prep fluid on the evening before your colonoscopy.. Refills: 0. Next Dose: Trazodone (traZODone 50 mg oral tablet) 1 tab(s) Oral Daily at Bedtime. Refills: 1. Next Dose: Allergy Info:?? Other Environmental Allergy Medications Given This Visit Future Orders ?No future orders Vital Signs Height 158.2 cm Weight 96.1 kg BMI 38.4 kg/m2 Blood Pressure 110 mm Hg/82 mm Hg Temperature 98.3 DegF Pulse Rate 101 bpm Respiratory Rate 02 Sat Mode of Delivery 96 %/Room air You can now view a summary of your hospital visit from the comfort of your home through a free online portal called [employer]Em. [employer]Em is a website that allows you to securely view your medical information including discharge summary, medications and follow-up visits. ??You can alsosend a secure electronic message to your doctor???s office to request appointments, renew medications or just ask a question. You can enroll at [email or web address] or register during your next office visit. Disclaimer:?? The information provided is of a general nature and is intended to be used in conjunction with the recommendations and advice of your health care practitioner. ??Every effort has been made to ensure that the information provided is accurate and complete at the time it is provided to you however, as your needs change, or, as new ??information becomes available, different or additional instructions may be required. If you have questions, please consult with your primary care provider or pharmacist, as appropriate. ??This information is not intended to serve as substitution for assessment and evaluation by a qualified health care provider. If you do not have a primary care provider, you may find a [facility] provider by calling [facility] [employer] Link at [phone]. For information about the plan of care including goals and instructions for your diagnosis, please see the patient education orders section of this document. Patient Education Materials?? The content of this educational material or handout may have been modified, supplemented, or adapted from its original content and format to support your individualized medical care. Patient Care team information Care Team Personnel Name: Lilliana Carroll NP Position: [facility] PCO Associate Professional Member Role: PCP Address: Address: [address] [place] [address]- Care Team Related Persons Name: KAILEE COTTON Address: home [address] [place] [address] Name: KODI ORDOÑEZ Address: home [address] [address] Name: MUKUL FREEMAN Address: home [address] [place] [address] Name: JUDY FREEMAN Address: home [address] [place] [address]
--- OUTSIDE RECORDS SUMMARY | 2023-12-04 09:48 | XMS_ITS | Continuity of Care Document ---
Author Organization [facility] Adult Address [address] [place] [address]- Care Team Providers Care Senior Benefits Manager Name Role Phone Lilliana Carroll NP Primary Care Physician Encounter [facility] Date(s): 06/30/22 - 07/30/22 [facility] Adult [address] [place] [address]- Allergies, Adverse Reactions, Alerts Substance Reaction Severity [...] (HbOC) vaccine 01/26/91 Re corded 1Result Comment: [facility] [id number] 2Result Comment: [facility] [id number] 3Result Comment: regular dose [facility] 13106-147-15 Medications clotrimazole 1% topical cream 1 application, Topically, 2 times a day, # 100 Gm, 0 Refills, Maintenance, 01/23/20 11:01:00 EDT, Cream, [facility]06888, 1 application Topically 2 times a day,x21 [...] tablet, 1 Refills, Maintenance, 04/07/22 12:14:00 EDT, [facility]/pharmacy#2071, 157.48, cm, 01/11/22 10:16:00 EDT, Height, 95.45, kg, 01/07/22 10:11:00 EDT, Dry Weight Start Date: 04/07/22 Status: Ordered LaMICtal 25 mg oral tablet 25 mg, 1, tablet, By Mouth, Daily, # 14 tablet, Refills 0, Tot. Refills 0, Maintenance, 07/01/22 12:16:00 EST, Route to Pharmacy Electronically, [facility]/pharmacy #[id number], Partial fill upon patient request if the prescription is for a schedule II opioid drug... Start Date: 07/01/22 Stop Date: 07/15/22 Status: Ordered LaMICtal XR 25 mg oral tablet, extended release 1 tablet = 25 mg, By Mouth, Daily, Take 25mg daily salvatore 14 days then increase to 50mg, # 14 tablet, 0 Refills, Maintenance, 07/01/22 9:42:00 EST, ER Tablet, [facility]/pharmacy #[id number], Partial fill upon patient request if the prescription is for a schedule II... Start Date: 07/01/22 Stop Date: 07/15/22 Status: Ordered LaMICtal XR 50 mg oral tablet, extended release 3 tablet = 150 mg, By Mouth, Daily, # 42 tablet, 0 Refills, Maintenance, 07/01/22 9:42:00 EST, ER Tablet, [facility]/pharmacy #[id number], Partial fill upon patient [...] each, 0 Refills, Maintenance, 06/07/21 10:32:00 EDT, [facility]/pharmacy #[id number], Partial fill upon patient r... Start Date: 06/07/21 Status: Ordered traZODone 50 mg oral tablet 1, tablet, By Mouth, Daily at bedtime, # 90 tablet, Refills 1, Tot. Refills 1, Maintenance, 04/07/22 12:14:00 EDT, Route to Pharmacy Electronically, [facility]/pharmacy #[id number], 157.48, cm, 01/11/22 10:16:00 EDT, Height, [...] Team Personnel Name: Lilliana Carroll NP Position: [facility] PCO Associate Professional Member Role: PCP Address: Address: [address] [place] [address]- Care Team Related Persons Name: KAILEE COTTON Address: home [address] [place] [address] Name: KODI ORDOÑEZ Address: home [address] [address] Name: MUKUL FREEMAN Address: home [address] [place] [address] Name: JUDY FREEMAN Address: home [address] [place] [address]
--- OUTSIDE RECORDS SUMMARY | 2023-12-04 09:48 | XMS_ITS | Continuity of Care Document ---
Author Organization [facility] Adult Address [address] [place] [address]- Care Team Providers Care Orthotist Name Role Phone Lilliana Carroll NP Primary Care Physician Encounter [facility] Date(s): 02/24/23 - 03/03/23 [facility] Adult [address] [place] [address]- Encounter Diagnosis Excessive thirst(Discharge Diagnosis) - 02/24/23 Attending Physician: Not on Staff, Attending MD Allergies, Adverse Reactions, Alerts Substance Reaction [...] dose [facility] 16238-316-17 2Result Comment: [facility] [id number] 3Result Comment: [facility] [id number] Medications cloNIDine 0.1 mg oral tablet 1, [...] Refills, Maintenance, 09/20/22 7:38:00 EST, [facility], 158.2, cm, 08/01/22 12:12:00 EST, Height, 95.45, kg, 01/07/22 10:11:00 EDT, Dry Weight Start Date: 09/20/22 Status: Ordered lamotrigine 50 mg oral tablet, extended release 3 tablet, By Mouth, Daily, # 270 tablet, 1 Refills, Maintenance, 01/18/23 18:04:00 EDT, [facility], 158.2, cm, 01/03/23 9:16:00 EDT, Height, 95.45, [...] 03/04/23 9:39:00 EDT, 01/03/23 9:39:00 EDT, Tablet, [facility]/pharmacy #[id number], Partial fill upon patient request [...] EDT, Route to Pharmacy Electronically, [facility], 158.2, cm, 01/03/23 9:16:00 EDT, Height, 95.45, [...] obesity (BMI 35.0-39.9) with comorbidity Confirmed Active Diagnosis Diagnosis Type Effective Dates Health Status inical Service Informant Excessive thirst Discharge Diagnosis 02/24/23 Vital Signs Most recent to oldest [Reference Range]: 1 Height 158.2 cm (02/24/23 11:53 AM) Weight 98.4 kg (02/24/23 11:53 AM) Oxygen Saturation [94-100 %] 100 % (02/24/23 11:53 AM) Pulse Rate [55-90 bpm] 84 bpm (02/24/23 11:53 AM) Body Mass Index [18.5-24.99 kg/m2] 39.32 kg/m2 *>HHI* (02/24/23 11:53 AM) Blood Pressure [90-138/55-84 mm Hg] 115/ 80mm Hg (02/24/23 11:53 AM) Mode of Delivery (Oxygen) Room air (02/24/23 11:53 AM) Blood pressure sites Arm, right (02/24/23 11:53 AM) Weight Obtained Via Standing scale (02/24/23 11:53 AM) Social History Social History Type Response Smoking Status Never smoker entered on: 07/19/17 Sex Note * Colon , Rylee: PERFORM, SIGN, VERIFY Event Display: Patient Education/Instruction Authored Date: [id number] [facility] *[facility] Clinical Summary Name NHI FREEMAN Age 32 Years 1990 PCP Lilliana Carroll NP PCP Visit Date 02/24/2023 11:43:00 Additional Instructions: Scheduled Appointments?? Future Appointments ?No Future Appointments Scheduled Follow-Up Instructions ?? With: Address: When: Lilliana Carroll NP 02/24/2023 12:00 AM Diagnosis Polydipsia; Other fatigue; Other specified health status Medications: Please continue your medications until treatment is completed or stopped by your provider. Discuss any questions related to medications with your provider. Medications to Continue with No Changes These medications were not printed or sent to your pharmacy Clonidine (cloNIDine 0.1 mg oral tablet) 1 tab(s) Oral twice a day as needed NEEDED FOR ANXIETY.Refills: 0. Next Dose: Durable Medical Equipment (CPAP [...] tab(s) Oral Daily. Refills: 1. Next Dose: Lamotrigine (lamotrigine 50 mg oral tablet, extended release) 3 tab(s) Oral Daily. Refills: 1. Next Dose: Levonorgestrel (Liletta) once. Next Dose: Naproxen (naproxen 500 mg oral tablet) 1 tab(s) Oral twice a day as needed Pain , Moderate for 30 Days. Refills: 1. Next Dose: Pantoprazole (pantoprazole 20 mg oral delayed release tablet) 1 tab(s) Oral Daily. Refills: 0. Next Dose: PEG Electrolyte Solution (PEG-3350 with [...] orders Vital Signs Height 158.2 cm Weight 98.4 kg BMI 39.32 kg/m2 Blood Pressure 115 mm Hg/80 mm Hg Temperature Pulse Rate 84 bpm Respiratory Rate 02 Sat Mode of Delivery 100 %/Room air You can now view a summary of your hospital visit from the comfort of your home through a free online portal called [facility]. [facility] is a website that allows you to securely view your medical information including discharge summary, medications and follow-up visits. ??You can alsosend a secure electronic message to your doctor???s office to request appointments, renew medications or just ask a question. You can enroll at [email or web address] or register during your next office visit. [...] care provider, you may find a [facility] provider by calling [facility] [employer] at [phone]. For information about the plan of care [...] Team Personnel Name: Lilliana Carroll NP Position: [facility] PCO Associate Professional Member Role: PCP Address: Address: [address] [place] [address]- Care Team Related Persons Name: KAILEE COTTON Address: home [address] [place] [address] Name: KODI ORDOÑEZ Address: home [address] [address] Name: MUKUL FREEMAN Address: home [address] [place] [address] Name: JUDY FREEMAN Address: home [address] [place] [address]
--- OUTSIDE RECORDS SUMMARY | 2023-12-04 09:48 | XMS_ITS | Continuity of Care Document ---
Author Organization [facility] Adult Address [address] [place] [address]- Care Team Providers Care Deputy Director Of Nursing Name Role Phone Lilliana Carroll NP Primary Care Physician Encounter [facility] Date(s): 12/01/22 - 12/08/22 [facility] Adult [address] [place] [address] Attending Physician: Not on Staff, [...] 01/26/91 Re corded 1Result Comment: regular dose [facility] [id number] 2Result Comment: [facility] [id number] 3Result Comment: [facility] [id number] Medications Augmentin 875 mg-125 mg oral tablet 1 tablet, By Mouth, Every 12 hours, for 10 days, # 20 tablet, 0 Refills, Acute 12/17/22 10:26:00 EDT, 12/07/22 10:26:00 EDT, Tablet, [facility]/pharmacy #[id number], Partial fill upon patient request if the prescription is for a schedule II opioid drug., 158.2, cm... Start Date: 12/07/22 Stop Date: 12/17/22 Status: Ordered cloNIDine 0.1 mg oral tablet 1, tablet, By Mouth, 2 times a day, PRN, # 60 tablet, Refills 0, Maintenance, NEEDED FOR ANXIETY, 11/11/22 12:24:00 EDT, Route to Pharmacy Electronically, [facility], 158.2, cm, 10/11/22 9:05:00 EST, Height, 95.45, kg, 01/07/22 10:11:00 EDT, D... Start Date: 11/11/22 Status: Ordered clotrimazole 1% topical cream 1 application, Topically, 2 times a day, # 100 Gm, 0 Refills, Maintenance, 01/23/20 11:01:00 EDT, Cream, [facility] #76185, 1 application Topically 2 times a day,x21 [...] tablet, 1 Refills, Maintenance, 09/20/22 7:38:00 EST, [facility], 158.2, cm, 08/01/22 12:12:00 EST, Height, 95.45, kg, 01/07/22 10:11:00 EDT, Dry Weight Start Date: 09/20/22 Status: Ordered LaMICtal 25 mg oral tablet 25 mg, 1, tablet, By Mouth, Daily, # 14 tablet, Refills 0, Tot. Refills 0, Maintenance, 07/01/22 12:16:00 EST, Route to Pharmacy Electronically, [facility]/pharmacy #5076, Partial fill upon patient request if the prescription is for a schedule II opioid drug... Start Date: 07/01/22 Stop Date: 07/15/22 Status: Ordered LaMICtal XR 25 mg oral tablet, extended release 1 tablet = 25 mg, By Mouth, Daily, Take 25mg daily salvatore 14 days then increase to 50mg, # 14 tablet, 0 Refills, Maintenance, 07/01/22 9:42:00 EST, ER Tablet, [facility]/pharmacy #2071, Partial fill upon patient request if the prescription is for a schedule II... Start Date: 07/01/22 Stop Date: 07/15/22 Status: Ordered LaMICtal XR 50 mg oral tablet, extended release 3 tablet = 150 mg, By Mouth, Daily, # 270 tablet, 1 Refills, Maintenance, 08/01/22 13:54:00 EST, ERTablet, [facility]/pharmacy #[id number], Partial fill upon patient request if [...] each, 0 Refills, Maintenance, 06/07/21 10:32:00 EDT, [facility]/pharmacy #2071, Partial fill upon patient r... Start Date: 06/07/21 Status: Ordered traZODone 50 mg oral tablet 1, tablet, By Mouth, Daily at bedtime, # 90 tablet, Refills 1, Tot. Refills 1, Maintenance, 09/19/22 17:36:00 EST, Route to Pharmacy Electronically, [facility]/pharmacy #[id number], 158.2, cm, 08/01/22 12:12:00 EST, Height, [...] obesity (BMI 35.0-39.9) with comorbidity Confirmed Active Vital Signs Most recent to oldest [Reference Range]: 1 Height 158.2 cm (12/01/22 9:33 AM) Weight 96.81 kg (12/01/22 9:33 AM) Body Mass Index [18.5-24.99 kg/m2] 38.68 kg/m2 *>HHI* (12/01/22 9:33 AM) Weight Obtained Via Patient/family state d (12/01/22 9:33 AM) Social History Social History Type Response Smoking Status Never smoker entered on: 07/19/17 Sex Patient Care team information Care Team Personnel Name: Lilliana Carroll NP Position: [facility] PCO Associate Professional Member Role: PCP Address: Address: [address] [place] [address]- Care Team Related Persons Name: KAILEE COTTON Address: home [address] [place] [address] Name: KODI ORDOÑEZ Address: home [address] [address] Name: MUKUL FREEMAN Address: home [address] [place] [address] Name: JUDY FREEMAN Address: home [address] [place] [address]
--- OUTSIDE RECORDS SUMMARY | 2023-12-04 09:48 | XMS_ITS | Continuity of Care Document ---
Author Organization [facility] ter Address [address] [place] [address]- Care Team Providers Care Court Worker Name Role Phone Lilliana Carroll NP Primary Care Physician [place] [facility] [place] 08/08/21 - 08/08/[address] [address]- Discharge Disposition: A-D/C Walkout Attending Physician: Not on Staff, Attending MD Admitting Physician: Not on Staff, Admitting MD Referring Physician: Not on Staff, Referring [...] vaccine 01/26/91 Re corded 1Result Comment: [facility] [id number] 2Result Comment: [facility] [id number] 3Result Comment: regular dose [facility] 11752-993-64 Medications clotrimazole 1% topical cream 1 application, Topically, 2 times a day, # 100 Gm, 0 Refills, Maintenance, 01/23/20 11:01:00 EDT, Cream, [facility]03247, 1 application Topically 2 times a day,x21 [...] 09/20/21 9:13:00 EST, 06/22/21 9:13:00 EST, Tablet, [facility]/pharmacy #[id number], Partial fill upon patient request [...] 2 Refills, Maintenance, 03/13/21 10:08:00 EDT, ECCapsule, [facility]/pharmacy #2071, 158, cm, 01/25/21 10:55:00 EDT, Height Start Date: 03/13/21 Stop Date: 06/11/21 Status: Ordered PEG-3350 with Electrolytes (Eqv-GoLYTELY) oral powder for reconstitution See Instructions, Follow instructions on the label to mix powder with water. Drink all of the prep fluid on the evening before your colonoscopy., # 1 each, 0 Refills, Maintenance, 06/07/21 10:32:00 EDT, [facility]/pharmacy #2071, Partial fill upon patient r... Start Date: 06/07/21 Status: Ordered traZODone 50 mg oral tablet 50 mg, 1, tablet, By Mouth, Daily at bedtime, # 30 tablet, Refills 0, Tot. Refills 0, Maintenance, 07/27/21 9:22:00 EST, Route to Pharmacy Electronically, [facility]/pharmacy #[id number], Partial fill upon patient request [...] exam(Confirmed) Active Severe recurrent major depression(Confirmed) Active Results Radiology Reports * Exam Date Time Procedure Performing Provider Status 08/08/21 11:43 AM Ankle Min 3 Views Left Sol Marie; Auth (Verified) Notes: (Ankle Min 3 Views Left) Reason For Exam: with Pain;Trauma RESULT: Ankle Min 3 Views Left Ankle Min 3 Views Left Hx of Present Illness: twisted lt ankle yesterday at work; Reason: Trauma; with Pain; Clinical Question(s): Fracture; Special Instructions: This is a protocol film and radiologist should call any findings to the Charge Nurse COMPARISON: None. FINDINGS: There is no evidence of acute fracture or dislocation. Intact ankle mortise and talar dome. No arthritic changes. There is lateral soft tissue swelling. IMPRESSION: Lateral soft tissue swelling without evidence of acute fracture or dislocation. WSN: [id number] Ordering Physician: Valentin Garcia Dictated By: Zakiya Robertson MD Dictated Date/Time: 08/08/21 12:12 p Reviewed By: Zakiya Robertson MD Signed By: Zakiya Robertson MD Signed Date/Time: 08/08/21 12:12 pm Transcribed By: TREVOR Transcribed Date/Time: 08/08/21 12:11 pm Vital Signs Most recent to oldest [Reference Range]: 1 2 Weight 93 kg (08/08/21 11:05 AM) Oxygen Saturation [94-100 %] 97 % (08/08/21 11:04 AM) 100 % (08/08/21 10:34 AM) Pulse Rate [55-90 bpm] 88 bpm (08/08/21 11:04 AM) 98 bpm *H* (08/08/21 10:34 AM) Blood Pressure [90-138/55-84 mm Hg] 115/ 71mm Hg (08/08/21 11:04 AM) Respiratory Rate [16-30 br/min] 16 br/mi n (08/08/21 11:04 AM) Temperature [96.8-100.4 DegF] 98.1 DegF (08/08/21 11:04 AM) Mode of Delivery (Oxygen) Room air (08/08/21 11:04 AM) Room air (08/08/21 10:34 AM) Temperature Route Oral (08/08/21 11:04 AM) Dry Weight 93 kg (08/08/21 11:05 AM) Social History Social History Type Response Smoking Status Never smoker entered on: 07/19/17 Sex
--- OUTSIDE RECORDS SUMMARY | 2023-12-04 09:48 | XMS_ITS | Continuity of Care Document ---
Author Organization [facility] Address [address] [place] [address]- Care Team Providers Care Perl Developer Name Role Phone Lilliana Carroll NP Primary Care Physician [facility] [facility] [place] 12/05/22 - 01/04/23 [facility] Adult [address] [place] [address]- Allergies, Adverse Reactions, Alerts Substance Reaction Severity [...] Re corded 1Result Comment: regular dose [facility] [id number] 2Result Comment: [facility] [id number] 3Result Comment: [facility] [id number] Medications cloNIDine 0.1 mg oral tablet 1, tablet, By Mouth, 2 times a day, PRN, # 60 tablet, Refills 0, Tot. Refills 0, Maintenance, NEEDED FOR ANXIETY, 12/09/22 7:36:00 EDT, Route to Pharmacy Electronically, [facility]/pharmacy #[id number], 158.2,cm, 12/07/22 9:55:00 EDT, [...] 01/13/23 9:39:00 EDT, 01/03/23 9:39:00 EDT, Tablet, [facility]/pharmacy #[id number], Partial fill upon patient [...] Refills, Maintenance, 09/20/22 7:38:00 EST, [facility], 158.2, cm, 08/01/22 12:12:00 EST, Height, 95.45, [...] 03/04/23 9:39:00 EDT, 01/03/23 9:39:00 EDT, Tablet, [facility]/pharmacy #[id number], Partial fill upon patient [...] each, 0 Refills, Maintenance, 06/07/21 10:32:00 EDT, [facility]/pharmacy #[id number], Partial fill upon patient r... Start Date: 06/07/21 Status: Ordered traZODone 50 mg oral tablet 1, tablet, By Mouth, Daily at bedtime, # 90 tablet, Refills 1, Tot. Refills 1, Maintenance, 09/19/22 17:36:00 EST, Route to Pharmacy Electronically, [facility]/pharmacy #[id number], 158.2, cm, 08/01/22 12:12:00 [...] Associate Professional Member Role: PCP Address: Address: [address] [place] [address]- Care Team Related Persons Name: KAILEE COTTON Address: home [address] [place] [address] Name: KODI ORDOÑEZ Address: home [address] [address] Name: MUKUL FREEMAN Address: home [address] [place] [address] Name: JUDY FREEMAN Address: [address] [place] [address]
--- OUTSIDE RECORDS SUMMARY | 2023-12-04 09:49 | XMS_ITS | Continuity of Care Document ---
Author Organization [facility] Address [address] [place] [address]- Care Team Providers Care Mill Controller Name Role Phone Glne TOLENTINO, Lilliana Primary Care Physician Encounter [facility] Date(s): 06/08/21 - 09/15/21 [facility] [address] [place] [address]- Attending Physician: Yung Vega MD Admitting Physician: Yung Vega MD Referring Physician: Lilliana Carroll NP Allergies, [...] corded 1Result Comment: [facility] [id number] 2Result Comment: [facility] [id number] 3Result Comment: regular dose [facility] 19539-083-37 Medications clotrimazole 1% topical cream 1 application, Topically, 2 times a day, # 100 Gm, 0 Refills, Maintenance, 01/23/20 11:01:00 EDT, Cream, [facility]99005, 1 application Topically 2 times a day,x21 [...] Refills, Maintenance, 09/20/21 9:13:00 EST, [facility]t, [facility], Partial fill upon patient request if the prescription is for a schedule II opioid drug., 158, cm, 12/14/21 8:47:00 EST, Height, 8... Start Date: 09/20/21 Stop Date: 03/19/22 Status: Ordered escitalopram 20 mg oral tablet 1 tablet = 20 mg, By Mouth, Daily, for 90 days, # 90 tablet, 0 Refills, Hard Stop 09/20/21 9:13:00 EST, 06/22/21 9:13:00 EST, Tablet, [facility]/pharmacy #2071, Partial fill upon patient request [...] 2 Refills, Maintenance, 03/13/21 10:08:00 EDT, ECCapsule, [facility]/pharmacy #[id number], 158, cm, 01/25/21 10:55:00 EDT, [...] 1, Route to [facility]acy Electronically, [facility], 158, cm, 07/27/21 8:47:00 EST, Height, 93, [...]
--- OUTSIDE RECORDS SUMMARY | 2023-12-04 09:49 | XMS_ITS | Continuity of Care Document ---
Author Organization [facility] Adult Address [address] [place] [address]- Care Team Providers Care Addiction Psychiatrist Name Role Phone Lilliana Carroll NP Primary Care Physician Encounter [facility] Date(s): 05/10/21 - 06/09/21 [facility] Adult [address] [place] [address]- Allergies, Adverse Reactions, Alerts No Known Medication Allergies Immunizations Given and Recorded Vaccine Date Status Refusal Reason Influenza Virus Vaccine (oldterm) 05/28/20 Recorde d tetanus/diphtheria/pertussis, acel(Tdap) 1 01/23/20 Given influenza virus vaccine, inactivated 07/31/18 Give n influenza virus vaccine, inactivated 2 07/19/17 Gi rodrigo 1Result Comment: [facility] [id number] 2Result Comment: regular dose [facility] 07902-926-48 Medications clotrimazole 1% topical cream 1 application, Topically, 2 times a day, # 100 Gm, 0 Refills, Maintenance, 01/23/20 11:01:00 EDT, Cream, [facility]10458, 1 application Topically 2 times a day,x21 [...] tablet, 0 Refills, Maintenance, 01/12/21 11:15:00 EDT, [facility]/pharmacy #2071, Partial fill upon patient [...] 2 Refills, Maintenance, 03/13/21 10:08:00 EDT, ECCapsule, [facility]/pharmacy #2071, 158, cm, 01/25/21 10:55:00 EDT, Height Start Date: 03/13/21 Stop Date: 06/11/21 Status: Ordered PEG-3350 with Electrolytes (Eqv-GoLYTELY) oral powder for reconstitution See Instructions, Follow instructions on the label to mix powder with water. Drink all of the prep fluid on the evening before your colonoscopy., # 1 each, 0 Refills, Maintenance, 06/07/21 10:32:00 EDT, [facility]/pharmacy #2071, Partial fill upon patient r... Start Date: 06/07/21 Status: Ordered sertraline 100 mg oral tablet 2 tablet, By Mouth, Daily, # 180 tablet, 0 Refills, [facility] 30[facility], 158, cm, 01/25/21 10:55:00 EDT, Height, 86, [...]
--- OUTSIDE RECORDS SUMMARY | 2023-12-04 09:49 | XMS_ITS | Continuity of Care Document ---
Author Organization [facility] Address [address] [place] [address]- Care Team Providers Care Amusement Equipment Operator Name Role Phone Lilliana Carroll NP Primary Care Physician Encounter [facility] Date(s): 03/06/22 - 04/05/[address] [facility] Adult [address] [place] [address]- Allergies, Adverse Reactions, Alerts Substance Reaction Severity [...] Elvin rded influenza virus vaccine, inactivated 07/15/11 Levin rded Varicella Virus Vaccine 10/30/07 Recorded Varicella [...] (HbOC) vaccine 01/26/91 Re corded 1Result Comment: [facility] [id number] 2Result Comment: [facility] [id number] 3Result Comment: regular dose [facility] 58760-548-86 Medications clotrimazole 1% topical cream 1 application, Topically, 2 times a day, # 100 Gm, 0 Refills, Maintenance, 01/23/20 11:01:00 EDT, Cream, [facility] #95580, 1 application Topically 2 times a day,x21 [...]
== END 2023-12-04 10:08 | disposition home or self-care (01) ==
LOC: HO.HBS 09:39
PROVIDERS: PCP Nurse Practitioner Family; Visit Provider Physician Assistant Surgical
DX: E66.3 Overweight (principal); Z90.49 Acquired absence of other specified parts of digestive tract; Z98.84 Bariatric surgery status
CPT/HCPCS: 99024

== ENCOUNTER → 2023-12-04 09:39 | Outpatient (BNVA) | payer OTHER, SELFPAY | PROVIDERS: PCP Nurse Practitioner Family; Visit Provider Physician Assistant Surgical | DX: E66.3 Overweight (principal); Z90.49 Acquired absence of other specified parts of digestive tract; Z98.84 Bariatric surgery status; Z68.29 Body mass index [BMI] 29.0-29.9, adult | CPT/HCPCS: 99212 ==

== ENCOUNTER 2023-12-25 10:06 | Outpatient (AMB) | payer OTHER, SELFPAY ==
--- NOTE | 2023-12-25 09:59 | MHC.OFFVISWM ---
VS Expanded 12/25/23 10:01 Height 5 ft 2 in Weight 159 lb BMI 29.1 Intake Visit Reasons: (TELEPHONE) PO LSG 08/23/23 Allergies mold Allergy (Verified 12/01/23 14:54) Unknown tree and shrub pollen Allergy (Verified 12/01/23 14:54) Unknown Medication List - Last Reconciled 12/25/23 by [place] cholecalciferol (vitamin D3) 125 mcg PO DAILY docusate sodium (Colace) 100 mg PO DAILY escitalopram oxalate 20 mg PO DAILY lamotrigine (Lamictal) 200 mg PO DAILY ondansetron 4 mg PO Q12H polyethylene glycol 3350 (Miralax) 17 grams PO DAILY tramadol 50 mg PO BID PRN trazodone 50 mg PO BEDTIME HPI Comments Details: This?is a?33?yo female who is s/p LSG 08/23/23 and also s/p lap isis 11/23/2023. Presents for 4 month post op visit. Weight at last visit on 08/23/2023 was 159 pounds with a BMI of 29.1, weight today is same.? No complaints of abdominal pain or reflux. Reports constipation which is her baseline, sometimes uses coffee (sips on it) to help. Also reports frequent bruising. Occasional nausea and may vomit with heavy foods but nausea does not persist. Present meal plan includes: one Premier premade shake one yogurt (can add soy milk/frozen fruit to make a smoothie) 2 small meals of 1-2oz protein each with 1oz veg Exercise routine includes: going to [employer] and using the bike about 3x per week [facility] Medical History BMI 36.0-36.9,adult Constipation BMI 37.0-37.9, adult Obesity IUD (intrauterine device) in place Environmental allergies Insomnia Sciatica Bipolar 1 disorder Anxiety Depression GERD (gastroesophageal reflux disease) Sleep apnea treated with continuous positive airway pressure (CPAP) Morbid obesity Surgical History Hx of laparoscopic adjustable gastric banding Hx of wisdom tooth extraction History of surgery on arm Hx of section Social History Household Members: None Housing: Apartment Are you a primary critical care physician assistant to a significant other at home: Yes (children, family to assist post-op) Do you presently have visiting nurse or other home services: No Alcohol intake: current Alcohol intake frequency: holidays/special occasions only Patient Tobacco Use Status: Never used Tobacco service: No Telehealth Telehealth Telehealth Platform: Telephone Location of provider rendering services: practice address Location of patient: address on file Patient Identification confirmed using: Name, : Yes Telehealth method: voice only Patient verbally consented to treatment: Yes Patient verbally consented to billing insurance company: Yes Patient informed of any privacy concerns related to visit: Yes Minutes spent on Phone/Video with Pt.: 15 Assessment & Plan Assessment & Plan (1) Overweight: Code(s): E66.3 - Overweight Category: Medical (2) S/P laparoscopic sleeve gastrectomy: Code(s): Z98.84 - Bariatric surgery status Category: Surgical (3) S/P laparoscopic cholecystectomy: Code(s): Z90.49 - Acquired absence of other specified parts of digestive tract Category: Surgical Plan Pt to continue same meal plan. Recommended keeping a food log to try to identify anything that is causing nausea; it may also be related to her frequent constipation. Heavy foods causing issues, recommended avoiding anything high in fat since she is recently s/p lap isis. Bruising may be related to low vit D levels, pt will continue supplement and we will recheck labs at next visit. RTC 8 weeks for 6 month visit, pt has my # and will text me with any issues between now and then. Patient is overweight and is not considered stable at this time. I spent a total of 30 minutes reviewing/updating records, examining the patient and counseling the patient on weight management as detailed above. Medications: New polyethylene glycol 3350 (Miralax) 17 grams PO DAILY 238 grams 3RF
[2023-12-25 10:01] VITALS: BMI 29.1
--- OUTSIDE RECORDS SUMMARY | 2023-12-25 10:18 | XMS_ITS | Continuity of Care Document ---
Author Organization [facility] Adult Address [address] [place] [address]- Care Team Providers Care Sales Secretary Name Role Phone Lilliana Carroll NP Primary Care Physician [facility]23 - 12/24/23 [facility] Adult [address] [place] [address]- Allergies, Adverse Reactions, Alerts Substance Reaction Severity Status Other Environmental Allergy nasal sympto ms trees mold dust grasses Active Immunizations Given and Recorded Vaccine Date Status Refusal Reason influenza virus vaccine, inactivated 08/23/23 Elvin rded influenza virus vaccine, inactivated 09/02/21 Elvin rded [...] Re corded 1Result Comment: regular dose [facility][note 3] [id number] 2Result Comment: [facility] [id number] 3Result Comment: [facility] [id number] Medications betamethasone-clotrimazole 0.05%-1% topical cream 1 application, Topically, 2 times a day, for 14 days, Not to be used longer than 4 weeks, # 45 Gm, 0 Refills, Acute 01/04/24 11:45:00 EDT, 12/21/23 11:45:00 EDT, Cream, [facility]/pharmacy #[id number], Partial fill upon patient request if the prescription is for a... Start Date: 12/21/23 Stop Date: 01/04/24 Status: Ordered CeleBREX 100 mg oral capsule 1 capsule = 100 mg, By Mouth, 2 times a day, PRN Pain , Moderate, contents of capsule may be mixed with soft foods such as applesauce, # 28 capsule, 0 Refills, Maintenance, 12/21/23 11:36:00 EDT, Capsule, [facility]/pharmacy #[id number], Partial fill upon patient... Start Date: 12/21/23 Stop Date: 01/04/24 Status: Ordered cloNIDine 0.1 mg oral tablet 1, tablet, By Mouth, 2 times a day, PRN, # 60 tablet, Refills 0, Tot. Refills 0, Maintenance, NEEDED FOR ANXIETY, 12/09/22 7:36:00 EDT, Route to Pharmacy Electronically, [facility]/pharmacy #[id number], 158.2,cm, 12/07/22 9:55:00 EDT, Height, 95.45, kg, 01/07/... Start Date: 12/09/22 Status: Ordered CPAP Machine [...] EDT, Compound Start Date: 03/27/23 Status: Ordered Diflucan 150 mg oral tablet 1 tablet = 150 mg, By Mouth, Every 72 hours, # 2 tablet, 0 Refills, Soft Stop, 12/21/23 11:46:00 EDT, Tablet, [facility]/pharmacy #[id number], Partial fill upon patient request if the prescription is for a schedule II opioid drug., 158, cm, 12/21/23 10:57:00 EDT,... Start Date: 12/21/23 Status: Ordered EPINEPHrine 0.1 mg injectable kit = 0.1 mg, Intramuscular, Once, 0 Refills, Maintenance, 01/07/22 9:57:00 EDT, Partial fill upon patient request if the prescription is for a schedule II opioid drug. Start Date: 01/07/22 Status: Ordered escitalopram 20 mg oral tablet 1 tablet, By Mouth, Daily, # 90 tablet, 1 Refills, Maintenance, 09/20/22 7:38:00 EST, [facility], 158.2, cm, 08/01/22 12:12:00 EST, Height, 95.45, kg, 01/07/22 10:11:00 EDT, Dry Weight Start Date: 09/20/22 Status: Ordered lamotrigine 50 mg oral tablet, extended release 3 tablet, By Mouth, Daily, # 270 tablet, 1 Refills, Maintenance, 01/18/23 18:04:00 EDT, [facility], 158.2, cm, 01/03/23 9:16:00 EDT, Height, 95.45, kg, 01/07/22 10:11:00 EDT, Dry Weight Start Date: 01/18/23 Status: Ordered Liletta Once, 0 Refills, Maintenance, 01/23/20 10:50:00 EDT Start Date: 01/23/20 Status: Ordered traMADol 50 mg oral tablet 1 tablet = 50 mg, By Mouth, Every 8 hours, PRN as needed for pain, for 7 days, not to exceed 400 mg/day. For shor-term use, # 18 tablet, 0 Refills, Acute 12/29/23 11:43:00 EDT, 12/22/23 11:43:00 EDT,Tablet, [facility]/pharmacy #[id number], Partial fill upon patie... Start Date: 12/22/23 Stop Date: 12/29/23 Status: Ordered traZODone 50 mg oral tablet 1, tablet, By Mouth, Daily at bedtime, # 90 tablet, Refills 1, Maintenance, 01/25/23 19:08:00 EDT, Route to Pharmacy Electronically, [facility], 158.2, cm, 01/03/23 9:16:00 EDT, Height, 95.45, [...] Team Personnel Name: Lilliana Carroll NP Position: [facility] PCO Associate Professional Member Role: PCP Address: Address: [address] [place] [address]- Care Team Related Persons Name: KAILEE COTTON Address: home [address] [place] [address] Name: KODI ORDOÑEZ Address: home [address] [address] Name: MUKUL FREEMAN Address: home [address] [place] [address] Name: JUDY FREEMAN Address: home [address] [place] [address]
--- OUTSIDE RECORDS SUMMARY | 2023-12-25 10:20 | XMS_ITS | Continuity of Care Document ---
Author Organization [facility] Adult Address [address] [place] [address]- Care Team Providers Care Cath Lab Radiology Technician Name Role Phone Lilliana Carroll NP Primary Care Physician [facility]23 - 12/10/[address] [facility] Adult [address] [place] [id number] Allergies, Adverse Reactions, Alerts Substance Reaction Severity [...] Re corded 1Result Comment: regular dose [facility] 34194-543-76 2Result Comment: [facility] [id number] 3Result Comment: [facility] [id number] Medications cloNIDine 0.1 mg oral tablet 1, tablet, By Mouth, 2 times a day, PRN, # 60 tablet, Refills 0, Tot. Refills 0, Maintenance, NEEDED FOR ANXIETY, 12/09/22 7:36:00 EDT, Route to Pharmacy Electronically, [facility]/pharmacy #[id number], 158.2,cm, 12/07/22 9:55:00 EDT, Height, [...] Refills, Maintenance, 09/20/22 7:38:00 EST, [facility], 158.2, cm, 08/01/22 12:12:00 EST, Height, 95.45, kg, 01/07/22 10:11:00 EDT, Dry Weight Start Date: 09/20/22 Status: Ordered lamotrigine 50 mg oral tablet, extended release 3 tablet, By Mouth, Daily, # 270 tablet, 1 Refills, Maintenance, 01/18/23 18:04:00 EDT, [facility], 158.2, cm, 01/03/23 9:16:00 EDT, Height, 95.45, [...] 0 Refills, Maintenance, 06/07/21 10:32:00 EDT, [facility]/pharmacy #[id number], Partial fill upon patient r... Start Date: 06/07/21 Status: Ordered traZODone 50 mg oral tablet 1, tablet, By Mouth, Daily at bedtime, # 90 tablet, Refills 1, Maintenance, 01/25/23 19:08:00 EDT, Route to Pharmacy Electronically, [facility], 158.2, cm, 01/03/23 9:16:00 EDT, Height, 95.45, [...] Team Personnel Name: Lilliana Carroll NP Position: [facility] PCO Associate Professional Member Role: PCP Address: Address: [address] [place] [address]- Care Team Related Persons Name: KAILEE COTTON Address: home [address] [place] [address] Name: KODI ORDOÑEZ Address: home [address] [address] Name: MUKUL FREEMAN Address: home [address] [place] [address] Name: JUDY FREEMAN Address: home [address] [place] [address]
--- OUTSIDE RECORDS SUMMARY | 2023-12-25 10:21 | XMS_ITS | Continuity of Care Document ---
Author Organization [facility] Address [address] [place] [address]- Care Team Providers Care In Store Marketing Representative Name Role Phone Lilliana Carroll NP Primary Care Physician [facility]): 11/13/23 - 12/13/23 [facility] [address] [place] [id number] Allergies, Adverse Reactions, Alerts Substance Reaction [...] 1Result Comment: regular dose [facility] 56140-805-96 2Result Comment: [facility] [id number] 3Result Comment: [facility] [id number] Medications cloNIDine 0.1 mg oral tablet 1, tablet, By Mouth, 2 times a day, PRN, # 60 tablet, Refills 0, Tot. Refills 0, Maintenance, NEEDED FOR ANXIETY, 12/09/22 7:36:00 EDT, Route to Pharmacy Electronically, [facility]/pharmacy #[id number], 158.2,cm, 12/07/22 9:55:00 EDT, Height, [...] Refills, Maintenance, 09/20/22 7:38:00 EST, [facility], 158.2, cm, 08/01/22 12:12:00 EST, Height, 95.45, kg, 01/07/22 10:11:00 EDT, Dry Weight Start Date: 09/20/22 Status: Ordered lamotrigine 50 mg oral tablet, extended release 3 tablet, By Mouth, Daily, # 270 tablet, 1 Refills, Maintenance, 01/18/23 18:04:00 EDT, [facility], 158.2, cm, 01/03/23 9:16:00 EDT, Height, 95.45, [...] each, 0 Refills, Maintenance, 06/07/21 10:32:00 EDT, [facility]/pharmacy #[id number], Partial fill upon patient r... Start Date: 06/07/21 Status: Ordered traZODone 50 mg oral tablet 1, tablet, By Mouth, Daily at bedtime, # 90 tablet, Refills 1, Maintenance, 01/25/23 19:08:00 EDT, Route to Pharmacy Electronically, [facility], 158.2, cm, 01/03/23 9:16:00 EDT, Height, 95.45, [...] Team Personnel Name: Lilliana Carroll NP Position: [facility] PCO Associate Professional Member Role: PCP Address: Address: [address] [place] [address]- Care Team Related Persons Name: KAILEE COTTON Address: home [address] [place] [address] Name: KODI ORDOÑEZ Address: home [address] [address] Name: MUKUL FREEMAN Address: home [address] [place] [address] Name: JUDY FREEMAN Address: home [address] [place] [address]
--- OUTSIDE RECORDS SUMMARY | 2023-12-25 10:23 | XMS_ITS | Continuity of Care Document ---
Author Organization [facility] Address [address] [place] [address]- Care Team Providers Care Lead Nuclear Medicine Technologist Name Role Phone Lilliana Carroll NP Primary Care Physician [phone] [place] [facility] Date(s): 02/24/23 - 03/26/23 [facility] [address] [place] [address]- Attending Physician: AdmFerdinand andino Admitting Physician: Admtr, [...] Gi rodrigo influenza virus vaccine, inactivated 06/28/13 Evlin rded influenza virus vaccine, inactivated 07/15/11 Elvin [...] Re corded 1Result Comment: regular dose [facility] 75070-304-47 2Result Comment: [facility] [id number] 3Result Comment: [facility] [id number] Medications cloNIDine 0.1 mg oral tablet 1, tablet, By Mouth, 2 times a day, PRN, # 60 tablet, Refills 0, Tot. Refills 0, Maintenance, NEEDED FOR ANXIETY, 12/09/22 7:36:00 EDT, Route to Pharmacy Electronically, [facility]/pharmacy #[id number], 158.2,cm, 12/07/22 9:55:00 EDT, [...] Refills, Maintenance, 09/20/22 7:38:00 EST, [facility], 158.2, cm, 08/01/22 12:12:00 EST, Height, 95.45, kg, 01/07/22 10:11:00 EDT, Dry Weight Start Date: 09/20/22 Status: Ordered lamotrigine 50 mg oral tablet, extended release 3 tablet, By Mouth, Daily, # 270 tablet, 1 Refills, Maintenance, 01/18/23 18:04:00 EDT, [facility], 158.2, cm, 01/03/23 9:16:00 EDT, Height, 95.45, [...] Refills, Maintenance, 06/07/21 10:32:00 EDT, [facility]/pharmacy #[id number], Partial fill upon patient r... Start Date: 06/07/21 Status: Ordered traZODone 50 mg oral tablet 1, tablet, By Mouth, Daily at bedtime, # 90 tablet, Refills 1, Maintenance, 01/25/23 19:08:00 EDT, Route to [facility]acy Electronically, [facility], 158.2, cm, 01/03/23 9:16:00 EDT, Height, 95.45, [...] Team Personnel Name: Lilliana Carroll NP Position: [facility] PCO Associate Professional Member Role: PCP Address: Address: [address] [place] [address]- Care Team Related Persons Name: KAILEE COTTON Address: home [address] [place] [address] Name: KODI ORDOÑEZ Address: home [address] [address] Name: MUKUL FREEMAN Address: home [address] [place] [address] Name: JUDY FREEMAN Address: home [address] [place] [address]
--- OUTSIDE RECORDS SUMMARY | 2023-12-25 10:23 | XMS_ITS | Continuity of Care Document ---
Author Organization [facility] Address [address] [place] [address]- Care Team Providers Care Patient Care Director Name Role Phone Lilliana Carroll NP Primary Care Physician [facility]): 11/06/23 - 12/06/23 [facility] [address] [place] [address]- Allergies, Adverse Reactions, Alerts Substance Reaction Severity [...] regular dose [facility] 74080-084-28 2Result Comment: [facility] [id number] 3Result Comment: [facility] [id number] Medications cloNIDine 0.1 mg oral tablet 1, tablet, By Mouth, 2 times a day, PRN, # 60 tablet, Refills 0, Tot. Refills 0, Maintenance, NEEDED FOR ANXIETY, 12/09/22 7:36:00 EDT, Route to Pharmacy Electronically, [facility]/pharmacy #[id number], 158.2,cm, 12/07/22 9:55:00 EDT, Height, [...] Refills, Maintenance, 09/20/22 7:38:00 EST, [facility], 158.2, cm, 08/01/22 12:12:00 EST, Height, 95.45, kg, 01/07/22 10:11:00 EDT, Dry Weight Start Date: 09/20/22 Status: Ordered lamotrigine 50 mg oral tablet, extended release 3 tablet, By Mouth, Daily, # 270 tablet, 1 Refills, Maintenance, 01/18/23 18:04:00 EDT, [facility], 158.2, cm, 01/03/23 9:16:00 EDT, Height, 95.45, [...] each, 0 Refills, Maintenance, 06/07/21 10:32:00 EDT, [facility]/pharmacy #[id number], Partial fill upon patient r... Start Date: 06/07/21 Status: Ordered traZODone 50 mg oral tablet 1, tablet, By Mouth, Daily at bedtime, # 90 tablet, Refills 1, Maintenance, 01/25/23 19:08:00 EDT, Route to Pharmacy Electronically, [facility] 96211, 158.2, cm, 01/03/23 9:16:00 EDT, Height, 95.45, [...] Team Personnel Name: Lilliana Carroll NP Position: [facility] PCO Associate Professional Member Role: PCP Address: Address: [address] [place] [address]- Care Team Related Persons Name: KAILEE COTTON Address: home [address] [place] [address] Name: KODI ORDOÑEZ Address: home [address] [address] Name: MUKUL FREEMAN Address: home [address] [place] [address] Name: JUDY FREEMAN Address: home [address] [place] [address]
--- OUTSIDE RECORDS SUMMARY | 2023-12-25 10:24 | XMS_ITS | Continuity of Care Document ---
Author Organization [facility] Address [address] [place] [address]- Care Team Providers Care Strap Maker Name Role Phone Lilliana Carroll NP Primary Care Physician [phone] [facility]23 - 12/06/23 [facility] Adult [address] [place] [address]- Allergies, Adverse Reactions, Alerts Substance Reaction Severity [...] dose [facility] 51558-218-06 2Result Comment: [facility] [id number] 3Result Comment: [facility] [id number] Medications cloNIDine 0.1 mg oral tablet 1, tablet, By Mouth, 2 times a day, PRN, # 60 tablet, Refills 0, Tot. Refills 0, Maintenance, NEEDED FOR ANXIETY, 12/09/22 7:36:00 EDT, Route to Pharmacy Electronically, [facility]/pharmacy #[id number], 158.2,cm, 12/07/22 9:55:00 EDT, Height, [...] Refills, Maintenance, 09/20/22 7:38:00 EST, [facility], 158.2, cm, 08/01/22 12:12:00 EST, Height, 95.45, kg, 01/07/22 10:11:00 EDT, Dry Weight Start Date: 09/20/22 Status: Ordered lamotrigine 50 mg oral tablet, extended release 3 tablet, By Mouth, Daily, # 270 tablet, 1 Refills, Maintenance, 01/18/23 18:04:00 EDT, [facility], 158.2, cm, 01/03/23 9:16:00 EDT, Height, 95.45, [...] Maintenance, 06/07/21 10:32:00 EDT, [facility]/pharmacy #[id number], Partial fill upon patient r... Start Date: 06/07/21 Status: Ordered traZODone 50 mg oral tablet 1, tablet, By Mouth, Daily at bedtime, # 90 tablet, Refills 1, Maintenance, 01/25/23 19:08:00 EDT, Route to Pharmacy Electronically, [facility]82[facility], 158.2, cm, 01/03/23 9:16:00 EDT, Height, 95.45, [...] Associate Professional Member Role: PCP Address: Address: [address] [place] [address]- Care Team Related Persons Name: KAILEE COTTON Address: home [address] [place] [address] Name: KODI ORDOÑEZ Address: home [address] [address] Name: MUKUL FREEMAN Address: home [address] [place] [address] Name: JUDY FREEMAN Address: home [address] [place] [address]
--- OUTSIDE RECORDS SUMMARY | 2023-12-25 10:24 | XMS_ITS | Continuity of Care Document ---
Author Organization [facility] Adult Address [address] [place] [address]- Care Team Providers Care Slate Trimmer Name Role Phone Lilliana Carroll NP Primary Care Physician [facility] 11[facility]23 - 12/08/23 [facility] Adult [address] [place] [address] Allergies, Adverse Reactions, Alerts [...] [facility] 12856-831-14 2Result Comment: [facility] [id number] 3Result Comment: [facility] [id number] Medications cloNIDine 0.1 mg oral tablet 1, tablet, By Mouth, 2 times a day, PRN, # 60 tablet, Refills 0, Tot. Refills 0, Maintenance, NEEDED FOR ANXIETY, 12/09/22 7:36:00 EDT, Route to Pharmacy Electronically, [facility]/pharmacy #[id number], 158.2,cm, 12/07/22 9:55:00 EDT, [...] Refills, Maintenance, 09/20/22 7:38:00 EST, [facility], 158.2, cm, 08/01/22 12:12:00 EST, Height, 95.45, kg, 01/07/22 10:11:00 EDT, Dry Weight Start Date: 09/20/22 Status: Ordered lamotrigine 50 mg oral tablet, extended release 3 tablet, By Mouth, Daily, # 270 tablet, 1 Refills, Maintenance, 01/18/23 18:04:00 EDT, [facility], 158.2, cm, 01/03/23 9:16:00 EDT, Height, 95.45, [...] 01/25/23 19:08:00 EDT, Route to Pharmacy Electronically, [facility] 86108, 158.2, cm, 01/03/23 9:16:00 EDT, Height, 95.45, [...] Team Personnel Name: Lilliana Carroll NP Position: [facility] PCO Associate Professional Member Role: PCP Address: Address: [address] [place] [address]- Care Team Related Persons Name: KAILEE COTTON Address: home [address] [place] [address] Name: KODI ORDOÑEZ Address: home [address] [address] Name: MUKUL RFEEMAN Address: home [address] [place] [address] Name: JUDY FREEMAN Address: [address] [place] [address]
== END 2023-12-25 10:58 | disposition home or self-care (01) ==
LOC: HO.HBS 10:06
PROVIDERS: PCP Nurse Practitioner Family; Visit Provider Physician Assistant Surgical
DX: E66.3 Overweight (principal); Z68.29 Body mass index [BMI] 29.0-29.9, adult; Z90.3 Acquired absence of stomach [part of]; Z98.84 Bariatric surgery status
CPT/HCPCS: 99214

== ENCOUNTER → 2023-12-25 10:06 | Outpatient (BNVA) | payer OTHER, SELFPAY | PROVIDERS: PCP Nurse Practitioner Family; Visit Provider Physician Assistant Surgical ==

== ENCOUNTER 2024-02-21 10:40 | Outpatient (AMB) | payer OTHER, SELFPAY ==
--- NOTE | 2024-02-21 10:38 | A.OFFVIS_ITS ---
VS Expanded 02/21/24 10:42 Height 5 ft 2 in Weight 153 lb BMI 28.0 Intake Visit Reasons: (TELEPHONE) PO LSG 08/23/23 see note Allergies mold Allergy (Verified 12/01/23 14:54) Unknown tree and shrub pollen Allergy (Verified 12/01/23 14:54) Unknown Medication List - Last Reconciled 02/21/24 by [place] cholecalciferol (vitamin D3) 125 mcg PO DAILY docusate sodium (Colace) 100 mg PO DAILY escitalopram oxalate 20 mg PO DAILY lamotrigine (Lamictal) 200 mg PO DAILY ondansetron 4 mg PO Q12H polyethylene glycol 3350 (Miralax) 17 grams PO DAILY tramadol 50 mg PO BID PRN trazodone 50 mg PO BEDTIME HPI Comments Details: This?is a?33?yo female who is s/p LSG 08/23/2023. Presents for 6 month post op visit. Weight at last visit on 12/25/2023 was 159 pounds with a BMI of 29.1, weight today is 153 pounds, representing a 6 pound weight loss with a BMI today of 28.? No complaints of emesis, abdominal pain or reflux, or constipation. Occasional nausea with certain foods like spaghetti sauce (if greasy) or acidic foods. If she avoids those foods she is okay. Present meal plan includes: stopped using shakes doesn't usually start eating until about noon one yogurt (can add soy milk/frozen fruit to make a smoothie) 2-3 small meals of protein each with veg getting adequate hydration Exercise routine includes: going to [employer] and using the bike about 3x per week... has not been doing this much due to busy schedule [facility] Medical History BMI 36.0-36.9,adult Constipation BMI 37.0-37.9, adult Obesity IUD (intrauterine device) in place Environmental allergies Insomnia Sciatica Bipolar 1 disorder Anxiety Depression GERD (gastroesophageal reflux disease) Sleep apnea treated with continuous positive airway pressure (CPAP) Morbid obesity Surgical History Hx of laparoscopic adjustable gastric banding Hx of wisdom tooth extraction History of surgery on arm Hx of section Social History Household Members: None Housing: Apartment Are you a primary intensive care specialist to a significant other at home: Yes (children, family to assist post-op) Do you presently have visiting nurse or other home services: No Alcohol intake: current Alcohol intake frequency: holidays/special occasions only Patient Tobacco Use Status: Never used Tobacco service: No Telehealth Telehealth Telehealth Platform: Telephone Location of provider rendering services: practice address Location of patient: address on file Patient Identification confirmed using: Name, : Yes Telehealth method: voice only Patient verbally consented to treatment: Yes Patient verbally consented to billing insurance company: Yes Patient informed of any privacy concerns related to visit: Yes Minutes spent on Phone/Video with Pt.: 15 Assessment & Plan Assessment & Plan (1) Overweight: Code(s): E66.3 - Overweight Category: Medical (2) S/P laparoscopic cholecystectomy: Code(s): Z90.49 - Acquired absence of other specified parts of digestive tract Category: Surgical Plan Goal 60g protein per day, discussed with pt that a meal plan that incorporates shakes/bars would be most effective but she is satisfied with rate of weight loss and giving herself more flexibility. Reinforced that she still needs a dequate protein per day. Also reinforced importance of exercise. Needs labs done to recheck vit D. RTC 3 months, pt has my phone # and I encouraged her to reach out with any concerns. I spent a total of 30 minutes reviewing/updating records, examining the patient and counseling the patient on weight management as detailed above. Orders: Orders Hemoglobin A1c Today Z90.49 - Acquired absence of other specified parts of digestive tract IRON PROFILE Today Z90.49 - Acquired absence of other specified parts of digestive tract Comprehensive Met. Panel Today Z90.49 - Acquired absence of other specified parts of digestive tract Vitamin B12 and Folate Today Z90.49 - Acquired absence of other specified parts of digestive tract Zinc Today Z90.49 - Acquired absence of other specified parts of digestive tract Vitamin A Today Z90.49 - Acquired absence of other specified parts of digestive tract TSH reflex Free T4 Today Z90.49 - Acquired absence of other specified parts of digestive tract Ferritin Today Z90.49 - Acquired absence of other specified parts of digestive tract Insulin Today Z90.49 - Acquired absence of other specified parts of digestive tract Complete Blood Count Auto Diff Today Z90.49 - Acquired absence of other sp ecified parts of digestive tract Lipid Panel Today Z90.49 - Acquired absence of other specified parts of digestive tract C Reactive Protein Today Z90.49 - Acquired absence of other specified parts of digestive tract Vitamin B1 Today Z90.49 - Acquired absence of other specified parts of digestive tract Vitamin D 25-OH Total Today Z90.49 - Acquired absence of other specified parts of digestive tract Medications: Refilled cholecalciferol (vitamin D3) 125 mcg PO DAILY 90 caps 0RF E55.9 - Vitamin D deficiency, unspecified
[2024-02-21 10:42] VITALS: BMI 28.0
--- OUTSIDE RECORDS SUMMARY | 2024-02-21 10:42 | XMS_ITS | Continuity of Care Document ---
Author Organization [facility] Adult Address [address] [place] [address]- Care Team Providers Care Manager Agriculture Name Role Phone Lilliana Carroll NP Primary Care Physician Encounter [facility] Date(s): 11/28/23 - 12/28/23 [facility] [address] [place] [address] Allergies, Adverse Reactions, Alerts Substance Reaction [...] Re corded 1Result Comment: regular dose [facility] [id number] 2Result Comment: [facility] [id number] 3Result Comment: [facility] [id number] Medications betamethasone-clotrimazole 0.05%-1% topical cream 1 application, Topically, 2 times a day, for 14 days, Not to be used longer than 4 weeks, # 45 Gm, 0 Refills, Acute 01/04/24 11:45:00 EDT, 12/21/23 11:45:00 EDT, Cream, [facility]/pharmacy #[id number], [...] 0 Refills, Maintenance, 12/21/23 11:36:00 EDT, Capsule, [facility]/pharmacy #[id number], Partial fill upon patient... Start Date: 12/21/23 Stop Date: 01/04/24 Status: Ordered cloNIDine 0.1 mg oral tablet 1, tablet, By Mouth, 2 times a day, PRN, # 60 tablet, Refills 0, Tot. Refills 0, Maintenance, NEEDED FOR ANXIETY, 12/09/22 7:36:00 EDT, Route to Pharmacy Electronically, [facility]/pharmacy #[id number], 158.2,cm, 12/07/22 9:55:00 EDT, [...] Refills, Soft Stop, 12/21/23 11:46:00 EDT, Tablet, [facility] [...] tablet, 1 Refills, Maintenance, 09/20/22 7:38:00 EST, [facility], 158.2, cm, 08/01/22 12:12:00 EST, Height, 95.45, kg, 01/07/22 10:11:00 EDT, Dry Weight Start Date: 09/20/22 Status: Ordered lamotrigine 50 mg oral tablet, extended release 3 tablet, By Mouth, Daily, # 270 tablet, 1 Refills, Maintenance, 01/18/23 18:04:00 EDT, [facility], 158.2, cm, 01/03/23 9:16:00 EDT, Height, 95.45, [...] Acute 12/29/23 11:43:00 EDT, 12/22/23 11:43:00 EDT,Tablet, [facility]/pharmacy #[id number], Partial fill upon patie... Start Date: 12/22/23 Stop Date: 12/29/23 Status: Ordered traZODone 50 mg oral tablet 1, tablet, By Mouth, Daily at bedtime, # 90 tablet, Refills 1, Maintenance, 01/25/23 19:08:00 EDT, Route to Pharmacy Electronically, [facility], 158.2, cm, 01/03/23 9:16:00 EDT, Height, 95.45, [...] Team Personnel Name: Lilliana Carroll NP Position: [facility] PCO Associate Professional Member Role: PCP Address: Address: [address] [place] [address]- Care Team Related Persons Name: KAILEE COTTON Address: home [address] [place] [address] Name: KODI ORDOÑEZ Address: home [address] [address] Name: MUKUL FREEMAN Address: home [address] [place] [address] Name: JUDY FREEMAN Address: home [address] [place] [address]
--- OUTSIDE RECORDS SUMMARY | 2024-02-21 10:43 | XMS_ITS | Continuity of Care Document ---
Author Organization [facility] Address [address] [place] [address]- Care Team Providers Care Industrial Cafeteria Manager Name Role Phone Lilliana Carroll NP Primary Care Physician [phone] Encounter [facility] Date(s): 01/09/24 - 02/08/24 [facility] Adult [address] [place] [address]- Allergies, Adverse Reactions, Alerts Substance Reaction Severity [...] Re corded 1Result Comment: regular dose [facility] [id number] 2Result Comment: [facility] [id number] 3Result Comment: [facility] [id number] Medications CeleBREX 100 mg oral capsule 1 capsule = 100 mg, By Mouth, 2 times a day, PRN Pain , Moderate, contents of capsule may be mixed with soft foods such as applesauce, # 28 capsule, 0 Refills, Maintenance, 12/21/23 11:36:00 EDT, Capsule, [facility]/pharmacy #[id number], Partial fill upon patient... Start Date: 12/21/23 Stop Date: 01/04/24 Status: Ordered cloNIDine 0.1 mg oral tablet 1, tablet, By Mouth, 2 times a day, PRN, # 60 tablet, Refills 0, Tot. Refills 0, Maintenance, NEEDED FOR ANXIETY, 12/09/22 7:36:00 EDT, Route to Pharmacy Electronically, [facility]/pharmacy #[id number], 158.2,cm, 12/07/22 9:55:00 EDT, Height, [...] Refills, Soft Stop, 12/21/23 11:46:00 EDT, Tablet, [facility]/pharmacy #[id number], Partial fill upon patient [...] tablet, 1 Refills, Maintenance, 09/20/22 7:38:00 EST, [facility], 158.2, cm, 08/01/22 12:12:00 EST, Height, 95.45, kg, 01/07/22 10:11:00 EDT, Dry Weight Start Date: 09/20/22 Status: Ordered lamotrigine 50 mg oral tablet, extended release 3 tablet, By Mouth, Daily, # 270 tablet, 1 Refills, Maintenance, 01/18/23 18:04:00 EDT, [facility]199, 158.2, cm, 01/03/23 9:16:00 EDT, Height, 95.45, kg, 01/07/22 10:11:00 EDT, Dry Weight Start Date: 01/18/23 Status: Ordered Liletta Once, 0 Refills, Maintenance, 01/23/20 10:50:00 EDT Start Date: 01/23/20 Status: Ordered traZODone 50 mg oral tablet 1, tablet, By Mouth, Daily at bedtime, # 90 tablet, Refills 1, Maintenance, 01/25/23 19:08:00 EDT, Route to Pharmacy Electronically, [facility], 158.2, cm, 01/03/23 9:16:00 EDT, Height, 95.45, [...] Personnel Name: Lilliana Carroll NP Position: [facility] PCO Associate Professional Member Role: PCP Address: Address: [address] [place] [address]- Care Team Related Persons Name: KAILEE COTTON Address: home [address] [place] [address] Name: KODI ORDOÑEZ Address: home [address] [address] Name: MUKUL FREEMAN Address: home [address] [place] [address] Name: JUDY FREEMAN Address: home [address] [place] [address]
--- OUTSIDE RECORDS SUMMARY | 2024-02-21 10:43 | XMS_ITS | Continuity of Care Document ---
Author Organization [facility] Adult Address [address] [place] [address]- Care Team Providers Care Line Installer Repairer Name Role Phone Lilliana Carroll NP Primary Care Physician Encounter [facility] Date(s): 12/28/23 - 01/27/24 [facility] Adult [address] [place] [address]- Allergies, Adverse Reactions, Alerts Substance Reaction Severity [...] dose [facility] 89343-289-63 2Result Comment: [facility] [id number] 3Result Comment: [facility] [id number] Medications CeleBREX 100 mg oral capsule 1 capsule = 100 mg, By Mouth, 2 times a day, PRN Pain , Moderate, contents of capsule may be mixed with soft foods such as applesauce, # 28 capsule, 0 Refills, Maintenance, 12/21/23 11:36:00 EDT, Capsule, [facility]/pharmacy #[id number], Partial fill upon patient... Start Date: 12/21/23 Stop Date: 01/04/24 Status: Ordered cloNIDine 0.1 mg oral tablet 1, tablet, By Mouth, 2 times a day, PRN, # 60 tablet, Refills 0, Tot. Refills 0, Maintenance, NEEDED FOR ANXIETY, 12/09/22 7:36:00 EDT, Route to Pharmacy Electronically, [facility]/pharmacy #[id number], 158.2,cm, 12/07/22 9:55:00 EDT, Height, [...] Refills, Soft Stop, 12/21/23 11:46:00 EDT, Tablet, [facility]/pharmacy #[id number], Partial fill upon patient request [...] tablet, 1 Refills, Maintenance, 09/20/22 7:38:00 EST, [facility]14, 158.2, cm, 08/01/22 12:12:00 EST, Height, 95.45, kg, 01/07/22 10:11:00 EDT, Dry Weight Start Date: 09/20/22 Status: Ordered lamotrigine 50 mg oral tablet, extended release 3 tablet, By Mouth, Daily, # 270 tablet, 1 Refills, Maintenance, 01/18/23 18:04:00 EDT, [facility] 24421, 158.2, cm, 01/03/23 9:16:00 EDT, Height, 95.45, kg, 01/07/22 10:11:00 EDT, Dry Weight Start Date: 01/18/23 Status: Ordered Liletta Once, 0 Refills, Maintenance, 01/23/20 10:50:00 EDT Start Date: 01/23/20 Status: Ordered traZODone 50 mg oral tablet 1, tablet, By Mouth, Daily at bedtime, # 90 tablet, Refills 1, Maintenance, 01/25/23 19:08:00 EDT, Route to Pharmacy Electronically, [facility] 81095, 158.2, cm, 01/03/23 9:16:00 EDT, Height, 95.45, [...] Name: Lilliana Carroll NP Position: [facility] PCO Associate Professional Member Role: PCP Address: Address: [address] [place] [address]- Care Team Related Persons Name: KAILEE COTTON Address: home [address] [place] [address] Name: KODI ORDOÑEZ Address: home [address] [address] Name: MUKUL FREEMAN Address: home [address] [place] [address] Name: JUDY FREEMAN Address: home [address] [place] [address]
--- OUTSIDE RECORDS SUMMARY | 2024-02-21 10:44 | XMS_ITS | Continuity of Care Document ---
Author Organization [facility] Address [address] [place] [address]- Care Team Providers Care Route Service Representative Name Role Phone Lilliana Carroll NP Primary Care Physician Encounter [facility] Date(s): 01/09/24 - 02/08/24 [facility] Adult [address] [place] [address]- Allergies, Adverse Reactions, Alerts Substance Reaction Severity [...] [facility] [id number] 2Result Comment: [facility] [id number] 3Result Comment: [facility] [id number] Medications CeleBREX 100 mg oral capsule 1 capsule = 100 mg, By Mouth, 2 times a day, PRN Pain , Moderate, contents of capsule may be mixed with soft foods such as applesauce, # 28 capsule, 0 Refills, Maintenance, 12/21/23 11:36:00 EDT, Capsule, [facility]/pharmacy #[id number], Partial fill upon patient... Start Date: [...] Refills, Soft Stop, 12/21/23 11:46:00 EDT, Tablet, [facility]/pharmacy #[id number], Partial fill upon patient request if [...] tablet, 1 Refills, Maintenance, 09/20/22 7:38:00 EST, [facility] 84019, 158.2, cm, 08/01/22 12:12:00 EST, Height, 95.45, kg, 01/07/22 10:11:00 EDT, Dry Weight Start Date: 09/20/22 Status: Ordered lamotrigine 50 mg oral tablet, extended release 3 tablet, By Mouth, Daily, # 270 tablet, 1 Refills, Maintenance, 01/18/23 18:04:00 EDT, [facility] 97896, 158.2, cm, 01/03/23 9:16:00 EDT, Height, 95.45, kg, 01/07/22 10:11:00 EDT, Dry Weight Start Date: 01/18/23 Status: Ordered Liletta Once, 0 Refills, Maintenance, 01/23/20 10:50:00 EDT Start Date: 01/23/20 Status: Ordered traZODone 50 mg oral tablet 1, tablet, By Mouth, Daily at bedtime, # 90 tablet, Refills 1, Maintenance, 01/25/23 19:08:00 EDT, Route to Pharmacy Electronically, [facility] 35117, 158.2, cm, 01/03/23 9:16:00 EDT, Height, 95.45, [...] NP Position: [facility] PCO Associate Professional Member Role: PCP Address: Address: [address] [place] [address]- Care Team Related Persons Name: KAILEE COTTON Address: home [address] [place] [address] Name: KODI ORDOÑEZ Address: home [address] [address] Name: MUKUL FREEMAN Address: home [address] [place] [address] Name: JUDY FREEMAN Address: home [address] [place] [address]
--- OUTSIDE RECORDS SUMMARY | 2024-02-21 10:44 | XMS_ITS | Continuity of Care Document ---
Author Organization [facility] Adult Address [address] [place] [address]- Care Team Providers Care Maturity Checker Name Role Phone Lilliana Carroll NP Primary Care Physician [facility] [facility] Date(s): 01/09/24 - 02/08/24 [facility] [address] [place] [address]- Allergies, Adverse Reactions, Alerts Substance Reaction Severity [...] Re corded 1Result Comment: regular dose [facility] [id number] 2Result Comment: [facility] [id number] 3Result Comment: [facility] [id number] Medications CeleBREX 100 mg oral capsule 1 capsule = 100 mg, By Mouth, 2 times a day, PRN Pain , Moderate, contents of capsule may be mixed with soft foods such as applesauce, # 28 capsule, 0 Refills, Maintenance, 12/21/23 11:36:00 EDT, Capsule, [facility]/pharmacy #[id number], Partial fill upon patient... Start Date: 12/21/23 Stop Date: 01/04/24 Status: Ordered cloNIDine 0.1 mg oral tablet 1, tablet, By Mouth, 2 times a day, PRN, # 60 tablet, Refills 0, Tot. Refills 0, Maintenance, NEEDED FOR ANXIETY, 12/09/22 7:36:00 EDT, Route to Pharmacy Electronically, [facility]/pharmacy #[id number], 158.2,cm, 12/07/22 9:55:00 EDT, Height, 95.45, [...] Refills, Soft Stop, 12/21/23 11:46:00 EDT, Tablet, [facility]/pharmacy #[id number], Partial [...] tablet, 1 Refills, Maintenance, 09/20/22 7:38:00 EST, [facility] 55507, 158.2, cm, 08/01/22 12:12:00 EST, Height, 95.45, kg, 01/07/22 10:11:00 EDT, Dry Weight Start Date: 09/20/22 Status: Ordered lamotrigine 50 mg oral tablet, extended release 3 tablet, By Mouth, Daily, # 270 tablet, 1 Refills, Maintenance, 01/18/23 18:04:00 EDT, [facility] 83895, 158.2, cm, 01/03/23 9:16:00 EDT, Height, 95.45, kg, 01/07/22 10:11:00 EDT, Dry Weight Start Date: 01/18/23 Status: Ordered Liletta Once, 0 Refills, Maintenance, 01/23/20 10:50:00 EDT Start Date: 01/23/20 Status: Ordered traZODone 50 mg oral tablet 1, tablet, By Mouth, Daily at bedtime, # 90 tablet, Refills 1, Maintenance, 01/25/23 19:08:00 EDT, Route to Pharmacy Electronically, [facility] 76079, 158.2, cm, 01/03/23 9:16:00 EDT, Height, 95.45, [...] Professional Member Role: PCP Address: Address: [address] [place] [address]- Care Team Related Persons Name: KAILEE COTTON Address: home [address] [place] [address] Name: KODI ORDOÑEZ Address: home [address] [address] Name: MUKUL FREEMAN Address: home [address] [place] [address] Name: JUDY FREEMAN Address: home [address] [place] [address]
--- OUTSIDE RECORDS SUMMARY | 2024-02-21 10:46 | XMS_ITS | Continuity of Care Document ---
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 Name Role Phone Lilliana Carroll NP Primary Care Physician [phone] Encounter [facility] [place](s): 12/21/23 - 12/28/23 [facility] Adult [address] [place] [address]- Encounter Diagnosis Annual physical exam(Discharge Diagnosis) - 12/21/23 Bipolar disorder, unspecified(Discharge Diagnosis) - 12/21/23 ALFRED (generalized anxiety disorder)(Discharge Diagnosis) - 12/21/23 GERD (gastroesophageal reflux disease)(Discharge Diagnosis) - 12/21/23 Major depression, recurrent(Discharge Diagnosis) - 12/21/23 CRISTINA on CPAP(Discharge Diagnosis) - 12/21/23 Lea rash of groin(Discharge Diagnosis) - 12/21/23 Pain of right heel(Discharge Diagnosis) - 12/21/23 Attending Physician: Not on Staff, Attending MD Referring Physician: Lilliana Carroll NP Allergies, [...] corded 1Result Comment: regular dose [facility] 20264-522-01 2Result Comment: [facility] [id number] 3Result Comment: [facility] [phone] Medications betamethasone-clotrimazole 0.05%-1% topical cream 1 application, Topically, 2 times a day, for 14 days, Not to be used longer than 4 weeks, # 45 Gm, 0 Refills, Acute 01/04/24 11:45:00 EDT, 12/21/23 11:45:00 EDT, Cream, [id number], Partial fill upon patient request if the prescription is for a... Start Date: 12/21/23 Stop Date: 01/04/24 Status: Ordered CeleBREX 100 mg oral capsule 1 capsule = 100 mg, By Mouth, 2 times a day, PRN Pain , Moderate, contents of capsule may be mixed with soft foods such as applesauce, # 28 capsule, 0 Refills, Maintenance, 12/21/23 11:36:00 EDT, Capsule, [facility]/pharmacy #207, Partial fill upon patient... Start Date: 12/21/23 Stop Date: 01/04/24 Status: Ordered cloNIDine 0.1 mg oral tablet 1, tablet, By Mouth, 2 times a day, PRN, # 60 tablet, Refills 0, Tot. Refills 0, Maintenance, NEEDED FOR ANXIETY, 12/09/22 7:36:00 EDT, [id number], 158.2,cm, 12/07/22 9:55:00 EDT, Height, 95.45, [...] Soft Stop, 12/21/23 11:46:00 EDT, Tablet, [facility]/pharmacy #207, Partial fill upon patient request [...] tablet, 1 Refills, Maintenance, 09/20/22 7:38:00 EST, [facility] ST[facility], 158.2, cm, 08/01/22 12:12:00 EST, Height, 95.45, kg, 01/07/22 10:11:00 EDT, Dry Weight Start Date: 09/20/22 Status: Ordered lamotrigine 50 mg oral tablet, extended release 3 tablet, By Mouth, Daily, # 270 tablet, 1 Refills, Maintenance, 01/18/23 18:04:00 EDT, [facility] STORE [facility]369, 158.2, cm, 01/03/23 9:16:00 EDT, Height, 95.45, [...] Acute 12/29/23 11:43:00 EDT, 12/22/23 11:43:00 EDT,Tablet, [facility]/pharmacy #[id number], Partial fill upon patie... Start Date: 12/22/23 Stop Date: 12/29/23 Status: Ordered traZODone 50 mg oral tablet 1, tablet, By Mouth, Daily at bedtime, # 90 tablet, Refills 1, Maintenance, 01/25/23 19:08:00 EDT, Route to Pharmacy Electronically, [facility] STORE 24385, 158.2, cm, 01/03/23 9:16:00 EDT, Height, 95.45, [...] Service Informant Annual physical exam Discharge Diagnosis 12/21/23 Bipolar disorder, unspecified Discharge Diagnosis 12/21/23 ALFRED (generalized anxiety disorder) Discharge Diagnosis 12/21/23 GERD (gastroesophageal reflux disease) Discharge Diagnosis 12/21/23 Major depression, recurrent Discharge Diagnosis 12/21/23 CRISTINA on CPAP Discharge Diagnosis 12/21/23 Lea rash of groin Discharge Diagnosis 12/21/23 Pain of right heel Discharge Diagnosis 12/21/23 Procedures Procedure Date Related Diagnosis Body Site Status Cholecystectomy Completed Gastric sleeve Completed Vital Signs Most recent to oldest [Reference Range]: 1 Height 158 cm (12/21/23 10:57 AM) Weight 71.3 kg (12/21/23 10:57 AM) Oxygen Saturation [94-100 %] 99 % (12/21/23 10:57 AM) Pulse Rate [55-90 bpm] 82 bpm (12/21/23 10:57 AM) Body Mass Index [18.5-24.99 kg/m2] 28.56 kg/m2 *H* (12/21/23 10:57 AM) Blood Pressure [90-138/55-84 mm Hg] 114/ 79mm Hg (12/21/23 10:57 AM) Mode of Delivery (Oxygen) Room air (12/21/23 10:57 AM) Blood pressure sites Arm, left (12/21/23 10:57 AM) Weight Obtained Via Standing scale (12/21/23 10:57 AM) Social History Social History Type Response Smoking Status Never smoker entered on: 07/19/17 Sex Note * Shawanda Arenas: PERFORM Event Display: Patient Education/Instruction Authored Date: Ambulatory Adult Visit Summary [facility] [address] [address] Name: NHI FREEMAN : 1990?? Visit: 12/21/2023 10:44?? Ambulatory Visit Instructions ?? Your Care Team Primary Care Provider Lilliana Carroll NP? This Visit Provider Vanda Forbes NP Your Diagnosis Annual physical exam Bipolar disorder, unspecified ALFRED (generalized anxiety disorder) GERD (gastroesophageal reflux disease) Major depression, recurrent CRISTINA on CPAP Vitals Signs Pulse Rate: 82 bpm Height: 158 cm Systolic Blood Pressure: 114 mm Hg Weight: 71.3 kg Diastolic Blood Pressure: 79 mm Hg Body Mass Index:??28.56 kg/m2??High Oxygen Saturation: 99 % Body surface area: 1.77 What to do next Follow-Up Appointments Follow Up with??Lilliana Carroll NP When:??01/01/2025 09:10 AM EDT Why: Gauri Where: [address] [place], [place] [id number]- Medications The list below reflects the information in our records and provided by you today along with any changes made during this visit. Please continue your medications until treatment is completed or stopped by your provider. If this is different from the information you have or there are other questions,please contact the prescribing provider. What How Much When Instructions New Betamethasone-Clotrimazole Topical (betamethasone-clotrimazole 0.05%-1% topical cream) 1 altaf Topically Twice a day Duration: 14 Days Not to be used longer than 4 weeks ?? Pickup at [facility]/pharmacy #[id number] New Celecoxib (CeleBREX 100 mg oral capsule) 1 capsule Oral Twice a day as needed for Pain , Moderate Duration: 14 Days contents of capsule may be mixed with soft foods such as applesauce ?? Pickup at [facility]/pharmacy #207 New Fluconazole (Diflucan 150 mg oral tablet) 1 tab(s) Oral Every 72 hours Duration: 2 doses/times Pickup at [facility]/pharmacy #207 Unchanged Clonidine (cloNIDine 0.1 mg oral tablet) 1 tab(s) Oral Twice a day as needed for NEEDED FOR ANXIETY Unchanged Durable Medical Equipment (CPAP Machine) See instructions USE NIGHTLY TO TREAT CRISTINA Patient should either be started on AutoCPAP 7-20 cm H2O with compliance data followed or return for CPAP titration if required by insurance. ?? Unchanged Durable Medical Equipment (CPAP Equipment) See instructions MASK, TUBING, FILTERS, HEAD GEAR, CHIN STRAP, WATER CHAMBER DX. G47.33 ?? Unchanged EPINEPHrine (EPINEPHrine 0.1 mg injectable kit) 0.1 Milligram Intramuscular Once Unchanged Escitalopram (escitalopram 20 mg oral tablet) 1 tab(s) Oral Daily Unchanged Lamotrigine (lamotrigine 50 mg oral tablet, extended release) 3 tab(s) Oral Daily Unchanged Levonorgestrel (Liletta) Once Unchanged Trazodone (traZODone 50 mg oral tablet) 1 tab(s) Oral Daily at Bedtime Pharmacy Information [facility]/pharmacy #[id number]: [address], [place] [id number] [phone] ?? What How Much When Comments Stop Taking Pantoprazole (pantoprazole 20 mg oral delayed release tablet) 1 tab(s) Oral Daily Medications and Immunizations Administered Medications Given During Visit No medications given during this visit.?? Allergies (NKA means No Known Allergies) Other Environmental Allergy??(nasal symptoms, trees mold dust grasses) Education Materials Below is the list of Educational Leaflet Providered with your Visit summary. [employer] microcaps Ignite Patient Education - Health Screening Guidelines,??Women Ages 18 to 39?? Common Emergency Awareness Tips IS IT A STROKE? Act FAST and Check for these signs: FACE Does the face look uneven? ARM Does one arm drift down? SPEECH Does their speech sound strange? TIME Call at any sign of stroke ?? Heart Attack Signs Chest discomfort: Most heart attacks involve discomfort in the center of the chest and lasts more than a few minutes, or goes away and comes back. It can feel like uncomfortable pressure, squeezing, fullness or pain. Discomfort in upper body: Symptoms can include pain or discomfort in one or both arms, back, neck, jaw or stomach. Shortness of breath: With or without discomfort. Other signs: Breaking out in a cold sweat, nausea, or lightheaded. Remember, MINUTES DO MATTER. If you experience any of these heart attack warning signs, call to get immediate medical attention! ?? Smoking can increase your chances of developing chronic health problems and can cause harmful effects to other family members in your house. If you smoke, you are strongly encouraged to quit. Please call [employer] [facility] at [phone] or [phone] ([phone]) or log in to [email or web address] for referrals to smoking cessation programs. ?? The National Suicide Prevention Hotline is available 06/03 if you or someone you know needs to find a reason to keep living. By calling 6-690-450-talk (3051) you'll be connected to a skilled, trained counselor at a crisis center in your area. [facility] Health Portal You can view and manage your care through the patient portal or by using a health care altaf of your choosing. [facility] is a website that allows you to securely view your medical information including your hospital discharge summary, office visit summaries, medications and follow-up visits. You can also request appointments, renew medications, and request access to your medical information using a health care altaf of your choosing, or just ask a question. You can enroll at [email or web address] or register during your next office visit. [facility], in keeping with [facility] guidance, no longer requires face masks for staff, patientsor visitors in most situations. Similiar to time spent indoors at other locations, there is the chance that you were exposed to repiratory viruses during your time with us (such as flu or COVID-19). If you develop symptoms concerning for a viral respiratory infection, please seek testing (and treatment if indicated) from your medical provider or home test kit. ?? Disclaimer: The information provided is of a general nature and is intended to be used in conjunction with the recommendations and advice of your health care practitioner. Every effort has been made to ensure that the information provided is accurate and complete at the time it is provided to you however, as your needs change, or, as new information becomes available, different or additional instructions may be required. ?? If you have questions, please consult with your primary care provider or pharmacist, as appropriate. This information is not intended to serve as substitution for assessment and evaluation by a qualified health care provider. If you do not have a primary care provider, you may find a [facility] provider by calling [facility] Link at [phone]. * Jamel TOLENTINO, Theresa O: PERFORM Event Display: Patient Education Leaflets Authored Date: [id number] Health Screening Guidelines,??Women Ages 18 to 39 ?? [address] Health Screening Guidelines,??Women Ages 18 to 39 Screening tests and health counseling are a gee part of managing your health. A screening test is done to find disorders or diseases in people who don't have any symptoms. Screening tests are not used to diagnose. They are used to find out if more testing is needed. The goal may be to find a disease early so it can be treated with more success. Or the goal may be to find a disease early so you can make lifestyle changes. You may need regular checkups to help you reduce your risk of disease. Below are guidelines for women ages 18 to 39. Guidelines for some conditions can vary by expert group depending on age, risk, and other factors. Talk with your healthcare provider. Make sure you???[id number] on what you need. ?? Screening Who needs it How often Alcohol misuse All adults age 18 and older At routine exams Blood pressure All adults age 18 and older Once a year if your blood pressure is normal. Normal blood pressure is less than 120/80 mm Hg. If your blood pressure is higher than this, follow the advice of your healthcare provider. Breast cancer All women in this age group should talk with their healthcare provider about a clinical breast exam(CBE) and when to report changes in how your breasts feel or look. This is called breast self-awareness. Clinical breast exam every 3 years, or as advised. Cervical cancer There are 2 screening tests to look for cervical cancer, a Pap test and an HPV test. Guidelines vary depending on expert group. The [employer] (ACOG) advises starting screeningat age 21. Screening varies depending on your age and risk. Talk with your healthcare provider. ACOG advises women who are 21 to 29 to have a Pap test every 3 years. Women ages 25 to 29 may have only HPV testing, but ACOG prefers Pap tests. [employer] advises HPV testing starting at age 25, if you are at average risk. Talk with your provider about your risk. Women ages 30 to 65 have more options. They may have a Pap and HPV test every 5 years. Or they can have only a Pap test every 3 years or only an HPV test every 5 years. Chlamydia Women who are sexually active. This includes those who are or who are: ??? Age 24 or younger ??? Age 25 or older at higher risk for infection ?? At routine yearly exams If , during early care visit. Repeat in third trimester for women at higher risk. Depression All women in this age group Regularly, which may be at routine exams Diabetes mellitus, type 2 Women with no symptoms who are overweight or obese and have 1 or more other risk factors for diabetes At least every 3 years starting at age 35. Testing in after the 24th week unless higher risk factors are present.?? Gonorrhea Women who are sexually active. This includes those who are or who are: ??? Age 24 or younger ??? Age 25 or older at higher risk for infection ?? At routine yearly exams Hepatitis C All adults age 18 and older At least once HIV All women Talk with your healthcare provider. The CDC recommends testing at least once for all people betweenage 13 and 64. For others at risk, testing may be advised yearly. Obesity All women in this age group At routine exams Syphilis Women who are at higher risk for infection. Talk with your healthcare provider. Depends on risk and status. All people will be screened during their first visit. Non- women will be screened if at increased risk. Tuberculosis Women who are at higher risk for infection. Talk with your healthcare provider. Depends on risk. Talk with your healthcare provider. Vision All women in this age group At least every 2 years for those at low risk. Those at increased risk may be advised to be tested yearly. Health counseling Who needs it How often BRCA gene mutation testing for breast and ovarian cancer risk Women at higher risk for a gene mutation When your risk is known Breast cancer and chemoprevention Women at high risk for breast cancer When your risk is known Diet and exercise Women who are overweight or obese When diagnosed, and then at routine exams Intimate partner violence All women in this age group Regularly, which may be at routine exams or by situation Sexually transmitted infection (STI) prevention Women who are sexually active At routine exams Skin cancer Women with pale skin At routine exams Use of tobacco and the health effects it can cause All women in this age group Regularly at routine visits Last Reviewed Date: 2023 ?? 9197-0465 The [employer]. All rights reserved. This information is not intended as a substitute for professional medical care. Always follow your healthcare professional's instructions. ?? Patient Care team information Care Team Personnel Name: Lilliana Carroll NP Position: [facility] PCO Associate Professional Member Role: PCP Address: Address: [address] [place] [address]- Care Team Related Persons Name: KAILEE COTTON Address: home [address] [place] [address] Name: KODI ORDOÑEZ Address: home [address] [address] Name: MUKUL FREEMAN Address: home [address] [place] [address] Name: JUDY FREEMAN Address: home [address] [place] [address]
--- OUTSIDE RECORDS SUMMARY | 2024-02-21 10:46 | XMS_ITS | Continuity of Care Document ---
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 Role Phone Lilliana Carroll NP Primary Care Physician Encounter [facility] Date(s): 12/29/23 - 01/28/24 [facility] Adult [address] [place] [address]- Allergies, Adverse Reactions, Alerts Substance Reaction Severity [...] Re corded 1Result Comment: regular dose [facility] [id number] 2Result Comment: [facility] [id number] 3Result Comment: [facility] [id number] Medications CeleBREX 100 mg oral capsule 1 capsule = 100 mg, By Mouth, 2 times a day, PRN Pain , Moderate, contents of capsule may be mixed with soft foods such as applesauce, # 28 capsule, 0 Refills, Maintenance, 12/21/23 11:36:00 EDT, Capsule, [facility]/pharmacy #[id number], Partial fill upon patient... Start Date: 12/21/23 Stop Date: 01/04/24 Status: Ordered cloNIDine 0.1 mg oral tablet 1, tablet, By Mouth, 2 times a day, PRN, # 60 tablet, Refills 0, Tot. Refills 0, Maintenance, NEEDED FOR ANXIETY, 12/09/22 7:36:00 EDT, Route to Pharmacy Electronically, [facility]/pharmacy #[id number], 158.2,cm, 12/07/22 9:55:00 EDT, Height, [...] Refills, Soft Stop, 12/21/23 11:46:00 EDT, Tablet, [facility]/pharmacy #[id number], Partial fill [...] tablet, 1 Refills, Maintenance, 09/20/22 7:38:00 EST, [facility], 158.2, cm, 08/01/22 12:12:00 EST, Height, 95.45, kg, 01/07/22 10:11:00 EDT, Dry Weight Start Date: 09/20/22 Status: Ordered lamotrigine 50 mg oral tablet, extended release 3 tablet, By Mouth, Daily, # 270 tablet, 1 Refills, Maintenance, 01/18/23 18:04:00 EDT, [facility], 158.2, cm, 01/03/23 9:16:00 EDT, Height, 95.45, kg, 01/07/22 10:11:00 EDT, Dry Weight Start Date: 01/18/23 Status: Ordered Liletta Once, 0 Refills, Maintenance, 01/23/20 10:50:00 EDT Start Date: 01/23/20 Status: Ordered traZODone 50 mg oral tablet 1, tablet, By Mouth, Daily at bedtime, # 90 tablet, Refills 1, Maintenance, 01/25/23 19:08:00 EDT, Route to Pharmacy Electronically, [facility], 158.2, cm, 01/03/23 9:16:00 EDT, Height, 95.45, [...] Team Personnel Name: Lilliana Carroll NP Position: [facility] PCO Associate Professional Member Role: PCP Address: Address: [address] [place] [address]- Care Team Related Persons Name: KAILEE COTTON Address: home [address] [place] [address] Name: KODI ORDOÑEZ Address: home [address] [address] Name: MUKUL FREEMAN Address: home [address] [place] [address] Name: JUDY FREEMAN Address: home [address] [place] [address]
== END 2024-02-21 10:59 | disposition home or self-care (01) ==
LOC: HO.HBS 10:40
PROVIDERS: PCP Nurse Practitioner Family; Visit Provider Physician Assistant Surgical
DX: E66.3 Overweight (principal); Z68.28 Body mass index [BMI] 28.0-28.9, adult; Z90.3 Acquired absence of stomach [part of]; Z98.84 Bariatric surgery status
CPT/HCPCS: 99024

== ENCOUNTER → 2024-02-21 10:40 | Outpatient (BNVA) | payer OTHER, SELFPAY | PROVIDERS: PCP Nurse Practitioner Family; Visit Provider Physician Assistant Surgical ==

== ENCOUNTER 2024-02-23 11:01 | Outpatient (REF) | payer OTHER, SELFPAY ==
[2024-02-23 11:27] LABS: MANUAL DIFF FLAG NO
[2024-02-23 11:57] LABS: Basophils Percent Auto 0.6 % (0-2); Eosinophils Absolute Auto 0.3 X10*3/uL (0.0-0.4); Eosinophils Percent Auto 5.3 % (0-4); Hematocrit 41.8 % (37.0-47.0); Hemoglobin 13.8 g/dl (12.0-16.0); Imm Gran Abs Auto 0.01 X10*3/uL (0.00-0.03); Imm Gran Pct Auto 0.2 % (0.0-0.4); Lymphocytes Absolute Auto 1.1 X10*3/uL (1.2-4.9); Lymphocytes Percent Auto 22.6 % (20-40); Mean Corpuscular Hemoglobin 30.5 pg (27.0-33.0); Mean Corpuscular Volume 92.3 fL (80.0-98.0); Mean Platelet Volume 10.8 fL (9.4-12.3); Monocytes Absolute Auto 0.4 X10*3/uL (0.1-1.2); Monocytes Percent Auto 7.9 % (2-11); Neutrophils Absolute Auto 3.1 x10*3/uL (2.0-8.3); Neutrophils Percent Auto 63.4 % (45-73); Platelet Count 243 X10*3/uL (160-400); Red Blood Count 4.53 X10*6/uL (4.20-5.50); Red Cell Distribution Width 12.4 % (11.0-16.0); White Blood Count 4.9 X10*3/uL (4.8-10.8)
[2024-02-23 12:04] LABS: Estimated Average Glucose 91 mg/dL; Hemoglobin A1C 109.4872 umol/L; Hemoglobin A1c % 4.8 % (<6.0)
[2024-02-23 12:50] LABS: Alanine Aminotransferase 17 U/L (0-31); Albumin Level 4.4 g/dL (3.5-5.0); Alkaline Phosphatase 74 U/L (39-117); Anion Gap 11 (12-20); Aspartate Amino Transferase 16 U/L (5-31); Bilirubin Total 1.2 mg/dL (0.0-1.0); Blood Urea Nitrogen 8 mg/dL (9-16); C Reactive Protein 0.22 mg/dL (< or = 0.50); Calcium 9.9 mg/dL (8.4-10.2); Carbon Dioxide 28 mmol/L (22-29); Chloride 107 mmol/L (96-108); Cholesterol 177 mg/dL (<200); Estimated Glomerular Filt Rate > 60; Glucose Random 89 mg/dL (60-115); HDL Cholesterol 55 mg/dL (>40); Iron 131 mcg/dL (30-160); LDL Cholesterol Calculated 107 mg/dL (<100); Percent Iron Saturation 55 % (15-50); Potassium 5.1 mmol/L (3.3-5.1); Sodium 141 mmol/L (135-145); Total Iron Binding Capacity 238 mcg/dL (228-428); Total Protein 7.1 g/dL (6.5-8.0); Triglycerides 78 mg/dL (<150); Unsaturated Iron Binding 107 ug/dL
[2024-02-23 12:54] LABS: Ferritin 189 ng/mL (10-122); Insulin 5 uU/mL (2-29); TSH reflex Free T4 0.51 uIU/mL (0.32-4.0); Vitamin D 25-OH Total 70.3 ng/mL (>30)
[2024-02-23 13:09] LABS: Folate 7.9 ng/mL (> or = 4.0); Vitamin B12 647 pg/mL (200-900)
[2024-02-27 16:47] LABS: Zinc 61 mcg/dL (60-130)
[2024-02-28 03:24] LABS: Vitamin A 42 mcg/dL (38-98)
[2024-02-29 05:59] LABS: Vitamin B1 6 nmol/L (8-30)
== END 2024-02-23 11:02 | disposition home or self-care (01) ==
LOC: HO.LAB 11:01
PROVIDERS: Visit Provider Physician Assistant Surgical
DX: Z90.49 Acquired absence of other specified parts of digestive tract (principal)
CPT/HCPCS: 36415; 80053; 80061; 82306; 82607; 82728; 82746; 83036; 83525; 83540; 84425; 84443; 84590; 84630; 85025; 86140

== ENCOUNTER 2024-06-06 10:54 | Outpatient (AMB) | payer OTHER, SELFPAY ==
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
[2024-06-06 11:14] VITALS: BP 95/51; PULSE 69; TEMP 36.7; O2SAT 98; BMI 27.5
== END 2024-06-06 11:38 | disposition home or self-care (01) ==
PROVIDERS: PCP Nurse Practitioner Family; Visit Provider Physician Assistant Surgical
DX: E66.3 Overweight (principal); Z68.27 Body mass index [BMI] 27.0-27.9, adult; Z90.3 Acquired absence of stomach [part of]; Z98.84 Bariatric surgery status
CPT/HCPCS: 99214; G2211

== ENCOUNTER → 2024-06-06 10:54 | Outpatient (BNVA) | payer OTHER, SELFPAY | PROVIDERS: PCP Nurse Practitioner Family; Visit Provider Physician Assistant Surgical | DX: E66.3 Overweight (principal); R11.0 Nausea; Z98.84 Bariatric surgery status | CPT/HCPCS: 99212 ==

== ENCOUNTER 2024-06-22 20:05 | Emergency (ER) | payer OTHER, SELFPAY ==
[2024-06-22 20:19] VITALS: BP 115/76; PULSE 78; RESP 14; TEMP 36.2; O2SAT 100; BMI 28.9
[2024-06-22 20:35] LABS: MANUAL DIFF FLAG NO
[2024-06-22 20:36] LABS: Basophils Percent Auto 0.1 % (0-2); Hematocrit 40.4 % (37.0-47.0); Hemoglobin 13.9 g/dl (12.0-16.0); Imm Gran Abs Auto 0.04 X10*3/uL (0.00-0.03); Imm Gran Pct Auto 0.5 % (0.0-0.4); Lymphocytes Absolute Auto 1.5 X10*3/uL (1.2-4.9); Lymphocytes Percent Auto 19.7 % (20-40); Mean Corpuscular HGB Conc 34.4 g/dl (31.0-35.0); Mean Corpuscular Hemoglobin 30.6 pg (27.0-33.0); Mean Platelet Volume 9.8 fL (9.4-12.3); Monocytes Absolute Auto 0.6 X10*3/uL (0.1-1.2); Monocytes Percent Auto 7.8 % (2-11); Neutrophils Absolute Auto 5.5 x10*3/uL (2.0-8.3); Neutrophils Percent Auto 71.9 % (45-73); Platelet Count 195 X10*3/uL (160-400); Red Blood Count 4.54 X10*6/uL (4.20-5.50); Red Cell Distribution Width 12.6 % (11.0-16.0); White Blood Count 7.7 X10*3/uL (4.8-10.8)
[2024-06-22 20:51] LABS: Anion Gap 13 (12-20); Blood Urea Nitrogen 5 mg/dL (9-16); Carbon Dioxide 27 mmol/L (22-29); Chloride 106 mmol/L (96-108); Potassium 3.8 mmol/L (3.3-5.1); Sodium 142 mmol/L (135-145)
[2024-06-22 20:52] LABS: Alanine Aminotransferase 85 U/L (0-31); Albumin Level 4.5 g/dL (3.5-5.0); Alkaline Phosphatase 79 U/L (39-117); Aspartate Amino Transferase 99 U/L (5-31); Bilirubin Total 0.7 mg/dL (0.0-1.0); Calcium 8.6 mg/dL (8.4-10.2); Creatinine Clr Calc Pharmacy 87.2; Estimated Glomerular Filt Rate > 60; Glucose Random 92 mg/dL (60-115); Lipase 23 U/L (8-78); Total Protein 7.4 g/dL (6.5-8.0)
[2024-06-22 22:42] VITALS: BP 104/67; PULSE 75; RESP 18; O2SAT 98
--- NOTE | 2024-06-22 23:38 | ED_ITS ---
HPI - Abdominal Pain General Chief Complaint: Abdominal Pain Stated Complaint: Abd/rectal pain Time Seen by Provider: 06/22/24 23:36 Source: patient Mode of arrival: ambulatory Limitations: no limitations History of Present Illness ED Provider: sussy GONZALEZ narrative: Patient is status post gastric sleeve and cholecystectomy with history of hemorrhoids comes here for rectal bleeding and rectal pain started yesterday with small amount of fresh blood no melena no vomiting patient feel cramping pain in the abdomen Related Data Home Medications ?Medication ?Instructions ?Recorded ?Confirmed escitalopram oxalate 20 mg tablet 20 mg PO DAILY 03/10/23 06/06/24 trazodone 50 mg tablet 50 mg PO BEDTIME 03/10/23 06/06/24 lamotrigine 200 mg tablet 250 mg PO DAILY 06/06/24 06/06/24 (Lamictal) Previous Rx's ?Medication ?Instructions ?Recorded docusate sodium 100 mg capsule 100 mg PO DAILY #90 caps 09/06/23 (Colace) tramadol 50 mg tablet 50 mg PO BID PRN pain #10 tabs 11/24/23 polyethylene glycol 3350 17 17 g PO DAILY #238 grams 12/25/23 gram/dose oral powder (Miralax) cholecalciferol (vitamin D3) 125 125 mcg PO DAILY #90 caps 05/20/24 mcg (5,000 unit) capsule ondansetron 4 mg disintegrating 4 mg PO Q12H for nausea/vomiting 06/06/24 tablet #20 tabs thiamine HCl (vitamin B1) 100 mg 100 mg PO DAILY #90 tabs 06/06/24 tablet hydrocortisone acetate 25 mg 25 mg DE BID #12 ea 06/22/24 rectal suppository (Anusol-HC) Allergies Allergy/AdvReac Type Severity Reaction Status Date / Time mold Allergy Unknown Verified 06/22/24 20:21 tree and shrub pollen Allergy Unknown Verified 06/22/24 20:21 Review of Systems Review of Systems Yes all other systems are reviewed and are negative PMFSH Past Medical History Medical History BMI 36.0-36.9,adult Constipation BMI 37.0-37.9, adult Obesity IUD (intrauterine device) in place Environmental allergies Insomnia Sciatica Bipolar 1 disorder Anxiety Depression GERD (gastroesophageal reflux disease) Sleep apnea treated with continuous positive airway pressure (CPAP) Morbid obesity Surgical History Hx of laparoscopic adjustable gastric banding Hx of wisdom tooth extraction History of surgery on arm Hx of section Social History Social History Household Members: None Housing: Apartment 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 (children, family to assist post-op) Do you presently have visiting nurse or other home services: No Alcohol intake: current Alcohol intake frequency: holidays/special occasions only Patient Tobacco Use Status: Never used Tobacco Advance Directives: No Advance Directives Information Provided: Yes Do you have a plan to hurt others: No Plan service: No Physical Exam ED Vital Signs: Vital Signs - 24 hr 06/22/24 20:19 06/22/24 22:42 06/22/24 23:44 Temperature 97.1 F 97.7 F Pulse Rate 78 75 72 Respiratory Rate 14 18 16 Blood Pressure 115/76 104/67 106/63 Pulse Oximetry 100 98 97 Oxygen Delivery Method Room Air Room Air Room Air 06/23/24 00:29 Temperature 97.7 F Pulse Rate 77 Respiratory Rate 16 Blood Pressure 106/63 Pulse Oximetry 97 Oxygen Delivery Method BMI result Body Mass Index 28.9 Appearance: Alert. Oriented X3. No acute distress. Eyes: No pallor or ENT: Pharynx normal. Oral Mucosa moist Neck: Normal inspection. Neck supple. CVS: Normal heart rate and rhythm. Pulses normal. Respiratory: No respiratory distress. Equal air entry bilateral, no wheezing/rales/rhonchi Abdomen: Soft and nontender. Bowel sounds are present, no mass palpable, no CVA tenderness rectal: Internal nonbleeding hemorrhoids with mild tenderness Skin: Skin warm and dry. Normal skin color. Normal skin turgor. Extremities: No lower extremity edema. No calf tenderness Neuro: Oriented X 3. Medical Decision Making Medical Decision Making MDM Narrative: Patient with hemorrhoidal bleed advised to use Anusol H&H stable Lab Data MDM Lab Attestation statement: I reviewed the patient's lab results. 06/22/24 20:31 06/22/24 20:31 Labs: Lab Results 06/22/24 Range/Units 20:31 WBC 7.7 (4.8-10.8) X10*3/uL RBC 4.54 (4.20-5.50) X10*6/uL Hgb 13.9 (12.0-16.0) g/dl Hct 40.4 (37.0-47.0) % MCV 89.0 (80.0-98.0) fL MCH 30.6 (27.0-33.0) pg MCHC 34.4 (31.0-35.0) g/dl RDW 12.6 (11.0-16.0) % Plt Count 195 (160-400) X10*3/uL MPV 9.8 (9.4-12.3) fL Immature Gran % (Auto) 0.5 H (0.0-0.4) % Neut % (Auto) 71.9 (45-73) % Lymph % (Auto) 19.7 L (20-40) % [place] % (Auto) 7.8 (2-11) % Eos % (Auto) 0.0 (0-4) % Baso % (Auto) 0.1 (0-2) % Lymph # (Auto) 1.5 (1.2-4.9) X10*3/uL [place] # (Auto) 0.6 (0.1-1.2) X10*3/uL Eos # (Auto) 0.0 (0.0-0.4) X10*3/uL Baso # (Auto) 0.0 (0.0-0.2) X10*3/uL Abs Immat Gran (auto) 0.04 H (0.00-0.03) X10*3/uL Absolute Neuts (auto) 5.5 (2.0-8.3) x10*3/uL Absolute Nucleated RBC 0.000 (0.0-0.012) X10*3/uL Nucleated RBC % (auto) 0.0 (0.0-0.2) /100WBC Sodium 142 (135-145) mmol/L Potassium 3.8 D (3.3-5.1) mmol/L Chloride 106 (96-108) mmol/L Carbon Dioxide 27 (22-29) mmol/L Anion Gap 13 (12-20) BUN 5 L (9-16) mg/dL Creatinine 0.85 (0.5-1.4) mg/dL Estim Creat Clear Calc 87.2 Estimated GFR > 60 Random Glucose 92 (60-115) mg/dL Calcium 8.6 D (8.4-10.2) mg/dL Total Bilirubin 0.7 (0.0-1.0) mg/dL AST 99 H (5-31) U/L ALT 85 H (0-31) U/L Alkaline Phosphatase 79 (39-117) U/L Total Protein 7.4 (6.5-8.0) g/dL Albumin 4.5 (3.5-5.0) g/dL Lipase 23 (8-78) U/L Discharge Plan Discharge Clinical Impression: Hemorrhoids, internal, with bleeding Patient Disposition: Home, Self-Care Instructions: Hemorrhoids (ED) Additional Instructions: Avoid constipation/straining Suppository twice a day as prescribed Follow the PCP if bleeding continue Prescriptions: New hydrocortisone acetate [Anusol-HC] 25 mg suppository 25 mg DE BID Qty: 12 0RF No Action docusate sodium [Colace] 100 mg capsule 100 mg PO DAILY Qty: 90 0RF tramadol 50 mg tablet 50 mg PO BID PRN (Reason: pain) Qty: 10 0RF cholecalciferol (vitamin D3) 125 mcg (5,000 unit) capsule 125 mcg PO DAILY Qty: 90 3RF escitalopram oxalate 20 mg tablet 20 mg PO DAILY trazodone 50 mg tablet 50 mg PO BEDTIME lamotrigine [Lamictal] 200 mg tablet 250 mg PO DAILY polyethylene glycol 3350 [Miralax] 17 gram/dose powder 17 g PO DAILY Qty: 238 3RF ondansetron 4 mg tablet,disintegrating 4 mg PO Q12H Qty: 20 2RF thiamine HCl (vitamin B1) 100 mg tablet 100 mg PO DAILY Qty: 90 3RF Stand Alone Forms: Work/School Release Interventions: ED Discharge Assessment Last Done: 06/23/24 00:29 Discharge Date/Time: 06/23/24 00:30 Print Language: Pashto
[2024-06-22 23:44] VITALS: BP 106/63; PULSE 72; RESP 16; TEMP 36.5; O2SAT 97
[2024-06-23 00:29] VITALS: BP 106/63; PULSE 77; RESP 16; TEMP 36.5; O2SAT 97
== END 2024-06-23 00:30 | disposition home or self-care (01) ==
PROVIDERS: Emergency Provider Internal Medicine; PCP Nurse Practitioner Family
DX: K64.8 Other hemorrhoids (principal); K62.89 Other specified diseases of anus and rectum; Z79.899 Other long term (current) drug therapy
CPT/HCPCS: 36415; 80053; 83690; 85025; 99283

== ENCOUNTER 2025-05-01 08:52 | Outpatient (AMB) | payer BC, SELFPAY ==
[2025-05-01 08:53] VITALS: BP 100/62; PULSE 83; TEMP 36.8; O2SAT 100; BMI 28.5
--- NOTE | 2025-05-01 08:53 | AM.OFFWIN_ITS ---
Intake Vital Signs 05/01/25 08:53 05/01/25 09:00 Height 5 ft 2 in Weight 156 lb BMI 28.5 BP 100/62 112/72 Blood Pressure Location Lt brachial Rt brachial Position Sitting Sitting Pulse 83 Pulse Source Pulse Oximeter Temp 98.2 F Temp Source Oral Pulse Oximetry (%) 100 Oxygen Delivery Method Room Air Intake Visit Reasons: EP almost passed out at work, bp 137/83 Intake Note: pt presents with concern for near syncope episode at work, BP at work was 137/83. mild lightheaded, mild dizziness. Patient Tobacco Use Status: Never used Tobacco Allergies mold Allergy (Verified 05/01/25 08:56) Unknown tree and shrub pollen Allergy (Verified 05/01/25 08:56) Unknown HPI HPI Comments History of Present Illness Details 34 y/o Female patient who presents to [facility] walk in clinic with c/o near syncope episode at work this morning. Reports she was standing at work when she felt dizzy and felt like she was going to fall down/Pass out. This Morning she had a small Hot Pocket for Breakfast and reports drinking enough water. Denies Diarrhea, constipation, fevers, chills, nausea or vomiting. Her BP at Work was 137/83 - she always run Low. Sexually active with one Male partner - has IUD, Low chance of . [facility] Medical History (Updated 05/01/25 @ 09:48 by Irene Streeter NP) Postural dizziness with near syncope BMI 36.0-36.9,adult Constipation BMI 37.0-37.9, adult Obesity IUD (intrauterine device) in place Environmental allergies Insomnia Sciatica Bipolar 1 disorder Anxiety Depression GERD (gastroesophageal reflux disease) Sleep apnea treated with continuous positive airway pressure (CPAP) Morbid obesity Surgical History Hx of laparoscopic adjustable gastric banding Hx of wisdom tooth extraction History of surgery on arm Hx of section Social History Household Members: None Housing: Apartment 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: Yes (children, family to assist post-op) Do you presently have visiting nurse or other home services: No Alcohol intake: current Alcohol intake frequency: holidays/special occasions only Patient Tobacco Use Status: Never used Tobacco service: No Review of Systems Const All systems reviewed & are unremarkable except as noted in HPI and below Physical Exam Vital Signs: Last Vital Signs Temp 98.2 F 05/01/25 08:53 Pulse 83 05/01/25 08:53 BP 112/72 05/01/25 09:00 Pulse Ox 100 05/01/25 08:53 Oxygen Delivery Method Room Air 05/01/25 08:53 BMI result Body Mass Index 28.5 Const General: no acute distress Nutritional Appearance: well nourished Orientation/consciousness: patient oriented x3 HEENT Head: Yes normocephalic Ears: external ears normal and TM's normal bilaterally General nose exam: No nasal discharge present Face and sinus: Yes normal facial exam and Yes sinuses nontender Mouth: moist mucous membranes Throat: Yes uvula midline Resp Effort & Inspection: normal respiratory effort Auscultation: clear to auscultation bilaterally, no crackles, no rales, no rhonchi and no wheezes Cardio Rate: regular rate Rhythm: regular rhythm Heart sounds: S1 normal heart sound present and S2 normal heart sound present Neuro General: patient oriented x3, gait normal and moves all extremities Psych Speech and movement: Normal speech and movement present Assessment & Plan Assessment & Plan (1) Postural dizziness with near syncope: Code(s): R42 - Dizziness and giddiness; R55 - Syncope and collapse Plan: No clear Etiology Lungs CTA, Vital signs WNL Advised to hydrate well with plenty of fluids. Advised to eat some Food RTC if symptoms progress. Coding Level of Care Code Est Pt Level 4 (46846) Diagnoses Postural dizziness with near syncope R42; R55 Time Spent (min) 20
[2025-05-01 09:00] VITALS: BP 112/72
--- OUTSIDE RECORDS SUMMARY | 2025-05-01 10:07 | XMS_ITS | Clinical Summary ---
Author Organization [facility] ity Address [address] [place] [address] Care Team Providers Care Optician Manager Name Role Phone Unavailable Primary Care Provider Unavailabl e Medical History Medical History Date Comments Wheezing DX:Wheezing Closed fracture of olecranon process of ulna 12/26/1997 DX:Closed fracture of olecra non process of ulna Scabies 04/19/1994 DX:Scabies Family circumstances NEC 3 DX:Fami ly circumstances NEC; COMMENT: DSS inquiry-active 51A- sibs sick and to school nurse often Unspecified otitis media DX:Unsp ecified otitis media; COMMENT: , , Historical Medical DX age 11yr DX:MENARCH E INCEPTION OF Family history of thyroid disorder 08/22/2012 DX:Family history of thyroid disorder Family History Medical History Relation Name Comments Other: poly cystic Kidney disease Aunt 1 Mat side Thyroid disease Aunt 2 Mat side Allergies Mother Depression Mother hx of Other: Anxiety Mother Other: seizure's Mother started 2 y rs ago Sleep disorder Mother sleep apnea Asthma Sister 1 Blindness Neg Hx Breast cancer Neg Hx Cataracts Neg Hx Glaucoma Neg Hx Macular degeneration Neg Hx Strabismus Neg Hx Relation Name Status Comments Aunt 1 Aunt 2 Father Alive 1972 not involv ed Mother Alive Berna Mckeon 1973 Sister 1 Sister 2 Alive 1/2 sister Social History Tobacco Use Types Packs/Day Years Used Date Smoking Tobacco: Never Smokeless Tobacco: Never Alcohol Use Standard Drinks/Week Comments No 0 (1 standard drink = 0.6 oz pur e alcohol) Comments Unknown Sex and Gender Information Value Date Recorded Sex Assigned at Not on file Legal Sex Female 5:04 AM EST Gender Identity Not on file Sexual Orientation Not on file Obstetrics History Plan of Treatment Health Maintenance Due Date Last Done Comments Cervical Cancer Screening: Pap Smear 11/11/2011 DTaP,Tdap,and Td Vaccines (9 - Td or Tdap) 06/24/2023 06/24/2013, 10/30/2007, 04/16/2003, Additional history exists Depression Screening 08/14/2024 COVID-19 Vaccine ( - 2023- season) 2025 Influenza Vaccine (#1) 2025 07/15/2011 RSV Immunization Adult Patients (1 - 1-dose 75+ series) 2065 HIB Vaccines Completed 05/21/1992, 08/14, 03/28/1991, Additional history exists Hepatitis B Vaccines Completed 10/26/1995, 05/25/1995, 04/25/1995 MMR Vaccines Completed 12/27/1995, 05/21/1992 IPV Vaccines Completed 01/03/1996, 03/1992, 05/21/1992, Additional history exists HPV Vaccines Completed 10/30/2007, 12/12, 10/25/2006 Meningococcal ACWY Vaccine Completed 10/30/2007 Varicella Vaccines Completed 10/30/2007, 12/27/1995 Hepatitis A Vaccines Aged Out No long er eligible based on patient's age to complete this topic Meningococcal B Vaccine Aged Out No l onger eligible based on patient's age to complete this topic Pneumococcal Vaccine: Pediatrics (0 to 5 Years) and At-Risk Patients (6 to 49 Years) Aged Out No longer eligible based on patient's age to complete this topic RSV Immunization Patients Under 20 months Aged Out No longer eligible based on patient's age to complete this topic
== END 2025-05-01 09:20 | disposition home or self-care (01) ==
PROVIDERS: PCP Nurse Practitioner Family; Visit Provider Nurse Practitioner Family
DX: R42 Dizziness and giddiness (principal); R55 Syncope and collapse

== ENCOUNTER 2025-07-19 09:47 | Emergency (ER) | payer BC, SELFPAY ==
--- OUTSIDE RECORDS SUMMARY | 2025-07-14 23:59 | XMS_ITS | Continuity of Care Document ---
Author Organization [facility] Adult Address [address] [place] [address]- Care Team Providers Care Inbound Ingredient Logistics Specialist Name Role Phone Lilliana Carroll NP Primary Care Physician [phone] [id number]): [facility]07[facility]25 - 07/14/25 [facility] Adult [address] [place] [id number] Encounter Diagnosis Tachycardia(Discharge Diagnosis) - 07/07/25 Attending Physician: Lilliana Carroll NP Encounter Type: Office Visit Allergies, Adverse Reactions, Alerts Substance Criticality Severity Reaction Reaction Severity Status Other Environmental Allergy nasal symptoms trees mold dust grasses Active Functional Status Functional Status Assessment Assessment Assessment Component Result Effecti ve Date Disability status [CUBS] I'm Thriving - no identified disability 07/07/25 Do you have serious difficulty walking or climbing stairs No 07/07/25 Do you need any rajni tional assistance or accommodations during your visit No 07/07/25 Do you have difficul ty dressing or bathing No 07/07/25 Difficulty Reading O r Writing No 07/07/25 Because of a physica l, mental, or emotional condition, do you have serious difficulty concentrating, remembering, or making decisions No 07/07/25 Because of a physica l, mental, or emotional condition, do you have difficulty doing errands alone such as visiting a physician's office or shopping No 07/07/25 Are you deaf, or do you have serious difficulty hearing No 07/07/25 Difficulty communica ting in usual language No 07/07/25 Are you blind, or do you have serious difficulty seeing, even when wearing glasses Yes 07/07/25 Immunizations Given and Recorded Vaccine Date Status Refusal Reason influenza virus vaccine, inactivated 1 06/10/24 Gi rodrigo influenza virus vaccine, inactivated 08/23/23 Elvin rded influenza virus vaccine, inactivated 09/02/21 Elvin rded influenza virus vaccine, inactivated 07/31/18 Give n influenza virus vaccine, inactivated 2 07/19/17 Gi rodrigo influenza virus vaccine, inactivated 06/28/13 Elvin rded influenza virus vaccine, inactivated 07/15/11 Elvin rded SARS-CoV-2 (COVID-19) mRNA BNT-162b2 vac 07/06/21 Given SARS-CoV-2 (COVID-19) mRNA BNT-162b2 vac 11/24/20 Recorded SARS-CoV-2 (COVID-19) mRNA BNT-162b2 vac 10/31/20 Recorded hepatitis B adult vaccine 3 06/22/21 Given Influenza Virus Vaccine (oldterm) 05/28/20 Recorde d tetanus/diphtheria/pertussis, acel(Tdap) 4 01/23/20 Given tetanus/diphtheria/pertussis, acel(Tdap) 06/24/13 Recorded tetanus/diphtheria/pertussis, [...] (HbOC) vaccine 01/26/91 Re corded 1Result Comment: [facility]# [id number] 2Result Comment: regular dose [facility] [id number] 3Result Comment: [facility] [id number] 4Result Comment: [facility] [id number] Medications chlorhexidine 4% topical soap 1 applicator, Topically, Every Monday, Monday and Monday, # 120 mL, 0 Refills, Soft Stop, 05/27/25 11:36:00 AM EDT, [facility]/pharmacy #[id number], Partial fill upon patient request if the prescription is fora schedule II opioid drug., 1 applicator Topically Every Monday, Monday and Monday,x30 days, 158.7, cm, 05/27/25 11:18:00 EDT, Height, 71.3, kg, 08/05/24 14:58:00 EST, Dry Weight Start Date: 05/27/25 Stop Date: 06/26/25 Status: Ordered Medication Dispense Status: Completed Quantity: 120.0 Unit: mL Total Allowed Fills: 1 Fills Dispensed: 0 Indications: Acne vulgaris; clindamycin 1% topical foam 1 application, Topically, Daily, # 50 Gm, 0 Refills, Maintenance, 05/27/25 11:36:00 AM EDT, Foam, [facility]/pharmacy #207, Partial fill upon patient request if the prescription is for a schedule II opioiddrug., 1 application Topically Daily,x30 days, 158.7, cm, 05/27/25 11:18:00 EDT, Height, 71.3, kg, 08/05/24 14:58:00 EST, Dry Weight Start Date: 05/27/25 Stop Date: 06/26/25 Status: Ordered Medication Dispense Status: Completed Quantity: 50.0 Unit: g Total Allowed Fills: 1 Fills Dispensed: 0 Indications: Acne vulgaris; cloNIDine 0.1 mg oral tablet 1, tablet, By Mouth, 2 times a day, PRN, # 60 tablet, Refills 0, Tot. Refills 0, Maintenance, NEEDED FOR ANXIETY, 12/09/22 7:36:00 AM EDT, Route to Pharmacy Electronically, [facility]/pharmacy #207, 158.2, cm, 12/07/22 9:55:00 EDT, Height, 95.45, kg, 01/07/22 10:11:00 EDT, Dry Weight Start Date: 12/09/22 Status: Ordered Medication Dispense Status: Completed Quantity: 60.0 Unit: tablet Total Allowed Fills: 1 Fills Dispensed: 0 CPAP Machine See Instructions, # 1 each, Maintenance, USE NIGHTLY TO TREAT CRISTINA Patient should either be started on AutoCPAP 7-20 cm H2O with compliance data followed or return for CPAP titration if required by insurance., 03/27/23 1:21:00 PM EDT, Compound Start Date: 03/27/23 Status: Ordered Medication Dispense Status: Completed Quantity: 1.0 Unit: each Total Allowed Fills: 1 Fills Dispensed: 0 CPAP Equipment See Instructions, # 1 each, Refills 11, Tot. Refills 11, Maintenance, MASK, TUBING, FILTERS, HEAD GEAR, CHIN STRAP, WATER CHAMBER DX. G47.33, 03/27/23 1:20:00 PM EDT, Compound Start Date: 03/27/23 Status: Ordered Medication Dispense Status: Completed Quantity: 1.0 Unit: each Total Allowed Fills: 12 Fills Dispensed: 0 dexmethylphenidate 15 mg oral capsule, extended release 0 Refills, Maintenance, 05/27/25 11:46:00 AM EDT, Partial fill upon patient request if the prescription is for a schedule II opioid drug. Start Date: 05/27/25 Status: Ordered Medication Dispense Status: Completed Total Allowed Fills: 1 Fills Dispensed: 0 EPINEPHrine 0.1 mg injectable kit = 0.1 mg, Intramuscular, Once, 0 Refills, Maintenance, 01/07/22 9:57:00 AM EDT, Partial fill upon patient request if the prescription is for a schedule II opioid drug. Start Date: 01/07/22 Status: Ordered Medication Dispense Status: Completed Total Allowed Fills: 1 Fills Dispensed: 0 gabapentin 100 mg oral capsule 1, capsule, By Mouth, 3 times a day, # 90 capsule, Refills 0, Maintenance, 07/04/25 7:03:00 AM EST,Route to Pharmacy Electronically, [id number], 158.7, cm, 05/27/25 11:18:00 EDT, Height, 71.3, kg, 08/05/24 14:58:00 EST, Dry Weight Start Date: 07/04/25 Status: Ordered Medication Dispense Status: Completed Quantity: 90.0 Unit: capsule Total Allowed Fills: 1 Fills Dispensed: 0 lamotrigine 100 mg oral tablet Refills 0, Maintenance, 06/10/24 11:09:00 AM EDT, Partial fill upon patient request if the prescription is for a schedule II opioid drug. Start Date: 06/10/24 Status: Ordered Medication Dispense Status: Completed Total Allowed Fills: 1 Fills Dispensed: 0 lamotrigine 150 mg oral tablet 0 Refills, Maintenance, 06/10/24 11:09:00 AM EDT, Partial fill upon patient request if the prescription is for a schedule II opioid drug. Start Date: 06/10/24 Status: Ordered Medication Dispense Status: Completed Total Allowed Fills: 1 Fills Dispensed: 0 Liletta Once, 0 Refills, Maintenance, 01/23/20 10:50:00 AM EDT Start Date: 01/23/20 Status: Ordered Medication Dispense Status: Completed Total Allowed Fills: 1 Fills Dispensed: 0 traZODone 50 mg oral tablet 1, tablet, By Mouth, Daily at bedtime, # 90 tablet, Refills 1, Maintenance, 01/25/23 7:08:00 PM EDT,Route to Pharmacy Electronically, [id number], 158.2, cm, 01/03/23 9:16:00 EDT, Height, 95.45, kg, 01/07/22 10:11:00 EDT, Dry Weight Start Date: 01/25/23 Status: Ordered Medication Dispense Status: Completed Quantity: 90.0 Unit: tablet Total Allowed Fills: 1 Fills Dispensed: 0 venlafaxine 37.5 mg oral capsule, extended release 0 Refills, Maintenance, 07/07/25 11:04:00 AM EST, Partial fill upon patient request if the prescription is for a schedule II opioid drug. Start Date: 07/07/25 Status: Ordered Medication Dispense Status: Completed Total Allowed Fills: 1 Fills Dispensed: 0 venlafaxine 75 mg oral capsule, extended release 0 Refills, Maintenance, 07/07/25 11:04:00 AM EST, Partial fill upon patient request if the prescription is for a schedule II opioid drug. Start Date: 07/07/25 Status: Ordered Medication Dispense Status: Completed Total Allowed Fills: 1 Fills Dispensed: 0 Mental Status Mental Status Assessment Assessment Assessment Component Result Effecti ve Date Patient Health Questionnaire 2 item (PHQ-2) total score [Reported] 0 07/07/25 Problem List Condition Confirmation Course Effective Dates Status Health St [facility] Informant Functional constipation Confirmed Active Rash Confirmed Active GERD (gastroesophageal reflux disease) Confirmed Active LAFRED (generalized anxiety disorder) Confirmed Active CRISTINA on CPAP Confirmed Active Major depression, recurrent Confirmed Active Diagnosis Diagnosis Type Effective Dates Health Status [facility] Informant Tachycardia Discharge Diagnosis 07/07/25 Vital Signs Most recent to oldest [Reference Range]: 1 Height 158.7 cm (07/07/25 10:53 AM) Weight 68 kg (07/07/25 10:53 AM) Oxygen Saturation [94-100 %] 99 % (07/07/25 10:53 AM) Pulse Rate [55-90 bpm] 116 bpm *H* (07/07/25 10:53 AM) Body Mass Index [18.5-24.99 kg/m2] 27 kg /m2 *H* (07/07/25 10:53 AM) Blood Pressure [90-138/55-84 mm Hg] 90/6 4mm Hg (07/07/25 10:53 AM) Temperature [96.8-100.4 DegF] 98.8 DegF (07/07/25 10:53 AM) Mode of Delivery (Oxygen) Room air (07/07/25 10:53 AM) Blood pressure sites Arm, left (07/07/25 10:53 AM) Temperature Route Oral (07/07/25 10:53 AM) Weight Obtained Via Standing scale (07/07/25 10:53 AM) Social History Social History Type Response Smoking Status Never smoker entered on: 07/19/17 Sexual Orientation Self described orien tation: ; Straight or heterosexual Sex Sex Representation Female (finding) Note * Donita Sanchez: PERFORM Event Display: Patient Education/Instruction Authored Date: [id number] Ambulatory Adult Visit Summary [facility] [address] [place] [address] Name: NHI FREEMAN : 1990?? Visit: 07/07/2025 10:43?? Ambulatory Visit Instructions ?? Your Care Team Primary Care Provider Lilliana Carroll NP? This Visit Provider Lilliana Carroll NP Vitals Signs Temperature: 98.8 DegF Height: 158.7 cm Pulse Rate:??116 bpm??High Weight: 68 kg Systolic Blood Pressure: 90 mm Hg Body Mass Index:??27 kg/m2??High Diastolic Blood Pressure: 64 mm Hg Body surface area: 1.73 Oxygen Saturation: 99 % ?? What to do next Future Orders Beta 2 Glycoprotein 1 Ab - Routine, Once, 10/16/24 10:52:00 EST, Within 3 Days, [facility], Blood?? Anticardiolipin Ab IgG/IgM - Routine, Once, 10/16/24 10:52:00 EST, Within 3 Days, [facility], Blood?? Lupus Anticoagulant Coag Panel - Routine, Once, 10/16/24 10:52:00 EST, Within 3 Days, [facility], Blood?? Anti DNA Ab - Routine, Once, 10/16/24 10:54:00 EST, Within 3 Days, [facility], Blood?? Anticardiolipin Ab IgG/IgM - Routine, Once, 12/12/24 16:56:00 EDT, Within 3 Days, [facility], Blood?? Beta 2 Glycoprotein 1 Ab - Routine, Once, 12/12/24 16:56:00 EDT, Within 3 Days, [facility], Blood?? [facility] [place] [facility] [place] - Routine, Once, Lupus Anticoagulant Comprehensive, 12/12/24 16:56:00 EDT, Within 3 Days, [facility], OTHER?? Complete Urinalysis (Urinalysis Complete) - Routine, Once, 12/12/24 16:58:00 EDT, Within 3 Days, [facility], Urine?? Protein/Creatinine Ratio Urine (Urine Protein/Creatinine Ratio) - Routine, Once, 12/12/24 16:59:00 EDT, Within 3 Days, [facility], Urine?? Medications The list below reflects the information in our records and provided by you today along with any changes made during this visit. Please continue your medications until treatment is completed or stopped by your provider. If this is different from the information you have or there are other questions,please contact the prescribing provider. What How Much When Why Instructions Unchanged Chlorhexidine Topical (chlorhexidine 4% topical soap) 1 applicator Topically Monday, Monday and Monday Cystic acne Duration: 30 Days Ordering Physician: Lilliana Carroll NP Unchanged Cholecalciferol (Vitamin D3 50 mcg (2000 intl units) oral tablet, chewable) 1 tab(s) Oral Daily Unchanged Clindamycin Topical (clindamycin 1% topical foam) 1 altaf Topically Daily Cystic acne Duration: 30 Days Ordering Physician: Lilliana Carroll NP Unchanged Clonidine (cloNIDine 0.1 mg oral tablet) 1 tab(s) Oral Twice a day as needed for NEEDED FOR ANXIETY Ordering Physician: Rocio Barrera NP Unchanged Dexmethylphenidate (dexmethylphenidate 15 mg oral capsule, extended release) Unchanged Durable Medical Equipment (CPAP Machine) See instructions Special Instructions: USE NIGHTLY TO TREAT CRISTINA Patient should either be started on AutoCPAP 7-20 cm H2O with compliance data followed or return for CPAP titration if required by insurance. Ordering Physician: Karen Boykin ?? Unchanged Durable Medical Equipment (CPAP Equipment) See instructions Special Instructions: MASK, TUBING, FILTERS, HEAD GEAR, CHIN STRAP, WATER CHAMBER DX. G47.33 Ordering Physician: Karen Boykin ?? Unchanged EPINEPHrine (EPINEPHrine 0.1 mg injectable kit) 0.1 Milligram Intramuscular Once Unchanged Gabapentin (gabapentin 100 mg oral capsule) 1 capsule Oral 3 times a day Ordering Physician: Lilliana Carroll NP Unchanged Lamotrigine (lamotrigine 100 mg oral tablet) Unchanged Lamotrigine (lamotrigine 150 mg oral tablet) Unchanged Levonorgestrel (Liletta) Once Unchanged Thiamine (Vitamin B1) Daily Unchanged Trazodone (traZODone 50 mg oral tablet) 1 tab(s) Oral Daily at Bedtime Ordering Physician: Lilliana Carroll NP Unchanged Venlafaxine (venlafaxine 37.5 mg oral capsule, extended release) Unchanged Venlafaxine (venlafaxine 75 mg oral capsule, extended release) Medications and Immunizations Administered Medications Given During Visit No medications given during this visit.?? Allergies (NKA means No Known Allergies) Other Environmental Allergy??nasal symptoms, trees mold dust grasses Common Emergency Awareness Tips IS IT A [...] are strongly encouraged to quit. Please call [employer] at [phone] or [phone] ([phone]) or log in to [email or web address] for referrals to smoking cessation programs. ?? The National Suicide Prevention Hotline is available 06/03 if you or someone you know needs to find a reason to keep living. By calling 2-893-480-[employer] (4697) you'll be connected to a skilled, trained counselor at a crisis center in your area. [facility] Power[employer][email or web address] Portal You can view and manage your care through the patient portal or by using a health care altaf of your choosing. [employer] is a website that allows you to securely view your medical information including your hospital discharge summary, office visit summaries, medications and follow-up visits. You can also request appointments, renew medications, and request access to your medical information using a health care altaf of your choosing, or just ask a question. You can enroll at [email or web address] or register during your next office visit. [facility], in keeping with [facility] guidance, no longer requires face masks for [...] care provider, you may find a [facility] provider by calling [facility] Power[employer] [facility] at [phone]. Patient Care team information Care Team Personnel Name: Lilliana Carroll NP Position: [facility] PCO Associate Professional Member Role: PCP Address: [address] [place] [address] Telecom: Care Team Related Persons Name: SANTOSH GREENFIELD Name: KAILEE COTTON Name: KODI ORDOÑEZ Name: MUKUL FREEMAN Name: JUDY FREEMAN Insurance Providers Guarantor name: NHI FREEMAN Health Plan Information #: 1 Payer: BLUE CROSS PPO Payer Identifier: MAXWELL Member Number: [id number] Group Number: [id number] Subscriber Identifier: [id number] Relationship to Subscriber: self Coverage Type: NA Coverage Verification Date: NA Telecom: NA Address:
--- OUTSIDE RECORDS SUMMARY | 2025-07-17 23:59 | XMS_ITS | Continuity of Care Document ---
Author Organization [facility] Adult Address [address] [place] [address]- Care Team Providers Care Marketing Communication Manager Name Role Phone Lilliana Carroll NP Primary Care Physician [place] [facility] [place]17[place] 07/17/25 [facility] Adult [address] [place] [id number]- Encounter Type: Triage Allergies, Adverse Reactions, Alerts Substance Criticality Severity Reaction Reaction Severity Status Other Environmental Allergy nasal symptoms trees mold dust grasses Active Immunizations Given [...] (HbOC) vaccine 01/26/91 Re corded 1Result Comment: [facility]# [id number] 2Result Comment: regular dose [facility] [id number] 3Result Comment: [facility] [id number] 4Result Comment: [facility] [id number] Medications chlorhexidine 4% topical soap 1 applicator, Topically, Every Monday, Monday and Monday, # 120 mL, 0 Refills, Soft Stop, 05/27/25 11:36:00 AM EDT, [facility]/pharmacy #[id number], Partial fill upon patient request if the [...] Refills, Maintenance, 05/27/25 11:36:00 AM EDT, Foam, [facility]/pharmacy #[id number], Partial fill upon [...] 7:36:00 AM EDT, Route to Pharmacy Electronically, [facility]/pharmacy #[id number], 158.2, cm, 12/07/22 9:55:00 EDT, Height, 95.45, [...] oral capsule, extended release 0 Refills, Maintenance, 10/14/25 11:46:00 AM EDT, Partial fill upon patient [...] 07/04/25 7:03:00 AM EST,Route to Pharmacy Electronically, [id number], 158.7, cm, 05/27/25 11:18:00 EDT, Height, 71.3, [...] 01/25/23 7:08:00 PM EDT,Route to Pharmacy Electronically, [facility], 158.2, cm, 01/03/23 9:16:00 EDT, Height, 95.45, [...] Total Allowed Fills: 1 Fills Dispensed: 0 Problem List Condition Confirmation Course Effective Dates [...] or heterosexual Sex Sex Representation Female (finding) Patient Care team information Care Team Personnel Name: Lilliana Carroll NP Position: [facility] PCO Associate Professional Member Role: PCP Address: [address] [place] [address], [address] [place] [address] Telecom: Care Team Related Persons Name: SANTOSH GREENFIELD Name: KAILEE COTTON Name: KODI ORDOÑEZ Name: MUKUL FREEMAN Name: JUDY FREEMAN Insurance Providers Guarantor name: NHI FREEMAN Health Plan Information #: 1 Payer: [employer] CROSS PPO Payer Identifier: NA Member Number: [id number] Group Number: [id number] Subscriber Identifier: NA Relationship to Subscriber: self Coverage Type: NA Coverage Verification Date: NA Telecom: NA Address: NA
--- NOTE | ~2025-07-19 | XR_ITS ---
CLINICAL HISTORY: chest pain 2 view chest x-ray Comparison: CR/SR - XR CHEST 2 VIEWS - 04/06/23 09:51 EDT Findings: No consolidation, pleural effusion or pneumothorax. Normal size heart. No acute fracture. Postsurgical changes in the upper abdomen. IMPRESSION: No acute cardiopulmonary process. This document has been electronically signed by: Joanne Chavis DO on 07/19/2025 11:54:51
--- NOTE | 2025-07-19 09:49 | ECG_ITS ---
Test Reason : CP Blood Pressure : */* mmHG Vent. Rate : 101 BPM Atrial Rate : 101 BPM P-R Int : 128 ms QRS Dur : 76 ms QT Int : 334 ms P-R-T Axes : 77 66 54 degrees QTcB Int : 433 ms Sinus tachycardia Otherwise normal ECG When compared with ECG of 06-Apr-2023 09:13, No significant change was found Referred By: Generic ED Physician Electronically Signed By: KULWANT JOSUE
[2025-07-19 09:55] VITALS: BP 154/75; PULSE 103; RESP 18; TEMP 36.4; O2SAT 99; BMI 27.6
--- NOTE | 2025-07-19 10:22 | ED.GENADULT ---
HPI - General Adult General Chief complaint: Arrhythmia/Palpitations Stated complaint: chest pain Time Seen by Provider: 07/19/25 10:21 Source: patient, RN notes reviewed and old records reviewed Mode of arrival: ambulatory Limitations: no limitations History of Present Illness ED Provider: River GONZALEZ narrative: Patient is a 34-year-old female with past medical history of bipolar disorder, anxiety and depression, GERD presenting to the emergency department with complaint of palpitations while she was at work and noted that her heart rate was elevated to 140 on her apple watch. She reports history of similar episodes in the past. Has been seen by Cardiology and is scheduled to see Cardiology in September. She has previously had a Holter monitor and stress test. Denies chest pain in, shortness of breath, nausea or vomiting, diaphoresis. Denies recent cough. Reports has been having ongoing episodes of this tachycardia. Denies recent calf pain or swelling. MD complaint: palpitations Related Data Home Medications ?Medication ?Instructions ?Recorded ?Confirmed trazodone 50 mg tablet 50 mg PO BEDTIME 03/10/23 06/06/24 Held on 08/24/23. Instructions: Resume on 08/25/23. lamotrigine 200 mg tablet 250 mg PO DAILY 06/06/24 06/06/24 (Lamictal) clonidine HCl 0.1 mg tablet 0.1 mg PO DAILY PRN 05/01/25 cyclobenzaprine 10 mg tablet 10 mg PO TID PRN 05/01/25 dexmethylphenidate 15 mg 15 mg PO QAM 05/01/25 capsule,extended release [id number] diclofenac sodium 1 % topical gel 2 g topical BID 05/01/25 venlafaxine 75 mg capsule,extended 75 mg PO DAILY 05/01/25 release 24 hr Previous Rx's ?Medication ?Instructions ?Recorded docusate sodium 100 mg capsule 100 mg PO DAILY #90 caps 09/06/23 (Colace) polyethylene glycol 3350 17 17 g PO DAILY #238 grams 12/25/23 gram/dose oral powder (Miralax) thiamine HCl (vitamin B1) 100 mg 100 mg PO DAILY #90 tabs 06/06/24 tablet hydrocortisone acetate 25 mg 25 mg MA BID #12 ea 06/22/24 rectal suppository (Anusol-HC) ondansetron 4 mg disintegrating 4 mg PO Q12H for nausea/vomiting 04/17/25 tablet #18 tabs cholecalciferol (vitamin D3) 125 125 mcg PO DAILY #90 caps 07/15/25 mcg (5,000 unit) capsule Allergies Allergy/AdvReac Type Severity Reaction Status Date / Time mold Allergy Unknown Verified 07/19/25 09:56 tree and shrub pollen Allergy Unknown Verified 07/19/25 09:56 Review of Systems Review of Systems: As per HPI Yes all other systems are reviewed and are negative Constitutional: Constitutional: Reports as per HPI [facility] Past Medical History Medical History (Updated 07/19/25 @ 12:29 by Janette Holman NP) Postural dizziness with near syncope BMI 36.0-36.9,adult Constipation BMI 37.0-37.9, adult Obesity IUD (intrauterine device) in place Environmental allergies Insomnia Sciatica Bipolar 1 disorder Anxiety Depression GERD (gastroesophageal reflux disease) Sleep apnea treated with continuous positive airway pressure (CPAP) Morbid obesity Surgical History Hx of laparoscopic adjustable gastric banding Hx of wisdom tooth extraction History of surgery on arm Hx of section Social History Social History Household Members: None Housing: Apartment Are you a primary infant caregiver to a significant other at home: Yes (children, family to assist post-op) Do you presently have visiting nurse or other home services: No Alcohol intake: current Alcohol intake frequency: holidays/special occasions only Patient Tobacco Use Status: Never used Tobacco Advance Directives: No Advance Directives Information Provided: Yes Do you have a plan to hurt others: No Plan service: No Physical Exam ED Vital Signs: Vital Signs - 24 hr 07/19/25 09:55 07/19/25 12:23 07/19/25 12:53 Temperature 97.5 F Pulse Rate 103 H 87 93 Respiratory Rate 18 Blood Pressure 154/75 H 115/77 114/81 Pulse Oximetry 99 Oxygen Delivery Method Room Air 07/19/25 12:54 07/19/25 12:54 Temperature Pulse Rate 97 91 Respiratory Rate 15 Blood Pressure 114/81 121/85 Pulse Oximetry Oxygen Delivery Method BMI result Body Mass Index 27.6 Vital signs have been reviewed and appear to be correct. Blood pressure normal. Heart rate slightly tachycardic. Respiratory rate normal. Temperature normal. Oxygen saturation normal. Const General: cooperative, healthy appearing and no acute distress Orientation/consciousness: oriented to person, oriented to place, oriented to time and patient oriented x3 Limitations: no limitations HENMT Head: Yes normocephalic and Yes atraumatic Ears: external ears normal General nose exam: Normal external nose present Face and sinus: Yes face symmetric Mouth: oropharynx normal and moist mucous membranes Throat: Yes uvula midline Eyes Pupils: Equal, round and reactive pupils present Neck Neck: Yes normal visual inspection and Yes supple Resp Effort & Inspection: normal respiratory effort and able to speak in complete sentences Auscultation: clear to auscultation bilaterally Cardio Rate: regular rate Rhythm: regular rhythm Heart sounds: S1 normal heart sound present and S2 normal heart sound present GI Palpation (GI): Soft to palpation and nontender Auscultation: normoactive bowel sounds General: Yes no CVA tenderness Back/Spine/Pelvis Back: no CVA tenderness Skin General skin exam: elasticity normal and turgor normal Neuro General: oriented to person, oriented to place, oriented to time, patient oriented x3, moves all extremities, no focal motor deficits and CN's II-XI intact bilaterally Cranial nerves: Yes Equal, round and reactive pupils present Cognition (Neuro): normal cognition Extrem General: Yes full ROM, Yes no pedal edema and Yes no calf tenderness Psych Mental Status: mental status grossly normal Affect: normal affect Thought process: Normal thought process present Medical Decision Making Medical Decision Making MDM Narrative: Patient is a 34-year-old female with past medical history of bipolar disorder, anxiety and depression, GERD presenting to the emergency department with complaint of palpitations while she was at work and noted that her heart rate was elevated to 140 on her apple watch. On exam patient is awake, A+Ox3, VS WNL, afebrile, normal neurological exam without focal deficits, physical exam findings as above. Given reported symptoms and physical exam findings, initial differential includes but is not limited to cardiac arrhythmia, anemia, electrolyte abnormality, dehydration, orthostatic intolerance. Labs grossly within normal limits, negative troponin. No additional episodes of tachycardia while at rest in the ED. No orthostatic intolerance noted on orthostatic vital signs. Feel patient is stable for discharge home. Advised follow up with PCP and cardiology as planned. Return precautions discussed. Patient verbalized understanding of and agreement with plan. Differential Diagnosis Differential Diagnoses: The differential diagnosis associated with the presentation includes As per [facility] Admission/Observation Consideration of admission/observation: Escalation of care including admission/observation considered Patient would have been admitted to the hospital and transferred to appropriate facility had their clinical presentation warranted hospital admission. Lab Data [facility] Lab Attestation statement: I reviewed the patient's lab results. as per [facility] 07/19/25 10:19 07/19/25 10:19 Labs: Lab Results 07/19/25 Range/Units 10:19 WBC 8.0 (4.8-10.8) X10*3/uL RBC 4.50 (4.20-5.50) X10*6/uL Hgb 13.3 (12.0-16.0) g/dl Hct 39.4 (37.0-47.0) % MCV 87.6 (80.0-98.0) fL MCH 29.6 (27.0-33.0) pg MCHC 33.8 (31.0-35.0) g/dl RDW 11.2 (11.0-16.0) % Plt Count 423 H D (160-400) X10*3/uL MPV 9.0 L (9.4-12.3) fL Immature Gran % (Auto) 2.8 H (0.0-0.4) % Neut % (Auto) 75.1 H (45-73) % Lymph % (Auto) 16.4 L (20-40) % [place] % (Auto) 5.6 (2-11) % Eos % (Auto) 0.0 (0-4) % Baso % (Auto) 0.1 (0-2) % Lymph # (Auto) 1.3 (1.2-4.9) X10*3/uL [place] # (Auto) 0.5 (0.1-1.2) X10*3/uL Eos # (Auto) 0.0 (0.0-0.4) X10*3/uL Baso # (Auto) 0.0 (0.0-0.2) X10*3/uL Abs Immat Gran (auto) 0.22 H (0.00-0.03) X10*3/uL Absolute Neuts (auto) 6.0 (2.0-8.3) x10*3/uL Absolute Nucleated RBC 0.000 (0.0-0.012) X10*3/uL Nucleated RBC % (auto) 0.0 (0.0-0.2) /100WBC Sodium 144 (135-145) mmol/L Potassium 4.7 D (3.3-5.1) mmol/L Chloride 106 (96-108) mmol/L Carbon Dioxide 29 (22-29) mmol/L Anion Gap 14 (12-20) BUN 14 (9-16) mg/dL Creatinine 0.82 (0.5-1.4) mg/dL Estim Creat Clear Calc 87.6 Estimated GFR > 60 Random Glucose 83 (60-115) mg/dL Calcium 9.8 D (8.4-10.2) mg/dL Troponin I High Sens < 2.7 (<3.5-17.0) ng/L Beta HCG, Quant < 2 mIU/mL Independent Interpretation I performed an independent interpretation of an: EKG ( sinus tachycardia, rate 101 beats per minute, normal MA interval and QTC) External Record Review External record reviewed: Inpatient record, Office record and Outpatient record Discharge Plan Discharge Clinical Impression: Sinus tachycardia, Heart palpitations Patient Disposition: Home, Self-Care Instructions: Heart Palpitations (DC), Tachycardia (ED) Additional Instructions: you were evaluated in the emergency department today for palpitations and a fast heart rate, also known as tachycardia. Your evaluation did not show evidence of conditions requiring emergent medical treatment at this time in your labs were reassuring. 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 Return to the emergency department if you develop chest pain, shortness of breath, dizziness, lightheadedness, fainting, or any other new or concerning symptoms. Prescriptions: No Action docusate sodium [Colace] 100 mg capsule 100 mg PO DAILY Qty: 90 0RF ondansetron 4 mg tablet,disintegrating 4 mg PO Q12H Qty: 18 3RF cholecalciferol (vitamin D3) 125 mcg (5,000 unit) capsule 125 mcg PO DAILY Qty: 90 3RF hydrocortisone acetate [Anusol-HC] 25 mg suppository 25 mg MA BID Qty: 12 0RF trazodone 50 mg tablet 50 mg PO BEDTIME lamotrigine [Lamictal] 200 mg tablet 250 mg PO DAILY polyethylene glycol 3350 [Miralax] 17 gram/dose powder 17 g PO DAILY Qty: 238 3RF cyclobenzaprine 10 mg tablet 10 mg PO TID PRN clonidine HCl 0.1 mg tablet 0.1 mg PO DAILY PRN venlafaxine 75 mg capsule,extended release 24hr 75 mg PO DAILY dexmethylphenidate 15 mg capsule,ER biphasic 50-50 15 mg PO QAM diclofenac sodium 1 % gel 2 g topical BID thiamine HCl (vitamin B1) 100 mg tablet 100 mg PO DAILY Qty: 90 3RF Stand Alone Forms: Work/School Release Print Language: Tajik
[2025-07-19 10:25] LABS: MANUAL DIFF FLAG NO
[2025-07-19 10:28] LABS: Hematocrit 39.4 % (37.0-47.0); Hemoglobin 13.3 g/dl (12.0-16.0); Imm Gran Abs Auto 0.22 X10*3/uL (0.00-0.03); Imm Gran Pct Auto 2.8 % (0.0-0.4); Lymphocytes Absolute Auto 1.3 X10*3/uL (1.2-4.9); Mean Corpuscular HGB Conc 33.8 g/dl (31.0-35.0); Mean Corpuscular Hemoglobin 29.6 pg (27.0-33.0); Mean Corpuscular Volume 87.6 fL (80.0-98.0); NRBC Abs Auto 0.000 X10*3/uL (0.0-0.012); NRBC Pct Auto 0.0 /100WBC (0.0-0.2); Platelet Count 423 X10*3/uL (160-400); Red Blood Count 4.50 X10*6/uL (4.20-5.50); White Blood Count 8.0 X10*3/uL (4.8-10.8)
--- OUTSIDE RECORDS SUMMARY | 2025-07-19 10:28 | XMS_ITS | Clinical Summary ---
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
[2025-07-19 10:52] LABS: Anion Gap 14 (12-20); Blood Urea Nitrogen 14 mg/dL (9-16); Calcium 9.8 mg/dL (8.4-10.2); Carbon Dioxide 29 mmol/L (22-29); Chloride 106 mmol/L (96-108); Creatinine Clr Calc Pharmacy 87.6; Estimated Glomerular Filt Rate > 60; Potassium 4.7 mmol/L (3.3-5.1); Sodium 144 mmol/L (135-145)
[2025-07-19 11:11] LABS: Troponin-I High Sensitivity < 2.7 ng/L (<3.5-17.0)
[2025-07-19 12:23] VITALS: BP 115/77; PULSE 87
[2025-07-19 12:53] VITALS: BP 114/81; PULSE 93
[2025-07-19 12:54] VITALS: BP 114/81; BP 121/85; PULSE 91; PULSE 97; RESP 15
[2025-07-19 13:25] VITALS: BP 114/81; PULSE 97; RESP 15; TEMP 36.5
== END 2025-07-19 13:37 | disposition home or self-care (01) ==
PROVIDERS: Registered Nurse Emergency; Emergency Provider Emergency Medicine; PCP Nurse Practitioner Family
DX: R00.0 Tachycardia, unspecified (principal); R00.2 Palpitations; R07.9 Chest pain, unspecified; F41.9 Anxiety disorder, unspecified; K21.9 Gastro-esophageal reflux disease without esophagitis; Z79.899 Other long term (current) drug therapy
CPT/HCPCS: 36415; 71046; 80048; 84484; 84702; 85025; 93005; 99283; 99284

== ENCOUNTER → 2025-07-19 09:49 | Outpatient (BNV) | payer BC, SELFPAY | PROVIDERS: Emergency Provider Emergency Medicine; PCP Nurse Practitioner Family; Visit Provider Internal Medicine | DX: R00.0 Tachycardia, unspecified (principal) | CPT/HCPCS: 93010 ==

== ENCOUNTER → 2025-07-19 10:23 | Outpatient (BNV) | payer BC, SELFPAY | PROVIDERS: Emergency Provider Emergency Medicine; PCP Nurse Practitioner Family; Visit Provider Radiology Diagnostic Radiology | DX: R07.9 Chest pain, unspecified (principal) | CPT/HCPCS: 71046 ==

== ENCOUNTER 2025-07-21 11:58 | Outpatient (AMB) | payer BC, SELFPAY ==
--- NOTE | 2025-07-21 11:50 | A.OFFVIS_ITS ---
VS Expanded 07/21/25 11:55 Height 5 ft 2 in Weight 152 lb BMI 27.8 Intake Visit Reasons: Phone PO LSG 08/23/23 Allergies mold Allergy (Verified 07/19/25 09:56) Unknown tree and shrub pollen Allergy (Verified 07/19/25 09:56) Unknown Medication List - Last Reconciled 07/21/25 by [place] cholecalciferol (vitamin D3) 125 mcg PO DAILY clonidine HCl 0.1 mg PO DAILY PRN cyclobenzaprine 10 mg PO TID PRN dexmethylphenidate ER 15 mg PO QAM diclofenac sodium 1% 2 grams topical BID docusate sodium (Colace) 100 mg PO DAILY hydrocortisone acetate (Anusol-HC) 25 mg [place] BID lamotrigine (Lamictal) 250 mg PO DAILY ondansetron 4 mg PO Q12H polyethylene glycol 3350 (Miralax) 17 grams PO DAILY thiamine HCl (vitamin B1) 100 mg PO DAILY trazodone 50 mg PO BEDTIME Held on 08/24/23. Instructions: Resume on 08/25/23. venlafaxine ER 75 mg PO DAILY HPI Comments Details: This is a 34 yo female who is s/p LSG 08/23/2023. Presents for 23 month post op visit. Weight stable since last OV. No complaints of nausea, emesis, abdominal pain or reflux, or constipation. She was recently seen in ER for tachycardia and palpitations; feels her B1 was low. However I cannot find lab evidence of this in her chart. She did have history of low B1 previously. Present meal plan includes: occasional protein shake one yogurt (can add soy milk/frozen fruit to make a smoothie) 2-3 small meals of protein each with veg getting adequate hydration Exercise routine includes: does walk at work- gets about 7k steps per day [facility] Medical History (Updated 07/20/25 @ 00:00 by Nayeli Boone) Postural dizziness with near syncope BMI 36.0-36.9,adult Constipation BMI 37.0-37.9, adult Obesity IUD (intrauterine device) in place Environmental allergies Insomnia Sciatica Bipolar 1 disorder Anxiety Depression GERD (gastroesophageal reflux disease) Sleep apnea treated with continuous positive airway pressure (CPAP) Morbid obesity Surgical History Hx of laparoscopic adjustable gastric banding Hx of wisdom tooth extraction History of surgery on arm Hx of section Social History Household Members: None Housing: Apartment Are you a primary floor care specialist to a significant other at home: Yes (children, family to assist post-op) Do you presently have visiting nurse or other home services: No Alcohol intake: current Alcohol intake frequency: holidays/special occasions only Patient Tobacco Use Status: Never used Tobacco service: No Telehealth Telehealth Telehealth Platform: Telephone Location of provider rendering services: practice address Location of patient: address on file Patient Identification confirmed using: Name, : Yes Telehealth method: voice only Patient verbally consented to treatment: Yes Patient verbally consented to billing insurance company: Yes Patient informed of any privacy concerns related to visit: Yes Minutes spent on Phone/Video with Pt.: 15 Assessment & Plan Assessment & Plan (1) S/P laparoscopic sleeve gastrectomy: Code(s): Z98.84 - Bariatric surgery status Category: Surgical (2) Overweight: Code(s): E66.3 - Overweight Category: Medical Plan She will resume vitamin B1. She will have labs done to confirm any vitamin deficiencies. She will follow up with cardiology on 09/15. She has a previously scheduled appt in October we will keep. She will text me with any concerns before then. Orders: Orders Insulin Today Z98.84 - Bariatric surgery status TSH reflex Free T4 Today Z98.84 - Bariatric surgery status Ferritin Today Z98.84 - Bariatric surgery status Vitamin A Today Z98.84 - Bariatric surgery status Vitamin B1 Today Z98.84 - Bariatric surgery status Vitamin B12 and Folate Today Z98.84 - Bariatric surgery status Complete Blood Count Auto Diff Today Z98.84 - Bariatric surgery status Comprehensive Met. Panel Today Z98.84 - Bariatric surgery status C Reactive Protein Today Z98.84 - Bariatric surgery status Vitamin D 25-OH Total Today Z98.84 - Bariatric surgery status Zinc Today Z98.84 - Bariatric surgery status IRON PROFILE Today Z98.84 - Bariatric surgery status Lipid Panel Today Z98.84 - Bariatric surgery status Hemoglobin A1c Today Z98.84 - Bariatric surgery status
[2025-07-21 11:55] VITALS: BMI 27.8
== END 2025-07-21 12:11 | disposition home or self-care (01) ==
LOC: HO.HBS 11:58
PROVIDERS: PCP Nurse Practitioner Family; Visit Provider Physician Assistant Surgical
DX: E66.3 Overweight (principal); Z68.27 Body mass index [BMI] 27.0-27.9, adult; Z90.3 Acquired absence of stomach [part of]; Z98.84 Bariatric surgery status
CPT/HCPCS: 98967

== ENCOUNTER 2025-07-22 09:20 | Outpatient (REF) | payer BC, SELFPAY ==
[2025-07-22 09:37] LABS: MANUAL DIFF FLAG NO
[2025-07-22 09:50] LABS: Hematocrit 42.2 % (37.0-47.0); Hemoglobin 14.0 g/dl (12.0-16.0); Imm Gran Abs Auto 0.14 X10*3/uL (0.00-0.03); Imm Gran Pct Auto 1.7 % (0.0-0.4); Lymphocytes Absolute Auto 1.5 X10*3/uL (1.2-4.9); Mean Corpuscular HGB Conc 33.2 g/dl (31.0-35.0); Mean Corpuscular Hemoglobin 29.3 pg (27.0-33.0); Mean Corpuscular Volume 88.3 fL (80.0-98.0); NRBC Abs Auto 0.000 X10*3/uL (0.0-0.012); NRBC Pct Auto 0.0 /100WBC (0.0-0.2); Platelet Count 405 X10*3/uL (160-400); Red Blood Count 4.78 X10*6/uL (4.20-5.50); White Blood Count 8.0 X10*3/uL (4.8-10.8)
[2025-07-22 10:33] LABS: Alanine Aminotransferase 24 U/L (0-31); Albumin Level 4.8 g/dL (3.5-5.0); Alkaline Phosphatase 91 U/L (39-117); Anion Gap 11 (12-20); Aspartate Amino Transferase 17 U/L (5-31); Blood Urea Nitrogen 7 mg/dL (9-16); Calcium 9.9 mg/dL (8.4-10.2); Carbon Dioxide 30 mmol/L (22-29); Chloride 107 mmol/L (96-108); Cholesterol 184 mg/dL (<200); Estimated Glomerular Filt Rate > 60; HDL Cholesterol 65 mg/dL (>40); Iron 117 mcg/dL (30-160); Percent Iron Saturation 43 % (15-50); Potassium 5.1 mmol/L (3.3-5.1); Sodium 143 mmol/L (135-145); Total Iron Binding Capacity 274 mcg/dL (228-428); Total Protein 8.1 g/dL (6.5-8.0); Triglycerides 63 mg/dL (<150); Unsaturated Iron Binding 157 ug/dL
[2025-07-22 10:51] LABS: Ferritin 273 ng/mL (10-122)
[2025-07-22 11:01] LABS: Folate 11.2 ng/mL (> or = 4.0); Vitamin B12 605 pg/mL (200-900)
== END 2025-07-22 09:21 | disposition home or self-care (01) ==
LOC: HO.LAB 09:20
PROVIDERS: PCP Nurse Practitioner Family; Visit Provider Physician Assistant Surgical
DX: Z13.29 Encounter for screening for other suspected endocrine disorder (principal); Z13.6 Encounter for screening for cardiovascular disorders; Z13.1 Encounter for screening for diabetes mellitus; Z98.84 Bariatric surgery status
CPT/HCPCS: 36415; 80053; 80061; 82306; 82607; 82728; 82746; 83036; 83525; 83540; 84425; 84443; 84590; 84630; 85025; 86140